=== PATIENT | female | born 1960 | race Two or more races ===

== ENCOUNTER → 2020-03-23 09:41 | Outpatient (BNVA) | payer MEDICARE, OTHER, SELFPAY | PROVIDERS: PCP Physician Assistant; Visit Provider Student in an Organized Health Care Education/Training Program | DX: M17.0 Bilateral primary osteoarthritis of knee (principal); M47.816 Spondylosis without myelopathy or radiculopathy, lumbar region | CPT/HCPCS: 99212 ==

== ENCOUNTER 2020-03-26 07:08 | Outpatient (REF) | payer OTHER, SELFPAY ==
[2020-03-26 08:15] LABS: MANUAL DIFF FLAG NO
[2020-03-26 08:17] LABS: Basophils Percent Auto 0.5 % (0-2); Eosinophils Absolute Auto 0.2 X10*3/uL (0.0-0.4); Eosinophils Percent Auto 2.8 % (0-4); Hematocrit 33.8 % (37-47); Hemoglobin 10.7 g/dl (12.0-16.0); Imm Gran Abs Auto 0.01 X10*3/uL (0.00-0.03); Imm Gran Pct Auto 0.2 % (0.0-0.4); Lymphocytes Absolute Auto 2.5 X10*3/uL (1.2-4.9); Lymphocytes Percent Auto 40.1 % (20-40); Mean Corpuscular HGB Conc 31.7 g/dl (31.0-35.0); Mean Corpuscular Hemoglobin 28.5 pg (27.0-33.0); Mean Corpuscular Volume 89.9 fL (80-98); Mean Platelet Volume 9.6 fL (9.4-12.3); Monocytes Absolute Auto 0.3 X10*3/uL (0.1-1.2); Monocytes Percent Auto 5.4 % (2-11); Neutrophils Absolute Auto 3.2 X10*3/uL (2.0-8.3); Platelet Count 302 X10*3/uL (160-400); Red Blood Count 3.76 X10*6/uL (4.20-5.50); White Blood Count 6.2 X10*3/uL (4.8-10.8)
[2020-03-26 08:45] LABS: Alanine Aminotransferase 20 U/L (0-31); Albumin Level 4.2 g/dL (3.5-5.0); Alkaline Phosphatase 92 U/L (39-117); Anion Gap 13 (12-20); Aspartate Amino Transferase 21 U/L (5-31); Bilirubin Total 0.4 mg/dL (0.0-1.0); Blood Urea Nitrogen 26 mg/dL (9-16); Calcium 9.1 mg/dL (8.4-10.2); Carbon Dioxide 30 mmol/L (22-29); Chloride 102 mmol/L (96-108); Cholesterol 158 mg/dL; Estimated Glomerular Filt Rate 57; Glucose Fasting 108 mg/dL (60-99); HDL Cholesterol 48 mg/dL; LDL Cholesterol Calculated 73 mg/dl; Potassium 3.9 mmol/l (3.3-5.1); Sodium 141 mmol/L (135-145); Total Protein 7.5 g/dL (6.5-8.0); Triglycerides 186 mg/dL
[2020-03-26 09:07] LABS: Thyroid Stimulating Hormone 2.21 uIU/mL (0.32-4.0)
[2020-03-26 09:35] LABS: Creatinine Urine 185.37 mg/dL; Microalbum/Creatinine Ratio Ur 5.3 ug/mg cr
== END 2020-03-26 07:09 | disposition home or self-care (01) ==
LOC: HO.LAB 07:08
PROVIDERS: PCP Physician Assistant; Visit Provider Physician Assistant
DX: I10 Essential (primary) hypertension (principal); E11.9 Type 2 diabetes mellitus without complications; E78.5 Hyperlipidemia, unspecified
CPT/HCPCS: 36415; 80053; 80061; 82043; 84443; 85025

== ENCOUNTER 2020-04-24 07:09 | Outpatient (REF) | payer MEDICARE, OTHER, SELFPAY ==
[2020-04-24 08:15] LABS: Estimated Average Glucose 131 mg/dL; Hemoglobin A1c % 6.2 %
[2020-04-24 08:21] LABS: Creatinine Urine 217.76 mg/dL; Microalbum/Creatinine Ratio Ur 2.7 ug/mg cr
[2020-04-24 08:28] LABS: Alanine Aminotransferase 25 U/L (0-31); Albumin Level 4.4 g/dL (3.5-5.0); Alkaline Phosphatase 76 U/L (39-117); Anion Gap 14 (12-20); Aspartate Amino Transferase 22 U/L (5-31); Bilirubin Total 0.3 mg/dL (0.0-1.0); Blood Urea Nitrogen 15 mg/dL (9-16); Calcium 9.6 mg/dL (8.4-10.2); Carbon Dioxide 31 mmol/L (22-29); Chloride 100 mmol/L (96-108); Cholesterol 154 mg/dL; Estimated Glomerular Filt Rate 53; Glucose Fasting 113 mg/dL (60-99); HDL Cholesterol 54 mg/dL; Iron 74 mcg/dL (30-160); LDL Cholesterol Calculated 72 mg/dl; Percent Iron Saturation 19 % (15-50); Potassium 4.1 mmol/l (3.3-5.1); Sodium 141 mmol/L (135-145); Total Iron Binding Capacity 386 mcg/dL (228-428); Total Protein 7.8 g/dL (6.5-8.0); Triglycerides 142 mg/dL; Unsaturated Iron Binding 312 ug/dL
[2020-04-24 08:48] LABS: TSH reflex Free T4 1.19 mIU/mL (0.32-4.0)
[2020-04-26 07:19] LABS: Folate 19.9 ng/mL (> or = 4.0); Vitamin B12 469 pg/mL (200-900)
== END 2020-04-24 07:10 | disposition home or self-care (01) ==
LOC: HO.LAB 07:09
PROVIDERS: PCP Physician Assistant; Visit Provider Physician Assistant
DX: I10 Essential (primary) hypertension (principal); E78.1 Pure hyperglyceridemia; D50.9 Iron deficiency anemia, unspecified
CPT/HCPCS: 80053; 80061; 82043; 82607; 82746; 83036; 83540; 84443

== ENCOUNTER 2020-04-28 10:57 | Outpatient (REF) | payer MEDICARE, OTHER, SELFPAY ==
--- NOTE | 2020-04-28 11:00 | US_ITS ---
EXAMINATION: US PELVIS LIMITED (BLADDER) CLINICAL INFORMATION: Frequency of micturition. COMPARISON: Renal ultrasound 10/13/2013 and 03/26/2013. CT abdomen and pelvis 02/11/2012. TECHNIQUE: Real-time imaging of the bladder. FINDINGS: BLADDER: Well distended and normal. Bilateral ureteral jets are demonstrated. Prevoid bladder volume is 258 mL. Postvoid bladder volume is 8.7 mL. US/US bladder IMPRESSION: Unremarkable renal ultrasound. Tiny postvoid residual bladder volume. Normal bilateral ureteral jets seen.
== END 2020-04-28 10:58 | disposition home or self-care (01) ==
LOC: HO.US 10:57
PROVIDERS: PCP Physician Assistant; Visit Provider Physician Assistant
DX: R35.0 Frequency of micturition (principal)
CPT/HCPCS: 76857

== ENCOUNTER 2020-06-06 10:11 | Emergency (ER) | payer MEDICARE, OTHER, SELFPAY ==
--- NOTE | ~2020-06-06 | XR_ITS ---
EXAMINATION: XR hip RT w PEL1V CLINICAL INFORMATION: Injury status post fall. COMPARISON: None. TECHNIQUE: An AP view of the pelvis was obtained with AP and frog-leg lateral views of the right hip. FINDINGS: Each femoral head is well contained within its acetabulum. Joint spaces are normal. Mild degenerative changes are seen in each hip. No fracture or other acute abnormality is seen. XR/XR hip RT w PEL1V IMPRESSION: Mild degenerative changes. No fracture or other acute abnormality.
[2020-06-06 10:26] VITALS: BP 127/66; PULSE 85; RESP 16; TEMP 36.1; O2SAT 100; BMI 23.2
--- NOTE | 2020-06-06 10:35 | ED_ITS ---
HPI - Back Pain/Injury General Chief Complaint: Back Pain/Injury Stated Complaint: FALL BACK PAIN Time Seen by Provider: 06/06/20 10:30 Source: patient Mode of arrival: ambulatory Limitations: language barrier History of Present Illness HPI Narrative: 59 y/o female with history fo anxiety, HTN, HLD, anemia, lumbar spondylosis who presents with right sided hip and buttock pain s/p slip and fall on the ice 1 week ago. She did not hit her head, lose consciousness or sustain any other injuries. She has been able to walk well. Pain is worse when she bends down and at night when she is trying to sleep. She denies numbness, weakness, tingling. She denies incontinence. She has been taking Advil and taking hot showers for the pain with mild improvement. MD elicited complaint: back pain, back injury and fall Pertinent past history: prior back pain Onset (ago): day(s) (7) Timing: intermittent Severity: moderate Similar Symptoms Previously: Yes Quality: sharp and aching Location: right lower back Radiation: none Exacerbating factors: movement, coughing/sneezing and lifting Relieving factors: immobilization and medication Context: fall Associated symptoms: denies other symptoms Treatments prior to arrival: heat therapy Work related injury: No Related Data Home Medications Medication Instructions Recorded Confirmed docusate sodium 100 mg capsule 100 mg PO DAILY 03/08/20 04/06/20 fluoxetine 20 mg capsule 20 mg PO DAILY 03/08/20 04/06/20 hydrochlorothiazide 12.5 mg tablet 12.5 mg PO DAILY 03/08/20 04/06/20 olopatadine 0.1 % eye drops 1 drp OPHTHALMIC (EYE) BID 03/08/20 04/06/20 quetiapine 25 mg tablet 25 mg PO BEDTIME 03/08/20 04/06/20 fluticasone propionate 50 0 mcg INTRANASAL BID 04/06/20 04/06/20 mcg/actuation nasal spray,suspension zolpidem 10 mg tablet 10 mg PO BEDTIME PRN 05/11/20 Previous Rx's Medication Instructions Recorded leg brace #1 ea 02/05/20 comp.stocking,knee,long,medium #2 ea 02/16/20 atorvastatin 20 mg tablet 20 mg PO DAILY #30 tab 03/08/20 pioglitazone 15 mg tablet 15 mg PO DAILY #30 tab 03/08/20 diclofenac sodium 3 % topical gel 1 appl TOPICAL BID #100 g 03/23/20 montelukast 10 mg tablet 10 mg PO DAILY #30 tab 03/26/20 tramadol 50 mg tablet 50 mg PO BID #60 tab 03/26/20 omeprazole 20 mg capsule,delayed 20 mg PO DAILY #30 cap 03/27/20 release cholecalciferol (vitamin D3) 25 25 mcg PO DAILY #30 tab 04/14/20 mcg (1,000 unit) tablet diclofenac sodium 1 % topical gel 1 ea TOPICAL ONCE 30 Days #100 g 04/14/20 fluoxetine 40 mg capsule 40 mg PO DAILY 30 Days #30 cap 04/14/20 clonazepam 1 mg tablet 1 mg PO DAILY PRN 30 Days #30 tab 05/12/20 ferrous sulfate 325 mg (65 mg 325 mg PO DAILY 30 Days #30 tab 05/12/20 iron) tablet loratadine 10 mg tablet 10 mg PO DAILY 90 Days #90 tab 05/12/20 zolpidem 5 mg tablet 5 mg PO BEDTIME PRN 30 Days #30 tab 05/12/20 multivitamin 1 tab PO DAILY #90 tab 05/31/20 cyclobenzaprine 5 mg PO TID PRN #10 tab 06/06/20 ibuprofen 600 mg PO Q8H PRN #20 tab 06/06/20 lidocaine [Lidoderm] 1 patch TOPICAL DAILY #15 ea 06/06/20 Allergies Allergy/AdvReac Type Severity Reaction Status Date / Time No Known Allergies Allergy Verified 04/06/20 09:45 [No Known Allergies*] Review of Systems Review of Systems: Constitutional: No Fever, No Chills Gastrointestinal: No Nausea, No Vomiting, No Diarrhea, No abdominal Pain Genitourinary: No Dysuria, No Urinary Frequency, No Hematuria Musculoskeletal: + joint pain, + Myalgias Skin: No Skin Lesions, No rash Neuro: No Weakness, No Numbness, No Dizziness Psych: No Anxiety/Panic, No Depression Heme/Lymph: No Bruising PMFSH Past Medical History Attestation statement: The following information was validated with the patient. Medical History DMII (diabetes mellitus, type 2) Surgical History History of tubal ligation Family History Family History Father No problems noted. Mother No problems noted. Sister Breast cancer Brother Prediabetes Brain cancer Daughter Liver problem Social History Social History Alcohol intake: never Smoking Status: Never smoker Smoked in Last 30 Days: No Use of substances other than those prescribed or required for medical reasons: No Advance Directives: No Advance Directives Information Provided: No Physical Exam Vital Signs: Vital Signs: Last Vital Signs Temp 97.0 F 06/06/20 10:26 Pulse 85 06/06/20 10:26 Resp 16 06/06/20 10:26 BP 127/66 06/06/20 10:26 Pulse Ox 100 06/06/20 10:26 Body Mass Index 23.2 Appearance: Alert. Oriented X3. No acute distress. HEENT: normal inspection CVS: Normal heart rate and rhythm. Pulses normal. Respiratory: No respiratory distress. Skin: Skin warm and dry. Normal skin color. Normal skin turgor. No rashes. Back: right low lumbar soft tissue tenderness, no spinal tenderness. No CVA tenderness Extremities: atraumatic, pelvis is stable. right hip soft tissue tenderness laterally without ecchymosis or deformity Neuro: Oriented X 3. No motor deficit. No sensory deficit. Walks with steady gait, no limp. Able to stand on one leg each independently Course Course Course Narrative: 59 y/o female with right low back/buttock and right hip pain after a fall on ice 2 weeks ago. Doubt acute fracture or bony injury given her examination and normal gait. Will get X-rays for further evaluation and give Toradol, Tylenol and Flexeril now for pain. Will reassess. Reevaluation(s) Reevaluation #1: Pain is improved. XR is negative for acute injury. She is stable for discharge with treatment for contusiuon. MDM - Back Pain/Injury Differential Diagnosis Differential diagnosis: Likely lumbar radiculopathy, sciatica and strain of lumbar region Critical Care Time Critical Care Time Critical Care Time: No Discharge Plan Discharge Clinical Impression: Contusion of hip, right Qualifiers: Encounter type: initial encounter Qualified Code(s): S70.01XA - Contusion of right hip, initial encounter Patient Disposition: Home, Self-Care Instructions: Hip Contusion (ED) Additional Instructions: Your x-ray today did not show any acute injuries. Use ice and/or heat to the area several times per day. Take the prescribed medications as needed for pain. No bending, lifting or twisting. Follow up with your Primary Care Doctor this week. If your pain worsens, if you develop new numbness, tingling, weakness, loss of function or incontinence call 911 or come back to the ER right away for evaluation. Prescriptions: New lidocaine [Lidoderm] 5 % adhesive patch,medicated 1 patch topical DAILY Qty: 15 RF: 0 ibuprofen 600 mg tablet 600 mg PO Q8H PRN (Reason: pain) Qty: 20 RF: 0 cyclobenzaprine 5 mg tablet 5 mg PO TID PRN (Reason: muscle spasm) Qty: 10 RF: 0 No Action (DME) ALETHA Knee Brace Misc See Rx Instructions .ROUTE .MEDSUPPLY Qty: 1 RF: 0 (DME) comp.stocking,knee,long,medium Misc See Rx Instructions .ROUTE .MEDSUPPLY Qty: 2 RF: 0 fluoxetine 20 mg capsule 20 mg PO DAILY RF: 0 olopatadine 0.1 % drops 1 drp ophthalmic (eye) BID RF: 0 quetiapine 25 mg tablet 25 mg PO BEDTIME RF: 0 docusate sodium [Colace] 100 mg capsule 100 mg PO DAILY RF: 0 hydrochlorothiazide 12.5 mg tablet 12.5 mg PO DAILY RF: 0 atorvastatin 20 mg tablet 20 mg PO DAILY Qty: 30 RF: 3 pioglitazone 15 mg tablet 15 mg PO DAILY Qty: 30 RF: 2 montelukast 10 mg tablet 10 mg PO DAILY Qty: 30 RF: 2 tramadol 50 mg tablet 50 mg PO BID Qty: 60 RF: 5 omeprazole 20 mg capsule,delayed release(DR/EC) 20 mg PO DAILY Qty: 30 RF: 3 fluoxetine 40 mg capsule 40 mg PO DAILY 30 Days Qty: 30 RF: 3 cholecalciferol (vitamin D3) [Vitamin D3] 25 mcg (1,000 unit) tablet 25 mcg PO DAILY Qty: 30 RF: 3 diclofenac sodium 1 % gel 1 ea topical ONCE 30 Days Qty: 100 RF: 1 zolpidem 10 mg tablet 10 mg PO BEDTIME PRNRF: 0 clonazepam 1 mg tablet 1 mg PO DAILY PRN (Reason: anxiety) 30 Days Qty: 30 RF: 2 zolpidem [Ambien] 5 mg tablet 5 mg PO BEDTIME PRN (Reason: sleep) 30 Days Qty: 30 RF: 2 ferrous sulfate 325 mg (65 mg iron) tablet 325 mg PO DAILY 30 Days Qty: 30 RF: 3 loratadine [Allergy Relief (loratadine)] 10 mg tablet 10 mg PO DAILY 90 Days Qty: 90 RF: 2 multivitamin [Daily-Dionisio] Tablet 1 tab PO DAILY Qty: 90 RF: 4 fluticasone propionate 50 mcg/actuation spray,suspension 0 mcg intranasal BID RF: 0 diclofenac sodium 3 % gel 1 appl topical BID Qty: 100 RF: 2 Print Language: Upper Sorbian
[2020-06-06] MEDS: Cyclobenzaprine HCl 5 MG TABLET PO (10:37)
[2020-06-06] MEDS: Acetaminophen 325 MG TABLET 975 MG PO (10:37)
[2020-06-06] MEDS: Ketorolac Tromethamine 30 MG/ML VIAL IM (10:40)
--- NOTE | 2020-06-06 10:58 | PC.NURSE ---
will apply salonpas patch after xrays performed
[2020-06-06] MEDS: Lidocaine 4 % Patch ADH..PATCH 1 PATCH TRANSDERMA (11:22)
== END 2020-06-06 12:19 | disposition home or self-care (01) ==
PROVIDERS: Emergency Provider Emergency Medicine Emergency Medical Services; PCP Physician Assistant
DX: S70.01XA Contusion of right hip, initial encounter (principal); M25.551 Pain in right hip; W00.0XXA Fall on same level due to ice and snow, initial encounter; Y93.01 Activity, walking, marching and hiking; Y92.9 Unspecified place or not applicable; Y99.9 Unspecified external cause status; Z79.899 Other long term (current) drug therapy
CPT/HCPCS: 73502; 96372; 99283; 99284; J1885

== ENCOUNTER 2020-07-17 10:21 | Emergency (ER) | payer MEDICARE, OTHER, SELFPAY ==
[2020-07-17 10:25] VITALS: BP 110/65; PULSE 63; RESP 16; TEMP 36.4; O2SAT 98; BMI 23.2
--- NOTE | 2020-07-17 10:36 | PC.NURSE ---
ambulatory with steady gait to [facility], changing in to hospital gown for exam
--- NOTE | 2020-07-17 11:45 | ED_ITS ---
HPI - Extremity Problem General Chief complaint: Extremity Injury, Upper Stated complaint: shoulder pain Time Seen by Provider: 07/17/20 11:07 Source: patient Mode of arrival: ambulatory History of Present Illness HPI Narrative: 60-year-old female with a past medical history of diabetes, tubal ligation, presented to the ED complaining of right shoulder pain x2 weeks. denies known injury/trauma, falls or lifting. Reports pain with ROM. Denies numbness, tingling, weakness, chest pain, shortness of breath Related Data Home Medications Medication Instructions Recorded Confirmed docusate sodium 100 mg capsule 100 mg PO DAILY 03/08/20 04/06/20 fluoxetine 20 mg capsule 20 mg PO DAILY 03/08/20 04/06/20 hydrochlorothiazide 12.5 mg tablet 12.5 mg PO DAILY 03/08/20 04/06/20 olopatadine 0.1 % eye drops 1 drp OPHTHALMIC (EYE) BID 03/08/20 04/06/20 quetiapine 25 mg tablet 25 mg PO BEDTIME 03/08/20 04/06/20 fluticasone propionate 50 0 mcg INTRANASAL BID 04/06/20 04/06/20 mcg/actuation nasal spray,suspension zolpidem 10 mg tablet 10 mg PO BEDTIME PRN 05/11/20 cholecalciferol (vitamin D3) 25 25 mcg PO DAILY 06/23/20 mcg (1,000 unit) tablet Previous Rx's Medication Instructions Recorded leg brace #1 ea 02/05/20 comp.stocking,knee,long,medium #2 ea 02/16/20 atorvastatin 20 mg tablet 20 mg PO DAILY #30 tab 03/08/20 diclofenac sodium 3 % topical gel 1 appl TOPICAL BID #100 g 03/23/20 tramadol 50 mg tablet 50 mg PO BID #60 tab 03/26/20 omeprazole 20 mg capsule,delayed 20 mg PO DAILY #30 cap 03/27/20 release fluoxetine 40 mg capsule 40 mg PO DAILY 30 Days #30 cap 04/14/20 clonazepam 1 mg tablet 1 mg PO DAILY PRN 30 Days #30 tab 05/12/20 ferrous sulfate 325 mg (65 mg 325 mg PO DAILY 30 Days #30 tab 05/12/20 iron) tablet loratadine 10 mg tablet 10 mg PO DAILY 90 Days #90 tab 05/12/20 zolpidem 5 mg tablet 5 mg PO BEDTIME PRN 30 Days #30 tab 05/12/20 multivitamin 1 tab PO DAILY #90 tab 05/31/20 cyclobenzaprine 5 mg PO TID PRN #10 tab 06/06/20 ibuprofen 600 mg PO Q8H PRN #20 tab 06/06/20 lidocaine [Lidoderm] 1 patch TOPICAL DAILY #15 ea 06/06/20 cholecalciferol (vitamin D3) 25 25 mcg PO DAILY #30 tab 06/23/20 mcg (1,000 unit) tablet diclofenac sodium 1 % topical gel 2 g TOPICAL DAILY #100 g 06/23/20 montelukast 10 mg tablet 10 mg PO DAILY #30 tab 06/23/20 pioglitazone 15 mg tablet 15 mg PO DAILY #30 tab 07/05/20 acetaminophen [Tylenol Extra 500 mg PO Q6H PRN #20 tab 07/17/20 Strength] cyclobenzaprine 5 mg PO Q8H PRN 5 Days #14 tab 07/17/20 lidocaine [Lidoderm] 1 patch TOPICAL DAILY PRN #30 ea 07/17/20 MDD remove after 12 hours naproxen 500 mg PO BID PRN 10 Days #20 tab 07/17/20 Allergies Allergy/AdvReac Type Severity Reaction Status Date / Time No Known Allergies Allergy Verified 07/17/20 10:29 [No Known Allergies*] Review of Systems Review of Systems: Constitutional: No Fever, No Chills Cardiovascular: No Chest Pain, No SOB Musculoskeletal: + joint pain, No Myalgias, No Joint Swelling Skin: No Skin Lesions, No rash Neuro: No Weakness, No Numbness, No Paresthesias Yes all other systems are reviewed and are negative PENDING SALE TO [facility] Past Medical History Attestation statement: The following information was validated with the patient. Medical History DMII (diabetes mellitus, type 2) Surgical History History of tubal ligation Family History Family History Father No problems noted. Mother No problems noted. Sister Breast cancer Brother Prediabetes Brain cancer Daughter Liver problem Social History Social History Alcohol intake: never Smoking Status: Never smoker Advance Directives: No Advance Directives Information Provided: No Physical Exam Vital Signs: Vital Signs: Last Vital Signs Temp 97.5 F 07/17/20 10:25 Pulse 63 07/17/20 10:25 Resp 16 07/17/20 10:25 BP 110/65 07/17/20 10:25 Pulse Ox 98 07/17/20 10:25 Body Mass Index 23.2 Const: General: cooperative and healthy appearing Orientation/consciousness: patient oriented x3 Limitations: no limitations HENMT: Head: Yes normal to inspection Ears: hearing grossly normal bilaterally General nose exam: Normal external nose present Face and sinus: Yes normal facial exam Eyes: General: appearance normal, both eyes and all related structures EOM: EOMs intact bilaterally Neck: Neck: Yes normal visual inspection Resp: Effort & Inspection: normal respiratory effort Cardio: Rate: regular rate Peripheral pulses: radial pulses present Skin: Rashes: no rashes Wounds: no wounds Neuro: General: patient oriented x3, gait normal and tone normal Gait exam (Neuro): Normal gait present Extrem: Other: Pain elicited with ROM General: Yes normal to inspection Right upper extremity: shoulder/upper arm Details: tenderness Location: of the A-C joint and abnormal ROM (Decreased abduction secondary to pain); no swelling, no crepitus and no unusual warmth MDM - Extremity (Nontraumatic) MDM Narrative Medical decision making narrative: 60-year-old female with a past medical history of diabetes, tubal ligation, presented to the ED complaining of right shoulder pain x2 weeks. On exam VSS, NAD/well-appearing, physical exam as above. Concern for MSK pain/rotator cuff injury/tendon injury/sprain. Unlikely fracture/dislocation. low concern for ACS Discharge Plan Discharge Clinical Impression: Acute shoulder pain Qualifiers: Laterality: right Qualified Code(s): M25.511 - Pain in right shoulder Patient Disposition: Home, Self-Care Instructions: Arthralgia (ED) Additional Instructions: Your pain is likely musculoskeletal Flexeril is a muscle relaxer, take at night as it makes you drowsy, do not drive, drink alcohol, or operate machinery while taking it Naproxen as an anti-inflammatory / pain medication, take with food Lidoderm patches are numbing patches, apply to painful area In addition take Tylenol at home If symptoms persist or worsen, pain becomes unbearable, you weakness or fever return to the ED Follow-up with orthopedics and her primary care doctor, you may need an MRI Es probable que gray dolor sea musculoesquel?stephen Flexeril es un relajante muscular, t?lucas por la noche ya que le produce somnolencia, no conduzca, no irvin alcohol ni utilice maquinaria mientras lo petros. Naproxeno yadi medicamento antiinflamatorio / analg?sico, eliz con alimentos. Los parches de Lidoderm son parches que adormecen, se aplican al ?stefani dolorida Adem?s, tome Tylenol en casa. Si los s?ntomas persisten o empeoran, el dolor se vuelve insoportable, la debilidad o la fiebre vuelven al servicio de urgencias Seguimiento con ortopedia y gray m?dico de atenci?n primaria, es posible que necesite tenisha resonancia magn?william Prescriptions: New acetaminophen [Tylenol Extra Strength] 500 mg tablet 500 mg PO Q6H PRN (Reason: pain or fever) Qty: 20 RF: 0 lidocaine [Lidoderm] 5 % adhesive patch,medicated 1 patch topical DAILY MDD remove after 12 hours PRN (Reason: pain) Qty: 30 RF: 0 naproxen 500 mg tablet 500 mg PO BID PRN (Reason: pain) 10 Days Qty: 20 RF: 0 cyclobenzaprine 5 mg tablet 5 mg PO Q8H PRN (Reason: pain (scale score 7-10)) 5 Days Qty: 14 RF: 0 No Action (DME) ALETHA Knee Brace Misc See Rx Instructions .ROUTE .MEDSUPPLY Qty: 1 RF: 0 (DME) comp.stocking,knee,long,medium Misc See Rx Instructions .ROUTE .MEDSUPPLY Qty: 2 RF: 0 fluoxetine 20 mg capsule 20 mg PO DAILY RF: 0 olopatadine 0.1 % drops 1 drp ophthalmic (eye) BID RF: 0 quetiapine 25 mg tablet 25 mg PO BEDTIME RF: 0 docusate sodium [Colace] 100 mg capsule 100 mg PO DAILY RF: 0 hydrochlorothiazide 12.5 mg tablet 12.5 mg PO DAILY RF: 0 atorvastatin 20 mg tablet 20 mg PO DAILY Qty: 30 RF: 3 tramadol 50 mg tablet 50 mg PO BID Qty: 60 RF: 5 omeprazole 20 mg capsule,delayed release(DR/EC) 20 mg PO DAILY Qty: 30 RF: 3 fluoxetine 40 mg capsule 40 mg PO DAILY 30 Days Qty: 30 RF: 3 zolpidem 10 mg tablet 10 mg PO BEDTIME PRNRF: 0 clonazepam 1 mg tablet 1 mg PO DAILY PRN (Reason: anxiety) 30 Days Qty: 30 RF: 2 zolpidem [Ambien] 5 mg tablet 5 mg PO BEDTIME PRN (Reason: sleep) 30 Days Qty: 30 RF: 2 ferrous sulfate 325 mg (65 mg iron) tablet 325 mg PO DAILY 30 Days Qty: 30 RF: 3 loratadine [Allergy Relief (loratadine)] 10 mg tablet 10 mg PO DAILY 90 Days Qty: 90 RF: 2 multivitamin [Daily-Dionisio] Tablet 1 tab PO DAILY Qty: 90 RF: 4 montelukast 10 mg tablet 10 mg PO DAILY Qty: 30 RF: 6 diclofenac sodium 1 % gel 2 g topical DAILY Qty: 100 RF: 2 cholecalciferol (vitamin D3) 25 mcg (1,000 unit) tablet 25 mcg PO DAILY RF: 0 cholecalciferol (vitamin D3) [Vitamin D3] 25 mcg (1,000 unit) tablet 25 mcg PO DAILY Qty: 30 RF: 6 pioglitazone 15 mg tablet 15 mg PO DAILY Qty: 30 RF: 4 lidocaine [Lidoderm] 5 % adhesive patch,medicated 1 patch topical DAILY Qty: 15 RF: 0 ibuprofen 600 mg tablet 600 mg PO Q8H PRN (Reason: pain) Qty: 20 RF: 0 cyclobenzaprine 5 mg tablet 5 mg PO TID PRN (Reason: muscle spasm) Qty: 10 RF: 0 fluticasone propionate 50 mcg/actuation spray,suspension 0 mcg intranasal BID RF: 0 diclofenac sodium 3 % gel 1 appl topical BID Qty: 100 RF: 2 Referrals: Tae Cerda MD [Physician] - 1 week (as needed) Interventions: ED Discharge Assessment Last Done: 07/17/20 12:00 Discharge Date/Time: 07/17/20 12:06 Print Language: Cymro
[2020-07-17] MEDS: Ketorolac Tromethamine 15 MG/ML VIAL IM (12:22)
== END 2020-07-17 12:06 | disposition home or self-care (01) ==
PROVIDERS: Emergency Provider Emergency Medicine; PCP Physician Assistant
DX: M25.511 Pain in right shoulder (principal); E11.9 Type 2 diabetes mellitus without complications; Z79.899 Other long term (current) drug therapy
CPT/HCPCS: 96372; 99283; 99284; J1885

== ENCOUNTER → 2020-09-06 08:12 | Outpatient (BNVA) | payer MEDICARE, OTHER, SELFPAY | PROVIDERS: PCP Physician Assistant; Visit Provider Nurse Practitioner Family | DX: M53.3 Sacrococcygeal disorders, not elsewhere classified (principal) | CPT/HCPCS: 99212 ==

== ENCOUNTER 2020-09-17 08:24 | Outpatient (REF) | payer MEDICARE, OTHER, SELFPAY ==
--- NOTE | ~2020-09-17 | MM_ITS ---
EXAMINATION: MM SCREENING DIGITAL BREAST TOMOSYNTHESIS, BILATERAL CLINICAL INFORMATION: Screening. Asymptomatic. The lifetime risk of breast cancer based on the Tyrer-Cuzick Model is 10%. COMPARISON: Mammography: 07/28/2019, 07/20/2018, 06/30/2017, 06/10/2016 TECHNIQUE: Digital breast tomosynthesis is performed in both the craniocaudal and mediolateral oblique views along with computer-aided detection (CAD). Synthesized 2D images are generated from the tomosynthesis. FINDINGS: The breasts are heterogeneously dense, which may obscure small masses (ACR BI-RADS breast composition Category c). There are no significant masses, abnormal calcifications, or other abnormalities. Parenchymal pattern is similar to prior studies. Skin contours. No significant changes from prior studies. MM/MM tomosynthesis screening BI IMPRESSION: No mammographic evidence of malignancy. ASSESSMENT: BI-RADS 1: Negative RECOMMENDATION: Routine annual mammography screening. This patient's information was entered into a reminder system with a target due date for their next mammogram.
== END 2020-09-17 08:25 | disposition home or self-care (01) ==
LOC: HO.MAMMO 08:24
PROVIDERS: PCP Physician Assistant; Visit Provider Physician Assistant
DX: Z12.31 Encounter for screening mammogram for malignant neoplasm of breast (principal)
CPT/HCPCS: 77063; 77067

== ENCOUNTER 2020-10-22 08:46 | Outpatient (REF) | payer MEDICARE, OTHER, SELFPAY ==
--- NOTE | ~2020-10-22 | MR_ITS ---
EXAMINATION: MR LUMBAR SPINE WITHOUT CONTRAST CLINICAL INFORMATION: Spondylosis without myelopathy or radiculopathy. COMPARISON: Lumbar spine radiographs 01/31/2019, MRI lumbar spine 03/09/2011 TECHNIQUE: MRI of the lumbar spine was obtained using routine sequences without contrast. FINDINGS: VERTEBRAL BODIES AND PARASPINAL STRUCTURES: Five lumbar-type vertebral bodies are identified. Vertebral body height, alignment and marrow signal are within normal limits aside from mild endplate discogenic marrow signal changes predominantly related to mild multilevel anterior endplate osteophytosis. Partial visualization is made of a prominent central canal perineural cyst measuring 3.8 cm in craniocaudal dimension and 1.2 cm in transverse dimension, unchanged compared with 03/09/2011. A 7 mm diameter rounded T2 hyperintensity with low T1-weighted signal intensity is present in the anterior interpolar segment of the right kidney and appears to correspond to a similar slightly decreased sized focus on the exam of 03/09/2011 most likely representing a simple cyst requiring no additional imaging followup. CONUS MEDULLARIS AND CAUDA EQUINA: Normal, terminating at the level of L1-L2. SPINAL LEVELS: T12-L1: No central or foraminal stenoses. Normal intervertebral disc. L1-L2: No change compared with 03/09/2011. Minimal posterior broad-based disc bulge. Moderate bilateral ligamentum flavum hypertrophy. No significant central or foraminal stenoses. L2-L3: No central or foraminal stenoses. Mild bilateral facet and ligamentum flavum hypertrophy. L3-L4: Moderate bilateral facet hypertrophy increased in degree compared with 03/09/2011. Marked bilateral ligamentum flavum hypertrophy increased compared with 03/09/2011. Mild central stenosis. A 4 mm diameter synovial cyst is associated with the posterior aspect of the left facet joint and is new compared with 03/09/2011. L4-L5: Moderate central stenosis increased in degree compared with 03/09/2011. Findings arise in the setting of marked bilateral ligamentum flavum hypertrophy and moderate bilateral facet hypertrophy. Bilateral posterior projecting synovial cysts each measuring approximately 6 mm in maximum dimension are noted and are new compared with 03/09/2011. L5-S1: Moderate-marked central stenosis unchanged in degree compared with 03/09/2011. Moderate bilateral facet hypertrophy unchanged compared with 03/09/2011. Central stenosis is present secondary to concentric epidural lipomatosis with near-complete effacement of the adjacent thecal sac CSF space. The intervertebral disc is normal in height and contour. MR/MR lumbar spine wo con IMPRESSION: 1. Moderate multilevel chronic spondylosis of the lumbar spine with interval progression of findings at L3-L4 and L4-L5 compared with 03/09/2011, as detailed above. 2. Advanced facet hypertrophic degenerative changes at L3-L4, L4-L5 and L5-S1. 3. L5-S1 moderate-marked central stenosis secondary to concentric epidural lipomatosis. 4. L4-L5 moderate central stenosis. 5. 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
== END 2020-10-22 08:47 | disposition home or self-care (01) ==
LOC: HO.MRI 08:46
PROVIDERS: PCP Physician Assistant; Visit Provider Physician Assistant
DX: M47.816 Spondylosis without myelopathy or radiculopathy, lumbar region (principal)
CPT/HCPCS: 72148

== ENCOUNTER → 2020-11-09 08:50 | Outpatient (BNVA) | payer OTHER, SELFPAY | PROVIDERS: PCP Physician Assistant; Visit Provider Nurse Practitioner Family ==

== ENCOUNTER 2020-11-24 08:50 | Outpatient (REF) | payer MEDICARE, OTHER, SELFPAY ==
[2020-11-24 10:49] LABS: Hematocrit 35.7 % (37-47); Hemoglobin 11.4 g/dl (12.0-16.0); Mean Corpuscular HGB Conc 31.9 g/dl (31.0-35.0); Mean Corpuscular Hemoglobin 28.4 pg (27.0-33.0); Mean Corpuscular Volume 88.8 fL (80-98); Mean Platelet Volume 9.9 fL (9.4-12.3); Platelet Count 302 X10*3/uL (160-400); Red Blood Count 4.02 X10*6/uL (4.20-5.50); Red Cell Distribution Width 12.8 % (11.0-16.0); White Blood Count 5.4 X10*3/uL (4.8-10.8)
[2020-11-24 11:00] LABS: Alanine Aminotransferase 17 U/L (0-31); Albumin Level 4.1 g/dL (3.5-5.0); Alkaline Phosphatase 81 U/L (39-117); Anion Gap 12 (12-20); Aspartate Amino Transferase 20 U/L (5-31); Bilirubin Total 0.4 mg/dL (0.0-1.0); Blood Urea Nitrogen 20 mg/dL (9-16); Calcium 9.4 mg/dL (8.4-10.2); Carbon Dioxide 30 mmol/L (22-29); Chloride 104 mmol/L (96-108); Cholesterol 160 mg/dL; Estimated Glomerular Filt Rate 49; Glucose Fasting 119 mg/dL (60-99); HDL Cholesterol 46 mg/dL; LDL Cholesterol Calculated 82 mg/dl; Potassium 3.8 mmol/L (3.3-5.1); Sodium 142 mmol/L (135-145); Total Protein 7.4 g/dL (6.5-8.0); Triglycerides 161 mg/dL
[2020-11-24 11:10] LABS: Microalbum/Creatinine Ratio Ur 7.9 ug/mg cr
[2020-11-24 11:23] LABS: TSH reflex Free T4 1.01 uIU/mL (0.32-4.0)
== END 2020-11-24 08:51 | disposition home or self-care (01) ==
LOC: HO.LAB 08:50
PROVIDERS: PCP Physician Assistant; Visit Provider Physician Assistant
DX: I10 Essential (primary) hypertension (principal); E11.9 Type 2 diabetes mellitus without complications
CPT/HCPCS: 36415; 80053; 80061; 82043; 84443; 85027

== ENCOUNTER → 2020-12-07 08:03 | Outpatient (BNVA) | payer MEDICARE, OTHER, SELFPAY | PROVIDERS: PCP Physician Assistant; Visit Provider Nurse Practitioner Family | DX: M53.3 Sacrococcygeal disorders, not elsewhere classified (principal); M48.07 Spinal stenosis, lumbosacral region; M47.816 Spondylosis without myelopathy or radiculopathy, lumbar region | CPT/HCPCS: 99212 ==

== ENCOUNTER → 2021-03-23 08:52 | Outpatient (BNVA) | payer MEDICARE, MEDICAID, SELFPAY | PROVIDERS: PCP Physician Assistant; Visit Provider Nurse Practitioner Family | DX: M47.816 Spondylosis without myelopathy or radiculopathy, lumbar region (principal); M79.18 Myalgia, other site | CPT/HCPCS: 99212 ==

== ENCOUNTER 2021-03-25 08:42 | Outpatient (REF) | payer MEDICARE, MEDICAID, SELFPAY ==
[2021-03-25 10:01] LABS: Hematocrit 36.3 % (37.0-47.0); Hemoglobin 11.6 g/dl (12.0-16.0); Mean Corpuscular Hemoglobin 28.4 pg (27.0-33.0); Mean Platelet Volume 9.5 fL (9.4-12.3); Platelet Count 309 X10*3/uL (160-400); Red Blood Count 4.08 X10*6/uL (4.20-5.50); Red Cell Distribution Width 12.9 % (11.0-16.0); White Blood Count 5.5 X10*3/uL (4.8-10.8)
[2021-03-25 10:12] LABS: Estimated Average Glucose 131 mg/dL; Hemoglobin A1c % 6.2 %
[2021-03-25 10:33] LABS: Alanine Aminotransferase 25 U/L (0-31); Albumin Level 4.4 g/dL (3.5-5.0); Alkaline Phosphatase 84 U/L (39-117); Anion Gap 15 (12-20); Aspartate Amino Transferase 25 U/L (5-31); Blood Urea Nitrogen 17 mg/dL (9-16); Carbon Dioxide 28 mmol/L (22-29); Chloride 103 mmol/L (96-108); Cholesterol 172 mg/dL; Estimated Glomerular Filt Rate 48; Glucose Fasting 117 mg/dL (60-99); HDL Cholesterol 55 mg/dL; LDL Cholesterol Calculated 99 mg/dl; Potassium 3.8 mmol/L (3.3-5.1); Sodium 142 mmol/L (135-145); Total Protein 7.8 g/dL (6.5-8.0); Triglycerides 92 mg/dL
== END 2021-03-25 08:43 | disposition home or self-care (01) ==
LOC: HO.LAB 08:42
PROVIDERS: PCP Physician Assistant; Visit Provider Physician Assistant
DX: E11.9 Type 2 diabetes mellitus without complications (principal); I10 Essential (primary) hypertension
CPT/HCPCS: 36415; 80053; 80061; 83036; 85027

== ENCOUNTER 2021-03-29 10:31 | Emergency (ER) | payer MEDICARE, MEDICAID, SELFPAY ==
--- NOTE | 2021-03-29 | ECG_ITS ---
Test Reason : CP Blood Pressure : / mmHG Vent. Rate : 064 BPM Atrial Rate : 064 BPM P-R Int : 148 ms QRS Dur : 094 ms QT Int : 424 ms P-R-T Axes : 038 -05 033 degrees QTc Int : 437 ms Normal sinus rhythm Incomplete right bundle branch block Borderline ECG When compared to the previous EKG of No significant changes seen Referred By: Generic ED Physician Electronically Signed By:Derik Ramirez
--- NOTE | ~2021-03-29 | XR_ITS ---
EXAMINATION: XR CHEST CLINICAL INFORMATION: Pain COMPARISON: Previous chest x-ray most recent September 2018 TECHNIQUE: Frontal view of the chest was obtained. FINDINGS: The cardiac and mediastinal contours are stable. There may be subsegmental atelectasis of the left lung base. The lungs are otherwise clear. There is no pleural effusion or pneumothorax. There are degenerative changes of the spine. There is curvature of the lumbar spine to the left. XR/XR chest 1V IMPRESSION: Subsegmental atelectasis at the left lung base. No evidence for acute disease in the chest.
[2021-03-29 10:52] VITALS: BP 133/48; PULSE 61; RESP 18; TEMP 36.2; O2SAT 98; BMI 23.6
[2021-03-29 12:35] LABS: MANUAL DIFF FLAG NO
[2021-03-29 12:36] LABS: Basophils Percent Auto 0.5 % (0-2); Eosinophils Absolute Auto 0.1 X10*3/uL (0.0-0.4); Eosinophils Percent Auto 1.7 % (0-4); Hematocrit 36.3 % (37.0-47.0); Hemoglobin 11.8 g/dl (12.0-16.0); Imm Gran Abs Auto 0.01 X10*3/uL (0.00-0.03); Imm Gran Pct Auto 0.2 % (0.0-0.4); Lymphocytes Absolute Auto 2.4 X10*3/uL (1.2-4.9); Lymphocytes Percent Auto 40.3 % (20-40); Mean Corpuscular HGB Conc 32.5 g/dl (31.0-35.0); Mean Corpuscular Hemoglobin 29.1 pg (27.0-33.0); Mean Corpuscular Volume 89.6 fL (80.0-98.0); Monocytes Absolute Auto 0.3 X10*3/uL (0.1-1.2); Monocytes Percent Auto 4.8 % (2-11); Neutrophils Absolute Auto 3.1 x10*3/uL (2.0-8.3); Neutrophils Percent Auto 52.5 % (45-73); Platelet Count 295 X10*3/uL (160-400); Red Blood Count 4.05 X10*6/uL (4.20-5.50); Red Cell Distribution Width 12.9 % (11.0-16.0)
[2021-03-29 12:51] LABS: Anion Gap 12 (12-20); Blood Urea Nitrogen 17 mg/dL (9-16); Carbon Dioxide 29 mmol/L (22-29); Chloride 103 mmol/L (96-108); Creatinine Clr Calc Pharmacy 42.1; Estimated Glomerular Filt Rate 51; Glucose Random 93 mg/dL (60-115); Potassium 3.4 mmol/L (3.3-5.1); Sodium 141 mmol/L (135-145)
[2021-03-29 12:58] LABS: Troponin-I High Sensitivity < 3.5 ng/L (<3.5-17.0)
--- NOTE | 2021-03-29 13:18 | ED_ITS ---
HPI - Chest Pain General Chief Complaint: Chest Pain Stated Complaint: Chest pain/headache Time Seen by Provider: 03/29/21 13:18 Source: patient and translator interpreter Mode of arrival: ambulatory Limitations: no limitations History of Present Illness MD complaint: chest pain Onset (ago): hour(s) (8am today) Timing of current episode: constant Prior episodes: Yes Onset: during rest Pain location: substernal Pain radiation: back Severity: mild Quality: sharp Relieving factors: nothing Exacerbating factors: stress Context: other (hx of anxiety in past tried 0.5mg clonazepam without effect) Associated symptoms: other (anxiety) Treatment prior to arrival: none Related Data Home Medications Medication Instructions Recorded Confirmed quetiapine 25 mg tablet 25 mg PO BEDTIME 03/08/20 03/23/21 aspirin 81 mg tablet,delayed 81 mg PO DAILY 12/07/20 03/23/21 release (Adult Aspirin Regimen) topiramate 25 mg sprinkle capsule 25 mg PO DAILY 12/07/20 03/23/21 Previous Rx's Medication Instructions Recorded leg brace (ALETHA Knee Brace) #1 ea 02/05/20 comp.stocking,knee,long,medium #2 ea 02/16/20 fluoxetine 40 mg capsule 40 mg PO DAILY 30 Days #30 cap 04/14/20 clonazepam 1 mg tablet 1 mg PO DAILY PRN 30 Days #30 tab 05/12/20 loratadine 10 mg tablet (Allergy 10 mg PO DAILY 90 Days #90 tab 05/12/20 Relief (loratadine)) zolpidem 5 mg tablet (Ambien) 5 mg PO BEDTIME PRN 30 Days #30 tab 05/12/20 multivitamin (Daily-Dionisio) 1 tab PO DAILY #90 tab 05/31/20 ibuprofen 600 mg tablet 600 mg PO Q8H PRN #20 tab 06/06/20 acetaminophen 500 mg tablet 500 mg PO Q6H PRN #20 tab 07/17/20 (Tylenol Extra Strength) naproxen 500 mg tablet 500 mg PO BID PRN 10 Days #20 tab 07/17/20 hydrocortisone valerate 0.2 % 1 appl TOPICAL BID 10 Days #45 g 09/06/20 topical cream ketoconazole 2 % shampoo 1 appl TOPICAL 2XW 30 Days #120 ml 10/18/20 atorvastatin 20 mg tablet 20 mg PO DAILY #30 tab 11/27/20 omeprazole 20 mg capsule,delayed 20 mg PO DAILY #30 cap 11/27/20 release cholecalciferol (vitamin D3) 25 25 mcg PO DAILY 90 Days #90 tab 01/24/21 mcg (1,000 unit) tablet sennosides 8.6 mg tablet (senna) 17.2 mg PO BEDTIME 30 Days #60 tab 01/24/21 montelukast 10 mg tablet 10 mg PO DAILY #30 tab 01/30/21 hydrocortisone valerate 0.2 % 1 appl TOPICAL BID PRN 30 Days #60 02/04/21 topical cream g diclofenac sodium 1 % topical gel 2 g TOPICAL DAILY #100 g 02/07/21 fluticasone propionate 50 2 spray INTRANASAL BID #16 g 02/24/21 mcg/actuation nasal spray,suspension hydrochlorothiazide 12.5 mg capsule 12.5 mg PO DAILY 90 Days #90 cap 02/24/21 lidocaine 5 % topical patch 1 patch TOPICAL DAILY #30 ea 03/23/21 docusate sodium 100 mg capsule 100 mg PO BID 15 Days #30 cap 03/28/21 (Dulcolax Stool Softener (docusate)) ferrous sulfate 325 mg (65 mg 325 mg PO DAILY 30 Days #30 tab 03/28/21 iron) tablet Allergies Allergy/AdvReac Type Severity Reaction Status Date / Time No Known Allergies Allergy Verified 03/23/21 09:05 [No Known Allergies*] Review of Systems Review of Systems: Constitutional : No Weight loss, No Fever, No Chills ENT/Mouth : No sore throat, No Rhinorrhea Eyes: No Eye Pain, No Swelling Cardiovascular : pos Chest Pain, no SOB, no Dyspnea on Exertion, No Orthopnea, No Edema, No Palpitations Respiratory : No Cough, No Sputum Gastrointestinal : no Nausea, No Vomiting, No Diarrhea, No abdominal Pain, No Hematochezia, No Melena Genitourinary : No Dysuria, No Urinary Frequency Musculoskeletal : No joint pain, No Myalgias, No Joint Swelling Skin : No Skin Lesions, No rash Neuro : No Weakness, No Numbness, No Dizziness, No Headache Psych : pos Anxiety/Panic, No Depression Heme/Lymph: No Bruising, No Lymphadenopathy Endocrine : No Polyuria, No Polydipsia All other systems reviewed and are negative PMFSH Past Medical History Medical History DMII (diabetes mellitus, type 2) Surgical History History of tubal ligation Family History Family History Father No problems noted. Mother No problems noted. Sister Breast cancer Brother Prediabetes Brain cancer Daughter Liver problem Social History Social History Housing: House Alcohol intake: never Patient Tobacco Use Status: Never used Tobacco Advance Directives: No Advance Directives Information Provided: Yes service: No Current occupational status: retired Physical Exam Vital Signs: Vital Signs: Last Vital Signs Temp 97.7 F 03/29/21 14:19 Pulse 54 03/29/21 14:19 Resp 16 03/29/21 14:19 BP 140/61 H 03/29/21 14:19 Pulse Ox 99 03/29/21 14:19 BMI result Body Mass Index 23.6 Appearance: Alert. Oriented X3. No acute distress. Eyes: Pupils equal, round and reactive to light. ENT: Pharynx normal. Neck: Normal inspection. Neck supple. CVS: Normal heart rate and rhythm. Pulses normal. Respiratory: No respiratory distress. Breath sounds normal. Abdomen: Soft and non-tender. Skin: Skin warm and dry. Normal skin color. Normal skin turgor. Extremities: No lower extremity edema. No calf ttp Neuro: Oriented X 3. No motor deficit. No sensory deficit. Course Course Course Narrative: 4.5 hour trop negative with nonischemic EKG and atypical doubt ACS ddimer negative negative workup stable for DC at this time MDM - Chest Pain MDM Narrative Medical decision making narrative: 60 yo female with DM, HTN, HLD, anxiety here with chest pain since 8am while at rest no associated symptoms it is atypical she reports anxiety her troponin x 4.5 hour pee is negative, ddimer ordered, EKG and CXR, PO clonazepam - suspect anxiety. Lab Data Result diagrams: 03/29/21 12:30 03/29/21 12:30 Labs: Lab Results 03/29/21 03/29/21 03/29/21 Range/Units 12:30 12:30 12:30 WBC 6.0 (4.8-10.8) X10*3/uL RBC 4.05 L (4.20-5.50) X10*6/uL Hgb 11.8 L (12.0-16.0) g/dl Hct 36.3 L (37.0-47.0) % MCV 89.6 (80.0-98.0) fL MCH 29.1 (27.0-33.0) pg MCHC 32.5 (31.0-35.0) g/dl RDW 12.9 (11.0-16.0) % Plt Count 295 (160-400) X10*3/uL MPV 9.0 L (9.4-12.3) fL Immature Gran % (Auto) 0.2 (0.0-0.4) % Neut % (Auto) 52.5 (45-73) % Lymph % (Auto) 40.3 H (20-40) % [place] % (Auto) 4.8 (2-11) % Eos % (Auto) 1.7 (0-4) % Baso % (Auto) 0.5 (0-2) % Lymph # (Auto) 2.4 (1.2-4.9) X10*3/uL [place] # (Auto) 0.3 (0.1-1.2) X10*3/uL Eos # (Auto) 0.1 (0.0-0.4) X10*3/uL Baso # (Auto) 0.0 (0.0-0.2) X10*3/uL Abs Immat Gran (auto) 0.01 (0.00-0.03) X10*3/uL Absolute Neuts (auto) 3.1 (2.0-8.3) x10*3/uL Absolute Nucleated RBC 0.000 (0.0-0.012) X10*3/uL Nucleated RBC % (auto) 0.0 (0.0-0.2) /100WBC D-Dimer High Sensitivty NG/ML Sodium 141 (135-145) mmol/L Potassium 3.4 (3.3-5.1) mmol/L Chloride 103 (96-108) mmol/L Carbon Dioxide 29 (22-29) mmol/L Anion Gap 12 (12-20) BUN 17 H (9-16) mg/dL Creatinine 1.09 (0.5-1.4) mg/dL Estim Creat Clear Calc 42.1 Estimated GFR 51 Random Glucose 93 (60-115) mg/dL Calcium 10.0 (8.4-10.2) mg/dL Troponin I High Sens < 3.5 (<3.5-17.0) ng/L 03/29/21 Range/Units 13:37 WBC (4.8-10.8) X10*3/uL RBC (4.20-5.50) X10*6/uL Hgb (12.0-16.0) g/dl Hct (37.0-47.0) % MCV (80.0-98.0) fL MCH (27.0-33.0) pg MCHC (31.0-35.0) g/dl RDW (11.0-16.0) % Plt Count (160-400) X10*3/uL MPV (9.4-12.3) fL Immature Gran % (Auto) (0.0-0.4) % Neut % (Auto) (45-73) % Lymph % (Auto) (20-40) % [place] % (Auto) (2-11) % Eos % (Auto) (0-4) % Baso % (Auto) (0-2) % Lymph # (Auto) (1.2-4.9) X10*3/uL [place] # (Auto) (0.1-1.2) X10*3/uL Eos # (Auto) (0.0-0.4) X10*3/uL Baso # (Auto) (0.0-0.2) X10*3/uL Abs Immat Gran (auto) (0.00-0.03) X10*3/uL Absolute Neuts (auto) (2.0-8.3) x10*3/uL Absolute Nucleated RBC (0.0-0.012) X10*3/uL Nucleated RBC % (auto) (0.0-0.2) /100WBC D-Dimer High Sensitivty 197 NG/ML Sodium (135-145) mmol/L Potassium (3.3-5.1) mmol/L Chloride (96-108) mmol/L Carbon Dioxide (22-29) mmol/L Anion Gap (12-20) BUN (9-16) mg/dL Creatinine (0.5-1.4) mg/dL Estim Creat Clear Calc Estimated GFR Random Glucose (60-115) mg/dL Calcium (8.4-10.2) mg/dL Troponin I High Sens (<3.5-17.0) ng/L ECG Data ECG #1: Attestation: I personally reviewed and interpreted this ECG as follows: ECG interpretation date: 03/29/21 ECG interpretation time: 13:18 Interpretation: Rate: 64 Rhythm: NSR [place]: left Normal P waves. Normal DENIS. incomplete RBB ST T wave : non-specific, no MABEL qTC: normal prior studies: no acute ischemia The study has been interpreted contemporaneously by me. . Discharge Plan Discharge Clinical Impression: Atypical chest pain Patient Disposition: Home, Self-Care Instructions: Chest Pain (ED) Additional Instructions: return to ED for any worsening symptoms or concerns Prescriptions: No Action (DME) ALETHA Knee Brace Misc See Rx Instructions .ROUTE .MEDSUPPLY Qty: 1 RF: 0 (DME) comp.stocking,knee,long,medium Misc See Rx Instructions .ROUTE .MEDSUPPLY Qty: 2 RF: 0 quetiapine 25 mg tablet 25 mg PO BEDTIME RF: 0 fluoxetine 40 mg capsule 40 mg PO DAILY 30 Days Qty: 30 RF: 3 clonazepam 1 mg tablet 1 mg PO DAILY PRN (Reason: anxiety) 30 Days Qty: 30 RF: 2 zolpidem [Ambien] 5 mg tablet 5 mg PO BEDTIME PRN (Reason: sleep) 30 Days Qty: 30 RF: 2 loratadine [Allergy Relief (loratadine)] 10 mg tablet 10 mg PO DAILY 90 Days Qty: 90 RF: 2 multivitamin [Daily-Dioinsio] Tablet 1 tab PO DAILY Qty: 90 RF: 4 hydrocortisone valerate 0.2 % cream 1 appl topical BID 10 Days Qty: 45 RF: 0 ketoconazole 2 % shampoo 1 appl topical 2XW 30 Days Qty: 120 RF: 0 omeprazole 20 mg capsule,delayed release(DR/EC) 20 mg PO DAILY Qty: 30 RF: 3 atorvastatin 20 mg tablet 20 mg PO DAILY Qty: 30 RF: 3 cholecalciferol (vitamin D3) 25 mcg (1,000 unit) tablet 25 mcg PO DAILY 90 Days Qty: 90 RF: 3 sennosides [senna] 8.6 mg tablet 17.2 mg PO BEDTIME 30 Days Qty: 60 RF: 1 montelukast 10 mg tablet 10 mg PO DAILY Qty: 30 RF: 6 hydrocortisone valerate 0.2 % cream 1 appl topical BID PRN (Reason: skin irritation) 30 Days Qty: 60 RF: 0 diclofenac sodium 1 % gel 2 g topical DAILY Qty: 100 RF: 2 hydrochlorothiazide 12.5 mg capsule 12.5 mg PO DAILY 90 Days Qty: 90 RF: 3 fluticasone propionate 50 mcg/actuation spray,suspension 2 spray intranasal BID Qty: 16 RF: 3 ferrous sulfate 325 mg (65 mg iron) tablet 325 mg PO DAILY 30 Days Qty: 30 RF: 3 docusate sodium [Dulcolax Stool Softener (dss)] 100 mg capsule 100 mg PO BID 15 Days Qty: 30 RF: 3 ibuprofen 600 mg tablet 600 mg PO Q8H PRN (Reason: pain) Qty: 20 RF: 0 acetaminophen [Tylenol Extra Strength] 500 mg tablet 500 mg PO Q6H PRN (Reason: pain or fever) Qty: 20 RF: 0 naproxen 500 mg tablet 500 mg PO BID PRN (Reason: pain) 10 Days Qty: 20 RF: 0 topiramate 25 mg capsule, sprinkle 25 mg PO DAILY RF: 0 aspirin [Adult Aspirin Regimen] 81 mg tablet,delayed release (DR/EC) 81 mg PO DAILY RF: 0 lidocaine 5 % adhesive patch,medicated 1 patch topical DAILY Qty: 30 RF: 0 Referrals: Juan R Ramirez PA-C [Primary Care Provider] - 2 days (if not better) Print Language: Luxem[place]ish
[2021-03-29 13:57] LABS: D Dimer High Sensitivity 197 NG/ML
[2021-03-29 14:19] VITALS: BP 140/61; PULSE 54; RESP 16; TEMP 36.5; O2SAT 99
[2021-03-29] MEDS: clonazePAM 0.5 MG TABLET PO (14:23)
== END 2021-03-29 15:32 | disposition home or self-care (01) ==
PROVIDERS: Emergency Provider Emergency Medicine; PCP Physician Assistant
DX: R07.9 Chest pain, unspecified (principal); R51.9 Headache, unspecified; F41.1 Generalized anxiety disorder; F43.0 Acute stress reaction; Z79.899 Other long term (current) drug therapy; Z20.822 Contact with and (suspected) exposure to COVID-19
CPT/HCPCS: 36415; 71045; 80048; 84484; 85025; 85379; 93005; 99283; 99284

== ENCOUNTER 2021-06-05 07:55 | Emergency (ER) | payer MEDICARE, MEDICAID, SELFPAY ==
--- NOTE | 2021-06-05 | ECG_ITS ---
Test Reason : CHEST PAIN Blood Pressure : / mmHG Vent. Rate : 069 BPM Atrial Rate : 069 BPM P-R Int : 154 ms QRS Dur : 090 ms QT Int : 414 ms P-R-T Axes : 063 002 024 degrees QTc Int : 443 ms Normal sinus rhythm Low voltage QRS Nonspecific T wave abnormality Abnormal ECG When compared with ECG of 29-MAR-2021 10:41, No significant change was found Referred By: Generic ED Physician Electronically Signed By:Derik Ramirez
--- NOTE | ~2021-06-05 | XR_ITS ---
EXAMINATION: XR CHEST CLINICAL INFORMATION: Right chest wall pain COMPARISON: X-ray 03/29/2021 TECHNIQUE: 2 views of the chest were obtained. FINDINGS: The lungs are well-expanded. There is no focal consolidation, edema or effusion. No pneumothorax is seen. The cardiomediastinal silhouette is within normal limits. No acute displaced rib fractures are seen. Mild thoracic spine degeneration.. XR/XR chest 2V IMPRESSION: No acute pulmonary disease.
[2021-06-05 08:16] VITALS: BP 116/58; PULSE 65; RESP 18; O2SAT 98; BMI 23.2
--- NOTE | 2021-06-05 08:52 | ED_ITS ---
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 Patient states that for the last week, she has had generalized body aches. Patient states that nobody in the house is sick or feeling unwell. Patient states that she is vaccinated and boosted against COVID-19 and has had her influenza shot. Patient denies any dizziness, lightheadedness, abdominal pain, nausea, vomiting, fever, chills, blurry vision, double vision, loss of vision, chest pain, difficulty breathing, shortness of breath, back pain, night sweats, pain with urination, increased urinary frequency, increased urinary urgency, blood in her urine or stool, syncope or a near syncopal episode, recent trauma or falls, bowel incontinence, bladder incontinence, bowel retention, bladder retention, or any other complaints at this time. Onset (ago): week(s) (1) Severity: mild Severity scale (1-10): 3 Quality: aching and dull Pain Consistency: constant Relieving factors: none Exacerbating factors: none Associated symptoms: denies other symptoms Related Data Home Medications Medication Instructions Recorded Confirmed quetiapine 25 mg tablet 25 mg PO BEDTIME 03/08/20 04/05/21 aspirin 81 mg tablet,delayed 81 mg PO DAILY 12/07/20 04/05/21 release (Adult Aspirin Regimen) topiramate 25 mg sprinkle capsule 25 mg PO DAILY 12/07/20 04/05/21 Previous Rx's Medication Instructions Recorded leg brace (ALETHA Knee Brace) #1 ea 02/05/20 comp.stocking,knee,long,medium #2 ea 02/16/20 clonazepam 1 mg tablet 1 mg PO DAILY PRN 30 Days #30 tab 05/12/20 zolpidem 5 mg tablet (Ambien) 5 mg PO BEDTIME PRN 30 Days #30 tab 05/12/20 ibuprofen 600 mg tablet 600 mg PO Q8H PRN #20 tab 06/06/20 acetaminophen 500 mg tablet 500 mg PO Q6H PRN #20 tab 07/17/20 (Tylenol Extra Strength) naproxen 500 mg tablet 500 mg PO BID PRN 10 Days #20 tab 07/17/20 ketoconazole 2 % shampoo 1 appl TOPICAL 2XW 30 Days #120 ml 10/18/20 cholecalciferol (vitamin D3) 25 25 mcg PO DAILY 90 Days #90 tab 01/24/21 mcg (1,000 unit) tablet montelukast 10 mg tablet 10 mg PO DAILY #30 tab 01/30/21 hydrocortisone valerate 0.2 % 1 appl TOPICAL BID PRN 30 Days #60 02/04/21 topical cream g diclofenac sodium 1 % topical gel 2 g TOPICAL DAILY #100 g 02/07/21 hydrochlorothiazide 12.5 mg capsule 12.5 mg PO DAILY 90 Days #90 cap 02/24/21 lidocaine 5 % topical patch 1 patch TOPICAL DAILY #30 ea 03/23/21 docusate sodium 100 mg capsule 100 mg PO BID 15 Days #30 cap 03/28/21 (Dulcolax Stool Softener (docusate)) ferrous sulfate 325 mg (65 mg 325 mg PO DAILY 30 Days #30 tab 03/28/21 iron) tablet atorvastatin 20 mg tablet 20 mg PO DAILY #30 tab 03/30/21 omeprazole 20 mg capsule,delayed 20 mg PO DAILY #30 cap 03/30/21 release ozaguelpvg-crnmbhskzzphb-zkvqhmue 1 cap PO Q6H PRN 4 Days #16 cap 04/05/21 50 mg-325 mg-40 mg capsule lactulose 20 gram/30 mL oral 20 g (30 mL) PO BID PRN 15 Days 04/05/21 solution #1200 ml bepotastine besilate 1.5 % eye 1 drp OPHTHALMIC (EYE) BID PRN 30 05/11/21 drops (Bepreve) Days #10 ml fluoxetine 40 mg capsule 40 mg PO DAILY 30 Days #30 cap 05/12/21 hydroxyzine HCl 25 mg tablet 25 mg PO TID 7 Days #21 tab 05/18/21 fluticasone propionate 50 2 spray INTRANASAL BID #16 g 05/30/21 mcg/actuation nasal spray,suspension loratadine 10 mg tablet (Allergy 10 mg PO DAILY 90 Days #90 tab 05/30/21 Relief (loratadine)) multivitamin (Daily-Dionisio) 1 tab PO DAILY #90 tab 05/30/21 hydrocortisone valerate 0.2 % 1 appl TOPICAL BID 10 Days #45 g 06/01/21 topical cream sennosides 8.6 mg tablet (senna) 17.2 mg PO BEDTIME 30 Days #60 tab 06/01/21 Allergies Allergy/AdvReac Type Severity Reaction Status Date / Time No Known Allergies Allergy Verified 04/05/21 08:54 [No Known Allergies*] Review of Systems Constitutional: Constitutional: Reports no additional constitutional complaints, Reports body ache(s), Denies chills, Denies fever(s) and Denies night sweats Eyes: Eyes: Reports no additional eye complaints, Denies blurry vision, Denies change in vision, Denies diplopia, Denies eye discharge, Denies loss of vision and Denies eye pain ENT: Denies dizziness Cardiovascular: Cardiovascular: Reports no additional cardiovascular complaints, Denies chest pain, Denies lightheadedness, Denies Loss of Consciousness and Denies dyspnea Respiratory: Respiratory: Reports no additional respiratory complaints and Denies dyspnea Gastrointestinal: Gastrointestinal: Reports no additional gastrointestinal complaints, Denies abdominal pain, Denies melena, Denies hematochezia, Denies change in bowel habits and Denies change in stool character Genitourinary: Genitourinary: Denies hematuria, Denies urinary frequency, Denies dysuria, Denies urinary incontinence, Denies urinary hesitancy and Denies urinary urgency Musculoskeletal: Musculoskeletal: Reports no additional musculoskeletal complaints, Denies numbness and Denies tingling Neurologic: Denies dizziness, Denies loss of vision, Denies numbness and Denies tingling Psychiatric: Psychiatric: Reports no additional psychiatric complaints Endocrine: Endocrine: Reports no additional endocrine complaints Hematologic/Lymphatic: Hematologic/Lymphatic: Reports no additional hematologic/lymphatic complaints Allergic/Immunologic: Allergic/Immunologic: Reports no additional allergic/immunologic complaints [facility] [place] Past Medical History Attestation statement: The following information was validated with the patient. Source: old records reviewed Medical History DMII (diabetes mellitus, type 2) Surgical History History of tubal ligation Family History Family History Father No problems noted. Mother No problems noted. Sister Breast cancer Brother Prediabetes Daughter Liver problem Social History Social History Housing: House Alcohol intake: never Patient Tobacco Use Status: Never used Tobacco e-Cigarette/Vaping Use: Never Used Use of substances other than those prescribed or required for medical reasons: No Advance Directives: No Advance Directives Information Provided: No service: No Current occupational status: retired Physical Exam ED Vital Signs: Vital Signs - 24 hr 06/05/21 08:16 06/05/21 09:22 06/05/21 11:20 Temperature 98.3 F Pulse Rate 65 62 58 Respiratory Rate 18 18 18 Blood Pressure 116/58 L 113/67 110/61 Pulse Oximetry 98 99 99 BMI result Body Mass Index 23.2 Const General: cooperative, no acute distress, alert and awake Nutritional Appearance: well nourished Orientation/consciousness: patient oriented x3 Limitations: no limitations HENMT Head: Yes normal to inspection and Yes atraumatic Ears: hearing grossly normal bilaterally and external ears normal General nose exam: Normal external nose present, no nasal discharge noted and no epistaxis Face and sinus: Yes normal facial exam, No abrasion and No laceration Mouth: Normal oral and palatal mucosa present, no drooling and no muffled voice Eyes General: appearance normal, both eyes and all related structures Periorbital: periorbital findings normal Eyelids: Yes eyelids normal Conjunctivae: conjunctivae normal Pupils: Equal, round and reactive pupils present EOM: EOMs intact bilaterally Neck Neck: Yes normal visual inspection, Yes full ROM and Yes no lymphadenopathy Chest Chest palpation & inspection: normal inspection of the chest Resp Effort & Inspection: normal respiratory effort and able to speak in complete sentences Auscultation: clear to auscultation bilaterally Cardio Rhythm: regular rhythm Heart sounds: S1 normal heart sound present GI Inspection: Yes normal to inspection Neuro General: patient oriented x3 and moves all extremities Cranial nerves: Yes Equal, round and reactive pupils present Cognition (Neuro): normal cognition Motor exam (neuro): 5/5 motor strength present throughout Sensory Exam: Normal double simultaneous stimulation for sensation Coordination: [id number] test normal Extrem General: Yes normal to inspection, Yes full ROM and Yes capillary refill normal Psych Appearance: grossly normal Mental Status: mental status grossly normal Affect: normal affect Attitude: cooperative Thought process: Normal thought process present Thought content: Normal thought content present Insight: Good insight present (Psych) Medical Decision Making MDM Narrative Medical decision making narrative: Patient is a 60 year old female presenting to the emergency department today with body aches. Patient's physical exam was unremarkable. Patient's chest x-ray showed no acute process. Patient's EKG was unremarkable. Patient's rapid COVID- 19 and influenza tests were both negative. I explained my physical exam findings as well as all test results to the patient. I answered all questions asked by the patient. Patient received IM Toradol which she stated helped her symptoms significantly. I stressed the importance of the patient taking her medication as prescribed. I stressed the importance of the patient following up with her primary care provider. I stressed the importance of the patient returning to the emergency department immediately if her symptoms were to worsen or if she were to develop any dizziness, shortness of breath, difficulty breathing, chest pain, blurry vision, loss of vision, nausea, vomiting, abdominal pain, fever, chills, back pain, or any other complaints. Patient verbalized agreement and understanding with this treatment plan and discharge. Differential Diagnosis Differential Diagnosis: viral illness, COVID-19, influenza Medical Records Medical records reviewed: Yes I reviewed the patient's medical records. Lab Data Lab results reviewed: Yes I reviewed the patient's lab results. Labs: Lab Results 06/05/21 06/05/21 Range/Units 09:37 09:37 COVID-19 (ALEX) Negative (Negative) COVID-19 Clin Com See Note Influenza Type A (BISI) Negative (Negative) Influenza Type B (BISI) Negative (Negative) Influenza A & B Note See Note Imaging Data Chest x-ray: Attestation: I personally reviewed and interpreted this imaging study as follows: Radiologist's impression: EXAMINATION: XR CHEST CLINICAL INFORMATION: Right chest wall pain COMPARISON: X-ray 03/29/2021 TECHNIQUE: 2 views of the chest were obtained. FINDINGS: The lungs are well-expanded. There is no focal consolidation, edema or effusion. No pneumothorax is seen. The cardiomediastinal silhouette is within normal limits. No acute displaced rib fractures are seen. Mild thoracic spine degeneration.. XR/XR chest 2V IMPRESSION: No acute pulmonary disease. Dictated By: Raúl Farfan MD Signed By: Electronically signed by Raúl Farfan MD 06/05/21 ECG Data Attestation: I personally reviewed and interpreted this ECG as follows: Interpretation: Vent. Rate: 069 BPM ? ? Atrial Rate: 069 BPM P-R Int: 154 ms? QRS Dur: 090 ms QT Int: 414 ms ? ? ? P-R-T Axes: 063 002 024 degrees QTc Int: 443 ms ? Normal sinus rhythm Low voltage QRS Nonspecific T wave abnormality Abnormal ECG When compared with ECG of 29-MAR-2021 10:41, No significant change was found ? Electronically Signed By:Derik Ramirez Dictated By: Derik Ramirez MD Signed By: Electronically signed by Derik Ramirez MD 06/05/21 1033 Discharge Plan Discharge Clinical Impression: Viral illness Patient Disposition: Home, Self-Care Instructions: Viral Syndrome (ED) Additional Instructions: Follow up with your primary care provider. Return to the emergency department immediately if your symptoms worsen or if you develop any dizziness, shortness of breath, difficulty breathing, chest pain, blurry vision, loss of vision, nausea, vomiting, abdominal pain, fever, chills, back pain, or any other complaints. Prescriptions: No Action (DME) ALETHA Knee Brace Misc See Rx Instructions .ROUTE .MEDSUPPLY Qty: 1 0RF Rx Instructions: As directed (DME) comp.stocking,knee,long,medium Misc See Rx Instructions .ROUTE .MEDSUPPLY Qty: 2 0RF Rx Instructions: As directed quetiapine 25 mg tablet 25 mg PO BEDTIME 0RF clonazepam 1 mg tablet 1 mg PO DAILY PRN (Reason: anxiety) 30 Days Qty: 30 2RF zolpidem [Ambien] 5 mg tablet 5 mg PO BEDTIME PRN (Reason: sleep) 30 Days Qty: 30 2RF ketoconazole 2 % shampoo 1 appl topical 2XW 30 Days Qty: 120 0RF cholecalciferol (vitamin D3) 25 mcg (1,000 unit) tablet 25 mcg PO DAILY 90 Days Qty: 90 3RF montelukast 10 mg tablet 10 mg PO DAILY Qty: 30 6RF hydrocortisone valerate 0.2 % cream 1 appl topical BID PRN (Reason: skin irritation) 30 Days Qty: 60 0RF diclofenac sodium 1 % gel 2 g topical DAILY Qty: 100 2RF hydrochlorothiazide 12.5 mg capsule 12.5 mg PO DAILY 90 Days Qty: 90 3RF ferrous sulfate 325 mg (65 mg iron) tablet 325 mg PO DAILY 30 Days Qty: 30 3RF docusate sodium [Dulcolax Stool Softener (dss)] 100 mg capsule 100 mg PO BID 15 Days Qty: 30 3RF atorvastatin 20 mg tablet 20 mg PO DAILY Qty: 30 3RF omeprazole 20 mg capsule,delayed release(DR/EC) 20 mg PO DAILY Qty: 30 3RF bepotastine besilate [Bepreve] 1.5 % drops 1 drp ophthalmic (eye) BID PRN (Reason: eye irritation) 30 Days Qty: 10 0RF fluoxetine 40 mg capsule 40 mg PO DAILY 30 Days Qty: 30 3RF hydroxyzine HCl 25 mg tablet 25 mg PO TID 7 Days Qty: 21 0RF Rx Instructions: Advised to hold clonazepam and loratadine. fluticasone propionate 50 mcg/actuation spray,suspension 2 spray intranasal BID Qty: 16 3RF multivitamin [Daily-Dionisio] Tablet 1 tab PO DAILY Qty: 90 4RF loratadine [Allergy Relief (loratadine)] 10 mg tablet 10 mg PO DAILY 90 Days Qty: 90 2RF hydrocortisone valerate 0.2 % cream 1 appl topical BID 10 Days Qty: 45 0RF sennosides [senna] 8.6 mg tablet 17.2 mg PO BEDTIME 30 Days Qty: 60 2RF ibuprofen 600 mg tablet 600 mg PO Q8H PRN (Reason: pain) Qty: 20 0RF acetaminophen [Tylenol Extra Strength] 500 mg tablet 500 mg PO Q6H PRN (Reason: pain or fever) Qty: 20 0RF naproxen 500 mg tablet 500 mg PO BID PRN (Reason: pain) 10 Days Qty: 20 0RF lactulose 20 gram/30 mL solution 20 g PO BID PRN (Reason: laxative effect) 15 Days Qty: 1200 0RF ahvfdnzcdk-mhcdlgsaoeggt-oxfo 50-325-40 mg capsule 1 cap PO Q6H PRN (Reason: pain) 4 Days Qty: 16 0RF topiramate 25 mg capsule, sprinkle 25 mg PO DAILY 0RF aspirin [Adult Aspirin Regimen] 81 mg tablet,delayed release (DR/EC) 81 mg PO DAILY 0RF lidocaine 5 % adhesive patch,medicated 1 patch topical DAILY Qty: 30 0RF Rx Instructions: leave on most painful area for up to 12 hrs Interventions: ED Discharge Assessment Last Done: 06/05/21 11:43 Discharge Date/Time: 06/05/21 11:45 Print Language: Serbian
[2021-06-05 09:22] VITALS: BP 113/67; PULSE 62; RESP 18; O2SAT 99
[2021-06-05] MEDS: Ketorolac Tromethamine 30 MG/ML VIAL IM (09:27)
[2021-06-05 10:05] LABS: COVID-19 Test Negative (Negative); IDNOW Serial# 9DD0AD1C
[2021-06-05 10:14] LABS: Influenza A Negative (Negative); Influenza B2 Negative (Negative)
--- NOTE | 2021-06-05 11:11 | PC.NURSE ---
pt reports feeling a little better the headache and chest pain is currently 6/10
[2021-06-05 11:20] VITALS: BP 110/61; PULSE 58; RESP 18; TEMP 36.8; O2SAT 99
--- NOTE | 2021-06-05 14:05 | ECG_ITS ---
Test Reason : CHEST PAIN Blood Pressure : / mmHG Vent. Rate : 057 BPM Atrial Rate : 057 BPM P-R Int : 154 ms QRS Dur : 090 ms QT Int : 426 ms P-R-T Axes : 042 004 022 degrees QTc Int : 414 ms Sinus bradycardia Low voltage QRS Borderline ECG When compared with ECG of 05-JUN-2021 08:04, No significant change was found Referred By: Micheline Bobo Electronically Signed By:OFELIA VARNER MD
== END 2021-06-05 11:45 | disposition home or self-care (01) ==
PROVIDERS: Physician Assistant Medical; Emergency Provider Emergency Medicine
DX: B34.9 Viral infection, unspecified (principal); R07.89 Other chest pain; R51.9 Headache, unspecified; M79.10 Myalgia, unspecified site; Z20.822 Contact with and (suspected) exposure to COVID-19; Z79.899 Other long term (current) drug therapy
CPT/HCPCS: 71046; 87502; 87635; 93005; 96372; 99284; J1885

== ENCOUNTER 2021-07-30 07:07 | Outpatient (REF) | payer MEDICARE, MEDICAID, SELFPAY ==
[2021-07-30 07:14] LABS: Urine Cytology See Pathology rpt
[2021-07-30 07:50] LABS: Estimated Average Glucose 131 mg/dL; Hemoglobin A1c % 6.2 %
[2021-07-30 07:52] LABS: Alanine Aminotransferase 24 U/L (0-31); Albumin Level 4.3 g/dL (3.5-5.0); Alkaline Phosphatase 91 U/L (39-117); Anion Gap 15 (12-20); Aspartate Amino Transferase 25 U/L (5-31); Bilirubin Total 0.7 mg/dL (0.0-1.0); Blood Urea Nitrogen 16 mg/dL (9-16); Calcium 9.8 mg/dL (8.4-10.2); Carbon Dioxide 29 mmol/L (22-29); Chloride 101 mmol/L (96-108); Cholesterol 191 mg/dL; Estimated Glomerular Filt Rate 53; Glucose Fasting 133 mg/dL (60-99); HDL Cholesterol 52 mg/dL; Iron 73 mcg/dL (30-160); LDL Cholesterol Calculated 115 mg/dl; Percent Iron Saturation 21 % (15-50); Potassium 3.8 mmol/L (3.3-5.1); Sodium 141 mmol/L (135-145); Total Iron Binding Capacity 354 mcg/dL (228-428); Total Protein 7.8 g/dL (6.5-8.0); Triglycerides 121 mg/dL; Unsaturated Iron Binding 281 ug/dL
[2021-07-30 08:14] LABS: TSH reflex Free T4 1.38 uIU/mL (0.32-4.0)
[2021-07-30 08:23] LABS: Appearance Urine CLEAR; Color Urine YELLOW; Glucose Urine UA NEG (NEG); Leukocyte Esterase Urine 1+ (NEG); Nitrite Urine NEG (NEG); Specific Gravity - Urine 1.025 (1.005-1.025); UACC Culture Trigger YES; Urine Blood NEG (NEG); Urine Ketones NEG (NEG); Urine Protein NEG (NEG-TRACE)
[2021-07-30 08:53] LABS: Bacteria Urine TRACE /LPF; RBC Urine 0-2 /HPF (0); Squamous Epithelial Cell Urine 1+ /LPF
[2021-07-30 13:08] LABS: Hematocrit 37.5 % (37.0-47.0); Hemoglobin 12.4 g/dl (12.0-16.0); Mean Corpuscular HGB Conc 33.1 g/dl (31.0-35.0); Mean Corpuscular Hemoglobin 29.2 pg (27.0-33.0); Mean Corpuscular Volume 88.4 fL (80.0-98.0); Mean Platelet Volume 9.9 fL (9.4-12.3); Platelet Count 322 X10*3/uL (160-400); Red Blood Count 4.24 X10*6/uL (4.20-5.50); Red Cell Distribution Width 12.8 % (11.0-16.0); White Blood Count 6.3 X10*3/uL (4.8-10.8)
== END 2021-07-30 07:08 | disposition home or self-care (01) ==
LOC: HO.LAB 07:07
PROVIDERS: PCP Physician Assistant; Visit Provider Physician Assistant
DX: R31.0 Gross hematuria (principal); R30.0 Dysuria; E11.9 Type 2 diabetes mellitus without complications; D50.9 Iron deficiency anemia, unspecified
CPT/HCPCS: 36415; 80053; 80061; 81001; 81003; 83036; 83540; 84443; 85027; 87086; 88112

== ENCOUNTER 2021-08-09 07:24 | Emergency (ER) | payer MEDICARE, MEDICAID, SELFPAY ==
--- NOTE | 2021-08-09 | ECG_ITS ---
Test Reason : CHEST PAIN Blood Pressure : / mmHG Vent. Rate : 062 BPM Atrial Rate : 062 BPM P-R Int : 156 ms QRS Dur : 090 ms QT Int : 420 ms P-R-T Axes : 068 024 024 degrees QTc Int : 426 ms Normal sinus rhythm RSR' or QR pattern in V1 suggests right ventricular conduction delay Nonspecific T wave abnormality Abnormal ECG When compared with ECG of 05-JUN-2021 11:06, Nonspecific T wave abnormality, worse in Anterior leads Referred By: Generic ED Physician Electronically Signed By:OFELIA VARNER MD
--- NOTE | ~2021-08-09 | XR_ITS ---
EXAMINATION: XR CHEST CLINICAL INFORMATION: Cough. COMPARISON: 06/05/2021 chest radiographs. TECHNIQUE: Frontal view of the chest was obtained. FINDINGS: No significant abnormality is noted involving the heart, lungs, mediastinum, bony thorax or soft tissues. XR/XR chest 1V IMPRESSION: No acute cardiopulmonary process.
[2021-08-09 08:27] VITALS: BP 123/67; PULSE 74; RESP 16; TEMP 36.8; O2SAT 100; BMI 23.6
[2021-08-09 09:04] LABS: COVID-19 Test Negative (Negative); IDNOW Serial# 16C4AD1C; Influenza A Negative (Negative); Influenza B2 Negative (Negative)
--- NOTE | 2021-08-09 10:00 | ED.GENADULT ---
HPI - General Adult General Chief complaint: General Medical Stated complaint: sore throat Time Seen by Provider: 08/09/21 08:40 Source: patient Mode of arrival: ambulatory History of Present Illness HPI narrative: 61-year-old female with a past medical history of diabetes presenting to the ED complaining of sore throat, productive cough, headache, and chest wall discomfort when coughing x1 week. Denies fever, ear pain, SOB, abdominal pain, nausea, pedal edema, recent travel, sick contacts Onset (ago): week(s) Related Data Home Medications Medication Instructions Recorded Confirmed quetiapine 25 mg tablet 25 mg PO BEDTIME 03/08/20 08/04/21 aspirin 81 mg tablet,delayed 81 mg PO DAILY 12/07/20 08/04/21 release (Adult Aspirin Regimen) topiramate 25 mg sprinkle capsule 25 mg PO DAILY 12/07/20 08/04/21 Previous Rx's Medication Instructions Recorded leg brace (ALETHA Knee Brace) #1 ea 02/05/20 comp.stocking,knee,long,medium #2 ea 02/16/20 clonazepam 1 mg tablet 1 mg PO DAILY PRN 30 Days #30 tab 05/12/20 ibuprofen 600 mg tablet 600 mg PO Q8H PRN #20 tab 06/06/20 acetaminophen 500 mg tablet 500 mg PO Q6H PRN #20 tab 07/17/20 (Tylenol Extra Strength) naproxen 500 mg tablet 500 mg PO BID PRN 10 Days #20 tab 07/17/20 ketoconazole 2 % shampoo 1 appl TOPICAL 2XW 30 Days #120 ml 10/18/20 cholecalciferol (vitamin D3) 25 25 mcg PO DAILY 90 Days #90 tab 01/24/21 mcg (1,000 unit) tablet hydrocortisone valerate 0.2 % 1 appl TOPICAL BID PRN 30 Days #60 02/04/21 topical cream g diclofenac sodium 1 % topical gel 2 g TOPICAL DAILY #100 g 02/07/21 hydrochlorothiazide 12.5 mg capsule 12.5 mg PO DAILY 90 Days #90 cap 02/24/21 tfwagsslcz-lidgriokqzfnl-clxtwyww 1 cap PO Q6H PRN 4 Days #16 cap 04/05/21 50 mg-325 mg-40 mg capsule lactulose 20 gram/30 mL oral 20 g (30 mL) PO BID PRN 15 Days 04/05/21 solution #1200 ml bepotastine besilate 1.5 % eye 1 drp OPHTHALMIC (EYE) BID PRN 30 05/11/21 drops (Bepreve) Days #10 ml fluoxetine 40 mg capsule 40 mg PO DAILY 30 Days #30 cap 05/12/21 hydroxyzine HCl 25 mg tablet 25 mg PO TID 7 Days #21 tab 05/18/21 loratadine 10 mg tablet (Allergy 10 mg PO DAILY 90 Days #90 tab 05/30/21 Relief (loratadine)) multivitamin (Daily-Dionisio) 1 tab PO DAILY #90 tab 05/30/21 hydrocortisone valerate 0.2 % 1 appl TOPICAL BID 10 Days #45 g 06/15/21 topical cream sennosides 8.6 mg tablet (senna) 17.2 mg PO BEDTIME 30 Days #60 tab 06/27/21 fluticasone propionate 50 2 spray INTRANASAL BID #16 g 07/19/21 mcg/actuation nasal spray,suspension lidocaine 5 % topical patch 1 patch TOPICAL DAILY #30 ea 07/19/21 docusate sodium 100 mg capsule 100 mg PO BID 15 Days #30 cap 07/29/21 (Dulcolax Stool Softener (docusate)) ferrous sulfate 325 mg (65 mg 325 mg PO DAILY 30 Days #30 tab 07/29/21 iron) tablet atorvastatin 20 mg tablet 20 mg PO DAILY #30 tab 07/30/21 omeprazole 20 mg capsule,delayed 20 mg PO DAILY #30 cap 07/30/21 release montelukast 10 mg tablet 10 mg PO DAILY #30 tab 08/04/21 pioglitazone 15 mg tablet (Actos) 15 mg PO DAILY 90 Days #90 tab 08/04/21 zolpidem 5 mg tablet (Ambien) 5 mg PO BEDTIME PRN 30 Days #30 tab 08/04/21 azithromycin 250 mg tablet See Rx Instructions .ROUTE 08/09/21 .COMPLEX #6 tab fluticasone propionate 50 2 spray INTRANASAL DAILY #16 g 08/09/21 mcg/actuation nasal spray,suspension (Flonase Allergy Relief) Allergies Allergy/AdvReac Type Severity Reaction Status Date / Time No Known Allergies Allergy Verified 08/04/21 09:04 [No Known Allergies*] Review of Systems Review of Systems: Constitutional: No Fever, No Chills ENT/Mouth: No Ear Pain, + Nasal Congestion, No Sinus Pain, No Hoarseness, + sore throat, + Rhinorrhea, No Swallowing Difficulty Cardiovascular: + Chest discomfort when coughing, No SOB Respiratory: + Cough, + Sputum, No Wheezing Gastrointestinal: No Nausea, No Vomiting, No Diarrhea, No Constipation, No Abdominal pain Genitourinary: No Dysuria, No Urinary Incontinence, No Urgency, No Flank Pain Musculoskeletal: No joint pain, No Myalgias, No Joint Swelling Skin: No Skin Lesions, No rash Neuro: No Weakness, No Numbness, No Paresthesias Yes all other systems are reviewed and are negative [facility] Past Medical History Attestation statement: The following information was validated with the patient. Medical History DMII (diabetes mellitus, type 2) Surgical History History of tubal ligation Family History Family History Father No problems noted. Mother No problems noted. Sister Breast cancer Brother Prediabetes Daughter Liver problem Social History Social History Housing: House Alcohol intake: never Patient Tobacco Use Status: Never used Tobacco e-Cigarette/Vaping Use: Never Used Advance Directives: No Advance Directives Information Provided: No Patient : No service: No Current occupational status: retired Cognitive needs: No Hearing needs: No Vision needs: No Physical Exam ED Vital Signs: Vital Signs - 24 hr 08/09/21 08:27 Temperature 98.3 F Pulse Rate 74 Respiratory Rate 16 Blood Pressure 123/67 Pulse Oximetry 100 BMI result Body Mass Index 23.6 Const General: cooperative, healthy appearing, no acute distress, alert and awake Orientation/consciousness: patient oriented x3 Limitations: no limitations HENMT Head: Yes normal to inspection and Yes atraumatic Ears: hearing grossly normal bilaterally, TM's normal bilaterally and mastoids normal General nose exam: Normal external nose present Face and sinus: Yes normal facial exam Throat: Yes posterior oropharynx normal, Yes tonsils normal, Yes uvula midline, No abnormal tonsil and No uvular edema Eyes General: appearance normal, both eyes and all related structures EOM: EOMs intact bilaterally Neck Neck: Yes normal visual inspection and Yes no meningeal signs Resp Effort & Inspection: normal respiratory effort and no respiratory distress Auscultation: clear to auscultation bilaterally, no rales, no rhonchi and no wheezes Cardio Rate: regular rate Heart sounds: S1 normal heart sound present and S2 normal heart sound present Skin Rashes: no rashes Wounds: no wounds Neuro General: patient oriented x3, tone normal and no meningeal signs Gait exam (Neuro): Normal gait present Extrem General: Yes normal to inspection, Yes no pedal edema and Yes no calf tenderness Course Course Course Narrative: -999--COVID-19 and influenza negative. 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 On exam vital signs stable, NAD/nontoxic, lungs CTA, no pedal edema. Concern for viral illness vs bronchitis. Rule out pneumonia. Low concern for ACS/PE plan: COVID-19/influenza testing, CXR Medical Records Medical records reviewed: Yes I reviewed the patient's medical records. Lab Data Lab results reviewed: Yes I reviewed the patient's lab results. Labs: Lab Results 08/09/21 08/09/21 Range/Units 08:41 08:41 COVID-19 (ALEX) Negative (Negative) COVID-19 Clin Com See Note Influenza Type A (BISI) Negative (Negative) Influenza Type B (BISI) Negative (Negative) Influenza A & B Note See Note ECG Data Attestation: I personally reviewed and interpreted this ECG as follows: Interpretation: EKG normal sinus rhythm at a rate of 62. Nonspecific T-wave abnormality. QTC 426. No STEMI. Discharge Plan Discharge Clinical Impression: Acute viral syndrome Patient Disposition: Home, Self-Care Instructions: Viral Syndrome (ED) Additional Instructions: You tested negative for the flu and COVID-19. Her chest x-ray is unremarkable. May stay hydrated at home. Rest. Take Tylenol Motrin as needed. Flonase is a nasal decongestant spray. Zithromax and is an antibiotic please take as prescribed Please follow-up with her doctor Darwin negativo para la gripe y COVID-19. Barron radiograf?a de t?rax es normal. Puede mantenerse hidratado en casa. [place]. [place] Tylenol Motrin seg?n sea necesario. Flonase es un spray descongestionante nasal Por favor, marie un seguimiento con barron m?dico. Prescriptions: New fluticasone propionate [Flonase Allergy Relief] 50 mcg/actuation spray,suspension 2 spray intranasal DAILY Qty: 16 0RF Rx Instructions: administer into each nostril azithromycin 250 mg tablet See Rx Instructions .ROUTE .COMPLEX Qty: 6 0RF Rx Instructions: take 500 mg today (day 1), then 250 mg for 4 days (days 2-5) No Action (DME) ALETHA Knee Brace Misc See Rx Instructions .ROUTE .MEDSUPPLY Qty: 1 0RF Rx Instructions: As directed (DME) comp.stocking,knee,long,medium Misc See Rx Instructions .ROUTE .MEDSUPPLY Qty: 2 0RF Rx Instructions: As directed quetiapine 25 mg tablet 25 mg PO BEDTIME 0RF clonazepam 1 mg tablet 1 mg PO DAILY PRN (Reason: anxiety) 30 Days Qty: 30 2RF ketoconazole 2 % shampoo 1 appl topical 2XW 30 Days Qty: 120 0RF cholecalciferol (vitamin D3) 25 mcg (1,000 unit) tablet 25 mcg PO DAILY 90 Days Qty: 90 3RF hydrocortisone valerate 0.2 % cream 1 appl topical BID PRN (Reason: skin irritation) 30 Days Qty: 60 0RF diclofenac sodium 1 % gel 2 g topical DAILY Qty: 100 2RF hydrochlorothiazide 12.5 mg capsule 12.5 mg PO DAILY 90 Days Qty: 90 3RF bepotastine besilate [Bepreve] 1.5 % drops 1 drp ophthalmic (eye) BID PRN (Reason: eye irritation) 30 Days Qty: 10 0RF fluoxetine 40 mg capsule 40 mg PO DAILY 30 Days Qty: 30 3RF hydroxyzine HCl 25 mg tablet 25 mg PO TID 7 Days Qty: 21 0RF Rx Instructions: Advised to hold clonazepam and loratadine. multivitamin [Daily-Dionisio] Tablet 1 tab PO DAILY Qty: 90 4RF loratadine [Allergy Relief (loratadine)] 10 mg tablet 10 mg PO DAILY 90 Days Qty: 90 2RF hydrocortisone valerate 0.2 % cream 1 appl topical BID 10 Days Qty: 45 0RF sennosides [senna] 8.6 mg tablet 17.2 mg PO BEDTIME 30 Days Qty: 60 2RF lidocaine 5 % adhesive patch,medicated 1 patch topical DAILY Qty: 30 6RF Rx Instructions: leave on most painful area for up to 12 hrs fluticasone propionate 50 mcg/actuation spray,suspension 2 spray intranasal BID Qty: 16 3RF docusate sodium [Dulcolax Stool Softener (dss)] 100 mg capsule 100 mg PO BID 15 Days Qty: 30 3RF ferrous sulfate 325 mg (65 mg iron) tablet 325 mg PO DAILY 30 Days Qty: 30 3RF atorvastatin 20 mg tablet 20 mg PO DAILY Qty: 30 3RF omeprazole 20 mg capsule,delayed release(DR/EC) 20 mg PO DAILY Qty: 30 3RF ibuprofen 600 mg tablet 600 mg PO Q8H PRN (Reason: pain) Qty: 20 0RF acetaminophen [Tylenol Extra Strength] 500 mg tablet 500 mg PO Q6H PRN (Reason: pain or fever) Qty: 20 0RF naproxen 500 mg tablet 500 mg PO BID PRN (Reason: pain) 10 Days Qty: 20 0RF lactulose 20 gram/30 mL solution 20 g PO BID PRN (Reason: laxative effect) 15 Days Qty: 1200 0RF vxhafvadsm-ckbooerqpooes-nfes 50-325-40 mg capsule 1 cap PO Q6H PRN (Reason: pain) 4 Days Qty: 16 0RF montelukast 10 mg tablet 10 mg PO DAILY Qty: 30 6RF pioglitazone [Actos] 15 mg tablet 15 mg PO DAILY 90 Days Qty: 90 1RF zolpidem [Ambien] 5 mg tablet 5 mg PO BEDTIME PRN (Reason: sleep) 30 Days Qty: 30 0RF topiramate 25 mg capsule, sprinkle 25 mg PO DAILY 0RF aspirin [Adult Aspirin Regimen] 81 mg tablet,delayed release (DR/EC) 81 mg PO DAILY 0RF Referrals: Juan R Ramirez PA-C [Primary Care Provider] - 3 days Print Language: Rwandan
== END 2021-08-09 10:23 | disposition home or self-care (01) ==
PROVIDERS: Emergency Provider Emergency Medicine; PCP Physician Assistant
DX: B34.9 Viral infection, unspecified (principal); J02.8 Acute pharyngitis due to other specified organisms; R51.9 Headache, unspecified; R05.9 Cough, unspecified; Z20.822 Contact with and (suspected) exposure to COVID-19; Z79.899 Other long term (current) drug therapy
CPT/HCPCS: 71045; 87502; 87635; 93005; 99283; 99284

== ENCOUNTER 2021-08-15 12:13 | Emergency (ER) | payer MEDICARE, MEDICAID, SELFPAY ==
--- NOTE | ~2021-08-15 | XR_ITS ---
EXAMINATION: XR CHEST CLINICAL INFORMATION: Bronchitis with dry cough COMPARISON: 08/09/2021 TECHNIQUE: 2 views of the chest were obtained. FINDINGS: No significant abnormality is noted involving the heart, lungs, mediastinum, bony thorax or soft tissues. XR/XR chest 2V IMPRESSION: Unremarkable examination.
[2021-08-15 12:23] VITALS: BP 122/71; PULSE 77; RESP 18; TEMP 36.5; O2SAT 96; BMI 23.6
--- NOTE | 2021-08-15 13:20 | ED.SOB ---
HPI - SOB/Dyspnea General Chief Complaint: Upper Respiratory Symptoms Stated Complaint: flu like symptoms Time Seen by Provider: 08/15/21 13:16 Source: patient Mode of arrival: ambulatory Limitations: no limitations History of Present Illness HPI Narrative: Patient presents emergency department for evaluation of a worsening productive cough over the the past 2 days and inability to sleep at night. She states that she was seen in the emergency department 1 week ago and was diagnosed with bronchitis. She completed the antibiotics that she was prescribed. However her symptoms continue to be worse over the past 2 days. She denies fevers, chills, headache ear pain, sore throat, neck pain, shortness of breath, difficulty breathing, chest pain, nausea, vomiting, abdominal pain, generalized weakness, pedal edema. Related Data Home Medications Medication Instructions Recorded Confirmed quetiapine 25 mg tablet 25 mg PO BEDTIME 03/08/20 08/04/21 aspirin 81 mg tablet,delayed 81 mg PO DAILY 12/07/20 08/04/21 release (Adult Aspirin Regimen) topiramate 25 mg sprinkle capsule 25 mg PO DAILY 12/07/20 08/04/21 Previous Rx's Medication Instructions Recorded leg brace (ALETHA Knee Brace) #1 ea 02/05/20 comp.stocking,knee,long,medium #2 ea 02/16/20 clonazepam 1 mg tablet 1 mg PO DAILY PRN 30 Days #30 tab 05/12/20 ibuprofen 600 mg tablet 600 mg PO Q8H PRN #20 tab 06/06/20 acetaminophen 500 mg tablet 500 mg PO Q6H PRN #20 tab 07/17/20 (Tylenol Extra Strength) naproxen 500 mg tablet 500 mg PO BID PRN 10 Days #20 tab 07/17/20 ketoconazole 2 % shampoo 1 appl TOPICAL 2XW 30 Days #120 ml 10/18/20 cholecalciferol (vitamin D3) 25 25 mcg PO DAILY 90 Days #90 tab 01/24/21 mcg (1,000 unit) tablet hydrocortisone valerate 0.2 % 1 appl TOPICAL BID PRN 30 Days #60 02/04/21 topical cream g diclofenac sodium 1 % topical gel 2 g TOPICAL DAILY #100 g 02/07/21 hydrochlorothiazide 12.5 mg capsule 12.5 mg PO DAILY 90 Days #90 cap 02/24/21 onojgglbgs-cxlsoabqppgie-eofglehc 1 cap PO Q6H PRN 4 Days #16 cap 04/05/21 50 mg-325 mg-40 mg capsule lactulose 20 gram/30 mL oral 20 g (30 mL) PO BID PRN 15 Days 04/05/21 solution #1200 ml bepotastine besilate 1.5 % eye 1 drp OPHTHALMIC (EYE) BID PRN 30 05/11/21 drops (Bepreve) Days #10 ml fluoxetine 40 mg capsule 40 mg PO DAILY 30 Days #30 cap 05/12/21 hydroxyzine HCl 25 mg tablet 25 mg PO TID 7 Days #21 tab 05/18/21 loratadine 10 mg tablet (Allergy 10 mg PO DAILY 90 Days #90 tab 05/30/21 Relief (loratadine)) multivitamin (Daily-Dionisio) 1 tab PO DAILY #90 tab 05/30/21 hydrocortisone valerate 0.2 % 1 appl TOPICAL BID 10 Days #45 g 06/15/21 topical cream sennosides 8.6 mg tablet (senna) 17.2 mg PO BEDTIME 30 Days #60 tab 06/27/21 fluticasone propionate 50 2 spray INTRANASAL BID #16 g 07/19/21 mcg/actuation nasal spray,suspension lidocaine 5 % topical patch 1 patch TOPICAL DAILY #30 ea 07/19/21 docusate sodium 100 mg capsule 100 mg PO BID 15 Days #30 cap 07/29/21 (Dulcolax Stool Softener (docusate)) ferrous sulfate 325 mg (65 mg 325 mg PO DAILY 30 Days #30 tab 07/29/21 iron) tablet atorvastatin 20 mg tablet 20 mg PO DAILY #30 tab 07/30/21 omeprazole 20 mg capsule,delayed 20 mg PO DAILY #30 cap 07/30/21 release montelukast 10 mg tablet 10 mg PO DAILY #30 tab 08/04/21 pioglitazone 15 mg tablet (Actos) 15 mg PO DAILY 90 Days #90 tab 08/04/21 zolpidem 5 mg tablet (Ambien) 5 mg PO BEDTIME PRN 30 Days #30 tab 08/04/21 azithromycin 250 mg tablet See Rx Instructions .ROUTE 08/09/21 .COMPLEX #6 tab albuterol sulfate 90 mcg/actuation 2 puff INHALATION Q4-6H PRN #6.7 g 08/15/21 aerosol inhaler (Ventolin HFA) fluticasone propionate 50 2 spray INTRANASAL DAILY 30 Days 08/15/21 mcg/actuation nasal #16 g spray,suspension (Flonase Allergy Relief) prednisone 20 mg tablet 40 mg PO DAILY 4 Days #8 tab 08/15/21 Allergies Allergy/AdvReac Type Severity Reaction Status Date / Time No Known Allergies Allergy Verified 08/15/21 12:23 [No Known Allergies*] Review of Systems Review of Systems: Constitutional : No Fever, No Chills ENT/Mouth : No Hoarseness, No sore throat, No Rhinorrhea Eyes: No Redness, No Discharge, No Vision Changes Cardiovascular : No Chest Pain, no SOB, no diarrhea Dyspnea on Exertion, No Edema Respiratory : positive Cough, positive Sputum, no Wheezing, Gastrointestinal : No Nausea, No Vomiting, No Diarrhea, No abdominal Pain Genitourinary : No Dysuria, No Hematuria Musculoskeletal : No joint pain, No Myalgias Skin : No rash Neuro : No Weakness, No Numbness, No Headache Psych : No anxiety, depression Heme/Lymph: No Bruising, No Bleeding Endocrine : No Polyuria, No Polydipsia Yes all other systems are reviewed and are negative [facility] Past Medical History Attestation statement: The following information was validated with the patient. Source: old records reviewed Medical History DMII (diabetes mellitus, type 2) Surgical History History of tubal ligation Family History Family History Father No problems noted. Mother No problems noted. Sister Breast cancer Brother Prediabetes Daughter Liver problem Social History Social History Housing: House Alcohol intake: never Patient Tobacco Use Status: Never used Tobacco e-Cigarette/Vaping Use: Never Used Advance Directives: No Advance Directives Information Provided: No Patient : No service: No Current occupational status: retired Cognitive needs: No Hearing needs: No Vision needs: No Physical Exam Vital Signs: Vital Signs: Last Vital Signs Temp 97.7 F 08/15/21 12:23 Pulse 62 08/15/21 13:49 Resp 18 08/15/21 13:49 BP 122/71 08/15/21 12:23 Pulse Ox 96 08/15/21 12:23 BMI result Body Mass Index 23.6 Vital signs have been reviewed as normal and appeared to be correct. Blood pressure normal.? Heart rate normal.? Respiration rate normal. Temperature normal.? Oxygen saturation normal. Appearance: Alert.?Oriented to person, place and time. No acute distress.?Normal affect. Eyes: Pupils equal, round and reactive to light.? ENT: Pharynx normal.?? Neck: Normal inspection.? Neck supple.?? CVS: Heart sounds normal. Normal heart rate and rhythm.? Pulses normal.?? Respiratory: No respiratory distress.? Lung sounds tight with rhonchi bilaterally diminished at the bases Abdomen: Soft and non-tender. Normoactive bowel sounds. No pulsatile mass.?? Skin: Skin warm and dry.? Normal skin color.? Extremities: No lower extremity edema.? Neuro: Moves all extremities spontaneously. Sensation intact bilaterally. CN II-XII intact. No focal neuro deficits. Ambulates with normal steady gait. Course Course Course Narrative: Patient is a 61-year-old female with a past medical history of hypertension, hyperlipidemia, impaired glucose tolerance, anxiety, chronic allergies, fibromyalgia, lumbar disc disease. She presents to the emergency department for evaluation of worsening cough. She was seen in the emergency department 6 days ago 08/09/2021 and was diagnosed with acute viral syndrome and bronchitis, had COVID-19 testing and influenza testing which were negative, chest x-ray was normal. She was discharged home with Flonase and azithromycin, advised Tylenol and Motrin as needed and to stay hydrated and follow up outpatient with her primary care provider. She appears ill and fatigued, hemodynamically stable without tachycardia tachypnea hypoxemia or fever. Patient received albuterol updraft, oral prednisone, and repeat chest x-ray at this time. At this time low suspicion for ACS/PE. Disposition pending results. Reevaluation(s) Reevaluation #1: COVID-19 and influenza testing are negative. Chest x-ray is unremarkable with no acute findings. Advised on plan of care for discharge home with additional 4 days of prednisone, albuterol inhaler. Discussed with patient all findings, noted she is taking Singulair which she reports is for her allergies. I advised outpatient follow-up with her primary care provider in 1-3 days, outside of viral illness with bronchitis, she may have some degree of reactive airway disease. Discussed reasons return back to the emergency department. All questions were answered patient was discharged in stable condition. MDM - SOB/Dyspnea Medical Records Attestation: I reviewed the patient's medical records. Lab Data Attestation: I reviewed the patient's lab results. Labs: Lab Results 08/15/21 08/15/21 Range/Units 12:59 12:59 COVID-19 (ALEX) Negative (Negative) COVID-19 Clin Com See Note Influenza Type A (BISI) Negative (Negative) Influenza Type B (BISI) Negative (Negative) Influenza A & B Note See Note Imaging Data Chest x-ray: Radiologist's impression: FINDINGS: No significant abnormality is noted involving the heart, lungs, mediastinum, bony thorax or soft tissues. XR/XR chest 2V IMPRESSION: Unremarkable examination. Discharge Plan Discharge Clinical Impression: Bronchitis Patient Disposition: Home, Self-Care Instructions: Acute Bronchitis (ED) Additional Instructions: Given given a new prescription for prednisone, this is a steroid, please take this once a day with food to prevent stomach upset. Given given a new prescription for an albuterol inhaler to use as needed for shortness of breath. Please contact your primary care provider to schedule follow-up visit within 1-3 days. You may return to the emergency department any new or worsening symptoms or concerns. Prescriptions: New prednisone 20 mg tablet 40 mg PO DAILY 4 Days Qty: 8 0RF albuterol sulfate [Ventolin HFA] 90 mcg/actuation HFA aerosol inhaler 2 puff inhalation Q4-6H PRN (Reason: shortness of breath or wheezing) Qty: 6.7 0RF No Action (DME) ALETHA Knee Brace Misc See Rx Instructions .ROUTE .MEDSUPPLY Qty: 1 0RF Rx Instructions: As directed (DME) comp.stocking,knee,long,medium Misc See Rx Instructions .ROUTE .MEDSUPPLY Qty: 2 0RF Rx Instructions: As directed quetiapine 25 mg tablet 25 mg PO BEDTIME 0RF clonazepam 1 mg tablet 1 mg PO DAILY PRN (Reason: anxiety) 30 Days Qty: 30 2RF ketoconazole 2 % shampoo 1 appl topical 2XW 30 Days Qty: 120 0RF cholecalciferol (vitamin D3) 25 mcg (1,000 unit) tablet 25 mcg PO DAILY 90 Days Qty: 90 3RF hydrocortisone valerate 0.2 % cream 1 appl topical BID PRN (Reason: skin irritation) 30 Days Qty: 60 0RF diclofenac sodium 1 % gel 2 g topical DAILY Qty: 100 2RF hydrochlorothiazide 12.5 mg capsule 12.5 mg PO DAILY 90 Days Qty: 90 3RF bepotastine besilate [Bepreve] 1.5 % drops 1 drp ophthalmic (eye) BID PRN (Reason: eye irritation) 30 Days Qty: 10 0RF fluoxetine 40 mg capsule 40 mg PO DAILY 30 Days Qty: 30 3RF hydroxyzine HCl 25 mg tablet 25 mg PO TID 7 Days Qty: 21 0RF Rx Instructions: Advised to hold clonazepam and loratadine. multivitamin [Daily-Dionisio] Tablet 1 tab PO DAILY Qty: 90 4RF loratadine [Allergy Relief (loratadine)] 10 mg tablet 10 mg PO DAILY 90 Days Qty: 90 2RF hydrocortisone valerate 0.2 % cream 1 appl topical BID 10 Days Qty: 45 0RF sennosides [senna] 8.6 mg tablet 17.2 mg PO BEDTIME 30 Days Qty: 60 2RF lidocaine 5 % adhesive patch,medicated 1 patch topical DAILY Qty: 30 6RF Rx Instructions: leave on most painful area for up to 12 hrs fluticasone propionate 50 mcg/actuation spray,suspension 2 spray intranasal BID Qty: 16 3RF docusate sodium [Dulcolax Stool Softener (dss)] 100 mg capsule 100 mg PO BID 15 Days Qty: 30 3RF ferrous sulfate 325 mg (65 mg iron) tablet 325 mg PO DAILY 30 Days Qty: 30 3RF atorvastatin 20 mg tablet 20 mg PO DAILY Qty: 30 3RF omeprazole 20 mg capsule,delayed release(DR/EC) 20 mg PO DAILY Qty: 30 3RF fluticasone propionate [Flonase Allergy Relief] 50 mcg/actuation spray,suspension 2 spray intranasal DAILY 30 Days Qty: 16 2RF Rx Instructions: administer into each nostril ibuprofen 600 mg tablet 600 mg PO Q8H PRN (Reason: pain) Qty: 20 0RF acetaminophen [Tylenol Extra Strength] 500 mg tablet 500 mg PO Q6H PRN (Reason: pain or fever) Qty: 20 0RF naproxen 500 mg tablet 500 mg PO BID PRN (Reason: pain) 10 Days Qty: 20 0RF azithromycin 250 mg tablet See Rx Instructions .ROUTE .COMPLEX Qty: 6 0RF Rx Instructions: take 500 mg today (day 1), then 250 mg for 4 days (days 2-5) lactulose 20 gram/30 mL solution 20 g PO BID PRN (Reason: laxative effect) 15 Days Qty: 1200 0RF rnoeeqcveq-nsxijbegflqdh-edat 50-325-40 mg capsule 1 cap PO Q6H PRN (Reason: pain) 4 Days Qty: 16 0RF montelukast 10 mg tablet 10 mg PO DAILY Qty: 30 6RF pioglitazone [Actos] 15 mg tablet 15 mg PO DAILY 90 Days Qty: 90 1RF zolpidem [Ambien] 5 mg tablet 5 mg PO BEDTIME PRN (Reason: sleep) 30 Days Qty: 30 0RF topiramate 25 mg capsule, sprinkle 25 mg PO DAILY 0RF aspirin [Adult Aspirin Regimen] 81 mg tablet,delayed release (DR/EC) 81 mg PO DAILY 0RF Interventions: ED Discharge Assessment Last Done: 08/15/21 15:49 Discharge Date/Time: 08/15/21 15:50
[2021-08-15 13:38] LABS: COVID-19 Test Negative (Negative); IDNOW Serial# 16C4AD1C; IDNOW Serial# 55D5AD1C; Influenza A Negative (Negative); Influenza B2 Negative (Negative)
--- NOTE | 2021-08-15 13:46 | ECG_ITS ---
Test Reason : DIFFICULTY BREATHING Blood Pressure : / mmHG Vent. Rate : 073 BPM Atrial Rate : 073 BPM P-R Int : 146 ms QRS Dur : 098 ms QT Int : 440 ms P-R-T Axes : 036 -18 004 degrees QTc Int : 484 ms Normal sinus rhythm Incomplete right bundle branch block Nonspecific ST and T wave abnormality Abnormal ECG When compared with ECG of 09-AUG-2021 07:57, QT has lengthened Referred By: Hafsa Burciaga Electronically Signed By:RICHARD ENRIQUEZ
[2021-08-15 13:49] VITALS: PULSE 62; RESP 18; O2SAT 97
[2021-08-15] MEDS: predniSONE 20 MG TABLET 40 MG PO (13:49)
[2021-08-15] MEDS: Albuterol Sulfate (0.083%) 2.5 MG/3 ML VIAL.NEB 5 MG INHALE (13:49)
== END 2021-08-15 15:50 | disposition home or self-care (01) ==
PROVIDERS: Emergency Provider Emergency Medicine; PCP Physician Assistant
DX: R06.02 Shortness of breath (principal); R05.9 Cough, unspecified; Z20.822 Contact with and (suspected) exposure to COVID-19; Z79.899 Other long term (current) drug therapy
CPT/HCPCS: 71046; 87502; 87635; 93005; 94640; 99284

== ENCOUNTER 2021-09-20 08:54 | Outpatient (REF) | payer MEDICARE, MEDICAID, SELFPAY ==
--- NOTE | ~2021-09-20 | MM_ITS ---
EXAMINATION: MM SCREENING DIGITAL BREAST TOMOSYNTHESIS, BILATERAL CLINICAL INFORMATION: Screening. Asymptomatic. The lifetime risk of breast cancer based on the Tyrer-Cuzick Model is 10.2%. COMPARISON: Mammography: September 17, 2020 and studies dating back to April 21, 2014 TECHNIQUE: Digital breast tomosynthesis is performed in both the craniocaudal and mediolateral oblique views along with computer-aided detection (CAD). Synthesized 2D images are generated from the tomosynthesis. FINDINGS: The breasts are extremely dense, which lowers the sensitivity of mammography (ACR BI-RADS breast composition Category d). There are no significant masses, abnormal calcifications, or other abnormalities. Vascular calcifications are present. MM/MM tomosynthesis screening BI IMPRESSION: There are no significant changes from prior study. ASSESSMENT: BI-RADS 1: Negative RECOMMENDATION: Routine annual mammography screening. This patient's information was entered into a reminder system with a target due date for their next mammogram.
== END 2021-09-20 08:55 | disposition home or self-care (01) ==
LOC: HO.MAMMO 08:54
PROVIDERS: PCP Physician Assistant; Visit Provider Physician Assistant
DX: Z12.31 Encounter for screening mammogram for malignant neoplasm of breast (principal)
CPT/HCPCS: 77063; 77067

== ENCOUNTER → 2021-12-14 09:09 | Outpatient (BNVA) | payer MEDICARE, MEDICAID, SELFPAY | PROVIDERS: PCP Physician Assistant; Visit Provider Nurse Practitioner Family | DX: M48.07 Spinal stenosis, lumbosacral region (principal); M47.26 Other spondylosis with radiculopathy, lumbar region; M79.18 Myalgia, other site; Z79.52 Long term (current) use of systemic steroids | CPT/HCPCS: 99212 ==

== ENCOUNTER 2022-01-07 07:23 | Outpatient (REF) | payer MEDICARE, MEDICAID, SELFPAY ==
[2022-01-07 08:36] LABS: Hematocrit 35.8 % (37.0-47.0); Hemoglobin 11.6 g/dl (12.0-16.0); Mean Corpuscular HGB Conc 32.4 g/dl (31.0-35.0); Mean Corpuscular Hemoglobin 28.9 pg (27.0-33.0); Mean Corpuscular Volume 89.1 fL (80.0-98.0); Mean Platelet Volume 9.7 fL (9.4-12.3); Platelet Count 282 X10*3/uL (160-400); Red Blood Count 4.02 X10*6/uL (4.20-5.50); Red Cell Distribution Width 13.1 % (11.0-16.0); White Blood Count 5.9 X10*3/uL (4.8-10.8)
[2022-01-07 08:42] LABS: Alanine Aminotransferase 22 U/L (0-31); Albumin Level 4.3 g/dL (3.5-5.0); Alkaline Phosphatase 88 U/L (39-117); Anion Gap 18 (12-20); Aspartate Amino Transferase 21 U/L (5-31); Bilirubin Total 0.5 mg/dL (0.0-1.0); Blood Urea Nitrogen 21 mg/dL (9-16); Calcium 9.6 mg/dL (8.4-10.2); Carbon Dioxide 27 mmol/L (22-29); Chloride 100 mmol/L (96-108); Cholesterol 185 mg/dL; Estimated Glomerular Filt Rate 51; Glucose Fasting 123 mg/dL (60-99); HDL Cholesterol 48 mg/dL; LDL Cholesterol Calculated 106 mg/dl; Potassium 4.1 mmol/L (3.3-5.1); Sodium 141 mmol/L (135-145); Total Protein 7.8 g/dL (6.5-8.0); Triglycerides 158 mg/dL
[2022-01-07 08:59] LABS: Estimated Average Glucose 134 mg/dL; Hemoglobin A1c % 6.3 %
[2022-01-07 09:02] LABS: TSH reflex Free T4 1.49 uIU/mL (0.32-4.0)
== END 2022-01-07 07:24 | disposition home or self-care (01) ==
LOC: HO.LAB 07:23
PROVIDERS: PCP Physician Assistant; Visit Provider Physician Assistant
DX: I10 Essential (primary) hypertension (principal); E11.9 Type 2 diabetes mellitus without complications
CPT/HCPCS: 36415; 80053; 80061; 83036; 84443; 85027

== ENCOUNTER 2022-02-16 06:19 | Emergency (ER) | payer MEDICARE, MEDICAID, SELFPAY ==
--- NOTE | ~2022-02-16 | XR_ITS ---
EXAMINATION: XR FOOT, RIGHT CLINICAL INFORMATION: Pain COMPARISON: None TECHNIQUE: 3 views of the right foot. This is a stat/emergency exam. FINDINGS: Bones have normal alignment throughout the foot. No fracture, subluxation or focal soft tissue swelling. No erosions or periostitis. On the nonweightbearing lateral view, there is a pes cavus configuration. Small ossification/enthesophyte is noted at the Achilles insertion on the posterior calcaneus. No radiopaque foreign body within the foot. XR/XR foot RT min 3V IMPRESSION: No specific cause of pain is identified. No evidence of stress fracture or acute osseous injury.
[2022-02-16 06:34] VITALS: BP 119/58; PULSE 62; RESP 16; TEMP 36.9; O2SAT 100; BMI 25.2
--- NOTE | 2022-02-16 06:37 | ED_ITS ---
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 States it throbs and feels burning at times. This has never happened before. Blood sugars are well controlled. Takes gabapentin 300mg daily MD Complaint: extremity pain Onset (ago): week(s) (2) Pain Consistency: constant Location: right and lower extremity (foot) Quality: burning, aching and constant Radiation: none Relieving factors: immobilization Exacerbating factors: weight bearing and walking Associated symptoms: denies other symptoms Related Data Home Medications Medication Instructions Recorded Confirmed quetiapine 25 mg tablet 25 mg PO BEDTIME 03/08/20 09/01/21 aspirin 81 mg tablet,delayed 81 mg PO DAILY 12/07/20 09/01/21 release (Adult Aspirin Regimen) topiramate 25 mg sprinkle capsule 25 mg PO DAILY 12/07/20 09/01/21 zolpidem 10 mg tablet 10 mg PO BEDTIME PRN 12/14/21 Previous Rx's Medication Instructions Recorded leg brace (ALETHA Knee Brace) #1 ea 02/05/20 comp.stocking,knee,long,medium #2 ea 02/16/20 clonazepam 1 mg tablet 1 mg PO DAILY PRN anxiety 30 days 05/12/20 #30 tabs ibuprofen 600 mg tablet 600 mg PO Q8H PRN pain #20 tabs 06/06/20 naproxen 500 mg tablet 500 mg PO BID PRN pain 10 days #20 07/17/20 tabs ketoconazole 2 % shampoo 1 appl topical 2XW 30 days #120 mL 10/18/20 hydrocortisone valerate 0.2 % 1 appl topical BID PRN skin 02/04/21 topical cream irritation 30 days #60 grams diclofenac sodium 1 % topical gel 2 g topical DAILY #100 grams 02/07/21 ocyvlxzisa-tmdkfptavpumy-pvcpzjhw 1 cap PO Q6H PRN pain 4 days #16 04/05/21 50 mg-325 mg-40 mg capsule caps lactulose 20 gram/30 mL oral 20 g (30 mL) PO BID PRN laxative 04/05/21 solution effect 15 days #1,200 mL hydroxyzine HCl 25 mg tablet 25 mg PO TID 7 days #21 tabs 05/18/21 multivitamin (Daily-Dionisio tablet) 1 tab PO DAILY #90 tabs 05/30/21 fluticasone propionate 50 2 spray intranasal BID #16 grams 07/19/21 mcg/actuation nasal spray,suspension montelukast 10 mg tablet 10 mg PO DAILY #30 tabs 08/04/21 zolpidem 5 mg tablet (Ambien) 5 mg PO BEDTIME PRN sleep 30 days 08/04/21 #30 tabs azithromycin 250 mg tablet See Rx Instructions PO .COMPLEX #6 08/09/21 tabs acetaminophen 500 mg tablet 500 mg PO Q6H PRN pain or fever 08/18/21 (Tylenol Extra Strength) #20 tabs albuterol sulfate 90 mcg/actuation 2 puff inhalation Q4-6H PRN 08/18/21 aerosol inhaler (Ventolin HFA) shortness of breath or wheezing #6.7 grams docusate sodium 100 mg capsule 100 mg PO BID 15 days #30 caps 08/18/21 (Dulcolax Stool Softener (docusate)) ferrous sulfate 325 mg (65 mg 325 mg PO DAILY 30 days #30 tabs 08/18/21 iron) tablet hydrochlorothiazide 12.5 mg capsule 12.5 mg PO DAILY 90 days #90 caps 08/18/21 hydrocortisone valerate 0.2 % 1 appl topical BID skin irritation 08/18/21 topical cream 10 days #45 grams loratadine 10 mg tablet (Allergy 10 mg PO DAILY 90 days #90 tabs 08/18/21 Relief (loratadine)) sennosides 8.6 mg tablet (senna) 17.2 mg PO BEDTIME 30 days #60 tabs 08/18/21 olopatadine 0.2 % eye drops 1 drp ophthalmic (eye) DAILY 30 09/01/21 days #2.5 mL ibuprofen 600 mg tablet 600 mg PO TID PRN pain 15 days #45 09/26/21 tabs gabapentin 300 mg capsule 300 mg PO DAILY 90 days #90 caps 10/17/21 bepotastine besilate 1.5 % eye 1 drp ophthalmic (eye) BID PRN eye 10/18/21 drops (Bepreve) irritation 30 days #10 mL lidocaine 5 % topical patch 1 patch topical DAILY #30 ea 10/27/21 methyl salicylate 30 %-menthol 10 1 appl topical TID 30 days #85 10/27/21 % topical cream (Icy Hot) grams prednisone 20 mg tablet 40 mg PO DAILY pain 5 days #10 tabs 12/14/21 omeprazole 20 mg capsule,delayed 20 mg PO DAILY #30 caps 01/14/22 release atorvastatin 20 mg tablet 20 mg PO DAILY #30 tabs 01/17/22 cholecalciferol (vitamin D3) 25 25 mcg PO DAILY 90 days #90 tabs 01/17/22 mcg (1,000 unit) tablet fluoxetine 40 mg capsule 40 mg PO DAILY 30 days #30 caps 01/17/22 fluticasone propionate 50 2 spray intranasal DAILY 30 days 01/17/22 mcg/actuation nasal #16 grams spray,suspension (Flonase Allergy Relief) pioglitazone 15 mg tablet (Actos) 15 mg PO DAILY 90 days #90 tabs 01/17/22 diclofenac sodium 1 % topical gel 2 g topical QID #100 grams 02/16/22 (Voltaren Arthritis Pain) gabapentin 300 mg capsule 300 mg PO BEDTIME #30 caps 02/16/22 Allergies Allergy/AdvReac Type Severity Reaction Status Date / Time No Known Allergies Allergy Verified 02/16/22 06:33 [No Known Allergies*] Review of Systems Review of Systems: Constitutional : No Fever, No Chills Eyes: No Eye Pain, No Swelling Cardiovascular : No Chest Pain, No SOB Respiratory : No Cough, No Dyspnea Gastrointestinal : No Nausea, No Vomiting, No Diarrhea, No abdominal Pain Genitourinary : No Dysuria, No Hematuria Musculoskeletal : positive joint pain, No Myalgias, No Joint Swelling Skin : No Skin lacerations, No rash Neuro : No Weakness, No Numbness, PMFSH Past Medical History Attestation statement: The following information was validated with the patient. Medical History Asthma DMII (diabetes mellitus, type 2) Gross hematuria HLD (hyperlipidemia) HTN (hypertension) Lumbar radiculopathy Migraines Myofascial pain Surgical History History of tubal ligation Family History Family History Father No problems noted. Mother No problems noted. Sister Breast cancer Brother Prediabetes Daughter Liver problem Social History Social History Housing: House Alcohol intake: never Patient Tobacco Use Status: Never used Tobacco e-Cigarette/Vaping Use: Never Used Advance Directives: No Advance Directives Information Provided: No service: No Current occupational status: retired Cognitive needs: No Hearing needs: No Vision needs: No Physical Exam Vital Signs: Vital Signs: Last Vital Signs Temp 98.5 F 02/16/22 06:34 Pulse 62 02/16/22 06:34 Resp 16 02/16/22 06:34 BP 119/58 L 02/16/22 06:34 Pulse Ox 100 02/16/22 06:34 O2 Del Method 02/16/22 06:34 BMI result Body Mass Index 25.2 Appearance: Alert. Oriented X3. No acute distress. Eyes: Pupils equal, round and reactive to light. ENT: Pharynx normal. Neck: Normal inspection. Neck supple. CVS: Normal heart rate and rhythm. Pulses normal. Respiratory: No respiratory distress. Breath sounds normal. Abdomen: Soft and nontender. Skin: Skin warm and dry. Normal skin color. Normal skin turgor. Extremities: No lower extremity edema. No calf ttp R foot ttp along pad of the foot but no swelling, discoloration, mass - bounding DP/PT pulses Neuro: Oriented X 3. No motor deficit. No sensory deficit. MDM - Extremity (Nontraumatic) MDM Narrative Medical decision making narrative: 61 yo female hx of HTN, HLD, DM2, anemia, asthma, myofascial pain syndrome here with 2 weeks of R foot pain atraumatic at this time will obtain xray - likely increase her gabapentin. No signs of infection and she is [place] intact. Discharge Plan Discharge Clinical Impression: Foot pain, right Patient Disposition: Home, Self-Care Instructions: Arthralgia (ED) Additional Instructions: return to ED for any worsening symptoms or concerns xray was normal no broken bones start taking gabapentin 300mg twice a day regresar al servicio de urgencias por cualquier empeoramiento de los s?ntomas o inquietudes la radiograf?a era normal sin huesos rotos comience a eliz gabapentina 300 mg dos veces al d?a Prescriptions: New gabapentin 300 mg capsule 300 mg PO BEDTIME Qty: 30 0RF diclofenac sodium [Voltaren Arthritis Pain] 1 % gel 2 g topical QID Qty: 100 0RF Rx Instructions: apply to single elbow, wrist or hand; for hand includes palm/fingers/back of hand No Action (DME) ALETHA Knee Brace Misc See Rx Instructions .ROUTE .MEDSUPPLY Qty: 1 0RF Rx Instructions: As directed (DME) comp.stocking,knee,long,medium Misc See Rx Instructions .ROUTE .MEDSUPPLY Qty: 2 0RF Rx Instructions: As directed quetiapine 25 mg tablet 25 mg PO BEDTIME clonazepam 1 mg tablet 1 mg PO DAILY PRN (Reason: anxiety) 30 Days Qty: 30 2RF ketoconazole 2 % shampoo 1 appl topical 2XW 30 Days Qty: 120 0RF hydrocortisone valerate 0.2 % cream 1 appl topical BID PRN (Reason: skin irritation) 30 Days Qty: 60 0RF diclofenac sodium 1 % gel 2 g topical DAILY Qty: 100 2RF hydroxyzine HCl 25 mg tablet 25 mg PO TID 7 Days Qty: 21 0RF Rx Instructions: Advised to hold clonazepam and loratadine. multivitamin [Daily-Dionisio] Tablet 1 tab PO DAILY Qty: 90 4RF fluticasone propionate 50 mcg/actuation spray,suspension 2 spray intranasal BID Qty: 16 3RF acetaminophen [Tylenol Extra Strength] 500 mg tablet 500 mg PO Q6H PRN (Reason: pain or fever) Qty: 20 0RF albuterol sulfate [Ventolin HFA] 90 mcg/actuation HFA aerosol inhaler 2 puff inhalation Q4-6H PRN (Reason: shortness of breath or wheezing) Qty: 6.7 0RF docusate sodium [Dulcolax Stool Softener (dss)] 100 mg capsule 100 mg PO BID 15 Days Qty: 30 3RF ferrous sulfate 325 mg (65 mg iron) tablet 325 mg PO DAILY 30 Days Qty: 30 3RF hydrochlorothiazide 12.5 mg capsule 12.5 mg PO DAILY 90 Days Qty: 90 3RF hydrocortisone valerate 0.2 % cream 1 appl topical BID 10 Days Qty: 45 0RF loratadine [Allergy Relief (loratadine)] 10 mg tablet 10 mg PO DAILY 90 Days Qty: 90 2RF sennosides [senna] 8.6 mg tablet 17.2 mg PO BEDTIME 30 Days Qty: 60 2RF ibuprofen 600 mg tablet 600 mg PO TID PRN (Reason: pain) 15 Days Qty: 45 0RF gabapentin 300 mg capsule 300 mg PO DAILY 90 Days Qty: 90 1RF bepotastine besilate [Bepreve] 1.5 % drops 1 drp ophthalmic (eye) BID PRN (Reason: eye irritation) 30 Days Qty: 10 2RF Icy Hot 30-10 % cream 1 appl topical TID 30 Days Qty: 85 0RF lidocaine 5 % adhesive patch,medicated 1 patch topical DAILY Qty: 30 6RF Rx Instructions: leave on most painful area for up to 12 hrs omeprazole 20 mg capsule,delayed release(DR/EC) 20 mg PO DAILY Qty: 30 3RF pioglitazone [Actos] 15 mg tablet 15 mg PO DAILY 90 Days Qty: 90 1RF cholecalciferol (vitamin D3) 25 mcg (1,000 unit) tablet 25 mcg PO DAILY 90 Days Qty: 90 3RF fluticasone propionate [Flonase Allergy Relief] 50 mcg/actuation spray,suspension 2 spray intranasal DAILY 30 Days Qty: 16 3RF Rx Instructions: administer into each nostril atorvastatin 20 mg tablet 20 mg PO DAILY Qty: 30 3RF fluoxetine 40 mg capsule 40 mg PO DAILY 30 Days Qty: 30 3RF ibuprofen 600 mg tablet 600 mg PO Q8H PRN (Reason: pain) Qty: 20 0RF naproxen 500 mg tablet 500 mg PO BID PRN (Reason: pain) 10 Days Qty: 20 0RF azithromycin 250 mg tablet See Rx Instructions .ROUTE .COMPLEX Qty: 6 0RF Rx Instructions: take 500 mg today (day 1), then 250 mg for 4 days (days 2-5) lactulose 20 gram/30 mL solution 20 g PO BID PRN (Reason: laxative effect) 15 Days Qty: 1200 0RF ciftfaxjhh-aszoyaqxfmyzb-xvxw 50-325-40 mg capsule 1 cap PO Q6H PRN (Reason: pain) 4 Days Qty: 16 0RF olopatadine 0.2 % drops 1 drp ophthalmic (eye) DAILY 30 Days Qty: 2.5 0RF montelukast 10 mg tablet 10 mg PO DAILY Qty: 30 6RF zolpidem [Ambien] 5 mg tablet 5 mg PO BEDTIME PRN (Reason: sleep) 30 Days Qty: 30 0RF topiramate 25 mg capsule, sprinkle 25 mg PO DAILY aspirin [Adult Aspirin Regimen] 81 mg tablet,delayed release (DR/EC) 81 mg PO DAILY zolpidem 10 mg tablet 10 mg PO BEDTIME PRN prednisone 20 mg tablet 40 mg PO DAILY 5 Days Qty: 10 0RF Referrals: Juan R Ramirez PA-C [Primary Care Provider] - 3 days (no better) Print Language: Lithuanian
== END 2022-02-16 07:34 | disposition home or self-care (01) ==
PROVIDERS: Emergency Provider Emergency Medicine; PCP Physician Assistant
DX: M79.671 Pain in right foot (principal); Z79.899 Other long term (current) drug therapy
CPT/HCPCS: 73630; 99282; 99283

== ENCOUNTER → 2022-02-23 16:14 | Outpatient (BNVA) | payer MEDICARE, MEDICAID, SELFPAY | PROVIDERS: PCP Physician Assistant; Visit Provider Nurse Practitioner Family | DX: M47.816 Spondylosis without myelopathy or radiculopathy, lumbar region (principal); M71.38 Other bursal cyst, other site; M51.36 Other intervertebral disc degeneration, lumbar region; M54.41 Lumbago with sciatica, right side; M54.42 Lumbago with sciatica, left side; G89.29 Other chronic pain | CPT/HCPCS: Q3014 ==

== ENCOUNTER 2022-03-06 10:16 | Outpatient (REF) | payer MEDICARE, MEDICAID, SELFPAY ==
[2022-03-06 11:40] LABS: Appearance Urine Clear; Color Urine Yellow; Glucose Urine UA Negative (Negative); Leukocyte Esterase Urine Trace (Negative); Nitrite Urine Negative (Negative); Specific Gravity - Urine 1.015 (1.005-1.025); UMIC TRIGGER UACC YES; Urine Blood Negative (Negative); Urine Ketones Negative (Negative); Urine Protein Negative (Neg-Trace)
[2022-03-06 12:20] LABS: Hyaline Casts Urine 0-2 /LPF (0-2); Squamous Epithelial Cell Urine 0-2 /HPF (0-2)
[2022-03-06 12:21] LABS: Bacteria Urine None Seen (None Seen); RBC Urine 0-2 /HPF (0-2); WBC Urine 0-5 /HPF (0-5)
== END 2022-03-06 10:17 | disposition home or self-care (01) ==
LOC: HO.LAB 10:16
PROVIDERS: Visit Provider Physician Assistant
DX: R31.0 Gross hematuria (principal)
CPT/HCPCS: 81001

== ENCOUNTER 2022-03-28 06:13 | Outpatient (REF) | payer MEDICARE, MEDICAID, SELFPAY ==
--- NOTE | ~2022-03-28 | FL_ITS ---
EXAMINATION: XR FLUOROSCOPY WITH IMAGES CLINICAL INFORMATION: M47.816 - Spondylosis without myelopathy or radiculopathy, lumbar region COMPARISON: MR lumbar spine 10/22/2020 TECHNIQUE: Fluoroscopy Supervised By: Unremarkable management physician. Fluoroscopy Time: 0.4 minutes. Cumulative Dose: 4.91 mGy. DAP: 1.33 Gycm2. Images: 6. FINDINGS: There are spinal needles overlying the bilateral outer L3, L4, and L5 neural foramen. There is contrast seen in the respective nerve sheaths. Some early transforaminal epidural extension is suggested. No visible vascular communication. FL/FL guidance in treatment room IMPRESSION: Fluoroscopy for pain management procedures.
== END 2022-03-28 06:14 | disposition home or self-care (01) ==
LOC: CF 06:13
PROVIDERS: Visit Provider Anesthesiology
DX: M47.816 Spondylosis without myelopathy or radiculopathy, lumbar region (principal); M71.38 Other bursal cyst, other site; M51.36 Other intervertebral disc degeneration, lumbar region; M54.41 Lumbago with sciatica, right side; M54.42 Lumbago with sciatica, left side; G89.29 Other chronic pain
CPT/HCPCS: 64493; 64494; J2795

== ENCOUNTER → 2022-04-07 15:32 | Outpatient (BNVA) | payer MEDICARE, MEDICAID, SELFPAY | PROVIDERS: PCP Physician Assistant; Visit Provider Nurse Practitioner Family | DX: M47.816 Spondylosis without myelopathy or radiculopathy, lumbar region (principal); M71.38 Other bursal cyst, other site; M51.36 Other intervertebral disc degeneration, lumbar region; M54.41 Lumbago with sciatica, right side; M54.42 Lumbago with sciatica, left side; G89.29 Other chronic pain | CPT/HCPCS: Q3014 ==

== ENCOUNTER 2022-05-08 08:49 | Emergency (ER) | payer MEDICARE, MEDICAID, SELFPAY ==
--- NOTE | ~2022-05-08 | XR_ITS ---
EXAMINATION: XR CHEST CLINICAL INFORMATION: Cough and shortness of breath COMPARISON: 08/15/2021 TECHNIQUE: 2 views of the chest were obtained. FINDINGS: No significant abnormality is noted involving the heart, lungs, mediastinum, bony thorax or soft tissues. XR/XR chest 2V IMPRESSION: Unremarkable examination.
[2022-05-08 09:45] VITALS: PULSE 93; RESP 18; TEMP 36.9; O2SAT 97; BMI 23.4
[2022-05-08 10:36] VITALS: BP 107/56; PULSE 87; TEMP 37.3; O2SAT 98
[2022-05-08 10:42] LABS: Influenza A PCR NEGATIVE (Negative); Influenza B PCR NEGATIVE (Negative); Resp Syncy Virus RNA Qual PCR NEGATIVE (Negative); SARS COV2 PCR INHOUSE POSITIVE (Negative)
--- NOTE | 2022-05-08 10:50 | ED.GENADULT ---
HPI - General Adult General Chief complaint: Upper Respiratory Symptoms Stated complaint: COUGH Time Seen by Provider: 05/08/22 10:28 Source: patient and personal lines advisor Mode of arrival: ambulatory Limitations: language barrier History of Present Illness HPI narrative: Patient is a 61 year old assigned female at with a history of DM presenting to the emergency department today with a cough. Patient states that for the last day she has had a cough. Patient denies any dizziness, lightheadedness, abdominal pain, nausea, vomiting, fever, chills, blurry vision, double vision, loss of vision, chest pain, difficulty breathing, shortness of breath, back pain, night sweats, pain with urination, increased urinary frequency, increased urinary urgency, blood in her urine or stool, syncope or a near syncopal episode, recent trauma or falls, bowel incontinence, bladder incontinence, bowel retention, bladder retention, or any other complaints at this time. Onset (ago): day(s) (1) Severity: mild Severity scale (1-10): 1 Relieving factors: none Exacerbating factors: none Associated symptoms: cough Treatments prior to arrival: none Related Data Home Medications Medication Instructions Recorded Confirmed quetiapine 25 mg tablet 25 mg PO BEDTIME 03/08/20 09/01/21 aspirin 81 mg tablet,delayed 81 mg PO DAILY 12/07/20 09/01/21 release (Adult Aspirin Regimen) topiramate 25 mg sprinkle capsule 25 mg PO DAILY 12/07/20 09/01/21 Previous Rx's Medication Instructions Recorded leg brace (ALETHA Knee Brace) #1 ea 02/05/20 comp.stocking,knee,long,medium #2 ea 02/16/20 clonazepam 1 mg tablet 1 mg PO DAILY PRN anxiety 30 days 05/12/20 #30 tabs ketoconazole 2 % shampoo 1 appl topical 2XW 30 days #120 mL 10/18/20 hydrocortisone valerate 0.2 % 1 appl topical BID PRN skin 02/04/21 topical cream irritation 30 days #60 grams diclofenac sodium 1 % topical gel 2 g topical DAILY #100 grams 02/07/21 gpzvnwmvik-nduanaiaciscw-emhydcmy 1 cap PO Q6H PRN pain 4 days #16 04/05/21 50 mg-325 mg-40 mg capsule caps lactulose 20 gram/30 mL oral 20 g (30 mL) PO BID PRN laxative 04/05/21 solution effect 15 days #1,200 mL hydroxyzine HCl 25 mg tablet 25 mg PO TID 7 days #21 tabs 05/18/21 multivitamin (Daily-Dionisio tablet) 1 tab PO DAILY #90 tabs 05/30/21 fluticasone propionate 50 2 spray intranasal BID #16 grams 07/19/21 mcg/actuation nasal spray,suspension montelukast 10 mg tablet 10 mg PO DAILY #30 tabs 08/04/21 zolpidem 5 mg tablet (Ambien) 5 mg PO BEDTIME PRN sleep 30 days 08/04/21 #30 tabs azithromycin 250 mg tablet See Rx Instructions PO .COMPLEX #6 08/09/21 tabs albuterol sulfate 90 mcg/actuation 2 puff inhalation Q4-6H PRN 08/18/21 aerosol inhaler (Ventolin HFA) shortness of breath or wheezing #6.7 grams docusate sodium 100 mg capsule 100 mg PO BID 15 days #30 caps 08/18/21 (Dulcolax Stool Softener (docusate)) ferrous sulfate 325 mg (65 mg 325 mg PO DAILY 30 days #30 tabs 08/18/21 iron) tablet hydrochlorothiazide 12.5 mg capsule 12.5 mg PO DAILY 90 days #90 caps 08/18/21 hydrocortisone valerate 0.2 % 1 appl topical BID skin irritation 08/18/21 topical cream 10 days #45 grams loratadine 10 mg tablet (Allergy 10 mg PO DAILY 90 days #90 tabs 08/18/21 Relief (loratadine)) sennosides 8.6 mg tablet (senna) 17.2 mg PO BEDTIME 30 days #60 tabs 08/18/21 olopatadine 0.2 % eye drops 1 drp ophthalmic (eye) DAILY 30 09/01/21 days #2.5 mL gabapentin 300 mg capsule 300 mg PO DAILY 90 days #90 caps 10/17/21 bepotastine besilate 1.5 % eye 1 drp ophthalmic (eye) BID PRN eye 10/18/21 drops (Bepreve) irritation 30 days #10 mL methyl salicylate 30 %-menthol 10 1 appl topical TID 30 days #85 10/27/21 % topical cream (Icy Hot) grams prednisone 20 mg tablet 40 mg PO DAILY pain 5 days #10 tabs 12/14/21 atorvastatin 20 mg tablet 20 mg PO DAILY #30 tabs 01/17/22 fluoxetine 40 mg capsule 40 mg PO DAILY 30 days #30 caps 01/17/22 fluticasone propionate 50 2 spray intranasal DAILY 30 days 01/17/22 mcg/actuation nasal #16 grams spray,suspension (Flonase Allergy Relief) pioglitazone 15 mg tablet (Actos) 15 mg PO DAILY 90 days #90 tabs 01/17/22 diclofenac sodium 1 % topical gel 2 g topical QID #100 grams 02/16/22 (Voltaren Arthritis Pain) gabapentin 300 mg capsule 300 mg PO BEDTIME #30 caps 02/16/22 cholecalciferol (vitamin D3) 25 25 mcg PO DAILY 90 days #90 tabs 02/27/22 mcg (1,000 unit) tablet clotrimazole 1 % vaginal cream 1 appful vaginal BEDTIME 7 days 02/27/22 #45 grams leg brace (Knee Support Brace) #1 ea 03/07/22 phenazopyridine 200 mg tablet 200 mg PO TID pain 2 days #6 tabs 03/08/22 (Pyridium) lidocaine 5 % topical patch 1 patch topical DAILY 30 days #30 03/29/22 ea back brace #1 ea 04/03/22 meloxicam 15 mg tablet 15 mg PO DAILY PRN pain 30 days 04/07/22 #30 tabs omeprazole 20 mg capsule,delayed 20 mg PO DAILY #30 caps 04/21/22 release zolpidem 10 mg tablet 10 mg PO BEDTIME #30 tabs 04/21/22 acetaminophen 500 mg tablet 500 mg PO Q6H PRN pain #60 tabs 05/03/22 (Tylenol Extra Strength) naproxen 500 mg tablet 500 mg PO BID PRN pain #30 tabs 05/03/22 Allergies Allergy/AdvReac Type Severity Reaction Status Date / Time No Known Allergies Allergy Verified 04/07/22 15:33 [No Known Allergies*] Review of Systems Constitutional: Constitutional: Reports no additional constitutional complaints, Denies chills, Denies fever(s) and Denies night sweats Eyes: Eyes: Reports no additional eye complaints, Denies blurry vision, Denies change in vision, Denies diplopia, Denies eye discharge, Denies loss of vision and Denies eye pain ENT: Denies dizziness Cardiovascular: Cardiovascular: Reports no additional cardiovascular complaints, Denies chest pain, Denies lightheadedness, Denies Loss of Consciousness and Denies dyspnea Respiratory: Respiratory: Reports no additional respiratory complaints, Reports cough and Denies dyspnea Gastrointestinal: Gastrointestinal: Reports no additional gastrointestinal complaints, Denies abdominal pain, Denies melena, Denies hematochezia, Denies change in bowel habits and Denies change in stool character Genitourinary: Genitourinary: Denies hematuria, Denies urinary frequency, Denies dysuria, Denies urinary incontinence, Denies urinary hesitancy and Denies urinary urgency Musculoskeletal: Musculoskeletal: Reports no additional musculoskeletal complaints, Denies numbness and Denies tingling Neurologic: Denies dizziness, Denies loss of vision, Denies numbness and Denies tingling Psychiatric: Psychiatric: Reports no additional psychiatric complaints Endocrine: Endocrine: Reports no additional endocrine complaints Hematologic/Lymphatic: Hematologic/Lymphatic: Reports no additional hematologic/lymphatic complaints Allergic/Immunologic: Allergic/Immunologic: Reports no additional allergic/immunologic complaints [facility] Past Medical History Attestation statement: The following information was validated with the patient. Source: old records reviewed and nursing notes reviewed Medical History Asthma DMII (diabetes mellitus, type 2) Gross hematuria HLD (hyperlipidemia) HTN (hypertension) Lumbar radiculopathy Migraines Myofascial pain Surgical History History of tubal ligation Family History Family History Father No problems noted. Mother No problems noted. Sister Breast cancer Brother Prediabetes Daughter Liver problem Other Gross hematuria Social History Social History Housing: House Alcohol intake: never Patient Tobacco Use Status: Never used Tobacco Smoked in Last 30 Days: No e-Cigarette/Vaping Use: Never Used Use of substances other than those prescribed or required for medical reasons: No Advance Directives: No Advance Directives Information Provided: Yes service: No Current occupational status: retired Cognitive needs: No Hearing needs: No Vision needs: No Physical Exam ED Vital Signs: Vital Signs - 24 hr 05/08/22 09:45 05/08/22 10:36 Temperature 98.4 F 99.2 F Pulse Rate 93 87 Respiratory Rate 18 Blood Pressure 107/56 L Pulse Oximetry 97 98 Oxygen Delivery Method Room Air Room Air BMI result Body Mass Index 23.4 Const General: cooperative, no acute distress, alert and awake Nutritional Appearance: well nourished Orientation/consciousness: patient oriented x3 Limitations: no limitations HENMT Head: Yes normal to inspection and Yes atraumatic Ears: hearing grossly normal bilaterally and external ears normal General nose exam: Normal external nose present, no nasal discharge noted and no epistaxis Face and sinus: Yes normal facial exam, No abrasion and No laceration Mouth: Normal oral and palatal mucosa present, no drooling and no muffled voice Eyes General: appearance normal, both eyes and all related structures Periorbital: periorbital findings normal Eyelids: Yes eyelids normal Conjunctivae: conjunctivae normal Pupils: Equal, round and reactive pupils present EOM: EOMs intact bilaterally Neck Neck: Yes normal visual inspection, Yes full ROM and Yes no lymphadenopathy Chest Chest palpation & inspection: normal inspection of the chest Resp Effort & Inspection: normal respiratory effort and able to speak in complete sentences Auscultation: clear to auscultation bilaterally Cardio Rate: regular rate Rhythm: regular rhythm GI Inspection: Yes normal to inspection Neuro General: patient oriented x3 and moves all extremities Cranial nerves: Yes Equal, round and reactive pupils present Cognition (Neuro): normal cognition Motor exam (neuro): 5/5 motor strength present throughout Sensory Exam: Normal double simultaneous stimulation for sensation Coordination: lejpiu-mi-jpwg test normal Extrem General: Yes normal to inspection, Yes full ROM and Yes capillary refill normal Psych Appearance: grossly normal Mental Status: mental status grossly normal Affect: normal affect Attitude: cooperative Thought process: Normal thought process present Thought content: Normal thought content present Insight: Good insight present (Psych) Medical Decision Making Medical Decision Making MDM Narrative: Patient is a 61 year old assigned female at with a history of DM presenting to the emergency department today with a cough. Patient's physical exam was unremarkable. Patient's chest x-ray showed no acute process. Patient's COVID-19 swab was positive. I explained my physical exam findings as well as all test results to the patient. I answered all questions asked by the patient. I stressed the importance of the patient taking her medication as prescribed. I stressed the importance of the patient following up with her primary care provider. I stressed the importance of the patient returning to the emergency department immediately if her symptoms were to worsen or if she were to develop any dizziness, shortness of breath, difficulty breathing, chest pain, blurry vision, loss of vision, nausea, vomiting, abdominal pain, fever, chills, back pain, or any other complaints. Patient verbalized agreement and understanding with this treatment plan and discharge. Differential Diagnosis Differential Diagnoses: The differential diagnosis associated with the presentation includes COVID-19 Lab Data MDM Lab Attestation statement: I reviewed the patient's lab results. Labs: Lab Results 05/08/22 Range/Units 09:54 Influenza Type A (PCR) NEGATIVE (Negative) Influenza Type B (PCR) NEGATIVE (Negative) RSV RNA Qual (PCR) NEGATIVE (Negative) SARS-CoV-2 RNA (RT-PCR) POSITIVE A (Negative) Radiology Impression Discussion of test interpretation with radiology: I have reviewed the radiologist's reading. Radiologist Impression: My interpretation is in agreement with the radiologist's impression of this imaging study. EXAMINATION: XR CHEST CLINICAL INFORMATION: Cough and shortness of breath COMPARISON: 08/15/2021 TECHNIQUE: 2 views of the chest were obtained. FINDINGS: No significant abnormality is noted involving the heart, lungs, mediastinum, bony thorax or soft tissues. XR/XR chest 2V IMPRESSION: Unremarkable examination. Dictated By: Brice Salas MD Signed By: Electronically signed by Brice Salas MD 05/08/22 1122 Discharge Plan Discharge Clinical Impression: COVID-19 Patient Disposition: Home, Self-Care Instructions: COVID-19 (Coronavirus Disease 2019) (ED) Additional Instructions: Follow up with your primary care provider. Return to the emergency department immediately if your symptoms worsen or if you develop any dizziness, shortness of breath, difficulty breathing, chest pain, blurry vision, loss of vision, nausea, vomiting, abdominal pain, fever, chills, back pain, or any other complaints. Nanette un seguimiento con gray proveedor de atenci?n primaria. Regrese al departamento de emergencias de inmediato si kee s?ntomas empeoran o si presenta mareos, falta de aire, dificultad para respirar, dolor de pecho, visi?n borrosa, p?rdida de la visi?n, n?useas, v?mitos, dolor abdominal, fiebre, escalofr?os, dolor de espalda o cualquier otras quejas. Prescriptions: No Action (DME) ALETHA Knee Brace Misc See Rx Instructions .ROUTE .MEDSUPPLY Qty: 1 0RF Rx Instructions: As directed (DME) comp.stocking,knee,long,medium Misc See Rx Instructions .ROUTE .MEDSUPPLY Qty: 2 0RF Rx Instructions: As directed quetiapine 25 mg tablet 25 mg PO BEDTIME clonazepam 1 mg tablet 1 mg PO DAILY PRN (Reason: anxiety) 30 Days Qty: 30 2RF ketoconazole 2 % shampoo 1 appl topical 2XW 30 Days Qty: 120 0RF hydrocortisone valerate 0.2 % cream 1 appl topical BID PRN (Reason: skin irritation) 30 Days Qty: 60 0RF diclofenac sodium 1 % gel 2 g topical DAILY Qty: 100 2RF hydroxyzine HCl 25 mg tablet 25 mg PO TID 7 Days Qty: 21 0RF Rx Instructions: Advised to hold clonazepam and loratadine. multivitamin [Daily-Dionisio] Tablet 1 tab PO DAILY Qty: 90 4RF fluticasone propionate 50 mcg/actuation spray,suspension 2 spray intranasal BID Qty: 16 3RF albuterol sulfate [Ventolin HFA] 90 mcg/actuation HFA aerosol inhaler 2 puff inhalation Q4-6H PRN (Reason: shortness of breath or wheezing) Qty: 6.7 0RF docusate sodium [Dulcolax Stool Softener (dss)] 100 mg capsule 100 mg PO BID 15 Days Qty: 30 3RF ferrous sulfate 325 mg (65 mg iron) tablet 325 mg PO DAILY 30 Days Qty: 30 3RF hydrochlorothiazide 12.5 mg capsule 12.5 mg PO DAILY 90 Days Qty: 90 3RF hydrocortisone valerate 0.2 % cream 1 appl topical BID 10 Days Qty: 45 0RF loratadine [Allergy Relief (loratadine)] 10 mg tablet 10 mg PO DAILY 90 Days Qty: 90 2RF sennosides [senna] 8.6 mg tablet 17.2 mg PO BEDTIME 30 Days Qty: 60 2RF gabapentin 300 mg capsule 300 mg PO DAILY 90 Days Qty: 90 1RF bepotastine besilate [Bepreve] 1.5 % drops 1 drp ophthalmic (eye) BID PRN (Reason: eye irritation) 30 Days Qty: 10 2RF Icy Hot 30-10 % cream 1 appl topical TID 30 Days Qty: 85 0RF pioglitazone [Actos] 15 mg tablet 15 mg PO DAILY 90 Days Qty: 90 1RF fluticasone propionate [Flonase Allergy Relief] 50 mcg/actuation spray,suspension 2 spray intranasal DAILY 30 Days Qty: 16 3RF Rx Instructions: administer into each nostril atorvastatin 20 mg tablet 20 mg PO DAILY Qty: 30 3RF fluoxetine 40 mg capsule 40 mg PO DAILY 30 Days Qty: 30 3RF cholecalciferol (vitamin D3) 25 mcg (1,000 unit) tablet 25 mcg PO DAILY 90 Days Qty: 90 3RF clotrimazole 1 % cream 1 appful vaginal BEDTIME 7 Days Qty: 45 0RF (DME) Knee Support Brace Mis See Rx Instructions .Route Qty: 1 0RF Rx Instructions: As directed phenazopyridine [Pyridium] 200 mg tablet 200 mg PO TID 2 Days Qty: 6 0RF lidocaine 5 % adhesive patch,medicated 1 patch topical DAILY 30 Days Qty: 30 6RF Rx Instructions: leave on most painful area for up to 12 hrs (DME) back brace Misc See Rx Instructions .Route Qty: 1 0RF Rx Instructions: As directed zolpidem 10 mg tablet 10 mg PO BEDTIME Qty: 30 0RF omeprazole 20 mg capsule,delayed release(DR/EC) 20 mg PO DAILY Qty: 30 3RF acetaminophen [Tylenol Extra Strength] 500 mg tablet 500 mg PO Q6H PRN (Reason: pain ) Qty: 60 0RF naproxen 500 mg tablet 500 mg PO BID PRN (Reason: pain) Qty: 30 0RF Rx Instructions: Take with food azithromycin 250 mg tablet See Rx Instructions .ROUTE .COMPLEX Qty: 6 0RF Rx Instructions: take 500 mg today (day 1), then 250 mg for 4 days (days 2-5) gabapentin 300 mg capsule 300 mg PO BEDTIME Qty: 30 0RF diclofenac sodium [Voltaren Arthritis Pain] 1 % gel 2 g topical QID Qty: 100 0RF Rx Instructions: apply to single elbow, wrist or hand; for hand includes palm/fingers/back of hand lactulose 20 gram/30 mL solution 20 g PO BID PRN (Reason: laxative effect) 15 Days Qty: 1200 0RF rebqaqinyw-faemhlbyylzcj-emmn 50-325-40 mg capsule 1 cap PO Q6H PRN (Reason: pain) 4 Days Qty: 16 0RF olopatadine 0.2 % drops 1 drp ophthalmic (eye) DAILY 30 Days Qty: 2.5 0RF montelukast 10 mg tablet 10 mg PO DAILY Qty: 30 6RF zolpidem [Ambien] 5 mg tablet 5 mg PO BEDTIME PRN (Reason: sleep) 30 Days Qty: 30 0RF topiramate 25 mg capsule, sprinkle 25 mg PO DAILY aspirin [Adult Aspirin Regimen] 81 mg tablet,delayed release (DR/EC) 81 mg PO DAILY prednisone 20 mg tablet 40 mg PO DAILY 5 Days Qty: 10 0RF meloxicam 15 mg tablet 15 mg PO DAILY PRN (Reason: pain) 30 Days Qty: 30 0RF Rx Instructions: Take it with food and full glass of water. Avoid other NSAIDs. Referrals: Juan R Ramirez PA-C [Primary Care Provider] - Interventions: ED Discharge Assessment Last Done: 05/08/22 10:55 Discharge Date/Time: 05/08/22 10:55 Print Language: Kyrgyz
== END 2022-05-08 10:55 | disposition home or self-care (01) ==
PROVIDERS: Physician Assistant Medical; Emergency Provider Emergency Medicine; PCP Physician Assistant
DX: U07.1 COVID-19 (principal); E11.9 Type 2 diabetes mellitus without complications; I10 Essential (primary) hypertension; E78.5 Hyperlipidemia, unspecified; Z79.899 Other long term (current) drug therapy; Z79.02 Long term (current) use of antithrombotics/antiplatelets; Z79.82 Long term (current) use of aspirin
CPT/HCPCS: 0241U; 71046; 99283; 99284

== ENCOUNTER 2022-05-15 12:13 | Emergency (ER) | payer MEDICARE, MEDICAID, SELFPAY ==
--- NOTE | ~2022-05-15 | XR_ITS ---
EXAMINATION: XR ABDOMEN KUB CLINICAL INDICATION: Constipation COMPARISON: CT abdomen pelvis 02/11/2012. Lumbar spine study 01/31/2019. TECHNIQUE: AP view of the abdomen. FINDINGS: The bowel gas pattern is normal with no evidence of ileus or obstruction. Small to moderate volume of stool in colon with most of the stool in the right colon from cecum through the mid transverse colon. Small volume of stool in the pelvis. No unusual soft tissue calcifications are noted. Multilevel degenerative spondylosis spine of moderate disc height narrowing and vertebral endplate spurs. Mild degenerative joint narrowing of the right and left hip. 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 This is chronic unchanged since lumbar spine study 01/31/2019. XR/XR KUB IMPRESSION: Small to moderate volume of stool in colon. Nonobstructive bowel pattern.
--- NOTE | 2022-05-15 12:26 | ED.ABDPAIN ---
HPI - Abdominal Pain General Chief Complaint: Abdominal Pain Stated Complaint: Abd pain Time Seen by Provider: 05/15/22 15:37 Source: patient, old records reviewed and spanish interpreter Mode of arrival: ambulatory Limitations: no limitations History of Present Illness HPI narrative: 61 yo mosotho speaking female with history of low back pain, constipation, osteoarthritis, anxiety, DM2, anemia, who presents to the ER c/o left sided abdominal cramping pains for the last 7-8 days. She was diagnosed with COVID 1 week ago. She has been run down and feeling not like herself but denies any SOB or chest pain. No fevers. She reports ongoing abdominal pains in the left side since COVID dx. No N/V/D. She states she cannot remember when she last had a BM but it has been several days. MD elicited complaint: abdominal pain Pertinent past history: constipation Onset (ago): week(s) (1) Pain Consistency: intermittent Location: [facility] Severity: moderate Quality: cramping Radiation: none Migration to: no migration Exacerbating factors: nothing Relieving factors: nothing Associated symptoms: chills and constipation Related Data Home Medications Medication Instructions Recorded Confirmed quetiapine 25 mg tablet 25 mg PO BEDTIME 03/08/20 09/01/21 aspirin 81 mg tablet,delayed 81 mg PO DAILY 12/07/20 09/01/21 release (Adult Aspirin Regimen) topiramate 25 mg sprinkle capsule 25 mg PO DAILY 12/07/20 09/01/21 Previous Rx's Medication Instructions Recorded leg brace (ALETHA Knee Brace) #1 ea 02/05/20 comp.stocking,knee,long,medium #2 ea 02/16/20 clonazepam 1 mg tablet 1 mg PO DAILY PRN anxiety 30 days 05/12/20 #30 tabs ketoconazole 2 % shampoo 1 appl topical 2XW 30 days #120 mL 10/18/20 hydrocortisone valerate 0.2 % 1 appl topical BID PRN skin 02/04/21 topical cream irritation 30 days #60 grams diclofenac sodium 1 % topical gel 2 g topical DAILY #100 grams 02/07/21 [id number]-[id number] 1 cap PO Q6H PRN pain 4 days #16 04/05/21 50 mg-325 mg-40 mg capsule caps lactulose 20 gram/30 mL oral 20 g (30 mL) PO BID PRN laxative 04/05/21 solution effect 15 days #1,200 mL hydroxyzine HCl 25 mg tablet 25 mg PO TID 7 days #21 tabs 05/18/21 fluticasone propionate 50 2 spray intranasal BID #16 grams 07/19/21 mcg/actuation nasal spray,suspension montelukast 10 mg tablet 10 mg PO DAILY #30 tabs 08/04/21 zolpidem 5 mg tablet (Ambien) 5 mg PO BEDTIME PRN sleep 30 days 08/04/21 #30 tabs azithromycin 250 mg tablet See Rx Instructions PO .COMPLEX #6 08/09/21 tabs albuterol sulfate 90 mcg/actuation 2 puff inhalation Q4-6H PRN 08/18/21 aerosol inhaler (Ventolin HFA) shortness of breath or wheezing #6.7 grams docusate sodium 100 mg capsule 100 mg PO BID 15 days #30 caps 08/18/21 (Dulcolax Stool Softener (docusate)) ferrous sulfate 325 mg (65 mg 325 mg PO DAILY 30 days #30 tabs 08/18/21 iron) tablet hydrocortisone valerate 0.2 % 1 appl topical BID skin irritation 08/18/21 topical cream 10 days #45 grams loratadine 10 mg tablet (Allergy 10 mg PO DAILY 90 days #90 tabs 08/18/21 Relief (loratadine)) sennosides 8.6 mg tablet (senna) 17.2 mg PO BEDTIME 30 days #60 tabs 08/18/21 olopatadine 0.2 % eye drops 1 drp ophthalmic (eye) DAILY 30 09/01/21 days #2.5 mL gabapentin 300 mg capsule 300 mg PO DAILY 90 days #90 caps 10/17/21 bepotastine besilate 1.5 % eye 1 drp ophthalmic (eye) BID PRN eye 10/18/21 drops (Bepreve) irritation 30 days #10 mL methyl salicylate 30 %-menthol 10 1 appl topical TID 30 days #85 10/27/21 % topical cream (Icy Hot) grams prednisone 20 mg tablet 40 mg PO DAILY pain 5 days #10 tabs 12/14/21 atorvastatin 20 mg tablet 20 mg PO DAILY #30 tabs 01/17/22 fluoxetine 40 mg capsule 40 mg PO DAILY 30 days #30 caps 01/17/22 fluticasone propionate 50 2 spray intranasal DAILY 30 days 01/17/22 mcg/actuation nasal #16 grams spray,suspension (Flonase Allergy Relief) diclofenac sodium 1 % topical gel 2 g topical QID #100 grams 02/16/22 (Voltaren Arthritis Pain) gabapentin 300 mg capsule 300 mg PO BEDTIME #30 caps 02/16/22 cholecalciferol (vitamin D3) 25 25 mcg PO DAILY 90 days #90 tabs 02/27/22 mcg (1,000 unit) tablet clotrimazole 1 % vaginal cream 1 appful vaginal BEDTIME 7 days 02/27/22 #45 grams leg brace (Knee Support Brace) #1 ea 03/07/22 phenazopyridine 200 mg tablet 200 mg PO TID pain 2 days #6 tabs 03/08/22 (Pyridium) lidocaine 5 % topical patch 1 patch topical DAILY 30 days #30 03/29/22 ea back brace #1 ea 04/03/22 meloxicam 15 mg tablet 15 mg PO DAILY PRN pain 30 days 04/07/22 #30 tabs omeprazole 20 mg capsule,delayed 20 mg PO DAILY #30 caps 04/21/22 release zolpidem 10 mg tablet 10 mg PO BEDTIME #30 tabs 04/21/22 acetaminophen 500 mg tablet 500 mg PO Q6H PRN pain #60 tabs 05/03/22 (Tylenol Extra Strength) naproxen 500 mg tablet 500 mg PO BID PRN pain #30 tabs 05/03/22 hydrochlorothiazide 12.5 mg capsule 12.5 mg PO DAILY 90 days #90 caps 05/11/22 multivitamin (Daily-Dionisio tablet) 1 tab PO DAILY #90 tabs 05/11/22 pioglitazone 15 mg tablet (Actos) 15 mg PO DAILY 90 days #90 tabs 05/11/22 Allergies Allergy/AdvReac Type Severity Reaction Status Date / Time No Known Allergies Allergy Verified 05/15/22 12:31 [No Known Allergies*] Review of Systems Review of Systems Yes all other systems are reviewed and are negative PMFSH Past Medical History Medical History Asthma DMII (diabetes mellitus, type 2) Gross hematuria HLD (hyperlipidemia) HTN (hypertension) Lumbar radiculopathy Migraines Myofascial pain Surgical History History of tubal ligation Family History Family History Father No problems noted. Mother No problems noted. Sister Breast cancer Brother Prediabetes Daughter Liver problem Other Gross hematuria Social History Social History Housing: House Alcohol intake: never Patient Tobacco Use Status: Never used Tobacco e-Cigarette/Vaping Use: Never Used Advance Directives: No Advance Directives Information Provided: Yes service: No Current occupational status: retired Cognitive needs: No Hearing needs: No Vision needs: No Physical Exam ED Vital Signs: Vital Signs - 24 hr 05/15/22 12:27 Temperature 98 F Pulse Rate 84 Respiratory Rate 16 Blood Pressure 117/70 Pulse Oximetry 99 Oxygen Delivery Method Room Air BMI result Body Mass Index 23.6 Appearance: Alert. Oriented X3. No acute distress. Eyes: Pupils equal, round and reactive to light. ENT: Pharynx normal. Neck: Normal inspection. Neck supple. CVS: Normal heart rate and rhythm. Pulses normal. Respiratory: No respiratory distress. Breath sounds normal. Abdomen: Soft with mid left abd tenderness without rebound or guarding, normal +BS x4 Skin: Skin warm and dry. Normal skin color. Normal skin turgor. No rashes. Extremities: No lower extremity edema. Neuro: Oriented X 3.Nonfocal, steady gait Course Course Course Narrative: 61 yo female with recently diagnosed COVID-19 on 05/08 who presents to the ER for evaluation of left sided abdominal pain since she was diagnosed with COVID. Pain not going away. No N/V/D. VSS in triage. Does not remember when last BM was. Hx constipation and takes OTC meds but has not taken them recently. Denies passing flatus (not ever, no I don't do that. ). +BS in triage. Doubt obstruction, will get KUB, labs and UA. Plan per main provider. Reevaluation(s) Reevaluation #1: LAbs and KUB unremarkable. Patient would like to go home. She has plenty of laxatives at home and would like to be discharged. She denies needing a prescription for any laxatives. She will take them, increase her hydration and f/u with her PCP. Stable for d/c home. Medical Decision Making Differential Diagnosis Differential Diagnoses: The differential diagnosis associated with the presentation includes constipation, kidney stone, bowel obstruction, pyelonephritis, diverticulitis Lab Data MDM Lab Attestation statement: I reviewed the patient's lab results. stable anemia, normal renal function, no major metabolic derrangement. 05/15/22 12:45 05/15/22 12:45 Labs: Lab Results 05/15/22 05/15/22 05/15/22 Range/Units 12:45 12:45 12:45 WBC 6.4 (4.8-10.8) X10*3/uL RBC 4.14 L (4.20-5.50) X10*6/uL Hgb 11.7 L (12.0-16.0) g/dl Hct 35.9 L (37.0-47.0) % MCV 86.7 (80.0-98.0) fL MCH 28.3 (27.0-33.0) pg MCHC 32.6 (31.0-35.0) g/dl RDW 12.3 (11.0-16.0) % Plt Count 294 (160-400) X10*3/uL MPV 9.0 L (9.4-12.3) fL Immature Gran % (Auto) 0.3 (0.0-0.4) % Neut % (Auto) 64.1 (45-73) % Lymph % (Auto) 29.5 (20-40) % [place] % (Auto) 4.5 (2-11) % Eos % (Auto) 1.3 (0-4) % Baso % (Auto) 0.3 (0-2) % Lymph # (Auto) 1.9 (1.2-4.9) X10*3/uL [place] # (Auto) 0.3 (0.1-1.2) X10*3/uL Eos # (Auto) 0.1 (0.0-0.4) X10*3/uL Baso # (Auto) 0.0 (0.0-0.2) X10*3/uL Abs Immat Gran (auto) 0.02 (0.00-0.03) X10*3/uL Absolute Neuts (auto) 4.1 (2.0-8.3) x10*3/uL Absolute Nucleated RBC 0.000 (0.0-0.012) X10*3/uL Nucleated RBC % (auto) 0.0 (0.0-0.2) /100WBC Sodium 142 (135-145) mmol/L Potassium 3.9 (3.3-5.1) mmol/L Chloride 104 (96-108) mmol/L Carbon Dioxide 27 (22-29) mmol/L Anion Gap 15 (12-20) BUN 25 H (9-16) mg/dL Creatinine 1.08 (0.5-1.4) mg/dL Estim Creat Clear Calc 42.0 Estimated GFR 51 Random Glucose 133 H (60-115) mg/dL Calcium 10.1 (8.4-10.2) mg/dL Magnesium 1.8 (1.6-2.6) mg/dL Total Bilirubin 0.6 (0.0-1.0) mg/dL Direct Bilirubin 0.2 (0.0-0.5) mg/dL AST 27 (5-31) U/L ALT 24 (0-31) U/L Alkaline Phosphatase 72 (39-117) U/L Total Protein 7.7 (6.5-8.0) g/dL Albumin 4.4 (3.5-5.0) g/dL COVID-19 (ALEX) Positive A (Negative) COVID-19 Clin Com See Note Independent Interpretation I performed an independent interpretation of an: Plain X-Ray Interpretation: no bowel obstruction, moderate stool in the colon Radiology Impression Discussion of test interpretation with radiology: I have reviewed the radiologist's reading. Radiologist Impression: KUB IMPRESSION: Small to moderate volume of stool in colon. Nonobstructive bowel pattern. External Record Review External record reviewed: Office record, Outpatient record, Prior outpatient labs and Prior outpatient radiology Tests considered The following testing was considered but not selected: CT scan considered - patient denies current pain and wants to go home with OTC laxatives. return precautions discussed Prescription Management I considered prescription management with: Pain Medication not indicated, will treat with laxatives Critical Care Time Critical Care Time Critical Care Time: No Discharge Plan Discharge Clinical Impression: Constipation Patient Disposition: Home, Self-Care Instructions: Constipation (ED) Additional Instructions: Take all of the laxatives meds at home. If you develop new or worsening symptoms call 911 or come back to the ER for further evaluation. Prescriptions: No Action (DME) ALETHA Knee Brace Misc See Rx Instructions .ROUTE .MEDSUPPLY Qty: 1 0RF Rx Instructions: As directed (DME) comp.stocking,knee,long,medium Misc See Rx Instructions .ROUTE .MEDSUPPLY Qty: 2 0RF Rx Instructions: As directed quetiapine 25 mg tablet 25 mg PO BEDTIME clonazepam 1 mg tablet 1 mg PO DAILY PRN (Reason: anxiety) 30 Days Qty: 30 2RF ketoconazole 2 % shampoo 1 appl topical 2XW 30 Days Qty: 120 0RF hydrocortisone valerate 0.2 % cream 1 appl topical BID PRN (Reason: skin irritation) 30 Days Qty: 60 0RF diclofenac sodium 1 % gel 2 g topical DAILY Qty: 100 2RF hydroxyzine HCl 25 mg tablet 25 mg PO TID 7 Days Qty: 21 0RF Rx Instructions: Advised to hold clonazepam and loratadine. fluticasone propionate 50 mcg/actuation spray,suspension 2 spray intranasal BID Qty: 16 3RF albuterol sulfate [Ventolin HFA] 90 mcg/actuation HFA aerosol inhaler 2 puff inhalation Q4-6H PRN (Reason: shortness of breath or wheezing) Qty: 6.7 0RF docusate sodium [Dulcolax Stool Softener (dss)] 100 mg capsule 100 mg PO BID 15 Days Qty: 30 3RF ferrous sulfate 325 mg (65 mg iron) tablet 325 mg PO DAILY 30 Days Qty: 30 3RF hydrocortisone valerate 0.2 % cream 1 appl topical BID 10 Days Qty: 45 0RF loratadine [Allergy Relief (loratadine)] 10 mg tablet 10 mg PO DAILY 90 Days Qty: 90 2RF sennosides [senna] 8.6 mg tablet 17.2 mg PO BEDTIME 30 Days Qty: 60 2RF gabapentin 300 mg capsule 300 mg PO DAILY 90 Days Qty: 90 1RF bepotastine besilate [Bepreve] 1.5 % drops 1 drp ophthalmic (eye) BID PRN (Reason: eye irritation) 30 Days Qty: 10 2RF Icy Hot 30-10 % cream 1 appl topical TID 30 Days Qty: 85 0RF fluticasone propionate [Flonase Allergy Relief] 50 mcg/actuation spray,suspension 2 spray intranasal DAILY 30 Days Qty: 16 3RF Rx Instructions: administer into each nostril atorvastatin 20 mg tablet 20 mg PO DAILY Qty: 30 3RF fluoxetine 40 mg capsule 40 mg PO DAILY 30 Days Qty: 30 3RF cholecalciferol (vitamin D3) 25 mcg (1,000 unit) tablet 25 mcg PO DAILY 90 Days Qty: 90 3RF clotrimazole 1 % cream 1 appful vaginal BEDTIME 7 Days Qty: 45 0RF (DME) Knee Support Brace Misc See Rx Instructions .Route Qty: 1 0RF Rx Instructions: As directed phenazopyridine [Pyridium] 200 mg tablet 200 mg PO TID 2 Days Qty: 6 0RF lidocaine 5 % adhesive patch,medicated 1 patch topical DAILY 30 Days Qty: 30 6RF Rx Instructions: leave on most painful area for up to 12 hrs (DME) back brace Misc See Rx Instructions .Route Qty: 1 0RF Rx Instructions: As directed zolpidem 10 mg tablet 10 mg PO BEDTIME Qty: 30 0RF omeprazole 20 mg capsule,delayed release(DR/EC) 20 mg PO DAILY Qty: 30 3RF acetaminophen [Tylenol Extra Strength] 500 mg tablet 500 mg PO Q6H PRN (Reason: pain ) Qty: 60 0RF naproxen 500 mg tablet 500 mg PO BID PRN (Reason: pain) Qty: 30 0RF Rx Instructions: Take with food hydrochlorothiazide 12.5 mg capsule 12.5 mg PO DAILY 90 Days Qty: 90 3RF multivitamin [Daily-Dionisio] Tablet 1 tab PO DAILY Qty: 90 4RF pioglitazone [Actos] 15 mg tablet 15 mg PO DAILY 90 Days Qty: 90 1RF azithromycin 250 mg tablet See Rx Instructions .ROUTE .COMPLEX Qty: 6 0RF Rx Instructions: take 500 mg today (day 1), then 250 mg for 4 days (days 2-5) gabapentin 300 mg capsule 300 mg PO BEDTIME Qty: 30 0RF diclofenac sodium [Voltaren Arthritis Pain] 1 % gel 2 g topical QID Qty: 100 0RF Rx Instructions: apply to single elbow, wrist or hand; for hand includes palm/fingers/back of hand lactulose 20 gram/30 mL solution 20 g PO BID PRN (Reason: laxative effect) 15 Days Qty: 1200 0RF bncrxnzoty-kblxejibxejrk-gpuz 50-325-40 mg capsule 1 cap PO Q6H PRN (Reason: pain) 4 Days Qty: 16 0RF olopatadine 0.2 % drops 1 drp ophthalmic (eye) DAILY 30 Days Qty: 2.5 0RF montelukast 10 mg tablet 10 mg PO DAILY Qty: 30 6RF zolpidem [Ambien] 5 mg tablet 5 mg PO BEDTIME PRN (Reason: sleep) 30 Days Qty: 30 0RF topiramate 25 mg capsule, sprinkle 25 mg PO DAILY aspirin [Adult Aspirin Regimen] 81 mg tablet,delayed release (DR/EC) 81 mg PO DAILY prednisone 20 mg tablet 40 mg PO DAILY 5 Days Qty: 10 0RF meloxicam 15 mg tablet 15 mg PO DAILY PRN (Reason: pain) 30 Days Qty: 30 0RF Rx Instructions: Take it with food and full glass of water. Avoid other NSAIDs. Referrals: Juan R Ramirez PA-C [Primary Care Provider] - Discharge Date/Time: 05/15/22 15:39 Print Language: Namibian
[2022-05-15 12:27] VITALS: BP 117/70; PULSE 84; RESP 16; TEMP 36.6; O2SAT 99; BMI 23.6
[2022-05-15 12:50] LABS: MANUAL DIFF FLAG NO
[2022-05-15 12:54] LABS: Basophils Percent Auto 0.3 % (0-2); Eosinophils Absolute Auto 0.1 X10*3/uL (0.0-0.4); Eosinophils Percent Auto 1.3 % (0-4); Hematocrit 35.9 % (37.0-47.0); Hemoglobin 11.7 g/dl (12.0-16.0); Imm Gran Abs Auto 0.02 X10*3/uL (0.00-0.03); Imm Gran Pct Auto 0.3 % (0.0-0.4); Lymphocytes Absolute Auto 1.9 X10*3/uL (1.2-4.9); Lymphocytes Percent Auto 29.5 % (20-40); Mean Corpuscular HGB Conc 32.6 g/dl (31.0-35.0); Mean Corpuscular Hemoglobin 28.3 pg (27.0-33.0); Mean Corpuscular Volume 86.7 fL (80.0-98.0); Monocytes Absolute Auto 0.3 X10*3/uL (0.1-1.2); Monocytes Percent Auto 4.5 % (2-11); Neutrophils Absolute Auto 4.1 x10*3/uL (2.0-8.3); Neutrophils Percent Auto 64.1 % (45-73); Platelet Count 294 X10*3/uL (160-400); Red Blood Count 4.14 X10*6/uL (4.20-5.50); Red Cell Distribution Width 12.3 % (11.0-16.0); White Blood Count 6.4 X10*3/uL (4.8-10.8)
[2022-05-15 12:59] LABS: COVID-19 Test Positive (Negative); IDNOW Serial# 9DB6401D
[2022-05-15 13:32] LABS: Alanine Aminotransferase 24 U/L (0-31); Albumin Level 4.4 g/dL (3.5-5.0); Alkaline Phosphatase 72 U/L (39-117); Anion Gap 15 (12-20); Aspartate Amino Transferase 27 U/L (5-31); Bilirubin Direct 0.2 mg/dL (0.0-0.5); Bilirubin Total 0.6 mg/dL (0.0-1.0); Blood Urea Nitrogen 25 mg/dL (9-16); Calcium 10.1 mg/dL (8.4-10.2); Carbon Dioxide 27 mmol/L (22-29); Chloride 104 mmol/L (96-108); Estimated Glomerular Filt Rate 51; Glucose Random 133 mg/dL (60-115); Magnesium 1.8 mg/dL (1.6-2.6); Potassium 3.9 mmol/L (3.3-5.1); Sodium 142 mmol/L (135-145); Total Protein 7.7 g/dL (6.5-8.0)
== END 2022-05-15 15:39 | disposition home or self-care (01) ==
PROVIDERS: Physician Assistant; Emergency Provider Emergency Medicine; PCP Physician Assistant
DX: U07.1 COVID-19 (principal); K59.00 Constipation, unspecified; R10.12 Left upper quadrant pain; E11.9 Type 2 diabetes mellitus without complications; I10 Essential (primary) hypertension; E78.5 Hyperlipidemia, unspecified; Z79.82 Long term (current) use of aspirin; Z79.899 Other long term (current) drug therapy
CPT/HCPCS: 36415; 74018; 80048; 80076; 83735; 85025; 87635; 99281; 99283

== ENCOUNTER 2022-05-16 09:47 | Emergency (ER) | payer MEDICARE, MEDICAID, SELFPAY ==
--- NOTE | ~2022-05-16 | US_ITS ---
EXAMINATION: US ABDOMEN LIMITED CLINICAL INFORMATION: Right upper quadrant tenderness and nausea. COMPARISON: None. TECHNIQUE: Real-time imaging of the right upper quadrant abdominal viscera. FINDINGS: PANCREAS: Normal. LIVER: The liver is normal in size. The liver contour is normal. Parenchymal echogenicity is mildly increased. No focal hepatic lesion. There is no intrahepatic biliary duct dilatation seen. GALLBLADDER: There is a small nonmobile echogenic polyp measuring 0.2 x 0.2 x 0.2 cm. COMMON BILE DUCT: Normal in caliber measuring 0.5 cm in diameter. RIGHT KIDNEY: No hydronephrosis. There are small echogenic stone lower pole measuring 0.2 x 0.1 x 0.2 cm and an anechoic cyst in mid/lower pole measuring 0.9 x 0.7 x 0.8 cm. A duplicated collecting system is suspected. The kidney measures 10.0 cm in maximum dimension. FREE FLUID: None. US/US abdomen limited IMPRESSION: 1. Small nonmobile echogenic gallbladder polyp. 2. Nonobstructive echogenic stone and anechoic cyst mid/lower pole right kidney. 3. Duplicated collecting system right kidney is suspected.
[2022-05-16 09:51] VITALS: BP 113/63; PULSE 85; RESP 16; TEMP 36.1; O2SAT 100; BMI 17.7
[2022-05-16 10:01] VITALS: BP 125/63; PULSE 72; RESP 15; TEMP 36.4; O2SAT 99
--- NOTE | 2022-05-16 10:17 | ECG_ITS ---
Test Reason : ABD PAIN Blood Pressure : / mmHG Vent. Rate : 080 BPM Atrial Rate : 080 BPM P-R Int : 148 ms QRS Dur : 092 ms QT Int : 402 ms P-R-T Axes : 065 003 049 degrees QTc Int : 463 ms Normal sinus rhythm Incomplete right bundle branch block Nonspecific T wave abnormality Abnormal ECG When compared with ECG of 15-AUG-2021 14:25, No significant changes seen Referred By: Hafsa Burciaga Electronically Signed By:RICHARD ENRIQUEZ
[2022-05-16] MEDS: ondansetron HCL 4 MG/2 ML VIAL IVPUSH (10:32)
[2022-05-16] MEDS: 0.9 % Sodium Chloride 1,000 ML 999 ML IV (10:33)
[2022-05-16 10:34] LABS: MANUAL DIFF FLAG NO
[2022-05-16 10:36] LABS: Basophils Percent Auto 0.3 % (0-2); Eosinophils Absolute Auto 0.1 X10*3/uL (0.0-0.4); Eosinophils Percent Auto 0.9 % (0-4); Hematocrit 35.6 % (37.0-47.0); Hemoglobin 11.7 g/dl (12.0-16.0); Imm Gran Abs Auto 0.03 X10*3/uL (0.00-0.03); Imm Gran Pct Auto 0.4 % (0.0-0.4); Lymphocytes Absolute Auto 1.4 X10*3/uL (1.2-4.9); Lymphocytes Percent Auto 21.1 % (20-40); Mean Corpuscular HGB Conc 32.9 g/dl (31.0-35.0); Mean Corpuscular Hemoglobin 28.3 pg (27.0-33.0); Mean Platelet Volume 9.2 fL (9.4-12.3); Monocytes Absolute Auto 0.3 X10*3/uL (0.1-1.2); Monocytes Percent Auto 3.9 % (2-11); Neutrophils Absolute Auto 4.9 x10*3/uL (2.0-8.3); Neutrophils Percent Auto 73.4 % (45-73); Platelet Count 300 X10*3/uL (160-400); Red Blood Count 4.14 X10*6/uL (4.20-5.50); Red Cell Distribution Width 12.2 % (11.0-16.0); White Blood Count 6.7 X10*3/uL (4.8-10.8)
[2022-05-16 10:54] LABS: Alanine Aminotransferase 25 U/L (0-31); Albumin Level 4.3 g/dL (3.5-5.0); Alkaline Phosphatase 70 U/L (39-117); Anion Gap 15 (12-20); Aspartate Amino Transferase 27 U/L (5-31); Bilirubin Total 0.7 mg/dL (0.0-1.0); Blood Urea Nitrogen 21 mg/dL (9-16); Calcium 9.4 mg/dL (8.4-10.2); Carbon Dioxide 22 mmol/L (22-29); Chloride 105 mmol/L (96-108); Creatinine Clr Calc Pharmacy 34.5; Estimated Glomerular Filt Rate 50; Glucose Random 174 mg/dL (60-115); Lipase 11 U/L (8-78); Potassium 3.8 mmol/L (3.3-5.1); Sodium 138 mmol/L (135-145); Total Protein 7.5 g/dL (6.5-8.0)
--- NOTE | 2022-05-16 11:00 | ED_ITS ---
HPI - Abdominal Pain General Chief Complaint: Abdominal Pain Stated Complaint: Abd pain Time Seen by Provider: 05/16/22 10:15 Source: patient Mode of arrival: ambulatory Limitations: language barrier ([place]i-speaking medical doctor md/medical director utilized) History of Present Illness HPI narrative: Patient is a 61-year-old female presents emergency department for evaluation of abdominal pain. Patient was seen in the emergency department yesterday for similar complaints, however she returns today as she reports the pain to be more severe, radiating across to the epigastric region and right upper quadrant, and persistent nausea since awaking this morning. Denies any vomiting or diarrhea. She states she did not take any laxatives to help with her sensation of constipation, she had a very small formed bowel movement this morning, denies bloody or dark stools, no bright red blood per rectum. Overall, she has been having ongoing left upper abdominal pain/cramping for about 9 days. She states she was diagnosed with COVID 1 week ago 05/08/2022, she still feeling fatigued, but denies fevers, chills, cough, shortness of breath, difficulty breathing, chest pain. Related Data Home Medications Medication Instructions Recorded Confirmed quetiapine 25 mg tablet 25 mg PO BEDTIME 03/08/20 09/01/21 aspirin 81 mg tablet,delayed 81 mg PO DAILY 12/07/20 09/01/21 release (Adult Aspirin Regimen) topiramate 25 mg sprinkle capsule 25 mg PO DAILY 12/07/20 09/01/21 Previous Rx's Medication Instructions Recorded leg brace (ALETHA Knee Brace) #1 ea 02/05/20 comp.stocking,knee,long,medium #2 ea 02/16/20 clonazepam 1 mg tablet 1 mg PO DAILY PRN anxiety 30 days 05/12/20 #30 tabs ketoconazole 2 % shampoo 1 appl topical 2XW 30 days #120 mL 10/18/20 hydrocortisone valerate 0.2 % 1 appl topical BID PRN skin 02/04/21 topical cream irritation 30 days #60 grams diclofenac sodium 1 % topical gel 2 g topical DAILY #100 grams 02/07/21 aaraieomex-ovlzaahsitvzr-dbjiqhay 1 cap PO Q6H PRN pain 4 days #16 04/05/21 50 mg-325 mg-40 mg capsule caps lactulose 20 gram/30 mL oral 20 g (30 mL) PO BID PRN laxative 12/14/21 solution effect 15 days #1,200 mL hydroxyzine HCl 25 mg tablet 25 mg PO TID 7 days #21 tabs 05/18/21 fluticasone propionate 50 2 spray intranasal BID #16 grams 07/19/21 mcg/actuation nasal spray,suspension montelukast 10 mg tablet 10 mg PO DAILY #30 tabs 08/04/21 zolpidem 5 mg tablet (Ambien) 5 mg PO BEDTIME PRN sleep 30 days 08/04/21 #30 tabs azithromycin 250 mg tablet See Rx Instructions PO .COMPLEX #6 08/09/21 tabs albuterol sulfate 90 mcg/actuation 2 puff inhalation Q4-6H PRN 08/18/21 aerosol inhaler (Ventolin HFA) shortness of breath or wheezing #6.7 grams docusate sodium 100 mg capsule 100 mg PO BID 15 days #30 caps 08/18/21 (Dulcolax Stool Softener (docusate)) ferrous sulfate 325 mg (65 mg 325 mg PO DAILY 30 days #30 tabs 08/18/21 iron) tablet hydrocortisone valerate 0.2 % 1 appl topical BID skin irritation 08/18/21 topical cream 10 days #45 grams loratadine 10 mg tablet (Allergy 10 mg PO DAILY 90 days #90 tabs 08/18/21 Relief (loratadine)) sennosides 8.6 mg tablet (senna) 17.2 mg PO BEDTIME 30 days #60 tabs 08/18/21 olopatadine 0.2 % eye drops 1 drp ophthalmic (eye) DAILY 30 09/01/21 days #2.5 mL gabapentin 300 mg capsule 300 mg PO DAILY 90 days #90 caps 10/17/21 bepotastine besilate 1.5 % eye 1 drp ophthalmic (eye) BID PRN eye 10/18/21 drops (Bepreve) irritation 30 days #10 mL methyl salicylate 30 %-menthol 10 1 appl topical TID 30 days #85 10/27/21 % topical cream (Icy Hot) grams prednisone 20 mg tablet 40 mg PO DAILY pain 5 days #10 tabs 12/14/21 atorvastatin 20 mg tablet 20 mg PO DAILY #30 tabs 01/17/22 fluoxetine 40 mg capsule 40 mg PO DAILY 30 days #30 caps 01/17/22 fluticasone propionate 50 2 spray intranasal DAILY 30 days 01/17/22 mcg/actuation nasal #16 grams spray,suspension (Flonase Allergy Relief) diclofenac sodium 1 % topical gel 2 g topical QID #100 grams 02/16/22 (Voltaren Arthritis Pain) gabapentin 300 mg capsule 300 mg PO BEDTIME #30 caps 02/16/22 cholecalciferol (vitamin D3) 25 25 mcg PO DAILY 90 days #90 tabs 02/27/22 mcg (1,000 unit) tablet clotrimazole 1 % vaginal cream 1 appful vaginal BEDTIME 7 days 02/27/22 #45 grams leg brace (Knee Support Brace) #1 ea 03/07/22 phenazopyridine 200 mg tablet 200 mg PO TID pain 2 days #6 tabs 03/08/22 (Pyridium) lidocaine 5 % topical patch 1 patch topical DAILY 30 days #30 03/29/22 ea back brace #1 ea 04/03/22 meloxicam 15 mg tablet 15 mg PO DAILY PRN pain 30 days 04/07/22 #30 tabs omeprazole 20 mg capsule,delayed 20 mg PO DAILY #30 caps 04/21/22 release zolpidem 10 mg tablet 10 mg PO BEDTIME #30 tabs 04/21/22 acetaminophen 500 mg tablet 500 mg PO Q6H PRN pain #60 tabs 05/03/22 (Tylenol Extra Strength) naproxen 500 mg tablet 500 mg PO BID PRN pain #30 tabs 05/03/22 hydrochlorothiazide 12.5 mg capsule 12.5 mg PO DAILY 90 days #90 caps 05/11/22 multivitamin (Daily-Dionisio tablet) 1 tab PO DAILY #90 tabs 05/11/22 pioglitazone 15 mg tablet (Actos) 15 mg PO DAILY 90 days #90 tabs 05/11/22 aluminum-mag hydroxide-simethicone 10 ml PO QID PRN indigestion #355 05/16/22 200 mg-200 mg-20 mg/5 mL oral susp mL (Maalox Advanced) omeprazole 20 mg capsule,delayed 20 mg PO DAILY #30 caps 05/16/22 release Allergies Allergy/AdvReac Type Severity Reaction Status Date / Time No Known Allergies Allergy Verified 05/15/22 12:31 [No Known Allergies*] Review of Systems Review of Systems Constitutional : No Weight loss, No Fever, No Chills ENT/Mouth :? No sore throat, No Rhinorrhea Eyes: No Swelling, No Redness Cardiovascular : No Chest Pain, No SOB, No Edema Respiratory : No Cough, No Sputum, No Wheezing Gastrointestinal : Positive Nausea, no Vomiting, no Diarrhea, positive abdominal pain, No Hematochezia, No Melena Genitourinary : No Dysuria, No Urinary Frequency, No Hematuria, No Urgency? Musculoskeletal : No joint pain, No Myalgias, No Joint Swelling Skin : No Skin Lesions, No rash Neuro : No Weakness, No Numbness, No Dizziness, No Headache Psych : No Anxiety/Panic, No Depression Heme/Lymph: No Bruising, No Lymphadenopathy Endocrine : No Polyuria, No Polydipsia Yes all other systems are reviewed and are negative [facility] Past Medical History Attestation statement: The following information was validated with the patient. Source: old records reviewed Medical History Asthma DMII (diabetes mellitus, type 2) Gross hematuria HLD (hyperlipidemia) HTN (hypertension) Lumbar radiculopathy Migraines Myofascial pain Surgical History History of tubal ligation Family History Family History Father No problems noted. Mother No problems noted. Sister Breast cancer Brother Prediabetes Daughter Liver problem Other Gross hematuria Social History Social History Housing: House Alcohol intake: never Patient Tobacco Use Status: Never used Tobacco Smoked in Last 30 Days: No e-Cigarette/Vaping Use: Never Used Use of substances other than those prescribed or required for medical reasons: No Advance Directives: Yes Advance Directives Information Provided: Yes Advance Directives on File: No service: No Current occupational status: retired Cognitive needs: No Hearing needs: No Vision needs: No Physical Exam ED Vital Signs: Vital Signs - 24 hr 05/16/22 09:51 05/16/22 10:01 05/16/22 12:27 Temperature 96.9 F 97.6 F 98.0 F Pulse Rate 85 72 79 Respiratory Rate 16 15 20 Blood Pressure 113/63 125/63 108/60 Pulse Oximetry 100 99 99 Oxygen Delivery Method Room Air Room Air Room Air BMI result Body Mass Index 17.7 Appearance: Alert.?Oriented to person, place and time. No acute distres s.?Normal affect. Eyes: Pupils equal, round and reactive to light.? ENT: Pharynx normal.?? Neck: Normal inspection.? Neck supple.?? CVS: Heart sounds normal. Normal heart rate and rhythm.? Pulses normal.?? Respiratory: No respiratory distress.? Lung sounds clear to auscultation bilaterally?? Abdomen: Soft with right upper quadrant/ epigastric tenderness upon palpation. Negative May sign. No rebound tenderness at McBurney's point, no lower abdominal tenderness. Normoactive bowel sounds. ? Skin: Skin warm and dry.? Normal skin color.? Extremities: No lower extremity edema.? Neuro: Moves all extremities spontaneously. Sensation intact bilaterally. Ambulates with normal steady gait. Course Reevaluation(s) Reevaluation #1: CBC reveals no leukocytosis, mild normocytic anemia consistent with baseline. CMP is overall unremarkable, random glucose 174, lipase within normal limits. Troponin <3.5, EKG revealing normal sinus rhythm with incomplete right bundle- branch block, no acute ischemic abnormalities Time: 13:22 Reevaluation #2: Ultrasound is overall unremarkable, at this time symptoms not consistent with acute cholecystitis, cholelithiasis, patient for pancreatitis. Symptoms most consistent with gastritis at time, responded to Maalox. Sent prescription for Maalox and refill of omeprazole the patient's pharmacy. Advised outpatient follow-up with the primary care provider within the next 3 days. Reviewed charito mejia signs and symptoms that would warrant re-evaluation in the emergency department she verbalized understanding. Is agreeable plan of care for discharge. Tolerating oral intake. Time: 17:29 Medical Decision Making Medical Decision Making MDM Narrative: Patient is a 61-year-old female with past medical history of asthma, type 2 diabetes, hyperlipidemia, hypertension, migraine who presents emergency department for evaluation of ongoing abdominal pain. She was evaluated yesterday in the emergency department, thought to be related to constipation, patient was agreeable for discharge home with use of laxatives. She did not use any laxatives at home by her report, she had a small bowel movement this morning. However she states that she returned because her pain has become more severe, radiating to the epigastric region/right upper quadrant in persistent nausea all morning without any vomiting. She does have tenderness upon exam, will obtain ultrasound for evaluation of cholelithiasis, cholecystitis, CBD dilation. Will obtain repeat labs today; CBC, CMP, lipase, and urinalysis. At this time low suspicion for appendicitis, diverticulitis, bowel obstruction, acute pancreatitis. Patient received 1 L normal saline IVF, ondansetron IV, Pepcid IV and Maalox with lidocaine viscous orally Differential Diagnosis Differential Diagnoses: The differential diagnosis associated with the presentation includes (As noted above) Lab Data MDM Lab Attestation statement: I reviewed the patient's lab results. 05/16/22 10:28 05/16/22 10:28 Labs: Lab Results 05/16/22 05/16/22 05/16/22 Range/Units 10:28 10:28 10:28 WBC 6.7 (4.8-10.8) X10*3/uL RBC 4.14 L (4.20-5.50) X10*6/uL Hgb 11.7 L (12.0-16.0) g/dl Hct 35.6 L (37.0-47.0) % MCV 86.0 (80.0-98.0) fL MCH 28.3 (27.0-33.0) pg MCHC 32.9 (31.0-35.0) g/dl RDW 12.2 (11.0-16.0) % Plt Count 300 (160-400) X10*3/uL MPV 9.2 L (9.4-12.3) fL Immature Gran % (Auto) 0.4 (0.0-0.4) % Neut % (Auto) 73.4 H (45-73) % Lymph % (Auto) 21.1 (20-40) % [place] % (Auto) 3.9 (2-11) % Eos % (Auto) 0.9 (0-4) % Baso % (Auto) 0.3 (0-2) % Lymph # (Auto) 1.4 (1.2-4.9) X10*3/uL [place] # (Auto) 0.3 (0.1-1.2) X10*3/uL Eos # (Auto) 0.1 (0.0-0.4) X10*3/uL Baso # (Auto) 0.0 (0.0-0.2) X10*3/uL Abs Immat Gran (auto) 0.03 (0.00-0.03) X10*3/uL Absolute Neuts (auto) 4.9 (2.0-8.3) x10*3/uL Absolute Nucleated RBC 0.000 (0.0-0.012) X10*3/uL Nucleated RBC % (auto) 0.0 (0.0-0.2) /100WBC Sodium 138 (135-145) mmol/L Potassium 3.8 (3.3-5.1) mmol/L Chloride 105 (96-108) mmol/L Carbon Dioxide 22 (22-29) mmol/L Anion Gap 15 (12-20) BUN 21 H (9-16) mg/dL Creatinine 1.10 (0.5-1.4) mg/dL Estim Creat Clear Calc 34.5 Estimated GFR 50 Random Glucose 174 H (60-115) mg/dL Calcium 9.4 D (8.4-10.2) mg/dL Total Bilirubin 0.7 (0.0-1.0) mg/dL AST 27 (5-31) U/L ALT 25 (0-31) U/L Alkaline Phosphatase 70 (39-117) U/L Troponin I High Sens < 3.5 (<3.5-17.0) ng/L Total Protein 7.5 (6.5-8.0) g/dL Albumin 4.3 (3.5-5.0) g/dL Lipase 11 (8-78) U/L Urine Color Urine Appearance Urine pH (5.0-9.0) Ur Specific [place] (1.005-1.025) Urine Protein (Neg-Trace) mg/dL Urine Glucose (UA) (Negative) mg/dL Urine Ketones (Negative) mg/dL Urine Blood (Negative) Urine Nitrite (Negative) Ur Leukocyte Esterase (Negative) COVID-19 (ALEX) (Negative) COVID-19 Clin Com Influenza Type A (BISI) (Negative) Influenza Type B (BISI) (Negative) Influenza A & B Note 05/16/22 05/16/22 05/16/22 Range/Units 10:55 10:55 16:06 WBC (4.8-10.8) X10*3/uL RBC (4.20-5.50) X10*6/uL Hgb (12.0-16.0) g/dl Hct (37.0-47.0) % MCV (80.0-98.0) fL MCH (27.0-33.0) pg MCHC (31.0-35.0) g/dl RDW (11.0-16.0) % Plt Count (160-400) X10*3/uL MPV (9.4-12.3) fL Immature Gran % (Auto) (0.0-0.4) % Neut % (Auto) (45-73) % Lymph % (Auto) (20-40) % [place] % (Auto) (2-11) % Eos % (Auto) (0-4) % Baso % (Auto) (0-2) % Lymph # (Auto) (1.2-4.9) X10*3/uL [place] # (Auto) (0.1-1.2) X10*3/uL Eos # (Auto) (0.0-0.4) X10*3/uL Baso # (Auto) (0.0-0.2) X10*3/uL Abs Immat Gran (auto) (0.00-0.03) X10*3/uL Absolute Neuts (auto) (2.0-8.3) x10*3/uL Absolute Nucleated RBC (0.0-0.012) X10*3/uL Nucleated RBC % (auto) (0.0-0.2) /100WBC Sodium (135-145) mmol/L Potassium (3.3-5.1) mmol/L Chloride (96-108) mmol/L Carbon Dioxide (22-29) mmol/L Anion Gap (12-20) BUN (9-16) mg/dL Creatinine (0.5-1.4) mg/dL Estim Creat Clear Calc Estimated GFR Random Glucose (60-115) mg/dL Calcium (8.4-10.2) mg/dL Total Bilirubin (0.0-1.0) mg/dL AST (5-31) U/L ALT (0-31) U/L Alkaline Phosphatase (39-117) U/L Troponin I High Sens (<3.5-17.0) ng/L Total Protein (6.5-8.0) g/dL Albumin (3.5-5.0) g/dL Lipase (8-78) U/L Urine Color Dark Yellow Urine Appearance Clear Urine pH 5.5 (5.0-9.0) Ur Specific [place] 1.025 (1.005-1.025) Urine Protein Negative (Neg-Trace) mg/dL Urine Glucose (UA) Negative (Negative) mg/dL Urine Ketones Trace (Negative) mg/dL Urine Blood Negative (Negative) Urine Nitrite Negative (Negative) Ur Leukocyte Esterase Negative (Negative) COVID-19 (ALEX) Positive A (Negative) COVID-19 Clin Com See Note Influenza Type A (BISI) Negative (Negative) Influenza Type B (BISI) Negative (Negative) Influenza A & B Note See Note Independent Interpretation I performed an independent interpretation of an: EKG and Ultrasound Interpretation: EKG: Rate: 80 Rhythm:? Normal sinus rhythm with incomplete right bundle-branch block Normal P waves.? Normal DENIS.?? Normal QRS complex.?? ST T wave :??No ST elevation no ST depression, T-wave inversion in V1-V2 which appears consistent with prior EKG qTC: 463 prior studies:? July 2021 The study has been interpreted contemporaneously by me. Radiology Impression Discussion of test interpretation with radiology: I have reviewed the radiologist's reading. Radiologist Impression: US/US abdomen limited IMPRESSION: 1.? Small nonmobile echogenic gallbladder polyp. 2.? Nonobstructive echogenic stone and anechoic cyst mid/lower pole right kidney. 3.? Duplicated collecting system right kidney is suspected. Prescription Management I considered prescription management with: Other (Omeprazole, Maalox) Medications Administered Discontinued Medications Generic Name Dose Route Start Last Admin Trade Name Freq PRN Reason Stop Dose Admin Acetaminophen 650 mg 05/16/22 12:23 05/16/22 12:27 Acetaminophen 325 Mg Tablet PO 05/16/22 12:24 650 mg ONCE ONE Administration Al Hydroxide/Mg Hydroxide 30 ml 05/16/22 10:54 05/16/22 11:11 Magnesium Hydrox/Alum Hydrox 30 Ml Oral.Susp PO 05/16/22 10:55 30 ml ONCE ONE Administration Famotidine 20 mg 05/16/22 10:55 05/16/22 11:11 Famotidine/Pf 20 Mg/2 Ml Vial IVPUSH 05/16/22 10:56 20 mg ONCE ONE Administration Sodium Chloride 1,000 mls @ 999 mls/hr 05/16/22 10:30 05/16/22 11:27 Ns IV 05/16/22 11:30 Infused .Q1H1M GAVINO Infusion Ketorolac Tromethamine 15 mg 05/16/22 14:00 05/16/22 14:02 Ketorolac Tromethamine 15 Mg/Ml Vial IVPUSH 05/16/22 14:01 15 mg ONCE ONE Administration Lidocaine HCl 15 ml 05/16/22 10:54 05/16/22 11:11 Lidocaine Hcl Viscous 2 % 15 Ml Solution MUCOUS MEM 05/16/22 10:55 15 ml ONCE ONE Administration Ondansetron HCl 4 mg 05/16/22 10:17 05/16/22 10:32 Ondansetron Hcl 4 Mg/2 Ml Vial IVPUSH 05/16/22 10:18 4 mg ONCE ONE Administration Discharge Plan Discharge Clinical Impression: Gastritis Patient Disposition: Home, Self-Care Instructions: Gastritis (ED), Diet for Stomach Ulcers and Gastritis (ED) Additional Instructions: Take omeprazole, and Maalox 4 times daily after meal and before bedtime Introduce a bland diet including crackers, bananas, rice, soup, toast, and boiled vegetables. This may progress to plain baked or boiled chicken or turkey. Avoid dairy products or foods high in fat or grease. Contact your primary care provider to arrange for a follow-up visit within 3 days Return back to emergency department any new or worsening symptoms or concerns. Prescriptions: New omeprazole 20 mg capsule,delayed release(DR/EC) 20 mg PO DAILY Qty: 30 0RF alum-mag hydroxide-simeth [Maalox Advanced] 200-200-20 mg/5 mL suspension 10 ml PO QID PRN (Reason: indigestion) Qty: 355 0RF Rx Instructions: administer between meals and at bedtime No Action (DME) ALETHA Knee Brace Misc See Rx Instructions .ROUTE .MEDSUPPLY Qty: 1 0RF Rx Instructions: As directed (DME) comp.stocking,knee,long,medium Misc See Rx Instructions .ROUTE .MEDSUPPLY Qty: 2 0RF Rx Instructions: As directed quetiapine 25 mg tablet 25 mg PO BEDTIME clonazepam 1 mg tablet 1 mg PO DAILY PRN (Reason: anxiety) 30 Days Qty: 30 2RF ketoconazole 2 % shampoo 1 appl topical 2XW 30 Days Qty: 120 0RF hydrocortisone valerate 0.2 % cream 1 appl topical BID PRN (Reason: skin irritation) 30 Days Qty: 60 0RF diclofenac sodium 1 % gel 2 g topical DAILY Qty: 100 2RF hydroxyzine HCl 25 mg tablet 25 mg PO TID 7 Days Qty: 21 0RF Rx Instructions: Advised to hold clonazepam and loratadine. fluticasone propionate 50 mcg/actuation spray,suspension 2 spray intranasal BID Qty: 16 3RF albuterol sulfate [Ventolin HFA] 90 mcg/actuation HFA aerosol inhaler 2 puff inhalation Q4-6H PRN (Reason: shortness of breath or wheezing) Qty: 6.7 0RF docusate sodium [Dulcolax Stool Softener (dss)] 100 mg capsule 100 mg PO BID 15 Days Qty: 30 3RF ferrous sulfate 325 mg (65 mg iron) tablet 325 mg PO DAILY 30 Days Qty: 30 3RF hydrocortisone valerate 0.2 % cream 1 appl topical BID 10 Days Qty: 45 0RF loratadine [Allergy Relief (loratadine)] 10 mg tablet 10 mg PO DAILY 90 Days Qty: 90 2RF sennosides [senna] 8.6 mg tablet 17.2 mg PO BEDTIME 30 Days Qty: 60 2RF gabapentin 300 mg capsule 300 mg PO DAILY 90 Days Qty: 90 1RF bepotastine besilate [Bepreve] 1.5 % drops 1 drp ophthalmic (eye) BID PRN (Reason: eye irritation) 30 Days Qty: 10 2RF Icy Hot 30-10 % cream 1 appl topical TID 30 Days Qty: 85 0RF fluticasone propionate [Flonase Allergy Relief] 50 mcg/actuation spray,suspension 2 spray intranasal DAILY 30 Days Qty: 16 3RF Rx Instructions: administer into each nostril atorvastatin 20 mg tablet 20 mg PO DAILY Qty: 30 3RF fluoxetine 40 mg capsule 40 mg PO DAILY 30 Days Qty: 30 3RF cholecalciferol (vitamin D3) 25 mcg (1,000 unit) tablet 25 mcg PO DAILY 90 Days Qty: 90 3RF clotrimazole 1 % cream 1 appful vaginal BEDTIME 7 Days Qty: 45 0RF (DME) Knee Support Brace Misc See Rx Instructions .Route Qty: 1 0RF Rx Instructions: As directed phenazopyridine [Pyridium] 200 mg tablet 200 mg PO TID 2 Days Qty: 6 0RF lidocaine 5 % adhesive patch,medicated 1 patch topical DAILY 30 Days Qty: 30 6RF Rx Instructions: leave on most painful area for up to 12 hrs (DME) back brace Misc See Rx Instructions .Route Qty: 1 0RF Rx Instructions: As directed zolpidem 10 mg tablet 10 mg PO BEDTIME Qty: 30 0RF omeprazole 20 mg capsule,delayed release(DR/EC) 20 mg PO DAILY Qty: 30 3RF acetaminophen [Tylenol Extra Strength] 500 mg tablet 500 mg PO Q6H PRN (Reason: pain ) Qty: 60 0RF naproxen 500 mg tablet 500 mg PO BID PRN (Reason: pain) Qty: 30 0RF Rx Instructions: Take with food hydrochlorothiazide 12.5 mg capsule 12.5 mg PO DAILY 90 Days Qty: 90 3RF multivitamin [Daily-Dionisio] Tablet 1 tab PO DAILY Qty: 90 4RF pioglitazone [Actos] 15 mg tablet 15 mg PO DAILY 90 Days Qty: 90 1RF azithromycin 250 mg tablet See Rx Instructions .ROUTE .COMPLEX Qty: 6 0RF Rx Instructions: take 500 mg today (day 1), then 250 mg for 4 days (days 2-5) gabapentin 300 mg capsule 300 mg PO BEDTIME Qty: 30 0RF diclofenac sodium [Voltaren Arthritis Pain] 1 % gel 2 g topical QID Qty: 100 0RF Rx Instructions: apply to single elbow, wrist or hand; for hand includes palm/fingers/back of hand lactulose 20 gram/30 mL solution 20 g PO BID PRN (Reason: laxative effect) 15 Days Qty: 1200 0RF [id number]-[id number] 50-325-40 mg capsule 1 cap PO Q6H PRN (Reason: pain) 4 Days Qty: 16 0RF olopatadine 0.2 % drops 1 drp ophthalmic (eye) DAILY 30 Days Qty: 2.5 0RF montelukast 10 mg tablet 10 mg PO DAILY Qty: 30 6RF zolpidem [Ambien] 5 mg tablet 5 mg PO BEDTIME PRN (Reason: sleep) 30 Days Qty: 30 0RF topiramate 25 mg capsule, sprinkle 25 mg PO DAILY aspirin [Adult Aspirin Regimen] 81 mg tablet,delayed release (DR/EC) 81 mg PO DAILY prednisone 20 mg tablet 40 mg PO DAILY 5 Days Qty: 10 0RF meloxicam 15 mg tablet 15 mg PO DAILY PRN (Reason: pain) 30 Days Qty: 30 0RF Rx Instructions: Take it with food and full glass of water. Avoid other NSAIDs. Referrals: Juan R Ramirez PA-C [Primary Care Provider] - Interventions: ED Discharge Assessment Last Done: 05/16/22 17:45 Discharge Date/Time: 05/16/22 17:46
[2022-05-16 11:09] LABS: Troponin-I High Sensitivity < 3.5 ng/L (<3.5-17.0)
[2022-05-16] MEDS: Magnesium Hydrox/Alum Hydrox 30 ML ORAL.SUSP PO (11:11)
[2022-05-16] MEDS: Famotidine/PF 20 MG/2 ML VIAL IVPUSH (11:11)
[2022-05-16] MEDS: Lidocaine HCl Viscous 2 % 15 ML SOLUTION MUCOUS MEM (11:11)
[2022-05-16 11:20] LABS: COVID-19 Test Positive (Negative); IDNOW Serial# 16C4AD1C; IDNOW Serial# BCCEAD1C; Influenza A Negative (Negative); Influenza B2 Negative (Negative)
[2022-05-16 12:27] VITALS: BP 108/60; PULSE 79; RESP 20; TEMP 36.7; O2SAT 99
[2022-05-16] MEDS: Acetaminophen 325 MG TABLET 650 MG PO (12:27)
[2022-05-16] MEDS: Ketorolac Tromethamine 15 MG/ML VIAL IVPUSH (14:02)
[2022-05-16 16:18] LABS: Appearance Urine Clear; Color Urine Dark Yellow; Glucose Urine UA Negative (Negative); Leukocyte Esterase Urine Negative (Negative); Nitrite Urine Negative (Negative); PH 5.5 (5.0-9.0); Specific Gravity - Urine 1.025 (1.005-1.025); Urine Blood Negative (Negative); Urine Ketones Trace mg/dL (Negative); Urine Protein Negative (Neg-Trace)
== END 2022-05-16 17:46 | disposition home or self-care (01) ==
PROVIDERS: Nurse Practitioner Family; Emergency Provider Emergency Medicine; PCP Physician Assistant
DX: K29.70 Gastritis, unspecified, without bleeding (principal); Z20.822 Contact with and (suspected) exposure to COVID-19; Z20.828 Contact with and (suspected) exposure to other viral communicable diseases; Z79.899 Other long term (current) drug therapy
CPT/HCPCS: 76705; 80053; 81003; 83690; 84484; 85025; 87502; 87635; 93005; 96361; 96374; 96375; 99284; 99285; J1885; J2405

== ENCOUNTER 2022-06-09 08:01 | Emergency (ER) | payer MEDICARE, MEDICAID, SELFPAY ==
--- NOTE | ~2022-06-09 | CT_ITS ---
EXAMINATION: CT ABDOMEN AND PELVIS WITH CONTRAST CLINICAL INFORMATION: Left lower abdominal pain COMPARISON: None TECHNIQUE: Multidetector volumetric images were obtained from the superior aspect of the liver through the pubic symphysis following administration 85 mL of Omnipaque 350 intravenous contrast. Sagittal and coronal reformatted images were obtained on the technologist's workstation. Oral contrast: Yes This CT examination was performed using dose optimization techniques as appropriate, variously including the following: *Automated exposure control *Adjustment of mA and/or kV according to patient size (this includes techniques or standardized protocols for targeted exams where dose is matched to indication/reason for exam; i.e. extremities or head) *Use of iterative reconstruction technique DLP: 328 mGy-cm FINDINGS: Exam is limited due to motion artifact. LUNG BASES: The visualized lung bases are unremarkable. LIVER, GALLBLADDER, AND BILIARY TREE: The liver is normal in size, shape, and attenuation. No focal hepatic lesion or biliary ductal dilatation is present. The gallbladder is unremarkable with no evidence of radiopaque gallstones, gallbladder wall thickening, or obvious pericholecystic inflammatory changes. PANCREAS: Unremarkable. SPLEEN: Unremarkable. ADRENAL GLANDS: Unremarkable. KIDNEYS AND URETERS: Small 2 mm nonobstructing stone in the upper pole of the left kidney. BLADDER: Unremarkable. GASTROINTESTINAL TRACT: Diverticulosis. No evidence of diverticulitis. The small and large bowel are otherwise unremarkable. The appendix is unremarkable. ABDOMINAL WALL: No significant hernia is appreciated. LYMPH NODES: Normal. VASCULAR: Unremarkable. PELVIC VISCERA: Unremarkable. OSSEOUS STRUCTURES: Degenerative changes of the spine. CT/CT abdomen pelvis w IV con IMPRESSION: Limited exam due to marked artifact. Diverticulosis. No evidence of diverticulitis. Small nonobstructing left upper pole renal stone. Fleischner guidelines were followed.
[2022-06-09 08:18] VITALS: BP 109/68; PULSE 101; RESP 18; TEMP 36.3; O2SAT 99; BMI 23.2
--- NOTE | 2022-06-09 09:59 | ED_ITS ---
HPI - Abdominal Pain General Chief Complaint: Abdominal Pain Stated Complaint: Abd pain Time Seen by Provider: 06/09/22 09:20 Source: patient Mode of arrival: ambulatory Limitations: no limitations History of Present Illness HPI narrative: This is a 62 years old female presented to the ED with chief complaint of ab dominal pain localizing the left and right lower quadrant she has nausea but no vomiting no diarrhea pain is been ongoing for about 2 weeks also history of gastritis, she reports MD elicited complaint: abdominal pain Pertinent past history: gastritis Onset (ago): week(s) (2) Pain Consistency: constant Location: RLQ and LLQ Severity: mild Quality: cramping Radiation: none Migration to: no migration Relieving factors: nothing Related Data Home Medications Medication Instructions Recorded Confirmed quetiapine 25 mg tablet 25 mg PO BEDTIME 03/08/20 09/01/21 aspirin 81 mg tablet,delayed 81 mg PO DAILY 12/07/20 09/01/21 release (Adult Aspirin Regimen) topiramate 25 mg sprinkle capsule 25 mg PO DAILY 12/07/20 09/01/21 Previous Rx's Medication Instructions Recorded leg brace (ALETHA Knee Brace) #1 ea 02/05/20 comp.stocking,knee,long,medium #2 ea 02/16/20 clonazepam 1 mg tablet 1 mg PO DAILY PRN anxiety 30 days 05/12/20 #30 tabs ketoconazole 2 % shampoo 1 appl topical 2XW 30 days #120 mL 10/18/20 hydrocortisone valerate 0.2 % 1 appl topical BID PRN skin 02/04/21 topical cream irritation 30 days #60 grams diclofenac sodium 1 % topical gel 2 g topical DAILY #100 grams 02/07/21 edewljcxzh-dpugxrzlbaoux-hexddfjf 1 cap PO Q6H PRN pain 4 days #16 04/05/21 50 mg-325 mg-40 mg capsule caps lactulose 20 gram/30 mL oral 20 g (30 mL) PO BID PRN laxative 04/05/21 solution effect 15 days #1,200 mL hydroxyzine HCl 25 mg tablet 25 mg PO TID 7 days #21 tabs 05/18/21 fluticasone propionate 50 2 spray intranasal BID #16 grams 07/19/21 mcg/actuation nasal spray,suspension montelukast 10 mg tablet 10 mg PO DAILY #30 tabs 04/14/22 zolpidem 5 mg tablet (Ambien) 5 mg PO BEDTIME PRN sleep 30 days 08/04/21 #30 tabs azithromycin 250 mg tablet See Rx Instructions PO .COMPLEX #6 08/09/21 tabs albuterol sulfate 90 mcg/actuation 2 puff inhalation Q4-6H PRN 08/18/21 aerosol inhaler (Ventolin HFA) shortness of breath or wheezing #6.7 grams docusate sodium 100 mg capsule 100 mg PO BID 15 days #30 caps 08/18/21 (Dulcolax Stool Softener (docusate)) ferrous sulfate 325 mg (65 mg 325 mg PO DAILY 30 days #30 tabs 08/18/21 iron) tablet hydrocortisone valerate 0.2 % 1 appl topical BID skin irritation 08/18/21 topical cream 10 days #45 grams loratadine 10 mg tablet (Allergy 10 mg PO DAILY 90 days #90 tabs 08/18/21 Relief (loratadine)) sennosides 8.6 mg tablet (senna) 17.2 mg PO BEDTIME 30 days #60 tabs 08/18/21 olopatadine 0.2 % eye drops 1 drp ophthalmic (eye) DAILY 30 09/01/21 days #2.5 mL gabapentin 300 mg capsule 300 mg PO DAILY 90 days #90 caps 10/17/21 bepotastine besilate 1.5 % eye 1 drp ophthalmic (eye) BID PRN eye 10/18/21 drops (Bepreve) irritation 30 days #10 mL methyl salicylate 30 %-menthol 10 1 appl topical TID 30 days #85 10/27/21 % topical cream (Icy Hot) grams prednisone 20 mg tablet 40 mg PO DAILY pain 5 days #10 tabs 12/14/21 atorvastatin 20 mg tablet 20 mg PO DAILY #30 tabs 01/17/22 fluoxetine 40 mg capsule 40 mg PO DAILY 30 days #30 caps 01/17/22 fluticasone propionate 50 2 spray intranasal DAILY 30 days 01/17/22 mcg/actuation nasal #16 grams spray,suspension (Flonase Allergy Relief) diclofenac sodium 1 % topical gel 2 g topical QID #100 grams 02/16/22 (Voltaren Arthritis Pain) gabapentin 300 mg capsule 300 mg PO BEDTIME #30 caps 02/16/22 cholecalciferol (vitamin D3) 25 25 mcg PO DAILY 90 days #90 tabs 02/27/22 mcg (1,000 unit) tablet clotrimazole 1 % vaginal cream 1 appful vaginal BEDTIME 7 days 02/27/22 #45 grams leg brace (Knee Support Brace) #1 ea 03/07/22 phenazopyridine 200 mg tablet 200 mg PO TID pain 2 days #6 tabs 03/08/22 (Pyridium) lidocaine 5 % topical patch 1 patch topical DAILY 30 days #30 03/29/22 ea back brace #1 ea 04/03/22 meloxicam 15 mg tablet 15 mg PO DAILY PRN pain 30 days 04/07/22 #30 tabs omeprazole 20 mg capsule,delayed 20 mg PO DAILY #30 caps 04/21/22 release zolpidem 10 mg tablet 10 mg PO BEDTIME #30 tabs 04/21/22 acetaminophen 500 mg tablet 500 mg PO Q6H PRN pain #60 tabs 05/03/22 (Tylenol Extra Strength) naproxen 500 mg tablet 500 mg PO BID PRN pain #30 tabs 05/03/22 hydrochlorothiazide 12.5 mg capsule 12.5 mg PO DAILY 90 days #90 caps 05/11/22 multivitamin (Daily-Dionisio tablet) 1 tab PO DAILY #90 tabs 05/11/22 pioglitazone 15 mg tablet (Actos) 15 mg PO DAILY 90 days #90 tabs 05/11/22 aluminum-mag hydroxide-simethicone 10 ml PO QID PRN indigestion #355 05/16/22 200 mg-200 mg-20 mg/5 mL oral susp mL (Maalox Advanced) omeprazole 20 mg capsule,delayed 20 mg PO DAILY #30 caps 05/16/22 release oxycodone 5 mg capsule 5 mg PO Q8H PRN pain #12 caps 06/09/22 Allergies Allergy/AdvReac Type Severity Reaction Status Date / Time No Known Allergies Allergy Verified 05/15/22 12:31 [No Known Allergies*] Review of Systems Review of Systems Yes all other systems are reviewed and are negative Constitutional: Reports as per HPI Cardiovascular: Reports no additional cardiovascular complaints Respiratory: Reports no additional respiratory complaints Gastrointestinal: Reports abdominal pain PMFSH Past Medical History Medical History Asthma DMII (diabetes mellitus, type 2) Gross hematuria HLD (hyperlipidemia) HTN (hypertension) Lumbar radiculopathy Migraines Myofascial pain Surgical History History of tubal ligation Family History Family History Father No problems noted. Mother No problems noted. Sister Breast cancer Brother Prediabetes Daughter Liver problem Other Gross hematuria Social History Social History Housing: House Alcohol intake: never Patient Tobacco Use Status: Never used Tobacco e-Cigarette/Vaping Use: Never Used service: No Current occupational status: retired Cognitive needs: No Hearing needs: No Vision needs: No Physical Exam ED Vital Signs: Vital Signs - 24 hr 06/09/22 08:18 06/09/22 12:00 Temperature 97.3 F 98.4 F Pulse Rate 101 H 73 Respiratory Rate 18 16 Blood Pressure 109/68 133/62 Pulse Oximetry 99 100 Oxygen Delivery Method Room Air Room Air BMI result Body Mass Index 23.2 Const General: cooperative Nutritional Appearance: average body habitus and well nourished Orientation/consciousness: patient oriented x3 HENMT Head: Yes normal to inspection General nose exam: Normal external nose present Face and sinus: Yes normal facial exam Mouth: Normal oral and palatal mucosa present Throat: Yes posterior oropharynx normal Neck Neck: Yes normal visual inspection Chest Chest palpation & inspection: normal inspection of the chest Resp Effort & Inspection: normal respiratory effort Auscultation: clear to auscultation bilaterally Cardio Jugular venous distension: no JVD Rate: regular rate Rhythm: regular rhythm GI Inspection: Yes normal to inspection Palpation (GI): Soft to palpation Percussion: Yes normal to percussion Auscultation: normal bowel sounds Skin General skin exam: no rashes or lesions noted and elasticity normal Lesions: no lesions Rashes: no rashes Neuro General: patient oriented x3 Extrem General: Yes normal to inspection and Yes full ROM Course Reevaluation(s) Reevaluation #1: I re-examined the patient 14:25 she is feeling better workup negative she will be discharged home Time: 14:28 Medical Decision Making Medical Decision Making MDM Narrative: Patient presented with abdominal pain will get the labs CT and reassess Differential Diagnosis Differential Diagnoses: The differential diagnosis associated with the presentation includes Colitis/diverticulitis/ Admission/Observation Consideration of admission/observation: Escalation of care including admission/observation considered Lab Data 06/09/22 10:20 06/09/22 10:20 Labs: Lab Results 06/09/22 06/09/22 06/09/22 Range/Units 10:20 10:20 12:49 WBC 8.7 (4.8-10.8) X10*3/uL RBC 4.32 (4.20-5.50) X10*6/uL Hgb 12.2 (12.0-16.0) g/dl Hct 37.5 (37.0-47.0) % MCV 86.8 (80.0-98.0) fL MCH 28.2 (27.0-33.0) pg MCHC 32.5 (31.0-35.0) g/dl RDW 13.0 (11.0-16.0) % Plt Count 277 (160-400) X10*3/uL MPV 9.2 L (9.4-12.3) fL Immature Gran % (Auto) 0.2 (0.0-0.4) % Neut % (Auto) 77.1 H (45-73) % Lymph % (Auto) 16.7 L (20-40) % [place] % (Auto) 4.0 (2-11) % Eos % (Auto) 1.5 (0-4) % Baso % (Auto) 0.5 (0-2) % Lymph # (Auto) 1.5 (1.2-4.9) X10*3/uL [place] # (Auto) 0.4 (0.1-1.2) X10*3/uL Eos # (Auto) 0.1 (0.0-0.4) X10*3/uL Baso # (Auto) 0.0 (0.0-0.2) X10*3/uL Abs Immat Gran (auto) 0.02 (0.00-0.03) X10*3/uL Absolute Neuts (auto) 6.7 (2.0-8.3) x10*3/uL Absolute Nucleated RBC 0.000 (0.0-0.012) X10*3/uL Nucleated RBC % (auto) 0.0 (0.0-0.2) /100WBC Sodium 142 (135-145) mmol/L Potassium 3.8 (3.3-5.1) mmol/L Chloride 106 (96-108) mmol/L Carbon Dioxide 25 (22-29) mmol/L Anion Gap 15 (12-20) BUN 15 (9-16) mg/dL Creatinine 0.99 (0.5-1.4) mg/dL Estim Creat Clear Calc 42.2 Estimated GFR 57 Random Glucose 121 H (60-115) mg/dL Calcium 10.0 D (8.4-10.2) mg/dL Total Bilirubin 0.9 (0.0-1.0) mg/dL AST 27 (5-31) U/L ALT 26 (0-31) U/L Alkaline Phosphatase 80 (39-117) U/L Total Protein 7.5 (6.5-8.0) g/dL Albumin 4.3 (3.5-5.0) g/dL Lipase 9 (8-78) U/L Urine Color Yellow Urine Appearance Clear Urine pH 8.0 (5.0-9.0) Ur Specific [place] >= 1.030 H (1.005-1.025) Urine Protein Trace (Neg-Trace) mg/dL Urine Glucose (UA) Negative (Negative) mg/dL Urine Ketones Negative (Negative) mg/dL Urine Blood Negative (Negative) Urine Nitrite Negative (Negative) Ur Leukocyte Esterase Negative (Negative) Radiology Impression Discussion of test interpretation with radiology: I have reviewed the radiologist's reading. Radiologist Impression: GASTROINTESTINAL TRACT: Diverticulosis. No evidence of diverticulitis. The small and large bowel are otherwise unremarkable. The appendix is unremarkable.? ABDOMINAL WALL: No significant hernia is appreciated.? LYMPH NODES: Normal. VASCULAR: Unremarkable. PELVIC VISCERA: Unremarkable.? OSSEOUS STRUCTURES: Degenerative changes of the spine. CT/CT abdomen pelvis w IV con IMPRESSION: Limited exam due to marked artifact. Diverticulosis. No evidence of diverticulitis. Small nonobstructing left upper pole renal stone.? ? Fleischner guidelines were followed. Dictated By: Katlyn Abdi MD Signed By: <Electronically signed by Katlyn Abdi MD in [place]> 06/09/22 1249 Medications Administered Discontinued Medications Generic Name Dose Route Start Last Admin Trade Name Freq PRN Reason Stop Dose Admin Sodium Chloride 1,000 mls @ 999 mls/hr 06/09/22 10:15 06/09/22 11:45 Ns IVCONT 06/09/22 11:15 Infused .Q1H1M GAVINO Infusion Iohexol 85 ml 06/09/22 11:39 06/09/22 11:41 Iohexol 350 Mg/Ml 100 Ml Infus..Btl IV 06/09/22 11:40 85 ml ONCE ONE Administration Ondansetron HCl 4 mg 06/09/22 10:06 06/09/22 10:50 Ondansetron Hcl 4 Mg/2 Ml Vial IVPUSH 06/09/22 10:07 4 mg ONCE ONE Administration Discharge Plan Discharge Clinical Impression: Abdominal pain in female patient Patient Disposition: Home, Self-Care Instructions: Abdominal Pain (ED) Additional Instructions: Follow-up with your primary care physician return if you worse any concern Prescriptions: New oxycodone 5 mg capsule 5 mg PO Q8H PRN (Reason: pain) Qty: 12 0RF Rx Instructions: Partial Fill upon patient request. No Action (DME) ALETHA Knee Brace Misc See Rx Instructions .ROUTE .MEDSUPPLY Qty: 1 0RF Rx Instructions: As directed (DME) comp.stocking,knee,long,medium Misc See Rx Instructions .ROUTE .MEDSUPPLY Qty: 2 0RF Rx Instructions: As directed quetiapine 25 mg tablet 25 mg PO BEDTIME clonazepam 1 mg tablet 1 mg PO DAILY PRN (Reason: anxiety) 30 Days Qty: 30 2RF ketoconazole 2 % shampoo 1 appl topical 2XW 30 Days Qty: 120 0RF hydrocortisone valerate 0.2 % cream 1 appl topical BID PRN (Reason: skin irritation) 30 Days Qty: 60 0RF diclofenac sodium 1 % gel 2 g topical DAILY Qty: 100 2RF hydroxyzine HCl 25 mg tablet 25 mg PO TID 7 Days Qty: 21 0RF Rx Instructions: Advised to hold clonazepam and loratadine. fluticasone propionate 50 mcg/actuation spray,suspension 2 spray intranasal BID Qty: 16 3RF albuterol sulfate [Ventolin HFA] 90 mcg/actuation HFA aerosol inhaler 2 puff inhalation Q4-6H PRN (Reason: shortness of breath or wheezing) Qty: 6.7 0RF docusate sodium [Dulcolax Stool Softener (dss)] 100 mg capsule 100 mg PO BID 15 Days Qty: 30 3RF ferrous sulfate 325 mg (65 mg iron) tablet 325 mg PO DAILY 30 Days Qty: 30 3RF hydrocortisone valerate 0.2 % cream 1 appl topical BID 10 Days Qty: 45 0RF loratadine [Allergy Relief (loratadine)] 10 mg tablet 10 mg PO DAILY 90 Days Qty: 90 2RF sennosides [senna] 8.6 mg tablet 17.2 mg PO BEDTIME 30 Days Qty: 60 2RF gabapentin 300 mg capsule 300 mg PO DAILY 90 Days Qty: 90 1RF bepotastine besilate [Bepreve] 1.5 % drops 1 drp ophthalmic (eye) BID PRN (Reason: eye irritation) 30 Days Qty: 10 2RF Icy Hot 30-10 % cream 1 appl topical TID 30 Days Qty: 85 0RF fluticasone propionate [Flonase Allergy Relief] 50 mcg/actuation spray,suspension 2 spray intranasal DAILY 30 Days Qty: 16 3RF Rx Instructions: administer into each nostril atorvastatin 20 mg tablet 20 mg PO DAILY Qty: 30 3RF fluoxetine 40 mg capsule 40 mg PO DAILY 30 Days Qty: 30 3RF cholecalciferol (vitamin D3) 25 mcg (1,000 unit) tablet 25 mcg PO DAILY 90 Days Qty: 90 3RF clotrimazole 1 % cream 1 appful vaginal BEDTIME 7 Days Qty: 45 0RF (DME) [place] [facility] [place] .[place] Qty: 1 0RF Rx Instructions: As directed phenazopyridine [Pyridium] 200 mg tablet 200 mg PO TID 2 Days Qty: 6 0RF lidocaine 5 % adhesive patch,medicated 1 patch topical DAILY 30 Days Qty: 30 6RF Rx Instructions: leave on most painful area for up to 12 hrs (DME) [place] [facility] [place] .Route Qty: 1 0RF Rx Instructions: As directed zolpidem 10 mg tablet 10 mg PO BEDTIME Qty: 30 0RF omeprazole 20 mg capsule,delayed release(DR/EC) 20 mg PO DAILY Qty: 30 3RF acetaminophen [Tylenol Extra Strength] 500 mg tablet 500 mg PO Q6H PRN (Reason: pain ) Qty: 60 0RF naproxen 500 mg tablet 500 mg PO BID PRN (Reason: pain) Qty: 30 0RF Rx Instructions: Take with food hydrochlorothiazide 12.5 mg capsule 12.5 mg PO DAILY 90 Days Qty: 90 3RF multivitamin [Daily-Dionisio] Tablet 1 tab PO DAILY Qty: 90 4RF pioglitazone [Actos] 15 mg tablet 15 mg PO DAILY 90 Days Qty: 90 1RF azithromycin 250 mg tablet See Rx Instructions .ROUTE .COMPLEX Qty: 6 0RF Rx Instructions: take 500 mg today (day 1), then 250 mg for 4 days (days 2-5) omeprazole 20 mg capsule,delayed release(DR/EC) 20 mg PO DAILY Qty: 30 0RF alum-mag hydroxide-simeth [Maalox Advanced] 200-200-20 mg/5 mL suspension 10 ml PO QID PRN (Reason: indigestion) Qty: 355 0RF Rx Instructions: administer between meals and at bedtime gabapentin 300 mg capsule 300 mg PO BEDTIME Qty: 30 0RF diclofenac sodium [Voltaren Arthritis Pain] 1 % gel 2 g topical QID Qty: 100 0RF Rx Instructions: apply to single elbow, wrist or hand; for hand includes palm/fingers/back of hand lactulose 20 gram/30 mL solution 20 g PO BID PRN (Reason: laxative effect) 15 Days Qty: 1200 0RF rcdmboohto-duwiipaavvjhq-yhtl 50-325-40 mg capsule 1 cap PO Q6H PRN (Reason: pain) 4 Days Qty: 16 0RF olopatadine 0.2 % drops 1 drp ophthalmic (eye) DAILY 30 Days Qty: 2.5 0RF montelukast 10 mg tablet 10 mg PO DAILY Qty: 30 6RF zolpidem [Ambien] 5 mg tablet 5 mg PO BEDTIME PRN (Reason: sleep) 30 Days Qty: 30 0RF topiramate 25 mg capsule, sprinkle 25 mg PO DAILY aspirin [Adult Aspirin Regimen] 81 mg tablet,delayed release (DR/EC) 81 mg PO DAILY prednisone 20 mg tablet 40 mg PO DAILY 5 Days Qty: 10 0RF meloxicam 15 mg tablet 15 mg PO DAILY PRN (Reason: pain) 30 Days Qty: 30 0RF Rx Instructions: Take it with food and full glass of water. Avoid other NSAIDs. Referrals: Juan R Ramirez PA-C [Primary Care Provider] - 06/12/22 Interventions: ED Discharge Assessment Last Done: 06/09/22 15:25 Discharge Date/Time: 06/09/22 15:26
[2022-06-09 10:23] LABS: MANUAL DIFF FLAG NO
[2022-06-09 10:27] LABS: Basophils Percent Auto 0.5 % (0-2); Eosinophils Absolute Auto 0.1 X10*3/uL (0.0-0.4); Eosinophils Percent Auto 1.5 % (0-4); Hematocrit 37.5 % (37.0-47.0); Hemoglobin 12.2 g/dl (12.0-16.0); Imm Gran Abs Auto 0.02 X10*3/uL (0.00-0.03); Imm Gran Pct Auto 0.2 % (0.0-0.4); Lymphocytes Absolute Auto 1.5 X10*3/uL (1.2-4.9); Lymphocytes Percent Auto 16.7 % (20-40); Mean Corpuscular HGB Conc 32.5 g/dl (31.0-35.0); Mean Corpuscular Hemoglobin 28.2 pg (27.0-33.0); Mean Corpuscular Volume 86.8 fL (80.0-98.0); Mean Platelet Volume 9.2 fL (9.4-12.3); Monocytes Absolute Auto 0.4 X10*3/uL (0.1-1.2); Neutrophils Absolute Auto 6.7 x10*3/uL (2.0-8.3); Neutrophils Percent Auto 77.1 % (45-73); Platelet Count 277 X10*3/uL (160-400); Red Blood Count 4.32 X10*6/uL (4.20-5.50); White Blood Count 8.7 X10*3/uL (4.8-10.8)
[2022-06-09 10:42] LABS: Alanine Aminotransferase 26 U/L (0-31); Albumin Level 4.3 g/dL (3.5-5.0); Alkaline Phosphatase 80 U/L (39-117); Anion Gap 15 (12-20); Aspartate Amino Transferase 27 U/L (5-31); Bilirubin Total 0.9 mg/dL (0.0-1.0); Blood Urea Nitrogen 15 mg/dL (9-16); Carbon Dioxide 25 mmol/L (22-29); Chloride 106 mmol/L (96-108); Creatinine Clr Calc Pharmacy 42.2; Estimated Glomerular Filt Rate 57; Glucose Random 121 mg/dL (60-115); Lipase 9 U/L (8-78); Potassium 3.8 mmol/L (3.3-5.1); Sodium 142 mmol/L (135-145); Total Protein 7.5 g/dL (6.5-8.0)
[2022-06-09] MEDS: 0.9 % Sodium Chloride 1,000 ML 999 ML IVCONT (10:50)
[2022-06-09] MEDS: ondansetron HCL 4 MG/2 ML VIAL IVPUSH (10:50)
[2022-06-09] MEDS: iohexoL 350 MG/ML 100 ML INFUS..BTL 85 ML IV (11:41)
[2022-06-09 12:00] VITALS: BP 133/62; PULSE 73; RESP 16; TEMP 36.9; O2SAT 100
[2022-06-09 13:04] LABS: Appearance Urine Clear; Color Urine Yellow; Glucose Urine UA Negative (Negative); Leukocyte Esterase Urine Negative (Negative); Nitrite Urine Negative (Negative); Specific Gravity - Urine >= 1.030 (1.005-1.025); Urine Blood Negative (Negative); Urine Ketones Negative (Negative); Urine Protein Trace mg/dL (Neg-Trace)
== END 2022-06-09 15:26 | disposition home or self-care (01) ==
PROVIDERS: Emergency Provider Emergency Medicine; PCP Physician Assistant
DX: R10.30 Lower abdominal pain, unspecified (principal); E11.9 Type 2 diabetes mellitus without complications; I10 Essential (primary) hypertension; E78.5 Hyperlipidemia, unspecified; Z79.82 Long term (current) use of aspirin; Z79.899 Other long term (current) drug therapy; Z79.02 Long term (current) use of antithrombotics/antiplatelets
CPT/HCPCS: 36415; 74177; 80053; 81003; 83690; 85025; 96361; 96374; 99284; J2405; Q9967

== ENCOUNTER 2022-06-26 07:19 | Emergency (ER) | payer MEDICARE, MEDICAID, SELFPAY ==
--- NOTE | ~2022-06-26 | XR_ITS ---
EXAMINATION: XR ABDOMEN KUB CLINICAL INDICATION: Constipation evaluation COMPARISON: CT abdomen and pelvis 06/09/2022, KUB 05/15/2022. TECHNIQUE: AP view of the abdomen. FINDINGS: The bowel gas pattern is nonobstructive without any evidence for free air. Moderate rectal fecal material observed. There is otherwise mild rectal fecal material in the left and right colons. Pelvic phleboliths observed. Calcification previously seen near the posterior lip of the left acetabulum not appreciably changed. XR/XR KUB IMPRESSION: Nonobstructive bowel gas pattern. Moderate rectal fecal material but mild fecal material elsewhere.
--- NOTE | ~2022-06-26 | CT_ITS ---
EXAMINATION: CT ABDOMEN AND PELVIS WITHOUT CONTRAST CLINICAL INFORMATION: Lower abdominal pain, black stool COMPARISON: 06/09/2022. TECHNIQUE: Multidetector volumetric imaging was performed from the superior aspect of the liver through the pubic symphysis. Sagittal and coronal reformatted images were obtained on the technologist's workstation. This CT examination was performed using dose optimization techniques as appropriate, variously including the following: *Automated exposure control *Adjustment of mA and/or kV according to patient size (this includes techniques or standardized protocols for targeted exams where dose is matched to indication/reason for exam; i.e. extremities or head) *Use of iterative reconstruction technique DLP: 341 mGy-cm FINDINGS: LUNG BASES: Minimal dependent increased density in the posterior lower lobes. Small atelectatic changes in the lingula. LIVER, GALLBLADDER, AND BILIARY TREE: The liver is normal in size, shape, and attenuation. No focal hepatic lesion or biliary ductal dilatation is present. The gallbladder is unremarkable with no evidence of radiopaque gallstones, gallbladder wall thickening, or obvious pericholecystic inflammatory changes. PANCREAS: Unremarkable. SPLEEN: Unremarkable. ADRENAL GLANDS: Unremarkable. KIDNEYS AND URETERS: Bilateral small nephroliths, not appearing obstructive. Small left periureteral phlebolith not significantly changed. BLADDER: Unremarkable, not distended. GASTROINTESTINAL TRACT: No CT evidence for diverticulitis. Colonic diverticula without any acute inflammatory changes. Air-fluid levels in right, transverse, and proximal descending colons likely related to a diarrheal illness. No appreciable small bowel obstructive process or abnormal omental thickening. Appendix measures 5.5 to 6 mm without any periappendiceal infiltrative changes. ABDOMINAL WALL: No significant hernia is appreciated. LYMPH NODES: No suspiciously enlarged retroperitoneal or pelvic adenopathy. VASCULAR: Unremarkable. PELVIC VISCERA: No appreciable suspicious pelvic masses. OSSEOUS STRUCTURES: Small spondylitic changes. No acute compression fractures. CT/CT abdomen pelvis wo IV con IMPRESSION: Colonic air-fluid levels likely related to a diarrheal illness. No evidence for diverticulitis. Small nonobstructing renal stones. Other incidental findings as noted above. Fleischner guidelines were followed.
[2022-06-26 07:22] VITALS: BP 132/49; PULSE 69; RESP 16; TEMP 36.2; O2SAT 100; BMI 22.8
[2022-06-26 08:08] VITALS: BP 120/89; PULSE 76; RESP 16; O2SAT 100
--- NOTE | 2022-06-26 08:09 | ED_ITS ---
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 Patient been having lower abdominal pain for the past week, last bowel movement was about 6 days ago, pain has been constant about 5/10 associated with nausea but no vomiting. Patient has been passing gas but no bowel movement for 6 days, lost 15 lb in 3 weeks with no intention. Otherwise no fever or chills. Related Data Home Medications Medication Instructions Recorded Confirmed quetiapine 25 mg tablet 25 mg PO BEDTIME 03/08/20 09/01/21 aspirin 81 mg tablet,delayed 81 mg PO DAILY 12/07/20 09/01/21 release (Adult Aspirin Regimen) topiramate 25 mg sprinkle capsule 25 mg PO DAILY 12/07/20 09/01/21 Previous Rx's Medication Instructions Recorded leg brace (ALETHA Knee Brace) #1 ea 02/05/20 comp.stocking,knee,long,medium #2 ea 02/16/20 clonazepam 1 mg tablet 1 mg PO DAILY PRN anxiety 30 days 05/12/20 #30 tabs ketoconazole 2 % shampoo 1 appl topical 2XW 30 days #120 mL 10/18/20 hydrocortisone valerate 0.2 % 1 appl topical BID PRN skin 02/04/21 topical cream irritation 30 days #60 grams diclofenac sodium 1 % topical gel 2 g topical DAILY #100 grams 02/07/21 pjxuwktlik-glhtrocpygtoe-yqpcjyqm 1 cap PO Q6H PRN pain 4 days #16 04/05/21 50 mg-325 mg-40 mg capsule caps lactulose 20 gram/30 mL oral 20 g (30 mL) PO BID PRN laxative 04/05/21 solution effect 15 days #1,200 mL hydroxyzine HCl 25 mg tablet 25 mg PO TID 7 days #21 tabs 05/18/21 fluticasone propionate 50 2 spray intranasal BID #16 grams 07/19/21 mcg/actuation nasal spray,suspension montelukast 10 mg tablet 10 mg PO DAILY #30 tabs 08/04/21 zolpidem 5 mg tablet (Ambien) 5 mg PO BEDTIME PRN sleep 30 days 08/04/21 #30 tabs azithromycin 250 mg tablet See Rx Instructions PO .COMPLEX #6 08/09/21 tabs albuterol sulfate 90 mcg/actuation 2 puff inhalation Q4-6H PRN 08/18/21 aerosol inhaler (Ventolin HFA) shortness of breath or wheezing #6.7 grams docusate sodium 100 mg capsule 100 mg PO BID 15 days #30 caps 08/18/21 (Dulcolax Stool Softener (docusate)) ferrous sulfate 325 mg (65 mg 325 mg PO DAILY 30 days #30 tabs 08/18/21 iron) tablet hydrocortisone valerate 0.2 % 1 appl topical BID skin irritation 08/18/21 topical cream 10 days #45 grams loratadine 10 mg tablet (Allergy 10 mg PO DAILY 90 days #90 tabs 08/18/21 Relief (loratadine)) sennosides 8.6 mg tablet (senna) 17.2 mg PO BEDTIME 30 days #60 tabs 08/18/21 olopatadine 0.2 % eye drops 1 drp ophthalmic (eye) DAILY 30 09/01/21 days #2.5 mL gabapentin 300 mg capsule 300 mg PO DAILY 90 days #90 caps 10/17/21 bepotastine besilate 1.5 % eye 1 drp ophthalmic (eye) BID PRN eye 10/18/21 drops (Bepreve) irritation 30 days #10 mL methyl salicylate 30 %-menthol 10 1 appl topical TID 30 days #85 10/27/21 % topical cream (Icy Hot) grams prednisone 20 mg tablet 40 mg PO DAILY pain 5 days #10 tabs 12/14/21 atorvastatin 20 mg tablet 20 mg PO DAILY #30 tabs 01/17/22 fluoxetine 40 mg capsule 40 mg PO DAILY 30 days #30 caps 01/17/22 fluticasone propionate 50 2 spray intranasal DAILY 30 days 01/17/22 mcg/actuation nasal #16 grams spray,suspension (Flonase Allergy Relief) diclofenac sodium 1 % topical gel 2 g topical QID #100 grams 02/16/22 (Voltaren Arthritis Pain) gabapentin 300 mg capsule 300 mg PO BEDTIME #30 caps 02/16/22 cholecalciferol (vitamin D3) 25 25 mcg PO DAILY 90 days #90 tabs 02/27/22 mcg (1,000 unit) tablet clotrimazole 1 % vaginal cream 1 appful vaginal BEDTIME 7 days 02/27/22 #45 grams leg brace (Knee Support Brace) #1 ea 03/07/22 phenazopyridine 200 mg tablet 200 mg PO TID pain 2 days #6 tabs 03/08/22 (Pyridium) lidocaine 5 % topical patch 1 patch topical DAILY 30 days #30 03/29/22 ea back brace #1 ea 04/03/22 meloxicam 15 mg tablet 15 mg PO DAILY PRN pain 30 days 04/07/22 #30 tabs omeprazole 20 mg capsule,delayed 20 mg PO DAILY #30 caps 04/21/22 release zolpidem 10 mg tablet 10 mg PO BEDTIME #30 tabs 04/21/22 acetaminophen 500 mg tablet 500 mg PO Q6H PRN pain #60 tabs 05/03/22 (Tylenol Extra Strength) naproxen 500 mg tablet 500 mg PO BID PRN pain #30 tabs 05/03/22 hydrochlorothiazide 12.5 mg capsule 12.5 mg PO DAILY 90 days #90 caps 05/11/22 multivitamin (Daily-Dionisio tablet) 1 tab PO DAILY #90 tabs 05/11/22 pioglitazone 15 mg tablet (Actos) 15 mg PO DAILY 90 days #90 tabs 05/11/22 aluminum-mag hydroxide-simethicone 10 ml PO QID PRN indigestion #355 05/16/22 200 mg-200 mg-20 mg/5 mL oral susp mL (Maalox Advanced) omeprazole 20 mg capsule,delayed 20 mg PO DAILY #30 caps 05/16/22 release oxycodone 5 mg capsule 5 mg PO Q8H PRN pain #12 caps 06/09/22 polyethylene glycol 3350 17 17 g PO DAILY #119 grams 06/23/22 gram/dose oral powder (Miralax) Allergies Allergy/AdvReac Type Severity Reaction Status Date / Time No Known Allergies Allergy Verified 05/15/22 12:31 [No Known Allergies*] Review of Systems Review of Systems All other systems are reviewed and are negative Constitutional: Reports as per HPI and Reports no additional constitutional complaints Eyes: Reports as per HPI and Reports no additional eye complaints Reports system reviewed and no additional complaints, except as documented Cardiovascular: Reports as per HPI and Reports no additional cardiovascular complaints Respiratory: Reports as per HPI and Reports no additional respiratory complaints Gastrointestinal: Reports as per HPI and Reports no additional gastrointestinal complaints Genitourinary: Reports no additional female genitourinary complaints Musculoskeletal: Reports no additional musculoskeletal complaints Skin/Breast: Reports system reviewed and no additional complaints, except as docu Psychiatric: Reports no additional psychiatric complaints Endocrine: Reports no additional endocrine complaints Hematologic/Lymphatic: Reports no additional hematologic/lymphatic complaints Allergic/Immunologic: Reports no additional allergic/immunologic complaints Reports system reviewed and no additional complaints, except as documented and Reports Abnormal speech present FORMERLY [facility], [facility] Past Medical History Medical History Asthma DMII (diabetes mellitus, type 2) Gross hematuria HLD (hyperlipidemia) HTN (hypertension) Lumbar radiculopathy Migraines Myofascial pain Surgical History History of tubal ligation Family History Family History Father No problems noted. Mother No problems noted. Sister Breast cancer Brother Prediabetes Daughter Liver problem Other Gross hematuria Social History Social History Housing: House Alcohol intake: never Patient Tobacco Use Status: Never used Tobacco Smoked in Last 30 Days: No e-Cigarette/Vaping Use: Never Used Use of substances other than those prescribed or required for medical reasons: No Advance Directives: No Advance Directives Information Provided: No Patient : No service: No Current occupational status: retired Cognitive needs: No Hearing needs: No Vision needs: No Physical Exam ED Vital Signs: Vital Signs - 24 hr 06/26/22 07:22 06/26/22 08:08 Temperature 97.2 F Pulse Rate 69 76 Respiratory Rate 16 16 Blood Pressure 132/49 L 120/89 Pulse Oximetry 100 100 Oxygen Delivery Method Room Air Room Air BMI result Body Mass Index 22.8 Vital signs have been reviewed as appeared to be correct. Blood pressure normal. Heart rate normal. Respiration rate normal. Temperature normal. Oxygen saturation normal. Appearance: Alert. Oriented X3. No acute distress. Head: Normal external exam. Normocephalic. Atraumatic. No Williamson signs noted. No raccoon eyes noted Eyes: PERRLA. EOMI. Conjunctiva and sclera normal. Eyelids normal. ENT: TM's Normal. Pharynx normal. Uvula midline. Moist mucous membranes. No trismus noted. No drooling noted. No muffled voice noted. Neck: Normal inspection. Neck supple. FROM. No adenopathy. Thyroid Normal. No meningeal signs. No neck mass noted. CVS: Normal heart rate and rhythm. Heart sound normal. No murmurs noted. Pulses normal throughout. Respiratory: No respiratory distress. Painless inspiration. Breath sounds normal. No wheezes/rales/rhonchi noted. Chest nontender. No accessory muscle usage noted or decreased air movement noted. Abdomen: Soft and nontender. Bowel sounds normal in all 4 quadrants. No distention noted. No organomegaly noted. No visible injury noted. Rectal exam: No hard stool in the vault, dark colored stool. Guaiac negative for blood. Back: No CVA tenderness. Full range of motion noted. Skin: Skin warm and dry. Normal skin color. Normal skin turgor. No rashes/lesions/lacerations noted. Extremities: No lower extremity edema. Extremities exhibit normal range of motion. Extremities nontender. Neuro: Oriented X 3. Cranial nerve exam: II-XII are grossly intact No motor deficit. No sensory deficit. Reflexes normal. Course Course Course Narrative: 62-year-old female came in for constipation, patient is receiving iron for anemia which is making stool looked black and causing disturbance of patient's bowel movements, CT of the abdomen and pelvis is showing no acute pathology, patient also has unremarkable labs today. Will reassure and discharge to follow-up with PCP. Medical Decision Making Differential Diagnosis Differential Diagnoses: The differential diagnosis associated with the presentation includes (Melena, GI bleed, colitis, constipation, severe anemia, electrolyte disturbance.) Lab Data MDM Lab Attestation statement: I reviewed the patient's lab results. 06/26/22 08:43 06/26/22 08:37 Labs: Lab Results 06/26/22 06/26/22 06/26/22 Range/Units 08:19 08:19 08:37 WBC (4.8-10.8) X10*3/uL RBC (4.20-5.50) X10*6/uL Hgb (12.0-16.0) g/dl Hct (37.0-47.0) % MCV (80.0-98.0) fL MCH (27.0-33.0) pg MCHC (31.0-35.0) g/dl RDW (11.0-16.0) % Plt Count (160-400) X10*3/uL MPV (9.4-12.3) fL Immature Gran % (Auto) (0.0-0.4) % Neut % (Auto) (45-73) % Lymph % (Auto) (20-40) % Snyder % (Auto) (2-11) % Eos % (Auto) (0-4) % Baso % (Auto) (0-2) % Lymph # (Auto) (1.2-4.9) X10*3/uL Snyder # (Auto) (0.1-1.2) X10*3/uL Eos # (Auto) (0.0-0.4) X10*3/uL Baso # (Auto) (0.0-0.2) X10*3/uL Abs Immat Gran (auto) (0.00-0.03) X10*3/uL Absolute Neuts (auto) (2.0-8.3) x10*3/uL Absolute Nucleated RBC (0.0-0.012) X10*3/uL Nucleated RBC % (auto) (0.0-0.2) /100WBC Sodium 142 (135-145) mmol/L Potassium 3.9 (3.3-5.1) mmol/L Chloride 103 (96-108) mmol/L Carbon Dioxide 27 (22-29) mmol/L Anion Gap 16 (12-20) BUN 13 (9-16) mg/dL Creatinine 1.05 (0.5-1.4) mg/dL Estim Creat Clear Calc 39.4 Estimated GFR 53 Random Glucose 126 H (60-115) mg/dL Calcium 9.8 (8.4-10.2) mg/dL Total Bilirubin 1.2 H (0.0-1.0) mg/dL Direct Bilirubin 0.3 (0.0-0.5) mg/dL AST 35 H (5-31) U/L ALT 28 (0-31) U/L Alkaline Phosphatase 66 (39-117) U/L Troponin I High Sens (<3.5-17.0) ng/L B-Natriuretic Peptide (<100) pg/mL Total Protein 7.3 (6.5-8.0) g/dL Albumin 4.2 (3.5-5.0) g/dL Lipase 12 (8-78) U/L Urine Color Yellow Urine Appearance Clear Urine pH 6.0 (5.0-9.0) Ur Specific Pep <= 1.005 (1.005-1.025) Urine Protein Negative (Neg-Trace) mg/dL Urine Glucose (UA) Negative (Negative) mg/dL Urine Ketones Negative (Negative) mg/dL Urine Blood Negative (Negative) Urine Nitrite Negative (Negative) Ur Leukocyte Esterase Trace H (Negative) Urine RBC 0-2 (0-2) /HPF Urine WBC 0-5 (0-5) /HPF Ur Squamous Epith Cells 0-2 (0-2) /HPF Urine Bacteria None Seen (None Seen) Hyaline Casts 0-2 (0-2) /LPF Stool Occult Blood NEGATIVE (NEGATIVE) 06/26/22 06/26/22 06/26/22 Range/Units 08:37 08:43 08:43 WBC 5.8 (4.8-10.8) X10*3/uL RBC 4.07 L (4.20-5.50) X10*6/uL Hgb 11.7 L (12.0-16.0) g/dl Hct 35.5 L (37.0-47.0) % MCV 87.2 (80.0-98.0) fL MCH 28.7 (27.0-33.0) pg MCHC 33.0 (31.0-35.0) g/dl RDW 13.0 (11.0-16.0) % Plt Count 273 (160-400) X10*3/uL MPV 10.4 (9.4-12.3) fL Immature Gran % (Auto) 0.3 (0.0-0.4) % Neut % (Auto) 56.6 (45-73) % Lymph % (Auto) 35.1 (20-40) % Snyder % (Auto) 5.7 (2-11) % Eos % (Auto) 1.6 (0-4) % Baso % (Auto) 0.7 (0-2) % Lymph # (Auto) 2.0 (1.2-4.9) X10*3/uL Snyder # (Auto) 0.3 (0.1-1.2) X10*3/uL Eos # (Auto) 0.1 (0.0-0.4) X10*3/uL Baso # (Auto) 0.0 (0.0-0.2) X10*3/uL Abs Immat Gran (auto) 0.02 (0.00-0.03) X10*3/uL Absolute Neuts (auto) 3.3 (2.0-8.3) x10*3/uL Absolute Nucleated RBC 0.000 (0.0-0.012) X10*3/uL Nucleated RBC % (auto) 0.0 (0.0-0.2) /100WBC Sodium (135-145) mmol/L Potassium (3.3-5.1) mmol/L Chloride (96-108) mmol/L Carbon Dioxide (22-29) mmol/L Anion Gap (12-20) BUN (9-16) mg/dL Creatinine (0.5-1.4) mg/dL Estim Creat Clear Calc Estimated GFR Random Glucose (60-115) mg/dL Calcium (8.4-10.2) mg/dL Total Bilirubin (0.0-1.0) mg/dL Direct Bilirubin (0.0-0.5) mg/dL AST (5-31) U/L ALT (0-31) U/L Alkaline Phosphatase (39-117) U/L Troponin I High Sens 3.6 (<3.5-17.0) ng/L B-Natriuretic Peptide 13 (<100) pg/mL Total Protein (6.5-8.0) g/dL Albumin (3.5-5.0) g/dL Lipase (8-78) U/L Urine Color Urine Appearance Urine pH (5.0-9.0) Ur Specific Pep (1.005-1.025) Urine Protein (Neg-Trace) mg/dL Urine Glucose (UA) (Negative) mg/dL Urine Ketones (Negative) mg/dL Urine Blood (Negative) Urine Nitrite (Negative) Ur Leukocyte Esterase (Negative) Urine RBC (0-2) /HPF Urine WBC (0-5) /HPF Ur Squamous Epith Cells (0-2) /HPF Urine Bacteria (None Seen) Hyaline Casts (0-2) /LPF Stool Occult Blood (NEGATIVE) Independent Interpretation I performed an independent interpretation of an: CT Scan (Abdomen and pelvis CT: No acute pathology.) Radiology Impression Discussion of test interpretation with radiology: I have reviewed the radiologist's reading. Discharge Plan Discharge Clinical Impression: Constipation, Abdominal pain Patient Disposition: Home, Self-Care Instructions: Abdominal Pain (ED) Prescriptions: No Action (DME) ALETHA Knee Brace Misc See Rx Instructions .ROUTE .MEDSUPPLY Qty: 1 0RF Rx Instructions: As directed (DME) comp.stocking,knee,long,medium Misc See Rx Instructions .ROUTE .MEDSUPPLY Qty: 2 0RF Rx Instructions: As directed quetiapine 25 mg tablet 25 mg PO BEDTIME clonazepam 1 mg tablet 1 mg PO DAILY PRN (Reason: anxiety) 30 Days Qty: 30 2RF ketoconazole 2 % shampoo 1 appl topical 2XW 30 Days Qty: 120 0RF hydrocortisone valerate 0.2 % cream 1 appl topical BID PRN (Reason: skin irritation) 30 Days Qty: 60 0RF diclofenac sodium 1 % gel 2 g topical DAILY Qty: 100 2RF hydroxyzine HCl 25 mg tablet 25 mg PO TID 7 Days Qty: 21 0RF Rx Instructions: Advised to hold clonazepam and loratadine. fluticasone propionate 50 mcg/actuation spray,suspension 2 spray intranasal BID Qty: 16 3RF albuterol sulfate [Ventolin HFA] 90 mcg/actuation HFA aerosol inhaler 2 puff inhalation Q4-6H PRN (Reason: shortness of breath or wheezing) Qty: 6.7 0RF docusate sodium [Dulcolax Stool Softener (dss)] 100 mg capsule 100 mg PO BID 15 Days Qty: 30 3RF ferrous sulfate 325 mg (65 mg iron) tablet 325 mg PO DAILY 30 Days Qty: 30 3RF hydrocortisone valerate 0.2 % cream 1 appl topical BID 10 Days Qty: 45 0RF loratadine [Allergy Relief (loratadine)] 10 mg tablet 10 mg PO DAILY 90 Days Qty: 90 2RF sennosides [senna] 8.6 mg tablet 17.2 mg PO BEDTIME 30 Days Qty: 60 2RF gabapentin 300 mg capsule 300 mg PO DAILY 90 Days Qty: 90 1RF bepotastine besilate [Bepreve] 1.5 % drops 1 drp ophthalmic (eye) BID PRN (Reason: eye irritation) 30 Days Qty: 10 2RF Icy Hot 30-10 % cream 1 appl topical TID 30 Days Qty: 85 0RF fluticasone propionate [Flonase Allergy Relief] 50 mcg/actuation spray,suspension 2 spray intranasal DAILY 30 Days Qty: 16 3RF Rx Instructions: administer into each nostril atorvastatin 20 mg tablet 20 mg PO DAILY Qty: 30 3RF fluoxetine 40 mg capsule 40 mg PO DAILY 30 Days Qty: 30 3RF cholecalciferol (vitamin D3) 25 mcg (1,000 unit) tablet 25 mcg PO DAILY 90 Days Qty: 90 3RF clotrimazole 1 % cream 1 appful vaginal BEDTIME 7 Days Qty: 45 0RF (DME) Knee Support Brace [facility] See Rx Instructions .Route Qty: 1 0RF Rx Instructions: As directed phenazopyridine [Pyridium] 200 mg tablet 200 mg PO TID 2 Days Qty: 6 0RF lidocaine 5 % adhesive patch,medicated 1 patch topical DAILY 30 Days Qty: 30 6RF Rx Instructions: leave on most painful area for up to 12 hrs (DME) back brace [facility] See Rx Instructions .Route Qty: 1 0RF Rx Instructions: As directed zolpidem 10 mg tablet 10 mg PO BEDTIME Qty: 30 0RF omeprazole 20 mg capsule,delayed release(DR/EC) 20 mg PO DAILY Qty: 30 3RF acetaminophen [Tylenol Extra Strength] 500 mg tablet 500 mg PO Q6H PRN (Reason: pain ) Qty: 60 0RF naproxen 500 mg tablet 500 mg PO BID PRN (Reason: pain) Qty: 30 0RF Rx Instructions: Take with food hydrochlorothiazide 12.5 mg capsule 12.5 mg PO DAILY 90 Days Qty: 90 3RF multivitamin [Daily-Dionisio] Tablet 1 tab PO DAILY Qty: 90 4RF pioglitazone [Actos] 15 mg tablet 15 mg PO DAILY 90 Days Qty: 90 1RF polyethylene glycol 3350 [Miralax] 17 gram/dose powder 17 g PO DAILY Qty: 119 0RF azithromycin 250 mg tablet See Rx Instructions .ROUTE .COMPLEX Qty: 6 0RF Rx Instructions: take 500 mg today (day 1), then 250 mg for 4 days (days 2-5) omeprazole 20 mg capsule,delayed release(DR/EC) 20 mg PO DAILY Qty: 30 0RF alum-mag hydroxide-simeth [Maalox Advanced] 200-200-20 mg/5 mL suspension 10 ml PO QID PRN (Reason: indigestion) Qty: 355 0RF Rx Instructions: administer between meals and at bedtime gabapentin 300 mg capsule 300 mg PO BEDTIME Qty: 30 0RF diclofenac sodium [Voltaren Arthritis Pain] 1 % gel 2 g topical QID Qty: 100 0RF Rx Instructions: apply to single elbow, wrist or hand; for hand includes palm/fingers/back of hand oxycodone 5 mg capsule 5 mg PO Q8H PRN (Reason: pain) Qty: 12 0RF Rx Instructions: Partial Fill upon patient request. lactulose 20 gram/30 mL solution 20 g PO BID PRN (Reason: laxative effect) 15 Days Qty: 1200 0RF tyqeweocfg-cvxwpuxladqxe-limh 50-325-40 mg capsule 1 cap PO Q6H PRN (Reason: pain) 4 Days Qty: 16 0RF olopatadine 0.2 % drops 1 drp ophthalmic (eye) DAILY 30 Days Qty: 2.5 0RF montelukast 10 mg tablet 10 mg PO DAILY Qty: 30 6RF zolpidem [Ambien] 5 mg tablet 5 mg PO BEDTIME PRN (Reason: sleep) 30 Days Qty: 30 0RF topiramate 25 mg capsule, sprinkle 25 mg PO DAILY aspirin [Adult Aspirin Regimen] 81 mg tablet,delayed release (DR/EC) 81 mg PO DAILY prednisone 20 mg tablet 40 mg PO DAILY 5 Days Qty: 10 0RF meloxicam 15 mg tablet 15 mg PO DAILY PRN (Reason: pain) 30 Days Qty: 30 0RF Rx Instructions: Take it with food and full glass of water. Avoid other NSAIDs. Referrals: Juan R Ramirez PA-C [Primary Care Provider] -
[2022-06-26 08:30] LABS: Appearance Urine Clear; Color Urine Yellow; Glucose Urine UA Negative (Negative); Leukocyte Esterase Urine Trace (Negative); Nitrite Urine Negative (Negative); OBS Int Ctl Valid YES; OBS1 NEGATIVE (NEGATIVE); Specific Gravity - Urine <= 1.005 (1.005-1.025); UMIC TRIGGER UACC YES; Urine Blood Negative (Negative); Urine Ketones Negative (Negative); Urine Protein Negative (Neg-Trace)
[2022-06-26 08:35] LABS: Bacteria Urine None Seen (None Seen); Hyaline Casts Urine 0-2 /LPF (0-2); RBC Urine 0-2 /HPF (0-2); Squamous Epithelial Cell Urine 0-2 /HPF (0-2); WBC Urine 0-5 /HPF (0-5)
[2022-06-26 08:56] LABS: Alanine Aminotransferase 28 U/L (0-31); Albumin Level 4.2 g/dL (3.5-5.0); Alkaline Phosphatase 66 U/L (39-117); Anion Gap 16 (12-20); Aspartate Amino Transferase 35 U/L (5-31); Bilirubin Direct 0.3 mg/dL (0.0-0.5); Bilirubin Total 1.2 mg/dL (0.0-1.0); Blood Urea Nitrogen 13 mg/dL (9-16); Calcium 9.8 mg/dL (8.4-10.2); Carbon Dioxide 27 mmol/L (22-29); Chloride 103 mmol/L (96-108); Creatinine Clr Calc Pharmacy 39.4; Estimated Glomerular Filt Rate 53; Glucose Random 126 mg/dL (60-115); Lipase 12 U/L (8-78); Potassium 3.9 mmol/L (3.3-5.1); Sodium 142 mmol/L (135-145); Total Protein 7.3 g/dL (6.5-8.0)
[2022-06-26 09:03] LABS: Troponin-I High Sensitivity 3.6 ng/L (<3.5-17.0)
[2022-06-26 09:15] LABS: B Type Natriuretic Peptide 13 pg/mL (<100)
[2022-06-26 09:57] LABS: Basophils Percent Auto 0.7 % (0-2); Eosinophils Absolute Auto 0.1 X10*3/uL (0.0-0.4); Eosinophils Percent Auto 1.6 % (0-4); Hematocrit 35.5 % (37.0-47.0); Hemoglobin 11.7 g/dl (12.0-16.0); Imm Gran Abs Auto 0.02 X10*3/uL (0.00-0.03); Imm Gran Pct Auto 0.3 % (0.0-0.4); Lymphocytes Percent Auto 35.1 % (20-40); Mean Corpuscular Hemoglobin 28.7 pg (27.0-33.0); Mean Corpuscular Volume 87.2 fL (80.0-98.0); Mean Platelet Volume 10.4 fL (9.4-12.3); Monocytes Absolute Auto 0.3 X10*3/uL (0.1-1.2); Monocytes Percent Auto 5.7 % (2-11); Neutrophils Absolute Auto 3.3 x10*3/uL (2.0-8.3); Neutrophils Percent Auto 56.6 % (45-73); Platelet Count 273 X10*3/uL (160-400); Red Blood Count 4.07 X10*6/uL (4.20-5.50); White Blood Count 5.8 X10*3/uL (4.8-10.8)
== END 2022-06-26 10:50 | disposition home or self-care (01) ==
PROVIDERS: Emergency Provider Emergency Medicine; PCP Physician Assistant
DX: K59.00 Constipation, unspecified (principal); R10.9 Unspecified abdominal pain; E11.9 Type 2 diabetes mellitus without complications; I10 Essential (primary) hypertension; E78.5 Hyperlipidemia, unspecified; J45.909 Unspecified asthma, uncomplicated; Z79.899 Other long term (current) drug therapy
CPT/HCPCS: 36415; 74018; 74176; 80048; 80076; 81001; 82272; 83690; 83880; 84484; 85025; 99284

== ENCOUNTER 2022-07-08 07:37 | Outpatient (REF) | payer MEDICARE, MEDICAID, SELFPAY ==
[2022-07-08 09:12] LABS: Estimated Average Glucose 126 mg/dL
[2022-07-08 09:45] LABS: Alanine Aminotransferase 27 U/L (0-31); Albumin Level 4.6 g/dL (3.5-5.0); Alkaline Phosphatase 69 U/L (39-117); Anion Gap 18 (12-20); Aspartate Amino Transferase 28 U/L (5-31); Bilirubin Total 1.3 mg/dL (0.0-1.0); Blood Urea Nitrogen 21 mg/dL (9-16); Carbon Dioxide 27 mmol/L (22-29); Chloride 102 mmol/L (96-108); Cholesterol 216 mg/dL; Estimated Glomerular Filt Rate 46; Glucose Fasting 137 mg/dL (60-99); HDL Cholesterol 56 mg/dL; LDL Cholesterol Calculated 136 mg/dl; Potassium 3.9 mmol/L (3.3-5.1); Sodium 143 mmol/L (135-145); Triglycerides 122 mg/dL
== END 2022-07-08 07:38 | disposition home or self-care (01) ==
LOC: HO.LAB 07:37
PROVIDERS: PCP Physician Assistant; Visit Provider Physician Assistant
DX: E11.9 Type 2 diabetes mellitus without complications (principal)
CPT/HCPCS: 36415; 80053; 80061; 83036

== ENCOUNTER 2022-07-18 08:05 | Emergency (ER) | payer MEDICARE, MEDICAID, SELFPAY ==
[2022-07-18 08:21] VITALS: BP 120/50; PULSE 74; RESP 18; TEMP 36.6; O2SAT 99; BMI 21.4
--- NOTE | 2022-07-18 09:13 | ED_ITS ---
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 No vomiting, urinary symptoms, fevers, chills. No history of abdominal surgeries. No recent travel. No sick contact. No recent antibiotic use. Related Data Home Medications Medication Instructions Recorded Confirmed quetiapine 25 mg tablet 25 mg PO BEDTIME 03/08/20 07/05/22 aspirin 81 mg tablet,delayed 81 mg PO DAILY 12/07/20 07/05/22 release (Adult Aspirin Regimen) topiramate 25 mg sprinkle capsule 25 mg PO DAILY 12/07/20 07/05/22 Previous Rx's Medication Instructions Recorded comp.stocking,knee,long,medium #2 ea 02/16/20 clonazepam 1 mg tablet 1 mg PO DAILY PRN anxiety 30 days 05/12/20 #30 tabs ketoconazole 2 % shampoo 1 appl topical 2XW 30 days #120 mL 10/18/20 diclofenac sodium 1 % topical gel 2 g topical DAILY #100 grams 02/07/21 shoxrdepgf-sjavhvveyehhh-eqaiuday 1 cap PO Q6H PRN pain 4 days #16 04/05/21 50 mg-325 mg-40 mg capsule caps lactulose 20 gram/30 mL oral 20 g (30 mL) PO BID PRN laxative 04/05/21 solution effect 15 days #1,200 mL hydroxyzine HCl 25 mg tablet 25 mg PO TID 7 days #21 tabs 05/18/21 fluticasone propionate 50 2 spray intranasal BID #16 grams 07/19/21 mcg/actuation nasal spray,suspension montelukast 10 mg tablet 10 mg PO DAILY #30 tabs 08/04/21 zolpidem 5 mg tablet (Ambien) 5 mg PO BEDTIME PRN sleep 30 days 08/04/21 #30 tabs albuterol sulfate 90 mcg/actuation 2 puff inhalation Q4-6H PRN 08/18/21 aerosol inhaler (Ventolin HFA) shortness of breath or wheezing #6.7 grams docusate sodium 100 mg capsule 100 mg PO BID 15 days #30 caps 08/18/21 (Dulcolax Stool Softener (docusate)) hydrocortisone valerate 0.2 % 1 appl topical BID skin irritation 08/18/21 topical cream 10 days #45 grams loratadine 10 mg tablet (Allergy 10 mg PO DAILY 90 days #90 tabs 08/18/21 Relief (loratadine)) olopatadine 0.2 % eye drops 1 drp ophthalmic (eye) DAILY 30 09/01/21 days #2.5 mL bepotastine besilate 1.5 % eye 1 drp ophthalmic (eye) BID PRN eye 10/18/21 drops (Bepreve) irritation 30 days #10 mL methyl salicylate 30 %-menthol 10 1 appl topical TID 30 days #85 10/27/21 % topical cream (Icy Hot) grams atorvastatin 20 mg tablet 20 mg PO DAILY #30 tabs 01/17/22 fluoxetine 40 mg capsule 40 mg PO DAILY 30 days #30 caps 01/17/22 fluticasone propionate 50 2 spray intranasal DAILY 30 days 01/17/22 mcg/actuation nasal #16 grams spray,suspension (Flonase Allergy Relief) diclofenac sodium 1 % topical gel 2 g topical QID #100 grams 02/16/22 (Voltaren Arthritis Pain) gabapentin 300 mg capsule 300 mg PO BEDTIME #30 caps 02/16/22 cholecalciferol (vitamin D3) 25 25 mcg PO DAILY 90 days #90 tabs 02/27/22 mcg (1,000 unit) tablet clotrimazole 1 % vaginal cream 1 appful vaginal BEDTIME 7 days 02/27/22 #45 grams lidocaine 5 % topical patch 1 patch topical DAILY 30 days #30 03/29/22 ea back brace #1 ea 04/03/22 meloxicam 15 mg tablet 15 mg PO DAILY PRN pain 30 days 04/07/22 #30 tabs zolpidem 10 mg tablet 10 mg PO BEDTIME #30 tabs 04/21/22 acetaminophen 500 mg tablet 500 mg PO Q6H PRN pain #60 tabs 05/03/22 (Tylenol Extra Strength) naproxen 500 mg tablet 500 mg PO BID PRN pain #30 tabs 05/03/22 hydrochlorothiazide 12.5 mg capsule 12.5 mg PO DAILY 90 days #90 caps 05/11/22 multivitamin (Daily-Dionisio tablet) 1 tab PO DAILY #90 tabs 05/11/22 pioglitazone 15 mg tablet (Actos) 15 mg PO DAILY 90 days #90 tabs 05/11/22 aluminum-mag hydroxide-simethicone 10 ml PO QID PRN indigestion #355 05/16/22 200 mg-200 mg-20 mg/5 mL oral susp mL (Maalox Advanced) alcohol swabs (Alcohol Prep Pads) 1 pad topical DAILY 90 days #100 ea 07/03/22 linaclotide 72 mcg capsule 72 mcg PO DAILY 30 days #30 caps 07/05/22 (Linzess) sumatriptan succinate 25 mg tablet See Rx Instructions PO .COMPLEX 30 07/05/22 days #9 tabs sennosides 8.6 mg tablet (senna) 17.2 mg PO BEDTIME 10 days #20 tabs 07/14/22 omeprazole 20 mg capsule,delayed 20 mg PO DAILY #30 caps 07/17/22 release dicyclomine 10 mg capsule 10 mg PO TID PRN abdominal pain 07/18/22 #14 caps ondansetron 4 mg disintegrating 4 mg PO Q6H PRN nausea and 07/18/22 tablet vomiting #15 tabs Allergies Allergy/AdvReac Type Severity Reaction Status Date / Time No Known Allergies Allergy Verified 07/18/22 08:24 [No Known Allergies*] Review of Systems Review of Systems Yes all other systems are reviewed and are negative Constitutional: Reports no additional constitutional complaints, Denies body ache(s), Denies chills, Denies fever(s), Denies headache(s) and Denies weakness Eyes: Reports no additional eye complaints and Denies change in vision Reports system reviewed and no additional complaints, except as documented, Denies dizziness, Denies headache(s), Denies nasal congestion, Denies nasal discharge and Denies neck pain Cardiovascular: Reports no additional cardiovascular complaints, Denies chest pain, Denies leg edema and Denies dyspnea Respiratory: Reports no additional respiratory complaints, Denies cough and Denies dyspnea Gastrointestinal: Reports no additional gastrointestinal complaints, Reports abdominal pain, Reports diarrhea, Reports nausea and Denies vomiting Genitourinary: Reports no additional female genitourinary complaints and Denies urinary incontinence Musculoskeletal: Reports no additional musculoskeletal complaints, Denies back pain, Denies arthralgias, Denies joint swelling, Denies neck pain, Denies numbness and Denies tingling Skin/Breast: Reports system reviewed and no additional complaints, except as docu and Denies rash Reports system reviewed and no additional complaints, except as documented, Denies dizziness, Denies headache(s), Denies numbness, Denies tingling and Denies weakness PMFSH Past Medical History Attestation statement: The following information was validated with the patient. Source: old records reviewed and nursing notes reviewed Medical History Asthma DMII (diabetes mellitus, type 2) Gross hematuria HLD (hyperlipidemia) HTN (hypertension) Lumbar radiculopathy Migraines Myofascial pain Surgical History History of tubal ligation Family History Family History Father No problems noted. Mother No problems noted. Sister Breast cancer Brother Prediabetes Daughter Liver problem Other Gross hematuria Social History Social History Housing: House Alcohol intake: never Patient Tobacco Use Status: Never used Tobacco e-Cigarette/Vaping Use: Never Used Advance Directives: No Advance Directives Information Provided: Yes service: No Current occupational status: retired Cognitive needs: No Hearing needs: No Vision needs: No Physical Exam ED Vital Signs: Vital Signs - 24 hr 07/18/22 08:21 Temperature 97.9 F Pulse Rate 74 Respiratory Rate 18 Blood Pressure 120/50 L Pulse Oximetry 99 Oxygen Delivery Method Room Air BMI result Body Mass Index 21.4 Const General: cooperative, healthy appearing, comfortable and no acute distress Orientation/consciousness: patient oriented x3 Limitations: no limitations HENMT Head: Yes normal to inspection Ears: hearing grossly normal bilaterally Eyes General: appearance normal, both eyes and all related structures Pupils: Equal, round and reactive pupils present Neck Neck: Yes normal visual inspection and Yes full ROM Chest Chest palpation & inspection: normal inspection of the chest Resp Effort & Inspection: normal respiratory effort Auscultation: clear to auscultation bilaterally Cardio Rate: regular rate Rhythm: regular rhythm Peripheral pulses: Peripheral pulses 2+ throughout GI Inspection: Yes normal to inspection Palpation (GI): Soft to palpation and Tenderness to palpation present (GI) (mild diffuse TTP-no rebound or guarding ) Auscultation: normal bowel sounds General: Yes no CVA tenderness Back/Spine/Pelvis Back: no CVA tenderness Thoracic/Lumbar Spine: thoracic and lumbar spine normal to inspection Skin General skin exam: no rashes or lesions noted Neuro General: patient oriented x3 and moves all extremities Cranial nerves: Yes Equal, round and reactive pupils present, Yes Normal facial strength present and Yes Midline tongue present Cognition (Neuro): normal cognition Gait exam (Neuro): Normal gait present Motor exam (neuro): 5/5 motor strength present throughout Sensory Exam: Normal double simultaneous stimulation for sensation Extrem General: Yes normal to inspection, Yes no pedal edema and Yes no calf tenderness Course Course Course Narrative: Labs, UA, viral testing all unremarkable. Patient feels improved receiving Zofran sublingual, bentyl dose. Likely viral gastroenteritis. Abdomen is benign. Low concern for intra-abdominal pathology. Recommend patient go home with supportive measures. Reviewed worrisome signs and symptoms of when to return to the emergency room. Comfortable plan for discharge home. Medical Decision Making Medical Decision Making [facility] Narrative: 62 yo female here with complaints of abdominal cramping/diarrhea/nausea since last evening with no other associated symptoms. Abdomen with mild diffuse TTP with no rebound or guarding. VSS. Will obtain labs, UA, viral testing Will give SL zofran, prn bentyl Differential Diagnosis Differential Diagnoses: The differential diagnosis associated with the presentation includes gastroenteritis, low concern for acute appendicitis/diverticulitis/GIB Lab Data [facility] Lab Attestation statement: I reviewed the patient's lab results. 07/18/22 09:17 07/18/22 09:17 Labs: Lab Results 07/18/22 07/18/22 07/18/22 Range/Units 09:17 09:17 09:35 WBC 7.2 (4.8-10.8) X10*3/uL RBC 4.22 (4.20-5.50) X10*6/uL Hgb 12.1 (12.0-16.0) g/dl Hct 36.5 L (37.0-47.0) % MCV 86.5 (80.0-98.0) fL MCH 28.7 (27.0-33.0) pg MCHC 33.2 (31.0-35.0) g/dl RDW 13.2 (11.0-16.0) % Plt Count 319 (160-400) X10*3/uL MPV 9.1 L (9.4-12.3) fL Immature Gran % (Auto) 0.4 (0.0-0.4) % Neut % (Auto) 69.6 (45-73) % Lymph % (Auto) 25.3 (20-40) % [place] % (Auto) 3.3 (2-11) % Eos % (Auto) 1.0 (0-4) % Baso % (Auto) 0.4 (0-2) % Lymph # (Auto) 1.8 (1.2-4.9) X10*3/uL [place] # (Auto) 0.2 (0.1-1.2) X10*3/uL Eos # (Auto) 0.1 (0.0-0.4) X10*3/uL Baso # (Auto) 0.0 (0.0-0.2) X10*3/uL Abs Immat Gran (auto) 0.03 (0.00-0.03) X10*3/uL Absolute Neuts (auto) 5.0 (2.0-8.3) x10*3/uL Absolute Nucleated RBC 0.000 (0.0-0.012) X10*3/uL Nucleated RBC % (auto) 0.0 (0.0-0.2) /100WBC Sodium 144 (135-145) mmol/L Potassium 3.4 (3.3-5.1) mmol/L Chloride 106 (96-108) mmol/L Carbon Dioxide 29 (22-29) mmol/L Anion Gap 12 (12-20) BUN 16 (9-16) mg/dL Creatinine 1.02 (0.5-1.4) mg/dL Estim Creat Clear Calc 40.5 Estimated GFR 55 Random Glucose 133 H (60-115) mg/dL Calcium 9.7 (8.4-10.2) mg/dL Total Bilirubin 1.1 H (0.0-1.0) mg/dL Direct Bilirubin 0.3 (0.0-0.5) mg/dL AST 25 (5-31) U/L ALT 21 (0-31) U/L Alkaline Phosphatase 71 (39-117) U/L Total Protein 7.4 (6.5-8.0) g/dL Albumin 4.3 (3.5-5.0) g/dL Lipase 11 (8-78) U/L Urine Color Urine Appearance Urine pH (5.0-9.0) Ur Specific [place] (1.005-1.025) Urine Protein (Neg-Trace) mg/dL Urine Glucose (UA) (Negative) mg/dL Urine Ketones (Negative) mg/dL Urine Blood (Negative) Urine Nitrite (Negative) Ur Leukocyte Esterase (Negative) Urine RBC (0-2) /HPF Urine WBC (0-5) /HPF Ur Squamous Epith Cells (0-2) /HPF Urine Bacteria (None Seen) Hyaline Casts (0-2) /LPF Influenza Type A (PCR) NEGATIVE (Negative) Influenza Type B (PCR) NEGATIVE (Negative) RSV RNA Qual (PCR) NEGATIVE (Negative) SARS-CoV-2 RNA (RT-PCR) NEGATIVE (Negative) 07/18/22 Range/Units 11:30 WBC (4.8-10.8) X10*3/uL RBC (4.20-5.50) X10*6/uL Hgb (12.0-16.0) g/dl Hct (37.0-47.0) % MCV (80.0-98.0) fL MCH (27.0-33.0) pg MCHC (31.0-35.0) g/dl RDW (11.0-16.0) % Plt Count (160-400) X10*3/uL MPV (9.4-12.3) fL Immature Gran % (Auto) (0.0-0.4) % Neut % (Auto) (45-73) % Lymph % (Auto) (20-40) % Haskell % (Auto) (2-11) % Eos % (Auto) (0-4) % Baso % (Auto) (0-2) % Lymph # (Auto) (1.2-4.9) X10*3/uL [place] # (Auto) (0.1-1.2) X10*3/uL Eos # (Auto) (0.0-0.4) X10*3/uL Baso # (Auto) (0.0-0.2) X10*3/uL Abs Immat Gran (auto) (0.00-0.03) X10*3/uL Absolute Neuts (auto) (2.0-8.3) x10*3/uL Absolute Nucleated RBC (0.0-0.012) X10*3/uL Nucleated RBC % (auto) (0.0-0.2) /100WBC Sodium (135-145) mmol/L Potassium (3.3-5.1) mmol/L Chloride (96-108) mmol/L Carbon Dioxide (22-29) mmol/L Anion Gap (12-20) BUN (9-16) mg/dL Creatinine (0.5-1.4) mg/dL Estim Creat Clear Calc Estimated GFR Random Glucose (60-115) mg/dL Calcium (8.4-10.2) mg/dL Total Bilirubin (0.0-1.0) mg/dL Direct Bilirubin (0.0-0.5) mg/dL AST (5-31) U/L ALT (0-31) U/L Alkaline Phosphatase (39-117) U/L Total Protein (6.5-8.0) g/dL Albumin (3.5-5.0) g/dL Lipase (8-78) U/L Urine Color Dark Yellow Urine Appearance Clear Urine pH 6.0 (5.0-9.0) Ur Specific [place] 1.025 (1.005-1.025) Urine Protein Trace (Neg-Trace) mg/dL Urine Glucose (UA) Negative (Negative) mg/dL Urine Ketones Trace (Negative) mg/dL Urine Blood Negative (Negative) Urine Nitrite Negative (Negative) Ur Leukocyte Esterase Small (1+) H (Negative) Urine RBC 0-2 (0-2) /HPF Urine WBC 0-5 (0-5) /HPF Ur Squamous Epith Cells 0-2 (0-2) /HPF Urine Bacteria None Seen (None Seen) Hyaline Casts 0-2 (0-2) /LPF Influenza Type A (PCR) (Negative) Influenza Type B (PCR) (Negative) RSV RNA Qual (PCR) (Negative) SARS-CoV-2 RNA (RT-PCR) (Negative) Medications Administered Discontinued Medications Generic Name Dose Route Start Last Admin Trade Name Freq PRN Reason Stop Dose Admin Dicyclomine HCl 10 mg 07/18/22 09:27 07/18/22 10:07 Dicyclomine Hcl 10 Mg Capsule PO 07/18/22 09:28 10 mg ONCE ONE Administration Ondansetron HCl 4 mg 07/18/22 09:27 07/18/22 10:07 Ondansetron Odt 4 Mg Tab.Rapdis TRANSLINGU 07/18/22 09:28 4 mg ONCE ONE Administration Discharge Plan Discharge Clinical Impression: Gastroenteritis Patient Disposition: Home, Self-Care Instructions: Gastroenteritis (DC) Additional Instructions: Barron trabajo de laboratorio y tomograf?a computarizada son normales. Prescriptions: New ondansetron 4 mg tablet,disintegrating 4 mg PO Q6H PRN (Reason: nausea and vomiting) Qty: 15 0RF dicyclomine 10 mg capsule 10 mg PO TID PRN (Reason: abdominal pain) Qty: 14 0RF No Action (DME) comp.stocking,knee,long,medium Misc See Rx Instructions .ROUTE .MEDSUPPLY Qty: 2 0RF Rx Instructions: As directed quetiapine 25 mg tablet 25 mg PO BEDTIME clonazepam 1 mg tablet 1 mg PO DAILY PRN (Reason: anxiety) 30 Days Qty: 30 2RF ketoconazole 2 % shampoo 1 appl topical 2XW 30 Days Qty: 120 0RF diclofenac sodium 1 % gel 2 g topical DAILY Qty: 100 2RF hydroxyzine HCl 25 mg tablet 25 mg PO TID 7 Days Qty: 21 0RF Rx Instructions: Advised to hold clonazepam and loratadine. fluticasone propionate 50 mcg/actuation spray,suspension 2 spray intranasal BID Qty: 16 3RF albuterol sulfate [Ventolin HFA] 90 mcg/actuation HFA aerosol inhaler 2 puff inhalation Q4-6H PRN (Reason: shortness of breath or wheezing) Qty: 6.7 0RF docusate sodium [Dulcolax Stool Softener (dss)] 100 mg capsule 100 mg PO BID 15 Days Qty: 30 3RF hydrocortisone valerate 0.2 % cream 1 appl topical BID 10 Days Qty: 45 0RF loratadine [Allergy Relief (loratadine)] 10 mg tablet 10 mg PO DAILY 90 Days Qty: 90 2RF bepotastine besilate [Bepreve] 1.5 % drops 1 drp ophthalmic (eye) BID PRN (Reason: eye irritation) 30 Days Qty: 10 2RF Icy Hot 30-10 % cream 1 appl topical TID 30 Days Qty: 85 0RF fluticasone propionate [Flonase Allergy Relief] 50 mcg/actuation spray,suspension 2 spray intranasal DAILY 30 Days Qty: 16 3RF Rx Instructions: administer into each nostril atorvastatin 20 mg tablet 20 mg PO DAILY Qty: 30 3RF fluoxetine 40 mg capsule 40 mg PO DAILY 30 Days Qty: 30 3RF cholecalciferol (vitamin D3) 25 mcg (1,000 unit) tablet 25 mcg PO DAILY 90 Days Qty: 90 3RF clotrimazole 1 % cream 1 appful vaginal BEDTIME 7 Days Qty: 45 0RF lidocaine 5 % adhesive patch,medicated 1 patch topical DAILY 30 Days Qty: 30 6RF Rx Instructions: leave on most painful area for up to 12 hrs (DME) back brace Misc See Rx Instructions .Route Qty: 1 0RF Rx Instructions: As directed zolpidem 10 mg tablet 10 mg PO BEDTIME Qty: 30 0RF acetaminophen [Tylenol Extra Strength] 500 mg tablet 500 mg PO Q6H PRN (Reason: pain ) Qty: 60 0RF naproxen 500 mg tablet 500 mg PO BID PRN (Reason: pain) Qty: 30 0RF Rx Instructions: Take with food hydrochlorothiazide 12.5 mg capsule 12.5 mg PO DAILY 90 Days Qty: 90 3RF multivitamin [Daily-Dionisio] Tablet 1 tab PO DAILY Qty: 90 4RF pioglitazone [Actos] 15 mg tablet 15 mg PO DAILY 90 Days Qty: 90 1RF alcohol swabs [Alcohol Prep Pads] Pads, Medicated 1 pad topical DAILY 90 Days Qty: 100 2RF sennosides [senna] 8.6 mg tablet 17.2 mg PO BEDTIME 10 Days Qty: 20 3RF omeprazole 20 mg capsule,delayed release(DR/EC) 20 mg PO DAILY Qty: 30 3RF alum-mag hydroxide-simeth [Maalox Advanced] 200-200-20 mg/5 mL suspension 10 ml PO QID PRN (Reason: indigestion) Qty: 355 0RF Rx Instructions: administer between meals and at bedtime gabapentin 300 mg capsule 300 mg PO BEDTIME Qty: 30 0RF diclofenac sodium [Voltaren Arthritis Pain] 1 % gel 2 g topical QID Qty: 100 0RF Rx Instructions: apply to single elbow, wrist or hand; for hand includes palm/fingers/back of hand lactulose 20 gram/30 mL solution 20 g PO BID PRN (Reason: laxative effect) 15 Days Qty: 1200 0RF awkdpoftxb-lricdeppebtqx-csvd 50-325-40 mg capsule 1 cap PO Q6H PRN (Reason: pain) 4 Days Qty: 16 0RF olopatadine 0.2 % drops 1 drp ophthalmic (eye) DAILY 30 Days Qty: 2.5 0RF montelukast 10 mg tablet 10 mg PO DAILY Qty: 30 6RF zolpidem [Ambien] 5 mg tablet 5 mg PO BEDTIME PRN (Reason: sleep) 30 Days Qty: 30 0RF Linzess 72 mcg capsule 72 mcg PO DAILY 30 Days Qty: 30 1RF sumatriptan succinate 25 mg tablet See Rx Instructions PO .COMPLEX 30 Days Qty: 9 2RF Rx Instructions: take 1 tab at onset of headache; if no relief may repeat 1 tab after at least 2 hrs; max = 4 tabs/24 hr PO topiramate 25 mg capsule, sprinkle 25 mg PO DAILY aspirin [Adult Aspirin Regimen] 81 mg tablet,delayed release (DR/EC) 81 mg PO DAILY meloxicam 15 mg tablet 15 mg PO DAILY PRN (Reason: pain) 30 Days Qty: 30 0RF Rx Instructions: Take it with food and full glass of water. Avoid other NSAIDs. Referrals: Juan R Ramirez PA-C [Primary Care Provider] - 1 week Interventions: ED Discharge Assessment Last Done: 07/18/22 11:59 Discharge Date/Time: 07/18/22 12:00 Print Language: Salvadorean
[2022-07-18 09:22] LABS: Basophils Percent Auto 0.4 % (0-2); Eosinophils Absolute Auto 0.1 X10*3/uL (0.0-0.4); Hematocrit 36.5 % (37.0-47.0); Hemoglobin 12.1 g/dl (12.0-16.0); Imm Gran Abs Auto 0.03 X10*3/uL (0.00-0.03); Imm Gran Pct Auto 0.4 % (0.0-0.4); Lymphocytes Absolute Auto 1.8 X10*3/uL (1.2-4.9); Lymphocytes Percent Auto 25.3 % (20-40); MANUAL DIFF FLAG NO; Mean Corpuscular HGB Conc 33.2 g/dl (31.0-35.0); Mean Corpuscular Hemoglobin 28.7 pg (27.0-33.0); Mean Corpuscular Volume 86.5 fL (80.0-98.0); Mean Platelet Volume 9.1 fL (9.4-12.3); Monocytes Absolute Auto 0.2 X10*3/uL (0.1-1.2); Monocytes Percent Auto 3.3 % (2-11); Neutrophils Percent Auto 69.6 % (45-73); Platelet Count 319 X10*3/uL (160-400); Red Blood Count 4.22 X10*6/uL (4.20-5.50); Red Cell Distribution Width 13.2 % (11.0-16.0); White Blood Count 7.2 X10*3/uL (4.8-10.8)
[2022-07-18 09:48] LABS: Alanine Aminotransferase 21 U/L (0-31); Albumin Level 4.3 g/dL (3.5-5.0); Alkaline Phosphatase 71 U/L (39-117); Anion Gap 12 (12-20); Aspartate Amino Transferase 25 U/L (5-31); Bilirubin Direct 0.3 mg/dL (0.0-0.5); Bilirubin Total 1.1 mg/dL (0.0-1.0); Blood Urea Nitrogen 16 mg/dL (9-16); Calcium 9.7 mg/dL (8.4-10.2); Carbon Dioxide 29 mmol/L (22-29); Chloride 106 mmol/L (96-108); Creatinine Clr Calc Pharmacy 40.5; Estimated Glomerular Filt Rate 55; Glucose Random 133 mg/dL (60-115); Lipase 11 U/L (8-78); Potassium 3.4 mmol/L (3.3-5.1); Sodium 144 mmol/L (135-145); Total Protein 7.4 g/dL (6.5-8.0)
[2022-07-18] MEDS: Dicyclomine HCl 10 MG CAPSULE PO (10:07)
[2022-07-18] MEDS: Ondansetron ODT 4 MG TAB.RAPDIS TRANSLINGU (10:07)
[2022-07-18 10:22] LABS: Influenza A PCR NEGATIVE (Negative); Influenza B PCR NEGATIVE (Negative); Resp Syncy Virus RNA Qual PCR NEGATIVE (Negative); SARS COV2 PCR INHOUSE NEGATIVE (Negative)
[2022-07-18 11:39] LABS: Appearance Urine Clear; Color Urine Dark Yellow; Glucose Urine UA Negative (Negative); Leukocyte Esterase Urine Small (1+) (Negative); Nitrite Urine Negative (Negative); Specific Gravity - Urine 1.025 (1.005-1.025); UMIC TRIGGER UACC YES; Urine Blood Negative (Negative); Urine Ketones Trace mg/dL (Negative); Urine Protein Trace mg/dL (Neg-Trace)
[2022-07-18 11:46] LABS: Bacteria Urine None Seen (None Seen); Hyaline Casts Urine 0-2 /LPF (0-2); RBC Urine 0-2 /HPF (0-2); Squamous Epithelial Cell Urine 0-2 /HPF (0-2); UACC Culture Trigger YES; WBC Urine 0-5 /HPF (0-5)
== END 2022-07-18 12:00 | disposition home or self-care (01) ==
PROVIDERS: Nurse Practitioner Family; Emergency Provider Emergency Medicine; PCP Physician Assistant
DX: K52.9 Noninfective gastroenteritis and colitis, unspecified (principal); R10.9 Unspecified abdominal pain; Z20.822 Contact with and (suspected) exposure to COVID-19; Z20.828 Contact with and (suspected) exposure to other viral communicable diseases; E11.9 Type 2 diabetes mellitus without complications; I10 Essential (primary) hypertension; E78.5 Hyperlipidemia, unspecified; Z79.82 Long term (current) use of aspirin; Z79.899 Other long term (current) drug therapy
CPT/HCPCS: 0241U; 36415; 80048; 80076; 81001; 83690; 85025; 87086; 99283; 99284

== ENCOUNTER → 2022-07-19 11:19 | Outpatient (BNVA) | payer MEDICARE, MEDICAID, SELFPAY | PROVIDERS: PCP Physician Assistant; Referring Provider Physician Assistant; Visit Provider Internal Medicine | DX: K59.04 Chronic idiopathic constipation (principal) | CPT/HCPCS: 99202 ==

== ENCOUNTER 2022-07-25 07:19 | Emergency (ER) | payer MEDICARE, MEDICAID, SELFPAY ==
--- NOTE | ~2022-07-25 | CT_ITS ---
EXAMINATION: CT ABDOMEN AND PELVIS WITHOUT CONTRAST CLINICAL INFORMATION: Diffuse abdominal pain. COMPARISON: 06/26/2022 TECHNIQUE: Multidetector volumetric imaging was performed from the superior aspect of the liver through the pubic symphysis. Sagittal and coronal reformatted images were obtained on the technologist's workstation. This CT examination was performed using dose optimization techniques as appropriate, variously including the following: *Automated exposure control *Adjustment of mA and/or kV according to patient size (this includes techniques or standardized protocols for targeted exams where dose is matched to indication/reason for exam; i.e. extremities or head) *Use of iterative reconstruction technique DLP: 353 mGy-cm FINDINGS: LUNG BASES: Unremarkable. LIVER: The liver has normal size, shape, and attenuation. No evidence of liver mass. GALLBLADDER AND BILIARY TREE: Gallbladder is without radiopaque stones, wall thickening or pericholecystic fluid. No dilated bile ducts. PANCREAS: Normal. No edema, pancreatic ductal dilatation or mass. SPLEEN: Normal. ADRENAL GLANDS: Normal. KIDNEYS AND URETERS: Kidneys are normal in size. No hydronephrosis or perinephric edema. A small calyceal stone of the anterior lower pole the right kidney is not well seen because of mild patient motion. A small calyceal stone in the medial left upper pole measures up to 0.4 cm maximum dimension. The ureters are unremarkable. BLADDER: Underdistended, suboptimally evaluated. No bladder stones. Multiple phleboliths are seen within the lower pelvis. BOWEL AND PERITONEUM: Stomach is unremarkable. No dilated loops of bowel. The appendix is normal. No overt bowel wall thickening or mesenteric fat stranding. No free fluid or pneumoperitoneum. ABDOMINAL WALL: Unremarkable. VASCULATURE: Unremarkable. LYMPH NODES: No pathologic sized lymph nodes in the abdomen or pelvis. No inguinal lymphadenopathy. PELVIC VISCERA: No evidence of uterine or adnexal mass. No pelvic free fluid. MUSCULOSKELETAL: Tarlov cysts of the sacrum. 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 There is mild spinal canal stenosis at L3-L4 and there appears to be at least moderate canal stenosis at L4-5. CT/CT abdomen pelvis wo IV con IMPRESSION: * No acute imaging abnormalities in the abdomen or pelvis compared to 06/26/2022. No specific source of diffuse abdominal pain is identified. * Small bilateral renal stones without hydronephrosis.
[2022-07-25 07:37] VITALS: BP 119/60; PULSE 69; RESP 16; TEMP 36.6; O2SAT 98; BMI 21.5
--- NOTE | 2022-07-25 08:13 | ECG_ITS ---
Test Reason : abd pain Blood Pressure : / mmHG Vent. Rate : 062 BPM Atrial Rate : 062 BPM P-R Int : 140 ms QRS Dur : 094 ms QT Int : 414 ms P-R-T Axes : 035 -01 016 degrees QTc Int : 420 ms Normal sinus rhythm Incomplete right bundle branch block Borderline ECG When compared with ECG of 16-MAY-2022 11:04, Nonspecific T wave abnormality, improved in Anterior leads Referred By: Ayesha Abreu Electronically Signed By:Derik Ramirez
--- NOTE | 2022-07-25 08:13 | ED_ITS ---
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 Patient states that she has diffuse abdominal pain and a dull headache. Patient denies any dizziness, lightheadedness, nausea, vomiting, fever, chills, blurry vision, double vision, loss of vision, chest pain, difficulty breathing, shortness of breath, back pain, night sweats, pain with urination, increased urinary frequency, increased urinary urgency, blood in her stool, syncope or a near syncopal episode, recent trauma or falls, bowel incontinence, bladder incontinence, bowel retention, bladder retention, or any other complaints at this time. Onset (ago): week(s) (2) Location: abdomen Severity: mild Severity scale (1-10): 3 Relieving factors: none Exacerbating factors: none Associated symptoms: headaches Treatments prior to arrival: none Related Data Home Medications Medication Instructions Recorded Confirmed quetiapine 25 mg tablet 25 mg PO BEDTIME 03/08/20 07/05/22 aspirin 81 mg tablet,delayed 81 mg PO DAILY 12/07/20 07/05/22 release (Adult Aspirin Regimen) topiramate 25 mg sprinkle capsule 25 mg PO DAILY 12/07/20 07/05/22 Previous Rx's Medication Instructions Recorded comp.stocking,knee,long,medium #2 ea 02/16/20 clonazepam 1 mg tablet 1 mg PO DAILY PRN anxiety 30 days 05/12/20 #30 tabs ketoconazole 2 % shampoo 1 appl topical 2XW 30 days #120 mL 10/18/20 diclofenac sodium 1 % topical gel 2 g topical DAILY #100 grams 02/07/21 iesrxoivra-ftfjwkgjgljxn-nxeehern 1 cap PO Q6H PRN pain 4 days #16 04/05/21 50 mg-325 mg-40 mg capsule caps lactulose 20 gram/30 mL oral 20 g (30 mL) PO BID PRN laxative 04/05/21 solution effect 15 days #1,200 mL hydroxyzine HCl 25 mg tablet 25 mg PO TID 7 days #21 tabs 05/18/21 fluticasone propionate 50 2 spray intranasal BID #16 grams 07/19/21 mcg/actuation nasal spray,suspension montelukast 10 mg tablet 10 mg PO DAILY #30 tabs 08/04/21 zolpidem 5 mg tablet (Ambien) 5 mg PO BEDTIME PRN sleep 30 days 08/04/21 #30 tabs albuterol sulfate 90 mcg/actuation 2 puff inhalation Q4-6H PRN 08/18/21 aerosol inhaler (Ventolin HFA) shortness of breath or wheezing #6.7 grams docusate sodium 100 mg capsule 100 mg PO BID 15 days #30 caps 08/18/21 (Dulcolax Stool Softener (docusate)) hydrocortisone valerate 0.2 % 1 appl topical BID skin irritation 08/18/21 topical cream 10 days #45 grams loratadine 10 mg tablet (Allergy 10 mg PO DAILY 90 days #90 tabs 08/18/21 Relief (loratadine)) olopatadine 0.2 % eye drops 1 drp ophthalmic (eye) DAILY 30 09/01/21 days #2.5 mL bepotastine besilate 1.5 % eye 1 drp ophthalmic (eye) BID PRN eye 10/18/21 drops (Bepreve) irritation 30 days #10 mL methyl salicylate 30 %-menthol 10 1 appl topical TID 30 days #85 10/27/21 % topical cream (Icy Hot) grams atorvastatin 20 mg tablet 20 mg PO DAILY #30 tabs 01/17/22 fluoxetine 40 mg capsule 40 mg PO DAILY 30 days #30 caps 01/17/22 fluticasone propionate 50 2 spray intranasal DAILY 30 days 01/17/22 mcg/actuation nasal #16 grams spray,suspension (Flonase Allergy Relief) diclofenac sodium 1 % topical gel 2 g topical QID #100 grams 02/16/22 (Voltaren Arthritis Pain) gabapentin 300 mg capsule 300 mg PO BEDTIME #30 caps 02/16/22 cholecalciferol (vitamin D3) 25 25 mcg PO DAILY 90 days #90 tabs 02/27/22 mcg (1,000 unit) tablet clotrimazole 1 % vaginal cream 1 appful vaginal BEDTIME 7 days 02/27/22 #45 grams lidocaine 5 % topical patch 1 patch topical DAILY 30 days #30 03/29/22 ea back brace #1 ea 04/03/22 meloxicam 15 mg tablet 15 mg PO DAILY PRN pain 30 days 04/07/22 #30 tabs zolpidem 10 mg tablet 10 mg PO BEDTIME #30 tabs 04/21/22 acetaminophen 500 mg tablet 500 mg PO Q6H PRN pain #60 tabs 05/03/22 (Tylenol Extra Strength) naproxen 500 mg tablet 500 mg PO BID PRN pain #30 tabs 05/03/22 hydrochlorothiazide 12.5 mg capsule 12.5 mg PO DAILY 90 days #90 caps 05/11/22 multivitamin (Daily-Dionisio tablet) 1 tab PO DAILY #90 tabs 05/11/22 pioglitazone 15 mg tablet (Actos) 15 mg PO DAILY 90 days #90 tabs 05/11/22 aluminum-mag hydroxide-simethicone 10 ml PO QID PRN indigestion #355 05/16/22 200 mg-200 mg-20 mg/5 mL oral susp mL (Maalox Advanced) alcohol swabs (Alcohol Prep Pads) 1 pad topical DAILY 90 days #100 ea 07/03/22 linaclotide 72 mcg capsule 72 mcg PO DAILY 30 days #30 caps 07/05/22 (Linzess) sumatriptan succinate 25 mg tablet See Rx Instructions PO .COMPLEX 30 07/05/22 days #9 tabs omeprazole 20 mg capsule,delayed 20 mg PO DAILY #30 caps 07/17/22 release dicyclomine 10 mg capsule 10 mg PO TID PRN abdominal pain 07/18/22 #14 caps ondansetron 4 mg disintegrating 4 mg PO Q6H PRN nausea and 07/18/22 tablet vomiting #15 tabs sennosides 8.6 mg tablet (senna) 17.2 mg PO BEDTIME 10 days #20 tabs 07/20/22 acetaminophen 500 mg tablet 500 mg PO Q4-6H PRN pain #30 tabs 07/25/22 (Tylenol Extra Strength) Allergies Allergy/AdvReac Type Severity Reaction Status Date / Time No Known Allergies Allergy Verified 07/19/22 11:32 [No Known Allergies*] Review of Systems Constitutional: Constitutional: Reports no additional constitutional complaints, Denies chills, Denies fever(s), Reports headache(s) and Denies night sweats Eyes: Eyes: Reports no additional eye complaints, Denies blurry vision, Denies change in vision, Denies diplopia, Denies eye discharge, Denies loss of vision and Denies eye pain ENT: Denies dizziness and Reports headache(s) Cardiovascular: Cardiovascular: Reports no additional cardiovascular complaints, Denies chest pain, Denies lightheadedness, Denies Loss of Con sciousness and Denies dyspnea Respiratory: Respiratory: Reports no additional respiratory complaints and Denies dyspnea Gastrointestinal: Gastrointestinal: Reports no additional gastrointestinal complaints, Reports abdominal pain, Denies melena, Denies hematochezia, Denies change in bowel habits and Denies change in stool character Genitourinary: Genitourinary: Denies hematuria, Denies urinary frequency, Denies dysuria, Denies urinary incontinence, Denies urinary hesitancy and Denies urinary urgency Musculoskeletal: Musculoskeletal: Reports no additional musculoskeletal complaints, Denies numbness and Denies tingling Neurologic: Denies dizziness, Reports headache(s), Denies loss of vision, Denies numbness and Denies tingling Psychiatric: Psychiatric: Reports no additional psychiatric complaints Endocrine: Endocrine: Reports no additional endocrine complaints Hematologic/Lymphatic: Hematologic/Lymphatic: Reports no additional hematologic/lymphatic complaints Allergic/Immunologic: Allergic/Immunologic: Reports no additional allergic/immunologic complaints [facility] Past Medical History Attestation statement: The following information was validated with the patient. Source: old records reviewed and nursing notes reviewed Medical History Asthma DMII (diabetes mellitus, type 2) Gross hematuria HLD (hyperlipidemia) HTN (hypertension) Lumbar radiculopathy Migraines Myofascial pain Surgical History History of esophagogastroduodenoscopy (EGD) History of tubal ligation Hx of colonoscopy Family History Family History Father No problems noted. Mother No problems noted. Sister Breast cancer Brother Prediabetes Daughter Liver problem Other Gross hematuria Social History Social History Housing: House Alcohol intake: never Patient Tobacco Use Status: Never used Tobacco e-Cigarette/Vaping Use: Never Used service: No Current occupational status: retired Cognitive needs: No Hearing needs: No Vision needs: No Physical Exam ED Vital Signs: Vital Signs - 24 hr 07/25/22 07:37 07/25/22 10:09 Temperature 98 F 98.0 F Pulse Rate 69 69 Respiratory Rate 16 18 Blood Pressure 119/60 107/62 Pulse Oximetry 98 99 Oxygen Delivery Method Room Air Room Air BMI result Body Mass Index 21.5 Const General: cooperative, no acute distress, alert and awake Nutritional Appearance: well nourished Orientation/consciousness: patient oriented x3 Limitations: no limitations HENMT Head: Yes normal to inspection and Yes atraumatic Ears: hearing grossly normal bilaterally and external ears normal General nose exam: Normal external nose present, no nasal discharge noted and no epistaxis Face and sinus: Yes normal facial exam, No abrasion and No laceration Mouth: Normal oral and palatal mucosa present, no drooling and no muffled voice Eyes General: appearance normal, both eyes and all related structures Periorbital: periorbital findings normal Eyelids: Yes eyelids normal Conjunctivae: conjunctivae normal Pupils: Equal, round and reactive pupils present EOM: EOMs intact bilaterally Neck Neck: Yes normal visual inspection, Yes full ROM and Yes no lymphadenopathy Chest Chest palpation & inspection: normal inspection of the chest Resp Effort & Inspection: normal respiratory effort and able to speak in complete sentences Auscultation: clear to auscultation bilaterally Cardio Rate: regular rate Rhythm: regular rhythm GI Inspection: Yes normal to inspection Palpation (GI): Soft to palpation, not firm, Tenderness to palpation present (GI) (diffuse), no guarding and not rigid Neuro General: patient oriented x3 and moves all extremities Cranial nerves: Yes Equal, round and reactive pupils present Cognition (Neuro): normal cognition Motor exam (neuro): 5/5 motor strength present throughout Sensory Exam: Normal double simultaneous stimulation for sensation Coordination: [id number] test normal Extrem General: Yes normal to inspection, Yes full ROM and Yes capillary refill normal Psych Appearance: grossly normal Mental Status: mental status grossly normal Affect: normal affect Attitude: cooperative Thought process: Normal thought process present Thought content: Normal thought content present Insight: Good insight present (Psych) Medications Administered Discontinued Medications Generic Name Dose Route Start Last Admin Trade Name Freq PRN Reason Stop Dose Admin Ketorolac Tromethamine 15 mg 07/25/22 09:21 07/25/22 10:02 Ketorolac Tromethamine 15 Mg/Ml Vial IM 07/25/22 09:22 15 mg ONCE ONE Administration Medical Decision Making Medical Decision Making [facility] Narrative: Patient is a 62 year old assigned female at with a history of GERD and DM presenting to the emergency department today with abdominal pain. Patient's physical exam showed abdominal tenderness but was otherwise unremarkable. Patient's blood work was unremarkable. Patient's urine showed no acute process. Patient's EKG was unremarkable. Patient's abdominal/pelvis CT showed no acute process. I explained my physical exam findings as well as all test results to the patient. I answered all questions asked by the patient. I stressed the importance of the patient taking her medication as prescribed. I stressed the importance of the patient following up with her primary care provider and a GI specialist. I stressed the importance of the patient returning to the emergency department immediately if her symptoms were to worsen or if she were to develop any dizziness, shortness of breath, difficulty breathing, chest pain, blurry vision, loss of vision, nausea, vomiting, abdominal pain, fever, chills, back pain, or any other complaints. Patient verbalized agreement and understanding with this treatment plan and discharge]. Differential Diagnosis Differential Diagnoses: The differential diagnosis associated with the presentation includes abdominal pain Lab Data MDM Lab Attestation statement: I reviewed the patient's lab results. 07/25/22 08:30 07/25/22 08:30 Labs: Lab Results 07/25/22 07/25/22 07/25/22 Range/Units 08:30 08:30 08:35 WBC 6.1 (4.8-10.8) X10*3/uL RBC 4.09 L (4.20-5.50) X10*6/uL Hgb 11.7 L (12.0-16.0) g/dl Hct 35.3 L (37.0-47.0) % MCV 86.3 (80.0-98.0) fL MCH 28.6 (27.0-33.0) pg MCHC 33.1 (31.0-35.0) g/dl RDW 13.2 (11.0-16.0) % Plt Count 325 (160-400) X10*3/uL MPV 9.3 L (9.4-12.3) fL Immature Gran % (Auto) 0.2 (0.0-0.4) % Neut % (Auto) 59.3 (45-73) % Lymph % (Auto) 34.0 (20-40) % [place] % (Auto) 4.5 (2-11) % Eos % (Auto) 1.3 (0-4) % Baso % (Auto) 0.7 (0-2) % Lymph # (Auto) 2.1 (1.2-4.9) X10*3/uL [place] # (Auto) 0.3 (0.1-1.2) X10*3/uL Eos # (Auto) 0.1 (0.0-0.4) X10*3/uL Baso # (Auto) 0.0 (0.0-0.2) X10*3/uL Abs Immat Gran (auto) 0.01 (0.00-0.03) X10*3/uL Absolute Neuts (auto) 3.6 (2.0-8.3) x10*3/uL Absolute Nucleated RBC 0.000 (0.0-0.012) X10*3/uL Nucleated RBC % (auto) 0.0 (0.0-0.2) /100WBC Sodium 142 (135-145) mmol/L Potassium 3.4 (3.3-5.1) mmol/L Chloride 103 (96-108) mmol/L Carbon Dioxide 26 (22-29) mmol/L Anion Gap 16 (12-20) BUN 12 (9-16) mg/dL Creatinine 1.12 (0.5-1.4) mg/dL Estim Creat Clear Calc 36.9 Estimated GFR 49 Random Glucose 116 H (60-115) mg/dL Calcium 9.6 (8.4-10.2) mg/dL Magnesium 1.8 (1.6-2.6) mg/dL Total Bilirubin 0.8 (0.0-1.0) mg/dL AST 24 (5-31) U/L ALT 19 (0-31) U/L Alkaline Phosphatase 72 (39-117) U/L Total Protein 7.5 (6.5-8.0) g/dL Albumin 4.3 (3.5-5.0) g/dL Urine Color Yellow Urine Appearance Cloudy Urine pH 7.0 (5.0-9.0) Ur Specific [place] 1.020 (1.005-1.025) Urine Protein Negative (Neg-Trace) mg/dL Urine Glucose (UA) Negative (Negative) mg/dL Urine Ketones Negative (Negative) mg/dL Urine Blood Negative (Negative) Urine Nitrite Negative (Negative) Ur Leukocyte Esterase Moderate (2+) H (Negative) Urine RBC 0-2 (0-2) /HPF Urine WBC 0-5 (0-5) /HPF Ur Squamous Epith Cells 0-2 (0-2) /HPF Urine Bacteria None Seen (None Seen) Hyaline Casts 0-2 (0-2) /LPF Independent Interpretation I performed an independent interpretation of an: EKG Interpretation: Vent. Rate: 062 BPM ? ? Atrial Rate: 062 BPM P-R Int: 140 ms? QRS Dur: 094 ms QT Int: 414 ms ? ? ? P-R-T Axes: 035 -01 016 degrees QTc Int: 420 ms ? Normal sinus rhythm Incomplete right bundle branch block Borderline ECG When compared with ECG of 16-MAY-2022 11:04, Nonspecific T wave abnormality, improved in Anterior leads DD/ 0820 Radiology Impression Radiologist Impression: My interpretation is in agreement with the radiologist's impression of this imaging study. -------- EXAMINATION: CT ABDOMEN AND PELVIS WITHOUT CONTRAST? CLINICAL INFORMATION: Diffuse abdominal pain.? COMPARISON: 06/26/2022? TECHNIQUE: Multidetector volumetric imaging was performed from the superior aspect of the liver through the pubic symphysis. Sagittal and coronal reformatted images were obtained on the technologist's workstation.? This CT examination was performed using dose optimization techniques as appropriate, variously including the following: *Automated exposure control *Adjustment of mA and/or kV according to patient size (this includes techniques or standardized protocols for targeted exams where dose is matched to indication/reason for exam; i.e. extremities or head) *Use of iterative reconstruction technique DLP: 353 mGy-cm FINDINGS: LUNG BASES: Unremarkable. LIVER: The liver has normal size, shape, and attenuation.? No evidence of liver mass. GALLBLADDER AND BILIARY TREE: Gallbladder is without radiopaque stones, wall thickening or pericholecystic fluid.? No dilated bile ducts. PANCREAS: Normal. No edema, pancreatic ductal dilatation or mass.? SPLEEN: Normal.? ADRENAL GLANDS: Normal.? KIDNEYS AND URETERS: Kidneys are normal in size. No hydronephrosis or perinephric edema. A small calyceal stone of the anterior lower pole the right kidney is not well seen because of mild patient motion. A small calyceal stone in the medial left upper pole measures up to 0.4 cm maximum dimension. The ureters are unremarkable. BLADDER:? Underdistended, suboptimally evaluated. No bladder stones. Multiple phleboliths are seen within the lower pelvis. BOWEL AND PERITONEUM: Stomach is unremarkable. No dilated loops of bowel. The appendix is normal. No overt bowel wall thickening or mesenteric fat stranding. No free fluid or pneumoperitoneum. ABDOMINAL WALL: Unremarkable.? VASCULATURE: Unremarkable. LYMPH NODES: No pathologic sized lymph nodes in the abdomen or pelvis. No inguinal lymphadenopathy. PELVIC VISCERA: No evidence of uterine or adnexal mass. No pelvic free fluid. MUSCULOSKELETAL: Tarlov cysts of the sacrum. 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 There is mild spinal canal stenosis at L3-L4 and there appears to be at least moderate canal stenosis at L4-5.? CT/CT abdomen pelvis wo IV con IMPRESSION: *? No acute imaging abnormalities in the abdomen or pelvis compared to 06/26/2022. No specific source of diffuse abdominal pain is identified. *? Small bilateral renal stones without hydronephrosis. Dictated By: Gadiel Ware MD Signed By: Electronically signed by Gadiel Ware MD 07/25/22 0929 Discharge Plan Discharge Clinical Impression: Abdominal pain Patient Disposition: Home, Self-Care Instructions: Abdominal Pain (ED) Additional Instructions: Follow up with your primary care provider and a GI specialist. Return to the emergency department immediately if your symptoms worsen or if you develop any dizziness, shortness of breath, difficulty breathing, chest pain, blurry vision, loss of vision, nausea, vomiting, abdominal pain, fever, chills, back pain, or any other complaints. Nanette un seguimiento con gray proveedor de atenci?n primaria y un especialista en gastroenterolog?a. Regrese al departamento de emergencias de inmediato si kee s?ntomas empeoran o si presenta mareos, falta de aire, dificultad para respirar, dolor de pecho, visi?n borrosa, p?rdida de la visi?n, n?useas, v?mitos, dolor abdominal, fiebre, escalofr?os, dolor de espalda o cualquier otras quejas. Prescriptions: New acetaminophen [Tylenol Extra Strength] 500 mg tablet 500 mg PO Q4-6H PRN (Reason: pain) Qty: 30 0RF No Action (DME) comp.stocking,knee,long,medium Misc See Rx Instructions .ROUTE .MEDSUPPLY Qty: 2 0RF Rx Instructions: As directed quetiapine 25 mg tablet 25 mg PO BEDTIME clonazepam 1 mg tablet 1 mg PO DAILY PRN (Reason: anxiety) 30 Days Qty: 30 2RF ketoconazole 2 % shampoo 1 appl topical 2XW 30 Days Qty: 120 0RF diclofenac sodium 1 % gel 2 g topical DAILY Qty: 100 2RF hydroxyzine HCl 25 mg tablet 25 mg PO TID 7 Days Qty: 21 0RF Rx Instructions: Advised to hold clonazepam and loratadine. fluticasone propionate 50 mcg/actuation spray,suspension 2 spray intranasal BID Qty: 16 3RF albuterol sulfate [Ventolin HFA] 90 mcg/actuation HFA aerosol inhaler 2 puff inhalation Q4-6H PRN (Reason: shortness of breath or wheezing) Qty: 6.7 0RF docusate sodium [Dulcolax Stool Softener (dss)] 100 mg capsule 100 mg PO BID 15 Days Qty: 30 3RF hydrocortisone valerate 0.2 % cream 1 appl topical BID 10 Days Qty: 45 0RF loratadine [Allergy Relief (loratadine)] 10 mg tablet 10 mg PO DAILY 90 Days Qty: 90 2RF bepotastine besilate [Bepreve] 1.5 % drops 1 drp ophthalmic (eye) BID PRN (Reason: eye irritation) 30 Days Qty: 10 2RF Icy Hot 30-10 % cream 1 appl topical TID 30 Days Qty: 85 0RF fluticasone propionate [Flonase Allergy Relief] 50 mcg/actuation spray,suspension 2 spray intranasal DAILY 30 Days Qty: 16 3RF Rx Instructions: administer into each nostril atorvastatin 20 mg tablet 20 mg PO DAILY Qty: 30 3RF fluoxetine 40 mg capsule 40 mg PO DAILY 30 Days Qty: 30 3RF cholecalciferol (vitamin D3) 25 mcg (1,000 unit) tablet 25 mcg PO DAILY 90 Days Qty: 90 3RF clotrimazole 1 % cream 1 appful vaginal BEDTIME 7 Days Qty: 45 0RF lidocaine 5 % adhesive patch,medicated 1 patch topical DAILY 30 Days Qty: 30 6RF Rx Instructions: leave on most painful area for up to 12 hrs (DME) back brace [facility] See Rx Instructions .Route Qty: 1 0RF Rx Instructions: As directed zolpidem 10 mg tablet 10 mg PO BEDTIME Qty: 30 0RF acetaminophen [Tylenol Extra Strength] 500 mg tablet 500 mg PO Q6H PRN (Reason: pain ) Qty: 60 0RF naproxen 500 mg tablet 500 mg PO BID PRN (Reason: pain) Qty: 30 0RF Rx Instructions: Take with food hydrochlorothiazide 12.5 mg capsule 12.5 mg PO DAILY 90 Days Qty: 90 3RF multivitamin [Daily-Dionisio] Tablet 1 tab PO DAILY Qty: 90 4RF pioglitazone [Actos] 15 mg tablet 15 mg PO DAILY 90 Days Qty: 90 1RF alcohol swabs [Alcohol Prep Pads] Pads, Medicated 1 pad topical DAILY 90 Days Qty: 100 2RF omeprazole 20 mg capsule,delayed release(DR/EC) 20 mg PO DAILY Qty: 30 3RF sennosides [senna] 8.6 mg tablet 17.2 mg PO BEDTIME 10 Days Qty: 20 3RF alum-mag hydroxide-simeth [Maalox Advanced] 200-200-20 mg/5 mL suspension 10 ml PO QID PRN (Reason: indigestion) Qty: 355 0RF Rx Instructions: administer between meals and at bedtime gabapentin 300 mg capsule 300 mg PO BEDTIME Qty: 30 0RF diclofenac sodium [Voltaren Arthritis Pain] 1 % gel 2 g topical QID Qty: 100 0RF Rx Instructions: apply to single elbow, wrist or hand; for hand includes palm/fingers/back of hand ondansetron 4 mg tablet,disintegrating 4 mg PO Q6H PRN (Reason: nausea and vomiting) Qty: 15 0RF dicyclomine 10 mg capsule 10 mg PO TID PRN (Reason: abdominal pain) Qty: 14 0RF lactulose 20 gram/30 mL solution 20 g PO BID PRN (Reason: laxative effect) 15 Days Qty: 1200 0RF urqzdgkwnv-ynebzivvqsyjw-wepi 50-325-40 mg capsule 1 cap PO Q6H PRN (Reason: pain) 4 Days Qty: 16 0RF olopatadine 0.2 % drops 1 drp ophthalmic (eye) DAILY 30 Days Qty: 2.5 0RF montelukast 10 mg tablet 10 mg PO DAILY Qty: 30 6RF zolpidem [Ambien] 5 mg tablet 5 mg PO BEDTIME PRN (Reason: sleep) 30 Days Qty: 30 0RF Linzess 72 mcg capsule 72 mcg PO DAILY 30 Days Qty: 30 1RF sumatriptan succinate 25 mg tablet See Rx Instructions PO .COMPLEX 30 Days Qty: 9 2RF Rx Instructions: take 1 tab at onset of headache; if no relief may repeat 1 tab after at least 2 hrs; max = 4 tabs/24 hr PO topiramate 25 mg capsule, sprinkle 25 mg PO DAILY aspirin [Adult Aspirin Regimen] 81 mg tablet,delayed release (DR/EC) 81 mg PO DAILY meloxicam 15 mg tablet 15 mg PO DAILY PRN (Reason: pain) 30 Days Qty: 30 0RF Rx Instructions: Take it with food and full glass of water. Avoid other NSAIDs. Referrals: [facility] [Provider Group] Juan R Ramirez PA-C [Primary Care Provider] - Interventions: ED Discharge Assessment Last Done: 07/25/22 10:14 Discharge Date/Time: 07/25/22 10:14 Print Language: Nigerien
[2022-07-25 08:35] LABS: MANUAL DIFF FLAG NO
[2022-07-25 08:37] LABS: Basophils Percent Auto 0.7 % (0-2); Eosinophils Absolute Auto 0.1 X10*3/uL (0.0-0.4); Eosinophils Percent Auto 1.3 % (0-4); Hematocrit 35.3 % (37.0-47.0); Hemoglobin 11.7 g/dl (12.0-16.0); Imm Gran Abs Auto 0.01 X10*3/uL (0.00-0.03); Imm Gran Pct Auto 0.2 % (0.0-0.4); Lymphocytes Absolute Auto 2.1 X10*3/uL (1.2-4.9); Mean Corpuscular HGB Conc 33.1 g/dl (31.0-35.0); Mean Corpuscular Hemoglobin 28.6 pg (27.0-33.0); Mean Corpuscular Volume 86.3 fL (80.0-98.0); Mean Platelet Volume 9.3 fL (9.4-12.3); Monocytes Absolute Auto 0.3 X10*3/uL (0.1-1.2); Monocytes Percent Auto 4.5 % (2-11); Neutrophils Absolute Auto 3.6 x10*3/uL (2.0-8.3); Neutrophils Percent Auto 59.3 % (45-73); Platelet Count 325 X10*3/uL (160-400); Red Blood Count 4.09 X10*6/uL (4.20-5.50); Red Cell Distribution Width 13.2 % (11.0-16.0); White Blood Count 6.1 X10*3/uL (4.8-10.8)
[2022-07-25 08:50] LABS: Appearance Urine Cloudy; Color Urine Yellow; Glucose Urine UA Negative (Negative); Leukocyte Esterase Urine Moderate (2+) (Negative); Nitrite Urine Negative (Negative); UMIC TRIGGER UACC YES; Urine Blood Negative (Negative); Urine Ketones Negative (Negative); Urine Protein Negative (Neg-Trace)
[2022-07-25 08:57] LABS: Alanine Aminotransferase 19 U/L (0-31); Albumin Level 4.3 g/dL (3.5-5.0); Alkaline Phosphatase 72 U/L (39-117); Anion Gap 16 (12-20); Aspartate Amino Transferase 24 U/L (5-31); Bilirubin Total 0.8 mg/dL (0.0-1.0); Blood Urea Nitrogen 12 mg/dL (9-16); Calcium 9.6 mg/dL (8.4-10.2); Carbon Dioxide 26 mmol/L (22-29); Chloride 103 mmol/L (96-108); Creatinine Clr Calc Pharmacy 36.9; Estimated Glomerular Filt Rate 49; Glucose Random 116 mg/dL (60-115); Magnesium 1.8 mg/dL (1.6-2.6); Potassium 3.4 mmol/L (3.3-5.1); Sodium 142 mmol/L (135-145); Total Protein 7.5 g/dL (6.5-8.0)
[2022-07-25 09:00] LABS: Bacteria Urine None Seen (None Seen); Hyaline Casts Urine 0-2 /LPF (0-2); RBC Urine 0-2 /HPF (0-2); Squamous Epithelial Cell Urine 0-2 /HPF (0-2); WBC Urine 0-5 /HPF (0-5)
[2022-07-25] MEDS: Ketorolac Tromethamine 15 MG/ML VIAL IM (10:02)
[2022-07-25 10:09] VITALS: BP 107/62; PULSE 69; RESP 18; TEMP 36.7; O2SAT 99
--- NOTE | 2022-07-25 10:11 | PC.NURSE ---
this nurse took over for patient at 915, patient a&ox3, aerial photograph interpreter used, pt c/o mid abd pain 01/30, pt denies n/v, pt medicated for pain per order, pt labs previously drawn in triage- wnl, provider to discharge patient with referrals to gastro for further testing. pt is agreeable with this.
== END 2022-07-25 10:14 | disposition home or self-care (01) ==
PROVIDERS: Physician Assistant Medical; Emergency Provider Emergency Medicine Emergency Medical Services; PCP Physician Assistant
DX: R10.9 Unspecified abdominal pain (principal); R51.9 Headache, unspecified; E11.9 Type 2 diabetes mellitus without complications; I10 Essential (primary) hypertension; E78.5 Hyperlipidemia, unspecified; Z79.02 Long term (current) use of antithrombotics/antiplatelets; Z79.899 Other long term (current) drug therapy
CPT/HCPCS: 36415; 74176; 80053; 81001; 83735; 85025; 93005; 96372; 99284; 99285; J1885

== ENCOUNTER 2022-09-25 10:02 | Emergency (ER) | payer MEDICARE, MEDICAID, SELFPAY ==
--- NOTE | ~2022-09-25 | XR_ITS ---
EXAMINATION: XR CHEST CLINICAL INFORMATION: Chest pain and right arm pain COMPARISON: Previous chest x-ray April 2022 TECHNIQUE: Frontal view of the chest was obtained. FINDINGS: No significant abnormality is noted involving the heart, lungs, mediastinum, bony thorax or soft tissues. XR/XR chest 1V IMPRESSION: Unremarkable examination.
--- NOTE | 2022-09-25 10:07 | ECG_ITS ---
Test Reason : cp Blood Pressure : / mmHG Vent. Rate : 059 BPM Atrial Rate : 059 BPM P-R Int : 144 ms QRS Dur : 086 ms QT Int : 426 ms P-R-T Axes : 041 004 021 degrees QTc Int : 421 ms Sinus bradycardia with sinus arrhythmia Otherwise normal ECG When compared with ECG of 25-JUL-2022 08:20, No significant change was found Referred By: Generic ED Physician Electronically Signed By:Derik Ramirez
[2022-09-25 10:58] VITALS: BP 126/53; PULSE 55; RESP 17; TEMP 36.1; O2SAT 99; BMI 22.8
[2022-09-25 13:11] LABS: MANUAL DIFF FLAG NO
[2022-09-25 13:17] LABS: Basophils Percent Auto 0.4 % (0-2); Eosinophils Absolute Auto 0.1 X10*3/uL (0.0-0.4); Eosinophils Percent Auto 0.9 % (0-4); Hematocrit 36.8 % (37.0-47.0); Hemoglobin 11.7 g/dl (12.0-16.0); Imm Gran Abs Auto 0.02 X10*3/uL (0.00-0.03); Imm Gran Pct Auto 0.2 % (0.0-0.4); Lymphocytes Absolute Auto 2.3 X10*3/uL (1.2-4.9); Lymphocytes Percent Auto 25.1 % (20-40); Mean Corpuscular HGB Conc 31.8 g/dl (31.0-35.0); Mean Corpuscular Hemoglobin 28.4 pg (27.0-33.0); Mean Corpuscular Volume 89.3 fL (80.0-98.0); Mean Platelet Volume 9.2 fL (9.4-12.3); Monocytes Absolute Auto 0.4 X10*3/uL (0.1-1.2); Monocytes Percent Auto 3.9 % (2-11); Neutrophils Absolute Auto 6.3 x10*3/uL (2.0-8.3); Neutrophils Percent Auto 69.5 % (45-73); Platelet Count 311 X10*3/uL (160-400); Red Blood Count 4.12 X10*6/uL (4.20-5.50); Red Cell Distribution Width 12.7 % (11.0-16.0); White Blood Count 9.1 X10*3/uL (4.8-10.8)
[2022-09-25 13:40] LABS: Anion Gap 13 (12-20); Blood Urea Nitrogen 16 mg/dL (9-16); Calcium 9.7 mg/dL (8.4-10.2); Carbon Dioxide 28 mmol/L (22-29); Chloride 107 mmol/L (96-108); Creatinine Clr Calc Pharmacy 40.5; Estimated Glomerular Filt Rate 55; Glucose Random 97 mg/dL (60-115); Sodium 144 mmol/L (135-145)
[2022-09-25 14:16] LABS: Troponin-I High Sensitivity < 2.7 ng/L (<3.5-17.0)
== END 2022-09-25 20:20 | disposition left against medical advice (07) ==
PROVIDERS: Emergency Provider Emergency Medicine; PCP Physician Assistant
DX: R07.9 Chest pain, unspecified (principal); E11.9 Type 2 diabetes mellitus without complications; I10 Essential (primary) hypertension; E78.5 Hyperlipidemia, unspecified
CPT/HCPCS: 36415; 71045; 80048; 84484; 85025; 93005; 99283

== ENCOUNTER 2022-12-29 07:56 | Outpatient (REF) | payer MEDICARE, MEDICAID, SELFPAY ==
[2022-12-29 08:32] LABS: Hematocrit 33.8 % (37.0-47.0); Hemoglobin 11.3 g/dl (12.0-16.0); Mean Corpuscular HGB Conc 33.4 g/dl (31.0-35.0); Mean Corpuscular Hemoglobin 29.6 pg (27.0-33.0); Mean Corpuscular Volume 88.5 fL (80.0-98.0); Mean Platelet Volume 9.2 fL (9.4-12.3); Platelet Count 299 X10*3/uL (160-400); Red Blood Count 3.82 X10*6/uL (4.20-5.50); White Blood Count 4.8 X10*3/uL (4.8-10.8)
[2022-12-29 08:41] LABS: Estimated Average Glucose 108 mg/dL; Hemoglobin A1c % 5.4 % (<6.0)
[2022-12-29 09:12] LABS: Alanine Aminotransferase 23 U/L (0-31); Albumin Level 4.3 g/dL (3.5-5.0); Alkaline Phosphatase 83 U/L (39-117); Anion Gap 12 (12-20); Aspartate Amino Transferase 26 U/L (5-31); Bilirubin Total 0.6 mg/dL (0.0-1.0); Blood Urea Nitrogen 26 mg/dL (9-16); Calcium 10.1 mg/dL (8.4-10.2); Carbon Dioxide 27 mmol/L (22-29); Chloride 105 mmol/L (96-108); Cholesterol 186 mg/dL (<200); Estimated Glomerular Filt Rate 52; Glucose Fasting 107 mg/dL (60-99); HDL Cholesterol 49 mg/dL (>40); Iron 89 mcg/dL (30-160); LDL Cholesterol Calculated 104 mg/dL (<100); Percent Iron Saturation 30 % (15-50); Potassium 3.4 mmol/L (3.3-5.1); Sodium 141 mmol/L (135-145); Total Iron Binding Capacity 293 mcg/dL (228-428); Triglycerides 166 mg/dL (<150); Unsaturated Iron Binding 204 ug/dL
[2022-12-29 09:26] LABS: Ferritin 151 ng/mL (10-250)
== END 2022-12-29 07:57 | disposition home or self-care (01) ==
LOC: HO.LAB 07:56
PROVIDERS: PCP Physician Assistant; Visit Provider Physician Assistant
DX: D50.9 Iron deficiency anemia, unspecified (principal); E11.9 Type 2 diabetes mellitus without complications; E78.1 Pure hyperglyceridemia; I10 Essential (primary) hypertension
CPT/HCPCS: 36415; 80053; 80061; 82043; 82570; 82728; 83036; 83540; 85027

== ENCOUNTER 2022-12-30 09:44 | Outpatient (REF) | payer MEDICARE, MEDICAID, SELFPAY | END 2022-12-30 09:45 | disposition home or self-care (01) | LOC: HO.MAMMO 09:44 | PROVIDERS: PCP Physician Assistant; Visit Provider Physician Assistant | DX: Z12.31 Encounter for screening mammogram for malignant neoplasm of breast (principal) | CPT/HCPCS: 77063; 77067 ==

== ENCOUNTER → 2022-12-30 10:00 | Outpatient (BNV) | payer MEDICARE, MEDICAID, SELFPAY | PROVIDERS: PCP Physician Assistant; Visit Provider Radiology Diagnostic Radiology | DX: Z12.31 Encounter for screening mammogram for malignant neoplasm of breast (principal) | CPT/HCPCS: 77063; 77067 ==

== ENCOUNTER 2023-01-09 08:36 | Outpatient (AMB) | payer MEDICARE, MEDICAID, SELFPAY ==
--- NOTE | 2023-01-09 08:42 | A.OFFPC_ITS ---
Vital Signs 01/09/23 08:44 Height 5 ft Weight 119 lb BMI 23.2 BP 110/62 Blood Pressure Location Lt brachial Position Sitting Pulse 73 Pulse Source Pulse Oximeter Pulse Oximetry (%) 99 Oxygen Delivery Method Room Air Intake Visit Reasons: 3mth f/u Intake Note: Patient is here to follow up on DM, HTN, HLD. Women'S Studies Lecturer Required: Yes Women'S Studies Lecturer Language: Khmer Information Interpreted: non-clinical & clinical Tissue Technologist: Not Required per policy Accompanied by: Self / Same As Patient Allergies No Known Allergies [No Known Allergies*] Allergy (Verified 01/09/23 08:51) Medication List - Last Reconciled 01/09/23 by Juan R Ramirez PA-C acetic acid 2% 3 drps otic (ear) left TID 30 days albuterol sulfate 90 mcg/actuation (Ventolin HFA) 2 puffs inhalation Q4-6H PRN alcohol swabs (Alcohol Prep Pads) 1 pad topical DAILY 90 days alum-mag hydroxide-simeth 200-200-20 mg/5 mL (Maalox Advanced) 10 mL PO QID PRN atorvastatin 20 mg PO DAILY back brace As directed bepotastine besilate 1.5% (Bepreve) 1 drp ophthalmic (eye) BID PRN 30 days slctlstkkw-ogesivrkhghum-visl 50-325-40 mg 1 cap PO Q6H PRN 4 days cholecalciferol (vitamin D3) 25 mcg PO DAILY 90 days clotrimazole 1% 1 appful vaginal BEDTIME 7 days comp.stocking,knee,long,medium As directed diclofenac sodium 1% (Voltaren Arthritis Pain) 2 grams topical QID fluoxetine 40 mg PO DAILY 90 days fluticasone propionate 50 mcg/actuation 2 sprays intranasal BID gabapentin 300 mg PO BEDTIME hydrochlorothiazide 12.5 mg PO DAILY 90 days hydrocortisone valerate 0.2% 1 appl topical BID 10 days hydroxyzine HCl 25 mg PO TID 7 days ketoconazole 2% 1 appl topical 2XW 30 days Lactobacillus rhamnosus GG (Culturelle) 1 cap PO DAILY 30 days lancets (FreeStyle Lancets) As directed lidocaine 5% 1 patch topical DAILY 30 days loratadine (Allergy Relief (loratadine)) 10 mg PO DAILY 90 days meloxicam 15 mg PO DAILY PRN 30 days methyl salicylate-menthol 30-10 % (Icy Hot) 1 appl topical TID 30 days miconazole nitrate 2% 1 appful vaginal BEDTIME 7 days montelukast 10 mg PO DAILY multivitamin (Daily-Dionisio tablet) 1 tab PO DAILY naproxen 500 mg PO BID PRN olopatadine 0.2% 1 drp ophthalmic (eye) DAILY 30 days omeprazole 20 mg PO DAILY pen needle, diabetic once per day polyethylene glycol 3350 (Miralax) 17 grams PO DAILY PRN 30 days quetiapine 25 mg PO BEDTIME sennosides (senna) 17.2 mg (2 x 8.6 mg) PO BEDTIME 10 days sumatriptan succinate take 1 tab at onset of headache; if no relief may repeat 1 tab after at least 2 hrs; max = 4 tabs/24 hr PO 30 days topiramate 25 mg PO DAILY Tobacco use date assessed: 01/09/23 Dental Screening Dental Screen Date: 01/09/23 Did you have a dental visit in the last 12 months?: Yes Did you have a dental problem in the last 6 months where you did not have access to dental care?: No Was dental information given to patient?: Patient has dentist HPI 3mth f/u HPI Details Patient is a 62-year-old female here today for follow-up visit patient has a past medical history significant for hypertension, hyperlipidemia, impaired glucose metabolism anxiety, chronic allergies, fibromyalgia, lumbar disc disease. .. CHRONIC MEDICAL CONDITIONS--> chronic constipation: patient recently seen at the [facility] twice for lower abdominal pain and diarrhea, x-ray KUB and CT of abdomen pelvis without any acute findings. Continues to have mixed constipation or diarrhea.? C has been using senna, lactulose, fiber supplementation all without much relief of her diarrhea.? She denies any dark tarry stools though does at times have bright red blood per in her stool intermittently. Has tried Linzess though reports that is not effective. Has already had colonoscopy which was normal PLAN: Continue MiraLax ? .. ?Impaired glucose metabolism : Most recent? a1c? 5.4 ..? Continues on low- dose Actos ? She reports she has been more physically active and has been better with her low-sodium low carbohydrate diet. PLAN: Discontinue Actos .\ ? .. ? Anxiety: . Patient is followed by a psych provider and is taking clonazepam, fluoxetine and zolpidem 5 mg on a p.r.n. basis. .. GERD: She uses omeprazole on a p.r.n. basis for her GERD symptoms which helps tremendously reducing her heartburn. ? .. ? Hypertension: Patient's blood pressure acceptable today here in office, patient denies any chest pain, shortness of breath, dizziness. ? .. ? Hyperlipidemia: Lipid panel are stable at this time.?.? She continues on statin therapy Laboratory Tests 07/08/22 09/25/22 12/29/22 08:08 13:06 08:19 RBC 3.82 L Hgb 11.7 L 11.3 L Creatinine Fasting Glucose Hemoglobin A1c % Cholesterol LDL Cholesterol, C alc 136 12/29/22 08:19 RBC Hgb Creatinine 1.06 Fasting Glucose 107 H Hemoglobin A1c % 5.4 Cholesterol 186 LDL Cholesterol, C alc 104 H [facility] Medical History (Updated 01/09/23 @ 09:11 by Juan R Ramirez PA-C) COVID-19 Lumbar radiculopathy Asthma Gross hematuria Migraines Myofascial pain HLD (hyperlipidemia) HTN (hypertension) DMII (diabetes mellitus, type 2) Surgical History History of esophagogastroduodenoscopy (EGD) Hx of colonoscopy History of tubal ligation Family History Father No problems noted. Mother No problems noted. Sister Breast cancer Brother Prediabetes Daughter Liver problem Other Gross hematuria Social History Housing: House Alcohol intake: never Patient Tobacco Use Status: Never used Tobacco e-Cigarette/Vaping Use: Never Used Second Hand Smoke Exposure: No service: No Current occupational status: retired Cognitive needs: No Hearing needs: No Vision needs: Yes Questionnaire Thrive Questionnaire Date Thrive assessed: 07/05/22 JOSE-7 AMB Questionnaire JOSE-7 Date JOSE - 7 assessed: 07/05/22 Source: Developed by Drs. Samm LTiffanie Jiang, Vivek Harper and colleagues, with an educational fariba from [employer]. Review of Systems Const Denies headache(s) Eyes Denies loss of vision ENT Denies vertigo, Denies dizziness, Denies headache(s) and Denies sore throat Card Denies chest pain, Denies leg edema and Denies lightheadedness Resp Denies cough, Denies hemoptysis and Denies wheezing GI Denies abdominal pain, Denies melena, Denies constipation, Denies diarrhea and Denies vomiting Denies urinary frequency, Denies dysuria and Denies urinary urgency Musc Denies arthralgias, Denies joint swelling, Denies numbness and Denies tingling Neuro Denies Abnormal speech present, Denies behavioral changes, Denies vertigo, Denies dizziness, Denies headache(s), Denies loss of vision, Denies memory loss, Denies numbness and Denies tingling Psych Denies anxiety, Denies behavioral changes, Denies depression, Denies memory loss and Denies panic attacks Herman/Lymph Denies easy bleeding and Denies easy bruising Aller/Immun Denies wheezing Physical exam (Primary Care) Vital Signs: Last Vital Signs Pulse 73 01/09/23 08:44 BP 110/62 01/09/23 08:44 Pulse Ox 99 01/09/23 08:44 Oxygen Delivery Method Room Air 01/09/23 08:44 BMI result Body Mass Index 23.2 Tobacco/Smoking Status: Tobacco use Status Tobacco use date assessed 01/09/23 01/09/23 08:44 Patient Tobacco Use Status Never used Tobacco 01/09/23 08:44 e-Cigarette/Vaping Use Never Used 01/09/23 08:44 Thrive Assessment: Date of Thrive Assessment Date Thrive assessed 07/05/22 01/09/23 08:44 Const General: healthy appearing, no acute distress, alert and awake Nutritional Appearance: well nourished Orientation/consciousness: oriented to person, oriented to place and oriented to time HENMT Ears: TM's normal bilaterally General nose exam: Normal nasal mucous membranes and turbinates present Eyes Conjunctivae: conjunctivae normal Sclerae: sclerae normal Pupils: Equal, round and reactive pupils present Neck Neck: Yes no lymphadenopathy and Yes no JVD Thyroid: Thyroid normal Carotids: no bruits Resp Effort & Inspection: normal respiratory effort and not tachypneic Auscultation: no crackles, no rales, no rhonchi and no wheezes Cardio Rate: regular rate Rhythm: regular rhythm Heart sounds: no murmurs and normal S1 and S2 GI Palpation (GI): Soft to palpation, nontender, no hepatomegaly and no splenomegaly Auscultation: normal bowel sounds Skin General skin exam: no rashes or lesions noted and dry skin Neuro General: oriented to person, oriented to place and oriented to time Cranial nerves: Yes Equal, round and reactive pupils present Speech: No Abnormal speech present Gait exam (Neuro): Normal gait present Motor exam (neuro): no tremor noted Extrem Right upper extremity: full ROM Left upper extremity: full ROM Right lower extremity: full ROM; no edema Left lower extremity: full ROM; no edema Psych Mental Status: mental status grossly normal Speech and movement: Normal speech and movement present Affect: normal affect Attitude: cooperative Thought process: Normal thought process present Assessment and Plan Assessment & Plan (1) Impaired glucose metabolism: Code(s): R73.09 - Other abnormal glucose Plan: Patient's impaired glucose metabolism well controlled with current anti- hyperglycemic medication. Most recent A1c of 5.4. Patient not in pre diabetic range anymore. Will discontinue use of Actos. Goal A1c to be below 7.0 (2) HLD (hyperlipidemia): Code(s): E78.5 - Hyperlipidemia, unspecified Qualifiers: Hyperlipidemia type: pure hypertriglyceridemia Qualified Code(s): E78.1 - Pure hyperglyceridemia Plan: Patient continues on statin therapy without any side effect. Goal LDL to be below 130 (3) HTN (hypertension): Code(s): I10 - Essential (primary) hypertension Qualifiers: Hypertension type: essential hypertension Qualified Code(s): I10 - Essential (primary) hypertension Plan: Patient's blood pressure acceptable today in office. Does not monitor blood pressure at home. Asymptomatic without dizziness, syncopal episodes or fatigue. Will continue hydrochlorothiazide as is (4) Normocytic anemia: Code(s): D64.9 - Anemia, unspecified Plan: Patient has chronic anemia likely secondary to her chronic diseases. Will continue to follow. (5) GERD (gastroesophageal reflux disease): Code(s): K21.9 - Gastro-esophageal reflux disease without esophagitis Qualifiers: Esophagitis presence: without esophagitis Qualified Code(s): K21.9 - Gastro-esophageal reflux disease without esophagitis Plan: Continues on PPI therapy with good effect. Orders: Orders Microalbumin, Random (w Creat) 6 Months I10 - Essential (primary) hypertension IRON PROFILE 6 Months D50.9 - Iron deficiency anemia, unspecified Lipid Panel 6 Months E78.1 - Pure hyperglyceridemia Hemoglobin A1c 6 Months E11.9 - Type 2 diabetes mellitus without complications Comprehensive [place]. Panel Fast 6 Months E11.9 - Type 2 diabetes mellitus without complications Complete Blood Count no Diff 6 Months D50.9 - Iron deficiency anemia, unspecified Vitamin B12 and Folate 6 Months D50.9 - Iron deficiency anemia, unspecified, E53.8 - Deficiency of other specified B group vitamins Medications: Refilled omeprazole 20 mg PO DAILY 30 caps 3RF K21.9 - Gastro-esophageal reflux disease without esophagitis clotrimazole 1% 1 appful vaginal BEDTIME 7 days 45 grams 0RF N76.0 - Acute vaginitis Coding Level of Care Code Est Pt Level 4 (02493) Diagnoses Impaired glucose metabolism R73.09 Pure hypertriglyceridemia E78.1 Hyperlipidemia type: pure hypertriglyceridemia Essential hypertension I10 Hypertension type: essential hypertension Normocytic anemia D64.9 Gastroesophageal reflux disease without esophagitis K21.9 Esophagitis presence: without esophagitis
[2023-01-09 08:44] VITALS: BP 110/62; PULSE 73; O2SAT 99; BMI 23.2
== END 2023-01-09 09:06 | disposition home or self-care (01) ==
PROVIDERS: PCP Physician Assistant; Visit Provider Physician Assistant
DX: R73.09 Other abnormal glucose (principal); E78.1 Pure hyperglyceridemia; I10 Essential (primary) hypertension; K21.9 Gastro-esophageal reflux disease without esophagitis; D64.9 Anemia, unspecified
CPT/HCPCS: 99214

== ENCOUNTER 2023-07-07 06:59 | Outpatient (REF) | payer MEDICARE, SELFPAY ==
[2023-07-07 07:26] LABS: Hematocrit 36.8 % (37.0-47.0); Hemoglobin 12.2 g/dl (12.0-16.0); Mean Corpuscular HGB Conc 33.2 g/dl (31.0-35.0); Mean Corpuscular Hemoglobin 28.6 pg (27.0-33.0); Mean Corpuscular Volume 86.2 fL (80.0-98.0); Mean Platelet Volume 9.2 fL (9.4-12.3); Platelet Count 308 X10*3/uL (160-400); Red Blood Count 4.27 X10*6/uL (4.20-5.50); Red Cell Distribution Width 12.9 % (11.0-16.0); White Blood Count 6.2 X10*3/uL (4.8-10.8)
[2023-07-07 07:37] LABS: Estimated Average Glucose 128 mg/dL; Hemoglobin A1c % 6.1 % (<6.0)
[2023-07-07 07:42] LABS: Alanine Aminotransferase 28 U/L (0-31); Albumin Level 4.4 g/dL (3.5-5.0); Alkaline Phosphatase 95 U/L (39-117); Anion Gap 17 (12-20); Aspartate Amino Transferase 24 U/L (5-31); Bilirubin Total 0.8 mg/dL (0.0-1.0); Blood Urea Nitrogen 20 mg/dL (9-16); Calcium 9.9 mg/dL (8.4-10.2); Carbon Dioxide 26 mmol/L (22-29); Chloride 102 mmol/L (96-108); Cholesterol 302 mg/dL (<200); Estimated Glomerular Filt Rate 52; Glucose Fasting 114 mg/dL (60-99); HDL Cholesterol 48 mg/dL (>40); Iron 126 mcg/dL (30-160); LDL Cholesterol Calculated 206 mg/dL (<100); Percent Iron Saturation 40 % (15-50); Potassium 3.7 mmol/L (3.3-5.1); Sodium 141 mmol/L (135-145); Total Iron Binding Capacity 316 mcg/dL (228-428); Total Protein 8.4 g/dL (6.5-8.0); Triglycerides 244 mg/dL (<150); Unsaturated Iron Binding 190 ug/dL
[2023-07-07 08:17] LABS: Folate 10.1 ng/mL (> or = 4.0); Vitamin B12 432 pg/mL (200-900)
[2023-07-07 08:20] LABS: Creatinine Urine 340.68 mg/dL; Microalbum/Creatinine Ratio Ur 6.7 ug/mg cr (<30)
== END 2023-07-07 07:00 | disposition home or self-care (01) ==
LOC: HO.LAB 06:59
PROVIDERS: PCP Physician Assistant; Visit Provider Physician Assistant
DX: D50.9 Iron deficiency anemia, unspecified (principal); E78.1 Pure hyperglyceridemia; E11.9 Type 2 diabetes mellitus without complications; I10 Essential (primary) hypertension; E53.8 Deficiency of other specified B group vitamins
CPT/HCPCS: 36415; 80053; 80061; 82043; 82570; 82607; 82746; 83036; 83540; 85027

== ENCOUNTER 2023-07-11 09:24 | Outpatient (AMB) | payer MEDICARE, MEDICAID, SELFPAY ==
[2023-07-11 09:32] VITALS: BP 112/60; PULSE 67; RESP 16; O2SAT 98; BMI 23.4
--- NOTE | 2023-07-11 09:32 | MHC.PC.OV ---
Vital Signs 07/11/23 09:32 Height 5 ft Weight 120 lb BMI 23.4 BP 112/60 Blood Pressure Location Lt brachial Position Sitting Respiration 16 Pulse 67 Pulse Source Pulse Oximeter Pulse Oximetry (%) 98 Oxygen Delivery Method Room Air Intake Visit Reasons: Annual Exam Intake Note: Patient is here today for a physical. Director Food Safety Required: Yes Director Food Safety Language: Frisian Accompanied by: Self / Same As Patient Allergies No Known Allergies [No Known Allergies*] Allergy (Verified 07/11/23 09:45) Medication List - Last Reconciled 07/11/23 by Juan R Ramirez PA-C acetic acid 2% 3 drps otic (ear) left TID 30 days albuterol sulfate 90 mcg/actuation (Ventolin HFA) 2 puffs inhalation Q4-6H PRN alcohol swabs (Alcohol Prep Pads) 1 pad topical DAILY 90 days alum-mag hydroxide-simeth 200-200-20 mg/5 mL (Maalox Advanced) 10 mL PO QID PRN atorvastatin 20 mg PO DAILY back brace As directed bepotastine besilate 1.5% (Bepreve) 1 drp ophthalmic (eye) BID PRN 30 days pdauakkjvo-ghkodqvgcgezc-sqpi 50-325-40 mg 1 cap PO Q6H PRN 4 days cholecalciferol (vitamin D3) 25 mcg PO DAILY 90 days clonazepam 1 mg PO BEDTIME PRN clotrimazole 1% 1 appful vaginal BEDTIME 7 days comp.stocking,knee,long,medium As directed diclofenac sodium 1% (Voltaren Arthritis Pain) 2 grams topical QID fluoxetine 40 mg PO DAILY 90 days fluticasone propionate 50 mcg/actuation 2 sprays intranasal BID gabapentin 300 mg PO BEDTIME hydrochlorothiazide 12.5 mg PO DAILY 90 days hydrocortisone valerate 0.2% 1 appl topical BID 10 days hydroxyzine HCl 25 mg PO TID 7 days ketoconazole 2% 1 appl topical 2XW 30 days Lactobacillus rhamnosus GG (Culturelle) 1 cap PO DAILY 30 days lancets (FreeStyle Lancets) As directed lidocaine 5% 1 patch topical DAILY 30 days loratadine (Allergy Relief (loratadine)) 10 mg PO DAILY 90 days [mederma As directed] meloxicam 15 mg PO DAILY PRN 30 days methyl salicylate-menthol 30-10 % (Icy Hot) 1 appl topical TID 30 days miconazole nitrate 2% 1 appful vaginal BEDTIME 7 days montelukast 10 mg PO DAILY multivitamin (Daily-Dionisio tablet) 1 tab PO DAILY naproxen 500 mg PO BID PRN olopatadine 0.2% 1 drp ophthalmic (eye) DAILY 30 days omeprazole 40 mg PO DAILY 90 days pen needle, diabetic once per day polyethylene glycol 3350 (Miralax) 17 grams PO DAILY PRN 30 days quetiapine 25 mg PO BEDTIME sennosides (senna) 17.2 mg (2 x 8.6 mg) PO BEDTIME sumatriptan succinate take 1 tab at onset of headache; if no relief may repeat 1 tab after at least 2 hrs; max = 4 tabs/24 hr PO 30 days topiramate 25 mg PO DAILY Tobacco use date assessed: 07/11/23 Fall risk assessment: No Falls in past year Last assessed Fall Risk: 07/11/23 Dental Screening Dental Screen Date: 07/11/23 Did you have a dental visit in the last 12 months?: Yes Did you have a dental problem in the last 6 months where you did not have access to dental care?: No Was dental information given to patient?: Patient has dentist HPI Annual Exam HPI Details Patient is a 63-year-old female here today for routine annual physical. patient has a past medical history significant for hypertension, hyperlipidemia, impaired glucose metabolism anxiety, chronic allergies, fibromyalgia, lumbar disc disease. .. CHRONIC MEDICAL CONDITIONS--> ? .. ?Impaired glucose metabolism : Most recent? a1c? 6.1 from 5.4 ..? Has been off metformin and Actos. ? She reports she has been more physically active and has been better with her low-sodium low carbohydrate diet. .\ ? .. ? Anxiety: . Patient is followed by a psych provider and is taking clonazepam, fluoxetine and zolpidem 5 mg on a p.r.n. basis. .. GERD: She uses omeprazole on a p.r.n. basis for her GERD symptoms which helps tremendously reducing her heartburn. ? .. ? Hypertension: Patient's blood pressure acceptable today here in office, patient denies any chest pain, shortness of breath, dizziness. ? .. ? Hyperlipidemia: Lipid panel showing very elevated Cholesrterol and LDL.? She has not been taking atorvastatin. Will restart taking atorvastatin 20 mg recheck her lipid panel in 4 months Colonoscopy : 2019 Dr Cheek normal- repeat 10 years . Mammo: Mammogram done in December 2022, BI-RADS 1 .. Vaccine: UTD with tdap, PCV, UTD with COVID, UTD flu vac, considering shingles vaccine Laboratory Tests 12/29/22 12/29/22 12/29/22 08:19 08:19 08:19 RBC Hgb Creatinine Fasting Glucose 107 H Hemoglobin A1c % 5.4 Triglycerides Cholesterol 186 LDL Cholesterol, C alc Urine Microalbumin 12/29/22 07/07/23 07/07/23 08:19 07:14 07:14 RBC 4.27 Hgb Creatinine Fasting Glucose 114 H Hemoglobin A1c % 6.1 H Triglycerides Cholesterol LDL Cholesterol, C alc 104 H Urine Microalbumin 07/07/23 07/07/23 07/07/23 07:14 07:14 07:14 RBC Hgb 12.2 Creatinine 1.06 Fasting Glucose Hemoglobin A1c % Triglycerides 244 H Cholesterol 302 H LDL Cholesterol, C alc 206 H Urine Microalbumin 23.0 PFSH Medical History COVID-19 Lumbar radiculopathy Asthma Gross hematuria Migraines Myofascial pain HLD (hyperlipidemia) HTN (hypertension) DMII (diabetes mellitus, type 2) Surgical History History of esophagogastroduodenoscopy (EGD) Hx of colonoscopy History of tubal ligation Family History Father No problems noted. Mother No problems noted. Sister Breast cancer Brother Prediabetes Daughter Liver problem Other Gross hematuria Social History Housing: House Alcohol intake: never Patient Tobacco Use Status: Never used Tobacco e-Cigarette/Vaping Use: Never Used Second Hand Smoke Exposure: No service: No Current occupational status: retired Cognitive needs: No Hearing needs: No Vision needs: Yes Questionnaire PHQ-9 Over the last 2 weeks, how often have you been bothered by any of the following problems? 1. Little interest or pleasure in doing things: not at all 2. Feeling down, depressed, or hopeless: not at all 3. Trouble falling or staying asleep, or sleeping too much: not at all 4. Feeling tired or having little energy: not at all 5. Poor appetite or overeating: not at all 6. Feeling bad about yourself - or that you are a failure or have let yourself or your family down: not at all 7. Trouble concentrating on things, such as reading the newspaper or watching television: not at all 8. Moving or speaking so slowly that other people could have noticed. Or the opposite - being so fidgety or restless that you have been moving around a lot more than usual: not at all 9. Thoughts that you would be better off or of hurting yourself in some way: not at all Total score: 0 Depression Screening Interpretation: Negative Depression Screening Done: Yes 66861 - PHQ-9 Billing: Yes Source: Developed by Drs. Samm Carr, Tiffanie Carr, Vivek Harper and colleagues, with an educational fariba from [employer]. Thrive Questionnaire Date Thrive assessed: 07/11/23 I am a: Patient What is your living situation today?: I have a steady place to live Within the past 12 months, did the food you bought not last and you didn't have the money to get more?: Never true Within the past 12 months, did you worry whether your food would run out before you got money to buy more?: Never true Do you have trouble paying for medicines?: No Do you have trouble getting transportation to medical appointments?: No Do you have trouble paying your heating and electricity bill?: No Do you have trouble taking care of your child, family member or friend?: No Do you have trouble with day-to-day activities such as bathing, preparing meals, shopping, managing finances, etc.?: No Are you currently unemployed and looking for a job?: No Are you interested in more education?: No Please select the resources that you would like help with: None Currently or been in a relationship where the following occur: no concerns reported THRIVE Score: 0 AUDIT C Alcohol Use Questionnaire (AUDIT-C) 1. How often do you have a drink containing alcohol?: Never 3. How often do you have six or more drinks on one occasion?: Never Total Score: 0 Score Reviewed/Action Taken: No JOSE-7 AMB Questionnaire JOSE-7 Date JOSE - 7 assessed: 07/11/23 Feeling nervous, anxious, or on edge: 0 = Not at all Not being able to stop or control worryin = Not at all Worrying too much about different things: 0 = Not at all Trouble relaxin = Not at all Being so restless that it is hard to sit still: 0 = Not at all Becoming easily annoyed or irritable: 0 = Not at all Feeling afraid as if something awful might happen: 0 = Not at all Total JOSE-7 score (0-4 normal; 5-9 mild; 10-14 moderate; 15-21 severe): 0 Source: Developed by Drs. Samm Carr, Tiffanie Carr, Vivek Harper and colleagues, with an educational fariba from [employer]. JOSE-7 Assessment Billing JOSE-7 Assessment Tool: JOSE-7 Assessment 87453 Review of Systems Const Denies body aches, Denies chills, Denies excessive sweating, Denies fatigue, Denies fever(s) and Denies headache(s) Eyes Denies blurry vision ENT Denies dysphagia, Denies vertigo, Denies dizziness, Denies headache(s), Denies hearing loss and Denies tinnitus Card Denies chest pain, Denies chest pain with activity, Denies syncope, Denies irregular heart rhythm and Denies dyspnea Resp Denies chest congestion, Denies cough, Denies hemoptysis, Denies dyspnea and Denies wheezing GI Denies abdominal pain, Denies melena, Denies hematochezia, Denies coffee ground emesis, Denies dysphagia, Denies diarrhea, Denies nausea and Denies vomiting Denies urinary frequency, Denies dysuria, Denies urinary hesitancy and Denies urinary urgency Musc Denies arthralgias, Denies limited range of motion, Denies muscle cramps and Denies muscle weakness Skin/Breast Denies rash and Denies skin ulcer Neuro Denies Abnormal speech present, Denies confusion, Denies vertigo, Denies dizziness, Denies syncope, Denies headache(s), Denies memory loss and Denies seizure-like activity Psych Denies anxiety, Denies confusion, Denies depression, Denies memory loss, Denies panic attacks and Denies paranoia Endo Denies excessive sweating, Denies fatigue, Denies flushing, Denies polydipsia and Denies polyuria Aller/Immun Denies wheezing Physical exam (Primary Care) Vital Signs: Last Vital Signs Pulse 67 07/11/23 09:32 Resp 16 07/11/23 09:32 BP 112/60 07/11/23 09:32 Pulse Ox 98 07/11/23 09:32 Oxygen Delivery Method Room Air 07/11/23 09:32 BMI result Body Mass Index 23.4 Tobacco/Smoking Status: Tobacco use Status Tobacco use date assessed 07/11/23 07/11/23 09:34 Patient Tobacco Use Status Never used Tobacco 07/11/23 09:34 e-Cigarette/Vaping Use Never Used 07/11/23 09:34 PHQ-9: PHQ-9 Score PHQ-9: Total score 0 07/11/23 09:34 Depression Screening Interpretation: Negative Thrive Assessment: Date of Thrive Assessment Date Thrive assessed 07/11/23 07/11/23 09:34 Currently or been in a relationship where the following occur: no concerns reported Const General: cooperative, comfortable, no acute distress, alert and awake; No confusion Orientation/consciousness: oriented to person, oriented to place, patient oriented x3 and No confusion HENMT Head: Yes normocephalic Ears: external ears normal and TM's normal bilaterally Face and sinus: No sinus tenderness Mouth: Normal oral and palatal mucosa present and tongue normal Teeth and gingiva: dentition normal and gingiva normal Throat: Yes posterior oropharynx normal, Yes tonsils normal and Yes uvula midline Eyes Conjunctivae: conjunctivae normal Sclerae: sclerae normal Pupils: Equal, round and reactive pupils present EOM: EOMs intact bilaterally Direct Ophthalmoscopy: No no photophobia Neck Neck: Yes no lymphadenopathy, No tender and Yes no JVD Thyroid: Thyroid normal Carotids: no bruits Chest Chest palpation & inspection: no tenderness Resp Effort & Inspection: normal respiratory effort, no audible wheezes, not labored and no stridor Auscultation: no crackles, no rales, no rhonchi and no wheezes Cardio Jugular venous distension: no JVD Rate: regular rate, not bradycardic and not tachycardic Rhythm: regular rhythm Bruits: no carotid bruits Peripheral pulses: Peripheral pulses 2+ throughout GI Inspection: Yes normal to inspection, No abdominal wall ecchymosis and No visible herniation Palpation (GI): Soft to palpation, nontender, no guarding, not rigid and No hepatosplenomegaly present Auscultation: normoactive bowel sounds General: Yes no CVA tenderness Back/Spine/Pelvis Back: no CVA tenderness and No back tenderness Cervical Spine: cervical ROM normal Thoracic/Lumbar Spine: thoracic and lumbar spine normal to inspection, straight leg raise negative bilaterally, No thoraco-lumbar ROM limited and No lumbar spinal tenderness Skin Lesions: no lesions Rashes: no rashes Wounds: no wounds Neuro General: oriented to person, oriented to place, patient oriented x3, CN's II-XI intact bilaterally and No confusion Cranial nerves: Yes Equal, round and reactive pupils present and Yes Normal accommodation reflex present Cognition (Neuro): normal cognition Speech: No Abnormal speech present Gait exam (Neuro): Normal gait present Motor exam (neuro): 5/5 motor strength present throughout Extrem Right upper extremity: full ROM; no cyanosis Left upper extremity: full ROM; no cyanosis Right lower extremity: no edema Left lower extremity: no edema Psych Appearance: grossly normal Mental Status: mental status grossly normal Affect: normal affect Attitude: cooperative Thought process: Normal thought process present Assessment and Plan Assessment & Plan (1) Annual physical exam: Code(s): Z00.00 - Encounter for general adult medical examination without abnormal findings (2) Impaired glucose metabolism: Code(s): R73.09 - Other abnormal glucose Plan: Patient's impaired glucose metabolism which has been controlled lately with dietary modifications. Most recent A1c of 6.1. Goal A1c to be below 7.0 (3) HLD (hyperlipidemia): Code(s): E78.5 - Hyperlipidemia, unspecified Qualifiers: Hyperlipidemia type: pure hypertriglyceridemia Qualified Code(s): E78.1 - Pure hyperglyceridemia Plan: Patient's most recent lipid panel showing very elevated cholesterol and LDL. She has not been on atorvastatin . Will restart atorvastatin 20 mg recheck lipid panel in 4 months. Goal LDL is to be below 130 (4) HTN (hypertension): Code(s): I10 - Essential (primary) hypertension Qualifiers: Hypertension type: essential hypertension Qualified Code(s): I10 - Essential (primary) hypertension Plan: Patient's blood pressure acceptable today in office. Does not monitor blood pressure at home. Asymptomatic without dizziness, syncopal episodes or fatigue. Will continue hydrochlorothiazide as is (5) GERD (gastroesophageal reflux disease): Code(s): K21.9 - Gastro-esophageal reflux disease without esophagitis Qualifiers: Esophagitis presence: without esophagitis Qualified Code(s): K21.9 - Gastro-esophageal reflux disease without esophagitis Plan: Continues on PPI therapy with good effect. (6) Sinusitis: Code(s): J32.9 - Chronic sinusitis, unspecified Qualifiers: Sinusitis location: frontal Chronicity: subacute Qualified Code(s): J01.10 - Acute frontal sinusitis, unspecified Plan: Reports over last several weeks having rhinorrhea and sinus pain. Will supply her with the montelukast. She does use nasal spray as well. (7) Chest pain: Code(s): R07.9 - Chest pain, unspecified Qualifiers: Chest pain type: intercostal pain Qualified Code(s): R07.82 - Intercostal pain Plan: Patient reports having intermittent chest pain that only is evident for few minutes. She has gotten recent EKGs without evidence of ischemia . Orders: Orders Comprehensive [place]. Panel Fast Today R73.09 - Other abnormal glucose Complete Blood Count no Diff Today D64.9 - Anemia, unspecified MM screening mammo BI Today Z12.31 - Encounter for screening mammogram for malignant neoplasm of breast Hemoglobin A1c Today R73.09 - Other abnormal glucose Lipid Panel Today E78.1 - Pure hyperglyceridemia XR chest 2V Today R07.82 - Intercostal pain Medications: Changed From atorvastatin 20 mg PO DAILY 30 tabs 3RF E78.1 - Pure hyperglyceridemia To atorvastatin 20 mg PO DAILY 90 days 90 tabs 3RF E78.1 - Pure hyperglyceridemia From montelukast 10 mg PO DAILY 30 tabs 6RF J30.1 - Allergic rhinitis due to pollen To montelukast 10 mg PO DAILY 90 days 90 tabs 1RF J30.1 - Allergic rhinitis due to pollen Refilled cholecalciferol (vitamin D3) 25 mcg PO DAILY 90 days 90 tabs 3RF E11.9 - Type 2 diabetes mellitus without complications multivitamin (Daily-Dionisio tablet) 1 tab PO DAILY 90 tabs 4RF E11.9 - Type 2 diabetes mellitus without complications Coding Level of Care Code Est Pt Prev Care 40-64y(50875) Diagnoses Annual physical exam Z00.00 Impaired glucose metabolism R73.09 Pure hypertriglyceridemia E78.1 Hyperlipidemia type: pure hypertriglyceridemia Essential hypertension I10 Hypertension type: essential hypertension Gastroesophageal reflux disease without esophagitis K21.9 Esophagitis presence: without esophagitis Subacute frontal sinusitis J01.10 Sinusitis location: frontal Chronicity: subacute Intercostal pain R07.82 Chest pain type: intercostal pain Additional Codes JOSE-7 Assessment Billing - JOSE-7 Assessment Tool: JOSE-7 Assessment [id number] ([id number])
== END 2023-07-11 10:12 | disposition home or self-care (01) ==
PROVIDERS: PCP Physician Assistant; Visit Provider Physician Assistant
DX: Z00.00 Encounter for general adult medical examination without abnormal findings (principal); R73.09 Other abnormal glucose; E78.1 Pure hyperglyceridemia; I10 Essential (primary) hypertension; K21.9 Gastro-esophageal reflux disease without esophagitis; J01.10 Acute frontal sinusitis, unspecified; R07.82 Intercostal pain
CPT/HCPCS: 99396

== ENCOUNTER 2023-10-10 06:05 | Outpatient (REF) | payer MEDICARE, SELFPAY ==
[2023-10-10 07:39] LABS: Estimated Average Glucose 143 mg/dL; Hemoglobin A1c % 6.6 % (<6.0)
[2023-10-10 07:55] LABS: Hematocrit 33.6 % (37.0-47.0); Hemoglobin 11.4 g/dl (12.0-16.0); Mean Corpuscular HGB Conc 33.9 g/dl (31.0-35.0); Mean Corpuscular Hemoglobin 29.5 pg (27.0-33.0); Mean Platelet Volume 9.7 fL (9.4-12.3); Platelet Count 304 X10*3/uL (160-400); Red Blood Count 3.86 X10*6/uL (4.20-5.50); Red Cell Distribution Width 12.9 % (11.0-16.0); White Blood Count 5.6 X10*3/uL (4.8-10.8)
[2023-10-10 08:20] LABS: Alanine Aminotransferase 25 U/L (0-31); Albumin Level 4.3 g/dL (3.5-5.0); Alkaline Phosphatase 95 U/L (39-117); Anion Gap 13 (12-20); Aspartate Amino Transferase 24 U/L (5-31); Bilirubin Total 0.4 mg/dL (0.0-1.0); Blood Urea Nitrogen 21 mg/dL (9-16); Calcium 10.1 mg/dL (8.4-10.2); Carbon Dioxide 30 mmol/L (22-29); Chloride 102 mmol/L (96-108); Cholesterol 159 mg/dL (<200); Estimated Glomerular Filt Rate 50; Glucose Fasting 136 mg/dL (60-99); HDL Cholesterol 46 mg/dL (>40); LDL Cholesterol Calculated 89 mg/dL (<100); Potassium 3.3 mmol/L (3.3-5.1); Sodium 142 mmol/L (135-145); Total Protein 7.9 g/dL (6.5-8.0); Triglycerides 120 mg/dL (<150)
== END 2023-10-10 06:06 | disposition home or self-care (01) ==
LOC: HO.LAB 06:05
PROVIDERS: PCP Physician Assistant; Visit Provider Physician Assistant
DX: R73.09 Other abnormal glucose (principal); E78.1 Pure hyperglyceridemia; D64.9 Anemia, unspecified
CPT/HCPCS: 36415; 80053; 80061; 83036; 85027

== ENCOUNTER 2023-11-12 08:06 | Outpatient (AMB) | payer MEDICARE, SELFPAY ==
[2023-11-12 08:20] VITALS: BP 98/60; PULSE 71; O2SAT 98; BMI 22.7
--- NOTE | 2023-11-12 08:20 | A.OFFPC_ITS ---
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: No Allergies No Known Allergies [No Known Allergies*] Allergy (Verified 11/12/23 08:39) Medication List - Last Reconciled 11/12/23 by Juan R Ramirez PA-C acetaminophen 500 mg PO Q6H PRN 30 days acetic acid 2% 3 drps otic (ear) left TID 30 days albuterol sulfate 90 mcg/actuation (Ventolin HFA) 2 puffs inhalation Q4-6H PRN alcohol swabs (Alcohol Prep Pads) 1 pad topical DAILY 90 days alum-mag hydroxide-simeth 200-200-20 mg/5 mL (Maalox Advanced) 10 mL PO QID PRN atorvastatin 20 mg PO DAILY 90 days back brace As directed bepotastine besilate 1.5% (Bepreve) 1 drp ophthalmic (eye) BID PRN 30 days blood sugar diagnostic (FreeStyle Test strips) Testing once a day as needed blood sugar diagnostic (OneTouch Verio test strips) Tests once a day as needed blood-glucose meter (OneTouch Verio Flex Meter) As directed blood-glucose meter (FreeStyle Lite Meter kit) Testing once a day as needed yijnsfkhdb-dptwqulwfdklw-nrdu 50-325-40 mg 1 cap PO Q6H PRN 4 days cholecalciferol (vitamin D3) 25 mcg PO DAILY 90 days clonazepam 1 mg PO BEDTIME PRN clotrimazole 1% 1 appful vaginal BEDTIME 7 days comp.stocking,knee,long,medium As directed diclofenac sodium 1% (Voltaren Arthritis Pain) 2 grams topical QID fluoxetine 40 mg PO DAILY 90 days fluticasone propionate 50 mcg/actuation 2 sprays intranasal BID gabapentin 300 mg PO BEDTIME hydrochlorothiazide 12.5 mg PO DAILY 90 days hydrocortisone valerate 0.2% 1 appl topical BID 10 days hydroxyzine HCl 25 mg PO TID 7 days ketoconazole 2% 1 appl topical 2XW 30 days Lactobacillus rhamnosus GG (Culturelle) 1 cap PO DAILY 30 days lancets (FreeStyle Lancets) As directed lidocaine 5% 1 patch topical DAILY 30 days loratadine (Allergy Relief (loratadine)) 10 mg PO DAILY 90 days [mederma As directed] meloxicam 15 mg PO DAILY PRN 30 days metformin 500 mg PO DAILY 90 days methyl salicylate-menthol 30-10 % (Icy Hot) 1 appl topical TID 30 days miconazole nitrate 2% 1 appful vaginal BEDTIME 7 days montelukast 10 mg PO DAILY 90 days multivitamin (Daily-Dionisio tablet) 1 tab PO DAILY naproxen 500 mg PO BID PRN olopatadine 0.2% 1 drp ophthalmic (eye) DAILY 30 days omeprazole 40 mg PO DAILY 90 days pen needle, diabetic once per day polyethylene glycol 3350 (Miralax) 17 grams PO DAILY PRN 30 days quetiapine 25 mg PO BEDTIME sennosides (senna) 17.2 mg (2 x 8.6 mg) PO BEDTIME sumatriptan succinate take 1 tab at onset of headache; if no relief may repeat 1 tab after at least 2 hrs; max = 4 tabs/24 hr PO 30 days topiramate 25 mg PO DAILY Tobacco use date assessed: 07/11/23 Fall risk assessment: No Falls in past year Last assessed Fall Risk: 11/12/23 Dental Screening Dental Screen Date: 07/11/23 HPI f/u HLD HPI Details Patient is a 63-year-old female here today for a follow-up visit patient has a past medical history significant for hypertension, hyperlipidemia, impaired glucose metabolism anxiety, chronic allergies, fibromyalgia, lumbar disc disease. .. CHRONIC MEDICAL CONDITIONS--> ? .. ?Impaired glucose metabolism : Most recent A1c 6.6 from 6.1. ..?Continues on metformin. ? She reports she has been more physically active and has been better with her low-sodium low carbohydrate diet. .\ ? .. ? Anxiety: . Patient is followed by a psych provider and is taking clonazepam, fluoxetine and zolpidem 5 mg on a p.r.n. basis. .. GERD: She uses omeprazole on a p.r.n. basis for her GERD symptoms which helps tremendously reducing her heartburn. ? .. ? Hypertension: Patient's blood pressure acceptable today here in office, patient denies any chest pain, shortness of breath, dizziness. ? .. ? Hyperlipidemia: Has restarted taking her statin therapy thus lipid panel drastically improved. Laboratory Tests 07/07/23 10/10/23 07:14 06:30 RBC 3.86 L Hgb 11.4 L Fasting Glucose 136 H Hemoglobin A1c % 6.1 H 6.6 H Triglycerides 244 H 120 Cholesterol 302 H 159 LDL Cholesterol, C alc 206 H 89 PFSH Medical History DMII (diabetes mellitus, type 2) COVID-19 Lumbar radiculopathy Asthma Gross hematuria Migraines Myofascial pain HLD (hyperlipidemia) HTN (hypertension) Surgical History History of esophagogastroduodenoscopy (EGD) Hx of colonoscopy History of tubal ligation Family History Father No problems noted. Mother No problems noted. Sister Breast cancer Brother Prediabetes Daughter Liver problem Other Gross hematuria Social History Housing: House Alcohol intake: never Patient Tobacco Use Status: Never used Tobacco e-Cigarette/Vaping Use: Never Used Second Hand Smoke Exposure: No service: No Current occupational status: retired Cognitive needs: No Hearing needs: No Vision needs: Yes Questionnaire Thrive Questionnaire Date Thrive assessed: 07/11/23 AUDIT C Alcohol Use Questionnaire (AUDIT-C) 1. How often do you have a drink containing alcohol?: Never 3. How often do you have six or more drinks on one occasion?: Never Total Score: 0 Score Reviewed/Action Taken: No JOSE-7 AMB Questionnaire JOSE-7 Date JOSE - 7 assessed: 07/11/23 Source: Developed by Drs. Samm Carr, Tiffanie Carr, Vivek Harper and colleagues, with an educational fariba from [employer]. Review of Systems Const Denies headache(s) Eyes Denies loss of vision ENT Denies vertigo, Denies dizziness, Denies headache(s) and Denies sore throat Card Denies chest pain, Denies leg edema and Denies lightheadedness Resp Denies cough, Denies hemoptysis and Denies wheezing GI Denies abdominal pain, Denies melena, Denies constipation, Denies diarrhea and Denies vomiting Denies urinary frequency, Denies dysuria and Denies urinary urgency Musc Denies arthralgias, Denies joint swelling, Denies numbness and Denies tingling Neuro Denies Abnormal speech present, Denies behavioral changes, Denies vertigo, Denies dizziness, Denies headache(s), Denies loss of vision, Denies memory loss, Denies numbness and Denies tingling Psych Denies anxiety, Denies behavioral changes, Denies depression, Denies memory loss and Denies panic attacks Herman/Lymph Denies easy bleeding and Denies easy bruising Aller/Immun Denies wheezing Physical exam (Primary Care) Vital Signs: Last Vital Signs Pulse 71 11/12/23 08:20 BP 98/60 11/12/23 08:20 Pulse Ox 98 11/12/23 08:20 Oxygen Delivery Method Room Air 11/12/23 08:20 BMI result Body Mass Index 22.7 Tobacco/Smoking Status: Tobacco use Status Tobacco use date assessed 07/11/23 11/12/23 08:21 Patient Tobacco Use Status Never used Tobacco 11/12/23 08:21 e-Cigarette/Vaping Use Never Used 11/12/23 08:21 Thrive Assessment: Date of Thrive Assessment Date Thrive assessed 07/11/23 11/12/23 08:21 Const General: healthy appearing, no acute distress, alert and awake Nutritional Appearance: well nourished Orientation/consciousness: oriented to person, oriented to place and oriented to time [facility] Ears: TM's normal bilaterally General nose exam: Normal nasal mucous membranes and turbinates present Eyes Conjunctivae: conjunctivae normal Sclerae: sclerae normal Pupils: Equal, round and reactive pupils present Neck Neck: Yes no lymphadenopathy and Yes no JVD Thyroid: Thyroid normal Carotids: no bruits Resp Effort & Inspection: normal respiratory effort and not tachypneic Auscultation: no crackles, no rales, no rhonchi and no wheezes Cardio Rate: regular rate Rhythm: regular rhythm Heart sounds: no murmurs and normal S1 and S2 GI Palpation (GI): Soft to palpation, nontender, no hepatomegaly and no splenomegaly Auscultation: normal bowel sounds Skin General skin exam: no rashes or lesions noted and dry skin Neuro General: oriented to person, oriented to place and oriented to time Cranial nerves: Yes Equal, round and reactive pupils present Speech: No Abnormal speech present Gait exam (Neuro): Normal gait present Motor exam (neuro): no tremor noted Extrem Right upper extremity: full ROM Left upper extremity: full ROM Right lower extremity: full ROM; no edema Left lower extremity: full ROM; no edema Psych Mental Status: mental status grossly normal Speech and movement: Normal speech and movement present Affect: normal affect Attitude: cooperative Thought process: Normal thought process present Assessment and Plan Assessment & Plan (1) HLD (hyperlipidemia): Code(s): E78.5 - Hyperlipidemia, unspecified Qualifiers: Hyperlipidemia type: pure hypertriglyceridemia Qualified Code(s): E78.1 - Pure hyperglyceridemia Plan: Patient's most recent lipid panel showing much improved total cholesterol and LDL. She continues on atorvastatin 20 mg. Goal LDL to remain below 100. (2) HTN (hypertension): Code(s): I10 - Essential (primary) hypertension Qualifiers: Hypertension type: essential hypertension Qualified Code(s): I10 - Essential (primary) hypertension Plan: Patient's blood pressure acceptable today in office. Does not monitor blood pressure at home. Asymptomatic without dizziness, syncopal episodes or fatigue. Will continue hydrochlorothiazide as is Goal blood pressures to remain below 140/90 (3) GERD (gastroesophageal reflux disease): Code(s): K21.9 - Gastro-esophageal reflux disease without esophagitis Qualifiers: Esophagitis presence: without esophagitis Qualified Code(s): K21.9 - Gastro-esophageal reflux disease without esophagitis Plan: Continues on PPI therapy with good effect. (4) DMII (diabetes mellitus, type 2): Code(s): E11.9 - Type 2 diabetes mellitus without complications Qualifiers: Diabetes mellitus senior care insulin use: without watermelon harvesting supervisor use Diabetes mellitus complication status: without complication Qualified Code(s): E11.9 - Type 2 diabetes mellitus without complications Plan: Most recent A1c is 6.6. She will continue current dose of metformin. She will continue lifestyle and dietary modifications. Goal A1c is to remain below 7.0. Orders: Orders Comprehensive [place]. Panel Fast Today E11.9 - Type 2 diabetes mellitus without complications Vitamin B12 and Folate Today D64.9 - Anemia, unspecified, E53.8 - Deficiency of other specified B group vitamins IRON PROFILE Today D50.9 - Iron deficiency anemia, unspecified, D64.9 - Anemia, unspecified Complete Blood Count no Diff Today E11.9 - Type 2 diabetes mellitus without complications Lipid Panel Today E78.1 - Pure hyperglyceridemia Complete Blood Count Auto Diff Today D64.9 - Anemia, unspecified Patient Instructions: Goal: A1c to remain below 7.0, LDL to remain below 100 Barriers: Adherence to physical activity and healthy eating habits Coding Level of Care Code Est Pt Level 4 (71804) Diagnoses Pure hypertriglyceridemia E78.1 Hyperlipidemia type: pure hypertriglyceridemia Essential hypertension I10 Hypertension type: essential hypertension Gastroesophageal reflux disease without esophagitis K21.9 Esophagitis presence: without esophagitis Type 2 diabetes mellitus without complication, without long-term current use of insulin E11.9 Diabetes mellitus senior care insulin use: without watermelon harvesting supervisor use Diabetes mellitus complication status: without complication
== END 2023-11-12 08:57 | disposition home or self-care (01) ==
PROVIDERS: PCP Physician Assistant; Visit Provider Physician Assistant
DX: E78.1 Pure hyperglyceridemia (principal); I10 Essential (primary) hypertension; K21.9 Gastro-esophageal reflux disease without esophagitis; E11.9 Type 2 diabetes mellitus without complications
CPT/HCPCS: 99214

== ENCOUNTER 2024-01-05 09:36 | Outpatient (REF) | payer MEDICARE, SELFPAY ==
--- NOTE | ~2024-01-05 | MM_ITS ---
EXAMINATION: MM SCREENING DIGITAL BREAST TOMOSYNTHESIS, BILATERAL CLINICAL INFORMATION: Screening. Asymptomatic. COMPARISON: Mammography: Comparison is made with available priors TECHNIQUE: Digital breast mammography with tomosynthesis is performed in both the craniocaudal and mediolateral oblique views along with computer-aided detection (CAD). FINDINGS: The breasts are heterogeneously dense, which may obscure small masses (ACR BI-RADS breast composition Category c). There are no significant masses, abnormal calcifications, or other abnormalities. MM/MM tomosynthesis screening BI IMPRESSION: No mammographic evidence of malignancy. ASSESSMENT: BI-RADS BI-RADS 1 - Negative RECOMMENDATION: Routine annual mammography screening. 1 year F/U This examination should not preclude the clinical evaluation of a suspicious palpable abnormality. This patient's information was entered into a reminder system with a target due date for their next mammogram. Electronically signed by: Sita Sierra DO 01/18/2024 08:55 AM EDT
== END 2024-01-05 09:37 | disposition home or self-care (01) ==
LOC: HO.MAMMO 09:36
PROVIDERS: PCP Physician Assistant; Visit Provider Physician Assistant
DX: Z12.31 Encounter for screening mammogram for malignant neoplasm of breast (principal)
CPT/HCPCS: 77063; 77067

== ENCOUNTER → 2024-01-05 10:00 | Outpatient (BNV) | payer MEDICARE, SELFPAY | PROVIDERS: PCP Physician Assistant; Visit Provider Internal Medicine | DX: Z12.31 Encounter for screening mammogram for malignant neoplasm of breast (principal) | CPT/HCPCS: 77063; 77067 ==

== ENCOUNTER 2024-03-08 07:28 | Outpatient (REF) | payer MEDICARE, SELFPAY ==
[2024-03-08 07:50] LABS: MANUAL DIFF FLAG NO
[2024-03-08 08:59] LABS: Basophils Absolute Auto 0.1 X10*3/uL (0.0-0.2); Eosinophils Absolute Auto 0.2 X10*3/uL (0.0-0.4); Hematocrit 35.5 % (37.0-47.0); Hemoglobin 11.6 g/dl (12.0-16.0); Imm Gran Abs Auto 0.02 X10*3/uL (0.00-0.03); Imm Gran Pct Auto 0.3 % (0.0-0.4); Lymphocytes Percent Auto 35.7 % (20-40); Mean Corpuscular HGB Conc 32.7 g/dl (31.0-35.0); Mean Corpuscular Hemoglobin 28.6 pg (27.0-33.0); Mean Corpuscular Volume 87.4 fL (80.0-98.0); Mean Platelet Volume 9.2 fL (9.4-12.3); Monocytes Absolute Auto 0.3 X10*3/uL (0.1-1.2); Monocytes Percent Auto 4.5 % (2-11); Neutrophils Absolute Auto 3.1 x10*3/uL (2.0-8.3); Neutrophils Percent Auto 54.5 % (45-73); Platelet Count 322 X10*3/uL (160-400); Red Blood Count 4.06 X10*6/uL (4.20-5.50); Red Cell Distribution Width 12.7 % (11.0-16.0); White Blood Count 5.7 X10*3/uL (4.8-10.8)
[2024-03-08 09:42] LABS: Alanine Aminotransferase 31 U/L (0-31); Albumin Level 4.4 g/dL (3.5-5.0); Alkaline Phosphatase 87 U/L (39-117); Anion Gap 14 (12-20); Aspartate Amino Transferase 29 U/L (5-31); Bilirubin Total 0.6 mg/dL (0.0-1.0); Blood Urea Nitrogen 23 mg/dL (9-16); Calcium 9.9 mg/dL (8.4-10.2); Carbon Dioxide 29 mmol/L (22-29); Chloride 102 mmol/L (96-108); Cholesterol 229 mg/dL (<200); Estimated Glomerular Filt Rate 58; Glucose Fasting 118 mg/dL (60-99); HDL Cholesterol 52 mg/dL (>40); Iron 85 mcg/dL (30-160); LDL Cholesterol Calculated 142 mg/dL (<100); Percent Iron Saturation 26 % (15-50); Potassium 3.8 mmol/L (3.3-5.1); Sodium 141 mmol/L (135-145); Total Iron Binding Capacity 331 mcg/dL (228-428); Total Protein 8.2 g/dL (6.5-8.0); Triglycerides 179 mg/dL (<150); Unsaturated Iron Binding 246 ug/dL
[2024-03-08 10:07] LABS: Folate 12.5 ng/mL (> or = 4.0); Vitamin B12 478 pg/mL (200-900)
== END 2024-03-08 07:29 | disposition home or self-care (01) ==
LOC: HO.LAB 07:28
PROVIDERS: PCP Physician Assistant; Visit Provider Physician Assistant
DX: D50.9 Iron deficiency anemia, unspecified (principal); D64.9 Anemia, unspecified; E11.9 Type 2 diabetes mellitus without complications; E78.1 Pure hyperglyceridemia; E53.8 Deficiency of other specified B group vitamins
CPT/HCPCS: 36415; 80053; 80061; 82607; 82746; 83540; 85025; 85027

== ENCOUNTER 2024-03-21 07:23 | Emergency (ER) | payer MEDICARE, MEDICAID, SELFPAY ==
--- NOTE | ~2024-03-21 | XR_ITS ---
EXAMINATION: XR CHEST CLINICAL INFORMATION: cough, fever COMPARISON: Chest radiograph from 09/25/2022 TECHNIQUE: 2 views of the chest were obtained. FINDINGS: No focal consolidation. No pneumothorax. Trachea is midline. Cardiac mediastinal silhouette is not enlarged. No large pleural effusion. Dextrocurvature of the thoracolumbar spine. Soft tissues are unremarkable. XR/XR chest 2V IMPRESSION: 1. No acute cardiopulmonary process. 2. Dextrocurvature of the thoracolumbar spine. Electronically signed by: Anurag Caraballo MD 03/21/2024 09:34 AM [facility]
[2024-03-21 07:41] VITALS: BP 126/53; PULSE 63; RESP 16; TEMP 36.4; O2SAT 97; BMI 22.4
--- NOTE | 2024-03-21 08:11 | ED_ITS ---
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 She is able to eat and drink. No fevers, she notes no sick contacts or travel. MD elicited complaint: cough and rhinorrhea Pertinent past history: sinusitis Onset (ago): day(s) (4) Consistency: constant Severity: moderate Description of mucous: clear Able to tolerate fluids by mouth: Yes Exacerbating factors: swallowing Relieving factors: nothing Associated symptoms: sore throat, cough and ear pain Treatments prior to arrival: none Related Data Home Medications ?Medication ?Instructions ?Recorded ?Confirmed quetiapine 25 mg tablet 25 mg PO BEDTIME 03/08/20 11/12/23 topiramate 25 mg sprinkle capsule 25 mg PO DAILY 12/07/20 11/12/23 clonazepam 1 mg tablet 1 mg PO BEDTIME PRN 07/11/23 11/12/23 Previous Rx's ?Medication ?Instructions ?Recorded comp.stocking,knee,long,medium #2 ea 02/16/20 qerzscorog-eoxqkefhjhxcp-ezjdylba 1 cap PO Q6H PRN pain 4 days #16 04/05/21 50 mg-325 mg-40 mg capsule caps hydroxyzine HCl 25 mg tablet 25 mg PO TID 7 days #21 tabs 05/18/21 loratadine 10 mg tablet (Allergy 10 mg PO DAILY 90 days #90 tabs 08/18/21 Relief (loratadine)) methyl salicylate 30 %-menthol 10 1 appl topical TID 30 days #85 10/27/21 % topical cream (Icy Hot) grams gabapentin 300 mg capsule 300 mg PO BEDTIME #30 caps 02/16/22 back brace #1 ea 04/03/22 meloxicam 15 mg tablet 15 mg PO DAILY PRN pain 30 days 04/07/22 #30 tabs naproxen 500 mg tablet 500 mg PO BID PRN pain #30 tabs 05/03/22 alcohol swabs (Alcohol Prep Pads) 1 pad topical DAILY 90 days #100 ea 03/13/23 albuterol sulfate 90 mcg/actuation 2 puff inhalation Q4-6H PRN 07/25/22 aerosol inhaler (Ventolin HFA) shortness of breath or wheezing #6.7 grams pen needle, diabetic 33 gauge x #100 ea 08/09/2204/26 Lactobacillus rhamnosus GG 15 1 cap PO DAILY 30 days #30 caps 08/14/22 billion cell sprinkle capsule (Culturelle) clotrimazole 1 % vaginal cream 1 appful vaginal BEDTIME 7 days 01/09/23 #45 grams sennosides 8.6 mg tablet (senna) 17.2 mg (2 x 8.6 mg) PO BEDTIME 04/30/23 #180 tabs acetic acid 2 % ear solution 3 drp otic (ear) left TID 30 days 05/15/23 #15 mL bepotastine besilate 1.5 % eye 1 drp ophthalmic (eye) BID PRN eye 05/15/23 drops (Bepreve) irritation 30 days #10 mL hydrocortisone valerate 0.2 % 1 appl topical BID skin irritation 05/15/23 topical cream 10 days #45 grams ketoconazole 2 % shampoo 1 appl topical 2XW 30 days #120 mL 05/15/23 olopatadine 0.2 % eye drops 1 drp ophthalmic (eye) DAILY 30 05/15/23 days #2.5 mL multivitamin (Daily-Dionisio tablet) 1 tab PO DAILY #90 tabs 07/11/23 lancets 28 gauge (FreeStyle #100 ea 09/24/23 Lancets) mederma #1 ea 10/15/23 diclofenac sodium 1 % topical gel 2 g topical QID #100 grams 10/18/23 (Voltaren Arthritis Pain) lidocaine 5 % topical patch 1 patch topical DAILY 30 days #30 11/07/23 ea polyethylene glycol 3350 17 gram 17 g PO DAILY PRN Constipation 30 11/07/23 oral powder packet (Miralax) days #30 ea sumatriptan succinate 25 mg tablet See Rx Instructions PO .COMPLEX 30 11/07/23 days #9 tabs acetaminophen 500 mg tablet 500 mg PO Q6H PRN fever 30 days 11/28/23 #120 tabs montelukast 10 mg tablet 10 mg PO DAILY 90 days #90 tabs 12/30/23 cholecalciferol (vitamin D3) 25 25 mcg PO DAILY 90 days #90 tabs 01/14/24 mcg (1,000 unit) tablet hydrochlorothiazide 12.5 mg capsule 12.5 mg PO DAILY 90 days #90 caps 01/14/24 metformin 500 mg tablet 500 mg PO DAILY 90 days #90 tabs 01/14/24 blood sugar diagnostic (OneTouch #100 ea 01/18/24 Verio test strips) blood-glucose meter (OneTouch #1 ea 01/18/24 Verio Flex Meter) aluminum-mag hydroxide-simethicone 10 ml PO QID PRN indigestion #355 01/21/24 200 mg-200 mg-20 mg/5 mL oral susp mL (Maalox Advanced) blood sugar diagnostic (FreeStyle #100 ea 01/21/24 Test strips) blood-glucose meter (FreeStyle #1 ea 01/21/24 Lite Meter kit) miconazole nitrate 2 % vaginal 1 appful vaginal BEDTIME 7 days 02/05/24 cream #45 grams omeprazole 40 mg capsule,delayed 40 mg PO DAILY 90 days #90 caps 03/03/24 release fluoxetine 40 mg capsule 40 mg PO DAILY 90 days #90 caps 03/05/24 fluticasone propionate 50 2 spray intranasal BID #16 grams 03/10/24 mcg/actuation nasal spray,suspension atorvastatin 40 mg tablet 40 mg PO DAILY 90 days #90 tabs 03/11/24 Allergies Allergy/AdvReac Type Severity Reaction Status Date / Time No Known Allergies Allergy Verified 03/21/24 07:42 [No Known Allergies*] Review of Systems Review of Systems: Constitutional : No Fever, No Chills ENT/Mouth : No Hoarseness, pos sore throat, No Rhinorrhea, pos ear pain Eyes: No Redness, No Discharge, No Vision Changes Cardiovascular : No Chest Pain, no SOB Respiratory : positive Cough, No Sputum, no Wheezing, Gastrointestinal : No Nausea, No Vomiting, No Diarrhea, No abdominal Pain Genitourinary : No Dysuria, No Hematuria Musculoskeletal : No joint pain, No Myalgias Skin : No rash Neuro : No Weakness, No Numbness, No Headache All other systems reviewed and are negative PMFSH Past Medical History Attestation statement: The following information was validated with the patient. Source: old records reviewed Medical History DMII (diabetes mellitus, type 2) COVID-19 Lumbar radiculopathy Asthma Gross hematuria Migraines Myofascial pain HLD (hyperlipidemia) HTN (hypertension) Surgical History History of esophagogastroduodenoscopy (EGD) Hx of colonoscopy History of tubal ligation Family History Family History Father No problems noted. Mother No problems noted. Sister Breast cancer Brother Prediabetes Daughter Liver problem Other Gross hematuria Social History Social History Housing: House Alcohol intake: never Patient Tobacco Use Status: Never used Tobacco e-Cigarette/Vaping Use: Never Used Second Hand Smoke Exposure: No Advance Directives: No Advance Directives Information Provided: No Do you have a plan to hurt others: No Plan service: No Current occupational status: retired Cognitive needs: No Hearing needs: No Vision needs: Yes Physical Exam Vital Signs: Vital Signs: Last Vital Signs Temp 97.5 F 03/21/24 07:41 Pulse 63 03/21/24 07:41 Resp 16 03/21/24 07:41 BP 126/53 L 03/21/24 07:41 Pulse Ox 97 03/21/24 07:41 O2 Del Method Room Air 03/21/24 07:41 BMI result Body Mass Index 22.4 Appearance: Alert. Oriented X3. No acute distress. Eyes: Pupils equal, round and reactive to light. ENT: Pharynx mod erythma mild tonsil swelling no exudates TMs normal bilaterally Neck: Normal inspection. Neck supple. CVS: Normal heart rate and rhythm. Pulses normal. Respiratory: No respiratory distress. Breath sounds normal. Abdomen: Soft and nontender. Skin: Skin warm and dry. Normal skin color. Normal skin turgor. Extremities: No lower extremity edema. Neuro: Oriented X 3. No motor deficit. No sensory deficit. Medical Decision Making Medical Decision Making MDM Narrative: 63 yo female with PMH of DM, HTN, GERD, sinusitis, migraines here with c/o ear pain, sore throat, cough at this time will obtain viral panel, CXR, strep swab - she is not toxic and not hypoxic. Differential Diagnosis Differential Diagnoses: The differential diagnosis associated with the presentation includes pneumonia, bronchitis, viral syndrome, strep throat Admission/Observation Consideration of admission/observation: Escalation of care including admission/observation considered not toxic, not hypoxic stable for DC Lab Data MDM Lab Attestation statement: I reviewed the patient's lab results. Labs: Lab Results 03/21/24 Range/Units 07:46 Influenza Type A (PCR) NEGATIVE (Negative) Influenza Type B (PCR) NEGATIVE (Negative) RSV RNA Qual (PCR) NEGATIVE (Negative) SARS-CoV-2 RNA (RT-PCR) POSITIVE A (Negative) Independent Interpretation I performed an independent interpretation of an: Plain X-Ray (normal ) Radiology Impression Discussion of test interpretation with radiology: I have reviewed the radiologist's reading. External Record Review External record reviewed: Outpatient record Prescription Management I considered prescription management with: Antibiotic and Other Discharge Plan Discharge Clinical Impression: COVID-19 Patient Disposition: Home, Self-Care Instructions: COVID-19 (Coronavirus Disease 2019) (ED) Additional Instructions: chest xray is normal you have covid - please wear a mask and isolate for the next 3 days return for worsening symptoms, unable to walk to your own bathroom you are so short of breath, chest pain or any other concerns. TECHNIQUE: 2 views of the chest were obtained. FINDINGS: No focal consolidation. No pneumothorax. Trachea is midline. Cardiac mediastinal silhouette is not enlarged. No large pleural effusion. Dextrocurvature of the thoracolumbar spine. Soft tissues are unremarkable. XR/XR chest 2V IMPRESSION: 1. No acute cardiopulmonary process. 2. Dextrocurvature of the thoracolumbar spine. Prescriptions: No Action (DME) comp.stocking,knee,long,medium Misc See Rx Instructions .ROUTE .MEDSUPPLY Qty: 2 0RF Rx Instructions: As directed quetiapine 25 mg tablet 25 mg PO BEDTIME hydroxyzine HCl 25 mg tablet 25 mg PO TID 7 Days Qty: 21 0RF Rx Instructions: Advised to hold clonazepam and loratadine. loratadine [Allergy Relief (loratadine)] 10 mg tablet 10 mg PO DAILY 90 Days Qty: 90 2RF Icy Hot 30-10 % cream 1 appl topical TID 30 Days Qty: 85 0RF (DME) back brace Misc See Rx Instructions .Route Qty: 1 0RF Rx Instructions: As directed naproxen 500 mg tablet 500 mg PO BID PRN (Reason: pain) Qty: 30 0RF Rx Instructions: Take with food alcohol swabs [Alcohol Prep Pads] Pads, Medicated 1 pad topical DAILY 90 Days Qty: 100 2RF albuterol sulfate [Ventolin HFA] 90 mcg/actuation HFA aerosol inhaler 2 puff inhalation Q4-6H PRN (Reason: shortness of breath or wheezing) Qty: 6.7 3RF (DME) pen needle, diabetic 33 gauge x 1/4 needle See Rx Instructions .Route Qty: 100 0RF Rx Instructions: once per day sennosides [senna] 8.6 mg tablet 17.2 mg PO BEDTIME Qty: 180 0RF olopatadine 0.2 % drops 1 drp ophthalmic (eye) DAILY 30 Days Qty: 2.5 0RF acetic acid 2 % solution 3 drp otic (ear) left TID 30 Days Qty: 15 0RF Rx Instructions: apply to (cotton) wick; replace wick every 24 hours bepotastine besilate [Bepreve] 1.5 % drops 1 drp ophthalmic (eye) BID PRN (Reason: eye irritation) 30 Days Qty: 10 2RF hydrocortisone valerate 0.2 % cream 1 appl topical BID 10 Days Qty: 45 0RF ketoconazole 2 % shampoo 1 appl topical 2XW 30 Days Qty: 120 0RF (DME) lancets [FreeStyle Lancets] 28 gauge misc See Rx Instructions .ROUTE .MEDSUPPLY Qty: 100 3RF Rx Instructions: As directed (DME) mederma See Rx Instructions .Route .MEDSUPPLY Qty: 1 3RF Rx Instructions: As directed diclofenac sodium [Voltaren Arthritis Pain] 1 % gel 2 g topical QID Qty: 100 0RF Rx Instructions: apply to single elbow, wrist or hand; for hand includes palm/fingers/back of hand sumatriptan succinate 25 mg tablet See Rx Instructions PO .COMPLEX 30 Days Qty: 9 6RF Rx Instructions: take 1 tab at onset of headache; if no relief may repeat 1 tab after at least 2 hrs; max = 4 tabs/24 hr PO polyethylene glycol 3350 [Miralax] 17 gram powder in packet 17 g PO DAILY PRN (Reason: Constipation) 30 Days Qty: 30 2RF Rx Instructions: Makes 17 g packet in to 8 oz of water and drink daily lidocaine 5 % adhesive patch,medicated 1 patch topical DAILY 30 Days Qty: 30 6RF Rx Instructions: leave on most painful area for up to 12 hrs acetaminophen 500 mg tablet 500 mg PO Q6H PRN (Reason: fever) 30 Days Qty: 120 0RF montelukast 10 mg tablet 10 mg PO DAILY 90 Days Qty: 90 1RF cholecalciferol (vitamin D3) 25 mcg (1,000 unit) tablet 25 mcg PO DAILY 90 Days Qty: 90 3RF hydrochlorothiazide 12.5 mg capsule 12.5 mg PO DAILY 90 Days Qty: 90 3RF metformin 500 mg tablet 500 mg PO DAILY 90 Days Qty: 90 3RF (DME) OneTouch Verio test strips Strip See Rx Instructions .Route Qty: 100 0RF Rx Instructions: Tests once a day as needed (DME) blood-glucose meter [OneTouch Verio Flex meter] [facility] [place] See Rx Instructions .Route Qty: 1 0RF Rx Instructions: As directed alum-mag hydroxide-simeth [Maalox Advanced] 200-200-20 mg/5 mL suspension 10 ml PO QID PRN (Reason: indigestion) Qty: 355 0RF Rx Instructions: administer between meals and at bedtime (DME) FreeStyle Test Strip See Rx Instructions .Route Qty: 100 1RF Rx Instructions: Testing once a day as needed (DME) blood-glucose meter [FreeStyle Lite Meter] Kit See Rx Instructions .Route Qty: 1 0RF Rx Instructions: Testing once a day as needed miconazole nitrate 2 % cream 1 appful vaginal BEDTIME 7 Days Qty: 45 2RF omeprazole 40 mg capsule,delayed release(DR/EC) 40 mg PO DAILY 90 Days Qty: 90 1RF fluoxetine 40 mg capsule 40 mg PO DAILY 90 Days Qty: 90 3RF fluticasone propionate 50 mcg/actuation spray,suspension 2 spray intranasal BID Qty: 16 1RF atorvastatin 40 mg tablet 40 mg PO DAILY 90 Days Qty: 90 1RF gabapentin 300 mg capsule 300 mg PO BEDTIME Qty: 30 0RF fhtunigovu-uztntcfbjjfgr-rybx 50-325-40 mg capsule 1 cap PO Q6H PRN (Reason: pain) 4 Days Qty: 16 0RF Culturelle 15 billion cell capsule, sprinkle 1 cap PO DAILY 30 Days Qty: 30 3RF clotrimazole 1 % cream 1 appful vaginal BEDTIME 7 Days Qty: 45 0RF clonazepam 1 mg tablet 1 mg PO BEDTIME PRN multivitamin [Daily-Dionisio] Tablet 1 tab PO DAILY Qty: 90 4RF topiramate 25 mg capsule, sprinkle 25 mg PO DAILY meloxicam 15 mg tablet 15 mg PO DAILY PRN (Reason: pain) 30 Days Qty: 30 0RF Rx Instructions: Take it with food and full glass of water. Avoid other NSAIDs. Stand Alone Forms: Work/School Release Print Language: Swiss
[2024-03-21 08:35] LABS: Influenza A PCR NEGATIVE (Negative); Influenza B PCR NEGATIVE (Negative); Resp Syncy Virus RNA Qual PCR NEGATIVE (Negative); SARS COV2 PCR INHOUSE POSITIVE (Negative)
[2024-03-21 09:52] LABS: IDNOW Serial# 08D9AD1C; Strep A Nucleic Acid Negative (Negative)
[2024-03-21 10:01] VITALS: BP 109/60; PULSE 58; RESP 18; TEMP 36.6
== END 2024-03-21 10:02 | disposition home or self-care (01) ==
PROVIDERS: Emergency Provider Emergency Medicine; PCP Physician Assistant
DX: U07.1 COVID-19 (principal); J02.9 Acute pharyngitis, unspecified; R05.9 Cough, unspecified; R50.9 Fever, unspecified; H92.03 Otalgia, bilateral
CPT/HCPCS: 0241U; 71046; 87651; 99282; 99283

== ENCOUNTER 2024-05-01 08:20 | Outpatient (AMB) | payer MEDICARE, SELFPAY ==
[2024-05-01 08:40] VITALS: BP 120/62; PULSE 78; O2SAT 98; BMI 22.7
--- NOTE | 2024-05-01 08:40 | A.OFFPC_ITS ---
Vital Signs 05/01/24 08:40 Height 5 ft Weight 116 lb BMI 22.7 BP 120/62 Blood Pressure Location Lt brachial Position Sitting Pulse 78 Pulse Source Pulse Oximeter Pulse Oximetry (%) 98 Oxygen Delivery Method Room Air Intake Visit Reasons: follow up Allergies No Known Allergies [No Known Allergies*] Allergy (Verified 05/01/24 08:51) Medication List - Last Reconciled 05/01/24 by Juan R Ramirez PA-C acetaminophen 500 mg PO Q6H PRN 30 days acetic acid 2% 3 drps otic (ear) left TID 30 days albuterol sulfate 90 mcg/actuation (Ventolin HFA) 2 puffs inhalation Q4-6H PRN alcohol swabs (Alcohol Prep Pads) 1 pad topical DAILY 90 days alum-mag hydroxide-simeth 200-200-20 mg/5 mL (Maalox Advanced) 10 mL PO QID PRN atorvastatin 40 mg PO DAILY 90 days back brace As directed bepotastine besilate 1.5% (Bepreve) 1 drp ophthalmic (eye) BID PRN 30 days blood sugar diagnostic (FreeStyle Test strips) Testing once a day as needed blood sugar diagnostic (OneTouch Verio test strips) Tests once a day as needed blood-glucose meter (OneTouch Verio Flex Meter) As directed blood-glucose meter (FreeStyle Lite Meter kit) Testing once a day as needed buylfalbkc-plzlvfwhrmetz-brpn 50-325-40 mg 1 cap PO Q6H PRN 4 days cholecalciferol (vitamin D3) 25 mcg PO DAILY 90 days clonazepam 1 mg PO BEDTIME PRN clotrimazole 1% 1 appful vaginal BEDTIME 7 days comp.stocking,knee,long,medium As directed diclofenac sodium 1% (Voltaren Arthritis Pain) 2 grams topical QID fluoxetine 40 mg PO DAILY 90 days fluticasone propionate 50 mcg/actuation 2 sprays intranasal BID gabapentin 300 mg PO BEDTIME hydrochlorothiazide 12.5 mg PO DAILY 90 days hydrocortisone valerate 0.2% 1 appl topical BID 10 days hydroxyzine HCl 25 mg PO TID 7 days ketoconazole 2% 1 appl topical 2XW 30 days Lactobacillus rhamnosus GG (Culturelle) 1 cap PO DAILY 30 days lancets (FreeStyle Lancets) As directed lidocaine 5% 1 patch topical DAILY 30 days loratadine (Allergy Relief (loratadine)) 10 mg PO DAILY 90 days [mederma As directed] meloxicam 15 mg PO DAILY PRN 30 days metformin 500 mg PO DAILY 90 days methyl salicylate-menthol 30-10 % (Icy Hot) 1 appl topical TID 30 days miconazole nitrate 2% 1 appful vaginal BEDTIME 7 days montelukast 10 mg PO DAILY 90 days multivitamin (Daily-Dionisio tablet) 1 tab PO DAILY naproxen 500 mg PO BID PRN olopatadine 0.2% 1 drp ophthalmic (eye) DAILY 30 days omega 5-izg-kes-fish oil 60-90-500 mg (Fish Oil) 1 cap PO BID 90 days omeprazole 40 mg PO DAILY 90 days pen needle, diabetic once per day polyethylene glycol 3350 (Miralax) 17 grams PO DAILY PRN 30 days quetiapine 25 mg PO BEDTIME sennosides (senna) 17.2 mg (2 x 8.6 mg) PO BEDTIME sumatriptan succinate take 1 tab at onset of headache; if no relief may repeat 1 tab after at least 2 hrs; max = 4 tabs/24 hr PO 30 days topiramate 25 mg PO DAILY Tobacco use date assessed: 05/01/24 Fall risk assessment: No Falls in past year Last assessed Fall Risk: 05/01/24 Dental Screening Dental Screen Date: 05/01/24 Did you have a dental visit in the last 12 months?: Yes Did you have a dental problem in the last 6 months where you did not have access to dental care?: No Was dental information given to patient?: Patient has dentist HPI follow up HPI Details Patient is a 63-year-old female here today for a follow-up visit patient has a past medical history significant for hypertension, hyperlipidemia, impaired glucose metabolism anxiety, chronic allergies, fibromyalgia, lumbar disc disease. .. CHRONIC MEDICAL CONDITIONS--> ? .. ?Type 2 diabetes: Todays A1c- 6.7 from 6.6. She reports she has been trying to follow a diabetic diet and she is very physically active. ?Continues on metformin. CHRONIC MEDICAL CONDITIONS--> ? Anxiety: . Patient is followed by a psych provider and is taking clonazepam, fluoxetine and zolpidem 5 mg on a p.r.n. basis. .. GERD: She uses omeprazole on a p.r.n. basis for her GERD symptoms which helps tremendously reducing her heartburn. ? .. ? Hypertension: Patient's blood pressure acceptable today here in office, patient denies any chest pain, shortness of breath, dizziness. ? .. ? Hyperlipidemia: Most recent lipid panel showing elevated total cholesterol and LDL. Her atorvastatin was increased to 40 mg. Recheck lipid panel to ensure normal LDL. Goal LDL to be below 100 . Laboratory Tests 07/07/23 10/10/23 03/08/24 07:14 06:30 07:47 RBC 4.06 L Hgb 11.6 L Fasting Glucose 136 H 118 H Hemoglobin A1c % 6.6 H Cholesterol 229 H LDL Cholesterol, C alc 89 142 H Urine Microalbumin 23.0 PFSH Medical History DMII (diabetes mellitus, type 2) COVID-19 Lumbar radiculopathy Asthma Gross hematuria Migraines Myofascial pain HLD (hyperlipidemia) HTN (hypertension) Surgical History History of esophagogastroduodenoscopy (EGD) Hx of colonoscopy History of tubal ligation Family History Father No problems noted. Mother No problems noted. Sister Breast cancer Brother Prediabetes Daughter Liver problem Other Gross hematuria Social History Housing: House Alcohol intake: never Patient Tobacco Use Status: Never used Tobacco Tobacco use type: Cigarette e-Cigarette/Vaping Use: Never Used Second Hand Smoke Exposure: No service: No Current occupational status: retired Cognitive needs: No Hearing needs: No Vision needs: Yes Questionnaire PHQ-9 Over the last 2 weeks, how often have you been bothered by any of the following problems? 1. Little interest or pleasure in doing things: not at all 2. Feeling down, depressed, or hopeless: not at all 3. Trouble falling or staying asleep, or sleeping too much: not at all 4. Feeling tired or having little energy: not at all 5. Poor appetite or overeating: not at all 6. Feeling bad about yourself - or that you are a failure or have let yourself or your family down: not at all 7. Trouble concentrating on things, such as reading the newspaper or watching television: not at all 8. Moving or speaking so slowly that other people could have noticed. Or the opposite - being so fidgety or restless that you have been moving around a lot more than usual: not at all 9. Thoughts that you would be better off or of hurting yourself in some way: not at all Total score: 0 Depression Screening Interpretation: Negative Depression Screening Done: Yes 15834 - PHQ-9 Billing: Yes Source: Developed by Drs. Samm Carr, Tiffanie Carr, Vivek Harper and colleagues, with an educational fariba from [employer]. Thrive Questionnaire Date Thrive assessed: 05/01/24 I am a: Patient What is your living situation today?: I have a steady place to live Within the past 12 months, did the food you bought not last and you didn't have the money to get more?: Never true Within the past 12 months, did you worry whether your food would run out before you got money to buy more?: Never true Do you have trouble paying for medicines?: No Do you have trouble getting transportation to medical appointments?: No Do you have trouble paying your heating and electricity bill?: No Do you have trouble taking care of your child, family member or friend?: No Do you have trouble with day-to-day activities such as bathing, preparing meals, shopping, managing finances, etc.?: No Are you currently unemployed and looking for a job?: No Are you interested in more education?: No Currently or been in a relationship where the following occur: No concerns reported THRIVE Score: 0 AUDIT C Alcohol Use Questionnaire (AUDIT-C) 1. How often do you have a drink containing alcohol?: Never 3. How often do you have six or more drinks on one occasion?: Never Total Score: 0 Score Reviewed/Action Taken: No JOSE-7 AMB Questionnaire JOSE-7 Date JOSE - 7 assessed: 05/01/24 Feeling nervous, anxious, or on edge: 0 = Not at all Not being able to stop or control worryin = Not at all Worrying too much about different things: 0 = Not at all Trouble relaxin = Not at all Being so restless that it is hard to sit still: 0 = Not at all Becoming easily annoyed or irritable: 0 = Not at all Feeling afraid as if something awful might happen: 0 = Not at all Total JOSE-7 score (0-4 normal; 5-9 mild; 10-14 moderate; 15-21 severe): 0 Source: Developed by Drs. Samm Carr, Tiffanie Carr, Vivek Harper and colleagues, with an educational fariba from [employer]. Review of Systems Const Denies headache(s) Eyes Denies loss of vision ENT Denies vertigo, Denies dizziness, Denies headache(s) and Denies sore throat Card Denies chest pain, Denies leg edema and Denies lightheadedness Resp Denies cough, Denies hemoptysis and Denies wheezing GI Denies abdominal pain, Denies melena, Denies constipation, Denies diarrhea and Denies vomiting Denies urinary frequency, Denies dysuria and Denies urinary urgency Musc Denies arthralgias, Denies joint swelling, Denies numbness and Denies tingling Neuro Denies Abnormal speech present, Denies behavioral changes, Denies vertigo, Denies dizziness, Denies headache(s), Denies loss of vision, Denies memory loss, Denies numbness and Denies tingling Psych Denies anxiety, Denies behavioral changes, Denies depression, Denies memory loss and Denies panic attacks Herman/Lymph Denies easy bleeding and Denies easy bruising Aller/Immun Denies wheezing Physical exam (Primary Care) Vital Signs: Last Vital Signs Pulse 78 05/01/24 08:40 BP 120/62 05/01/24 08:40 Pulse Ox 98 05/01/24 08:40 Oxygen Delivery Method Room Air 05/01/24 08:40 BMI result Body Mass Index 22.7 Tobacco/Smoking Status: Tobacco use Status Tobacco use date assessed 05/01/24 05/01/24 08:42 Patient Tobacco Use Status Never used Tobacco 05/01/24 08:42 Tobacco use type Cigarette 05/01/24 08:42 e-Cigarette/Vaping Use Never Used 05/01/24 08:42 PHQ-9: PHQ-9 Score PHQ-9: Total score 0 05/01/24 08:53 Depression Screening Interpretation: Negative Thrive Assessment: Date of Thrive Assessment Date Thrive assessed 05/01/24 05/01/24 08:42 Currently or been in a relationship where the following occur: No concerns reported Const General: healthy appearing, no acute distress, alert and awake Nutritional Appearance: well nourished Orientation/consciousness: oriented to person, oriented to place and oriented to time HENMT Ears: TM's normal bilaterally General nose exam: Normal nasal mucous membranes and turbinates present Eyes Conjunctivae: conjunctivae normal Sclerae: sclerae normal Pupils: Equal, round and reactive pupils present Neck Neck: Yes no lymphadenopathy and Yes no JVD Thyroid: Thyroid normal Carotids: no bruits Resp Effort & Inspection: normal respiratory effort and not tachypneic Auscultation: no crackles, no rales, no rhonchi and no wheezes Cardio Rate: regular rate Rhythm: regular rhythm Heart sounds: no murmurs and normal S1 and S2 GI Palpation (GI): Soft to palpation, nontender, no hepatomegaly and no splenomegaly Auscultation: normal bowel sounds Skin General skin exam: no rashes or lesions noted and dry skin Neuro General: oriented to person, oriented to place and oriented to time Cranial nerves: Yes Equal, round and reactive pupils present Speech: No Abnormal speech present Gait exam (Neuro): Normal gait present Motor exam (neuro): no tremor noted Extrem Right upper extremity: full ROM Left upper extremity: full ROM Right lower extremity: full ROM; no edema Left lower extremity: full ROM; no edema Psych Mental Status: mental status grossly normal Speech and movement: Normal speech and movement present Affect: normal affect Attitude: cooperative Thought process: Normal thought process present Results AMB Hemoglobin A1c AMB Hemoglobin A1c 6.7 % Last Edit by Marilyn Daniel CMA on 05/01/24 08 :54 Results Reviewed Results Reviewed: Laboratory Last Values Hgb A1c (Clinic) 6.7 % (4.0-6.0) H 05/01/24 08:42 Coding Level of Care Code Est Pt Level 4 (34223) Diagnoses Type 2 diabetes mellitus without complication, without long-term current use of insulin E11.9 Diabetes mellitus complication status: without complication Diabetes mellitus detention insulin use: without detention use Pure hypertriglyceridemia E78.1 Hyperlipidemia type: pure hypertriglyceridemia Essential hypertension I10 Hypertension type: essential hypertension Additional Codes PHQ-9 - 59886 - PHQ-9 Billing: Yes ([id number]) Assessment & Plan Assessment & Plan (1) DMII (diabetes mellitus, type 2): Code(s): E11.9 - Type 2 diabetes mellitus without complications Category: Medical Qualifiers: Diabetes mellitus complication status: without complication Diabetes mellitus tappet adjuster insulin use: without tappet adjuster use Qualified Code(s): E11.9 - Type 2 diabetes mellitus without complications Plan: Patient's type 2 diabetes well controlled with current metformin. She will continue working on dietary modifications. Goal A1c is to be below 6.5 (2) HLD (hyperlipidemia): Code(s): E78.5 - Hyperlipidemia, unspecified Category: Medical Qualifiers: Hyperlipidemia type: pure hypertriglyceridemia Qualified Code(s): E78.1 - Pure hyperglyceridemia Plan: Most recent fasting lipid panel showing borderline high cholesterol and elevated LDL. Her atorvastatin was increased to 40 mg. Will recheck fasting lipid panel to ensure normal LDL (3) HTN (hypertension): Code(s): I10 - Essential (primary) hypertension Category: Medical Qualifiers: Hypertension type: essential hypertension Qualified Code(s): I10 - Essential (primary) hypertension Plan: Patient's blood pressure acceptable today in office. Will continue her current antihypertensive medication with goal blood pressure to remain below 140/90 Orders: Orders AMB Hemoglobin A1c Today Z13.9 - Encounter for screening, unspecified Comprehensive [employer] Panel Fast Today E11.9 - Type 2 diabetes mellitus without complications Microalbumin, Random (w Creat) Today E11.9 - Type 2 diabetes mellitus without complications Complete Blood Count no Diff Today E11.9 - Type 2 diabetes mellitus without complications Lipid Panel Today E78.1 - Pure hyperglyceridemia Medications: Changed From metformin 500 mg PO DAILY 90 days 90 tabs 3RF E11.9 - Type 2 diabetes mellitus without complications To metformin 500 mg PO BID 90 days 180 tabs 3RF E11.9 - Type 2 diabetes mellitus without complications Patient Instructions: Goal: Blood pressure to remain below 140/90, A1c to be below 6.5 LDL to be below 100 Barriers: Adherence to physical activity and healthy eating habits
== END 2024-05-01 09:21 | disposition home or self-care (01) ==
PROVIDERS: PCP Physician Assistant; Visit Provider Physician Assistant
DX: E11.9 Type 2 diabetes mellitus without complications (principal); E78.1 Pure hyperglyceridemia; I10 Essential (primary) hypertension; Z13.9 Encounter for screening, unspecified

== ENCOUNTER → 2024-05-01 08:20 | Outpatient (BNVA) | payer MEDICARE, SELFPAY | PROVIDERS: PCP Physician Assistant; Visit Provider Physician Assistant | DX: E11.9 Type 2 diabetes mellitus without complications (principal); E78.1 Pure hyperglyceridemia; I10 Essential (primary) hypertension | CPT/HCPCS: 83036; 96127; 99212 ==

== ENCOUNTER 2024-07-05 07:39 | Outpatient (REF) | payer MEDICARE, SELFPAY ==
[2024-07-05 08:30] LABS: Hematocrit 33.8 % (37.0-47.0); Mean Corpuscular HGB Conc 32.5 g/dl (31.0-35.0); Mean Corpuscular Hemoglobin 28.4 pg (27.0-33.0); Mean Corpuscular Volume 87.3 fL (80.0-98.0); Mean Platelet Volume 9.6 fL (9.4-12.3); Platelet Count 268 X10*3/uL (160-400); Red Blood Count 3.87 X10*6/uL (4.20-5.50); Red Cell Distribution Width 12.9 % (11.0-16.0); White Blood Count 5.1 X10*3/uL (4.8-10.8)
[2024-07-05 09:08] LABS: Creatinine Urine 169.58 mg/dL; Microalbum/Creatinine Ratio Ur 4.1 ug/mg cr (<30)
[2024-07-05 09:12] LABS: Alanine Aminotransferase 34 U/L (0-31); Albumin Level 4.1 g/dL (3.5-5.0); Alkaline Phosphatase 87 U/L (39-117); Anion Gap 13 (12-20); Aspartate Amino Transferase 32 U/L (5-31); Bilirubin Total 0.5 mg/dL (0.0-1.0); Blood Urea Nitrogen 25 mg/dL (9-16); Calcium 9.2 mg/dL (8.4-10.2); Carbon Dioxide 28 mmol/L (22-29); Chloride 104 mmol/L (96-108); Cholesterol 159 mg/dL (<200); Estimated Glomerular Filt Rate 53; Glucose Fasting 114 mg/dL (60-99); HDL Cholesterol 47 mg/dL (>40); LDL Cholesterol Calculated 90 mg/dL (<100); Potassium 3.9 mmol/L (3.3-5.1); Sodium 141 mmol/L (135-145); Total Protein 7.9 g/dL (6.5-8.0); Triglycerides 110 mg/dL (<150)
== END 2024-07-05 07:40 | disposition home or self-care (01) ==
LOC: HO.LAB 07:39
PROVIDERS: PCP Physician Assistant; Visit Provider Physician Assistant
DX: E11.9 Type 2 diabetes mellitus without complications (principal); E78.1 Pure hyperglyceridemia
CPT/HCPCS: 36415; 80053; 80061; 82043; 82570; 85027

== ENCOUNTER 2024-07-15 08:58 | Outpatient (AMB) | payer MEDICARE, SELFPAY ==
[2024-07-15 09:08] VITALS: BP 104/70; PULSE 66; TEMP 36.3; O2SAT 99; BMI 22.2
--- NOTE | 2024-07-15 09:08 | A.OFFPC_ITS ---
Vital Signs 07/15/24 09:08 Height 5 ft Weight 113 lb 8 oz BMI 22.2 BP 104/70 Blood Pressure Location Lt brachial Position Sitting Pulse 66 Pulse Source Pulse Oximeter Temp 97.3 F Temp Source Temporal Artery Scan Pulse Oximetry (%) 99 Oxygen Delivery Method Room Air Intake Visit Reasons: Annual Exam Intake Note: Patient is here today for a physical. 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 Name: used tablet-ID # [id number] Accompanied by: Self / Same As Patient Allergies No Known Allergies [No Known Allergies*] Allergy (Verified 05/01/24 08:51) Medication List - Last Reconciled 07/15/24 by Juan R Ramirez PA-C acetaminophen 500 mg PO Q6H PRN 30 days acetic acid 2% 3 drps otic (ear) left TID 30 days albuterol sulfate 90 mcg/actuation (Ventolin HFA) 2 puffs inhalation Q4-6H PRN alcohol swabs (Alcohol Prep Pads) 1 pad topical DAILY 90 days alum-mag hydroxide-simeth 200-200-20 mg/5 mL (Maalox Advanced) 10 mL PO QID PRN ascorbate calcium (vitamin C) 500 mg PO DAILY 90 days atorvastatin 40 mg PO DAILY 90 days back brace As directed bepotastine besilate 1.5% (Bepreve) 1 drp ophthalmic (eye) BID PRN 30 days blood sugar diagnostic (FreeStyle Test strips) Testing once a day as needed blood sugar diagnostic (OneTouch Verio test strips) Tests once a day as needed blood-glucose meter (OneTouch Verio Flex Meter) As directed blood-glucose meter (FreeStyle Lite Meter kit) Testing once a day as needed dhmpuinbbx-uqifwdsmvvdic-rhbe 50-325-40 mg 1 cap PO Q6H PRN 4 days cholecalciferol (vitamin D3) 25 mcg PO DAILY 90 days clonazepam 1 mg PO BEDTIME PRN clotrimazole 1% 1 appful vaginal BEDTIME 7 days comp.stocking,knee,long,medium As directed diclofenac sodium 1% (Voltaren Arthritis Pain) 2 grams topical QID fluoxetine 40 mg PO DAILY 90 days fluticasone propionate 50 mcg/actuation 2 sprays intranasal BID gabapentin 300 mg PO BEDTIME hydrochlorothiazide 12.5 mg PO DAILY 90 days hydroxyzine HCl 25 mg PO TID 7 days ketoconazole 2% 1 appl topical 2XW 30 days Lactobacillus rhamnosus GG (Culturelle) 1 cap PO DAILY 30 days lancets (FreeStyle Lancets) As directed lidocaine 5% 1 patch topical DAILY 30 days loratadine (Allergy Relief (loratadine)) 10 mg PO DAILY 90 days [mederma As directed] meloxicam 15 mg PO DAILY PRN 30 days metformin 500 mg PO BID 90 days methyl salicylate-menthol 30-10 % (Icy Hot) 1 appl topical TID 30 days miconazole nitrate 2% 1 appful vaginal BEDTIME 7 days montelukast 10 mg PO DAILY 90 days multivitamin (Daily-Dionisio tablet) 1 tab PO DAILY naproxen 500 mg PO BID PRN olopatadine 0.2% 1 drp ophthalmic (eye) DAILY 30 days omega 5-lvx-kep-fish oil 60-90-500 mg (Fish Oil) 1 cap PO BID 90 days omeprazole 40 mg PO DAILY 90 days pen needle, diabetic once per day polyethylene glycol 3350 (Miralax) 17 grams PO DAILY PRN 30 days quetiapine 25 mg PO BEDTIME sennosides (senna) 17.2 mg (2 x 8.6 mg) PO BEDTIME sumatriptan succinate take 1 tab at onset of headache; if no relief may repeat 1 tab after at least 2 hrs; max = 4 tabs/24 hr PO 30 days topiramate 25 mg PO DAILY triamcinolone acetonide 0.1% 1 appl topical DAILY PRN 30 days vitamin E (dl, acetate) 180 mg PO DAILY 90 days zolpidem 10 mg PO BEDTIME PRN Tobacco use date assessed: 05/01/24 Fall risk assessment: No Falls in past year Last assessed Fall Risk: 07/15/24 Dental Screening Dental Screen Date: 05/01/24 HPI Annual Exam HPI Details Patient is a 64-year-old female here today for routine annual physical patient has a past medical history significant for hypertension, hyperlipidemia, Type 2 DM, anxiety, chronic allergies, fibromyalgia, lumbar disc disease. .. CHRONIC MEDICAL CONDITIONS--> ? .. ?Type 2 diabetes: Most recent A1c- 6.8 , she continues on metformin 500 b.i.d.. She reports she has been trying to follow a diabetic diet and she is very physically active. ?She continues to work on being more physically active and adapting to diabetic diet ? Anxiety: . Patient is followed by a psych provider and is taking clonazepam, fluoxetine and zolpidem 5 mg on a p.r.n. basis. .. GERD: She uses omeprazole on a p.r.n. basis for her GERD symptoms which helps tremendously reducing her heartburn. ? .. ? Hypertension: Patient's blood pressure acceptable today here in office, patient denies any chest pain, shortness of breath, dizziness. ? .. ? Hyperlipidemia: Most recent lipid panel showing much improved total cholesterol and LDL. Her atorvastatin was previously increased to 40 mg though unfortunately noted slightly elevations in her liver enzymes. Will return back to 20 mg atorvastatin she will continue dietary modifications. Recheck lipid panel to ensure normal LDL. Goal LDL to be below 100 . Colonoscopy : done in 2018 Dr Cheek normal- repeat 10 years . Mammo: Mammogram done in December 2023, BI-RADS 1 .. Vaccine: UTD with tdap, UTD with COVID, UTD flu vac, considering shingles vaccine , needs New PCV-20 PFSH Medical History DMII (diabetes mellitus, type 2) COVID-19 Lumbar radiculopathy Asthma Gross hematuria Migraines Myofascial pain HLD (hyperlipidemia) HTN (hypertension) Surgical History History of esophagogastroduodenoscopy (EGD) Hx of colonoscopy History of tubal ligation Family History Father No problems noted. Mother No problems noted. Sister Breast cancer Brother Prediabetes Daughter Liver problem Other Gross hematuria Social History Housing: House Alcohol intake: never Patient Tobacco Use Status: Never used Tobacco Tobacco use type: Cigarette e-Cigarette/Vaping Use: Never Used Second Hand Smoke Exposure: No service: No Current occupational status: retired Cognitive needs: No Hearing needs: No Vision needs: Yes Questionnaire PHQ-9 Over the last 2 weeks, how often have you been bothered by any of the following problems? 1. Little interest or pleasure in doing things: not at all 2. Feeling down, depressed, or hopeless: not at all 3. Trouble falling or staying asleep, or sleeping too much: not at all 4. Feeling tired or having little energy: not at all 5. Poor appetite or overeating: not at all 6. Feeling bad about yourself - or that you are a failure or have let yourself or your family down: not at all 7. Trouble concentrating on things, such as reading the newspaper or watching television: not at all 8. Moving or speaking so slowly that other people could have noticed. Or the opposite - being so fidgety or restless that you have been moving around a lot more than usual: not at all 9. Thoughts that you would be better off or of hurting yourself in some way: not at all Total score: 0 Depression Screening Interpretation: Negative Depression Screening Done: Yes 04905 - PHQ-9 Billing: Yes Source: Developed by Drs. Samm Carr, Tiffanie Carr, Vivek Harper and colleagues, with an educational fariba from [employer]. Thrive Questionnaire Date Thrive assessed: 07/15/24 I am a: Patient What is your living situation today?: I have a steady place to live Within the past 12 months, did the food you bought not last and you didn't have the money to get more?: Never true Within the past 12 months, did you worry whether your food would run out before you got money to buy more?: Often true Do you have trouble paying for medicines?: No Do you have trouble getting transportation to medical appointments?: No Do you have trouble paying your heating and electricity bill?: No Do you have trouble taking care of your child, family member or friend?: No Do you have trouble with day-to-day activities such as bathing, preparing meals, shopping, managing finances, etc.?: No Are you currently unemployed and looking for a job?: Yes Are you interested in more education?: No Please select the resources that you would like help with: None Currently or been in a relationship where the following occur: No concerns reported THRIVE Score: 1 AUDIT C Alcohol Use Questionnaire (AUDIT-C) 1. How often do you have a drink containing alcohol?: Never 3. How often do you have six or more drinks on one occasion?: Never Total Score: 0 JOSE-7 AMB Questionnaire JOSE-7 Date JOSE - 7 assessed: 07/15/24 Feeling nervous, anxious, or on edge: 1 = Several days Not being able to stop or control worryin = Several days Worrying too much about different things: 1 = Several days Trouble relaxin = Not at all Being so restless that it is hard to sit still: 1 = Several days Becoming easily annoyed or irritable: 0 = Not at all Feeling afraid as if something awful might happen: 0 = Not at all Total JOSE-7 score (0-4 normal; 5-9 mild; 10-14 moderate; 15-21 severe): 4 Source: Developed by Drs. Samm Carr, Tiffanie Carr, Vivek Harper and colleagues, with an educational fariba from [employer]. JOSE-7 Assessment Billing JOSE-7 Assessment Tool: JOSE-7 Assessment 08295 Review of Systems Const Denies body aches, Denies chills, Denies excessive sweating, Denies fatigue, Denies fever(s) and Denies headache(s) Eyes Denies blurry vision ENT Denies dysphagia, Denies vertigo, Denies dizziness, Denies headache(s), Denies hearing loss and Denies tinnitus Card Denies chest pain, Denies chest pain with activity, Denies syncope, Denies irregular heart rhythm and Denies dyspnea Resp Denies chest congestion, Denies cough, Denies hemoptysis, Denies dyspnea and Denies wheezing GI Denies abdominal pain, Denies melena, Denies hematochezia, Denies coffee ground emesis, Denies dysphagia, Denies diarrhea, Denies nausea and Denies vomiting Denies urinary frequency, Denies dysuria, Denies urinary hesitancy and Denies urinary urgency Musc Denies arthralgias, Denies limited range of motion, Denies muscle cramps and Denies muscle weakness Skin/Breast Denies rash and Denies skin ulcer Neuro Denies Abnormal speech present, Denies confusion, Denies vertigo, Denies dizziness, Denies syncope, Denies headache(s), Denies memory loss and Denies seizure-like activity Psych Denies anxiety, Denies confusion, Denies depression, Denies memory loss, Denies panic attacks and Denies paranoia Endo Denies excessive sweating, Denies fatigue, Denies flushing, Denies polydipsia and Denies polyuria Aller/Immun Denies wheezing Physical exam (Primary Care) Vital Signs: Last Vital Signs Temp 97.3 F 07/15/24 09:08 Pulse 66 07/15/24 09:08 BP 104/70 07/15/24 09:08 Pulse Ox 99 07/15/24 09:08 Oxygen Delivery Method Room Air 07/15/24 09:08 BMI result Body Mass Index 22.2 Tobacco/Smoking Status: Tobacco use Status Tobacco use date assessed 05/01/24 07/15/24 09:08 Patient Tobacco Use Status Never used Tobacco 07/15/24 09:08 Tobacco use type Cigarette 07/15/24 09:08 e-Cigarette/Vaping Use Never Used 07/15/24 09:08 PHQ-9: PHQ-9 Score PHQ-9: Total score 0 07/15/24 09:22 Depression Screening Interpretation: Negative Thrive Assessment: Date of Thrive Assessment Date Thrive assessed 07/15/24 07/15/24 09:22 Currently or been in a relationship where the following occur: No concerns reported Const General: cooperative, comfortable, no acute distress, alert and awake; No confusion Orientation/consciousness: oriented to person, oriented to place, patient oriented x3 and No confusion HENMT Head: Yes normocephalic Ears: external ears normal and TM's normal bilaterally Face and sinus: No sinus tenderness Mouth: Normal oral and palatal mucosa present and tongue normal Teeth and gingiva: dentition normal and gingiva normal Throat: Yes posterior oropharynx normal, Yes tonsils normal and Yes uvula midline Eyes Conjunctivae: conjunctivae normal Sclerae: sclerae normal Pupils: Equal, round and reactive pupils present EOM: EOMs intact bilaterally Direct Ophthalmoscopy: No no photophobia Neck Neck: Yes no lymphadenopathy, No tender and Yes no JVD Thyroid: Thyroid normal Carotids: no bruits Chest Chest palpation & inspection: no tenderness Resp Effort & Inspection: normal respiratory effort, no audible wheezes, not labored and no stridor Auscultation: no crackles, no rales, no rhonchi and no wheezes Cardio Jugular venous distension: no JVD Rate: regular rate, not bradycardic and not tachycardic Rhythm: regular rhythm Bruits: no carotid bruits Peripheral pulses: Peripheral pulses 2+ throughout GI Inspection: Yes normal to inspection, No abdominal wall ecchymosis and No visible herniation Palpation (GI): Soft to palpation, nontender, no guarding, not rigid and No hepatosplenomegaly present Auscultation: normoactive bowel sounds General: Yes no CVA tenderness Back/Spine/Pelvis Back: no CVA tenderness and No back tenderness Cervical Spine: cervical ROM normal Thoracic/Lumbar Spine: thoracic and lumbar spine normal to inspection, straight leg raise negative bilaterally, No thoraco-lumbar ROM limited and No lumbar spinal tenderness Skin Lesions: no lesions Rashes: no rashes Wounds: no wounds Neuro General: oriented to person, oriented to place, patient oriented x3, CN's II-XI intact bilaterally and No confusion Cranial nerves: Yes Equal, round and reactive pupils present and Yes Normal accommodation reflex present Cognition (Neuro): normal cognition Speech: No Abnormal speech present Gait exam (Neuro): Normal gait present Motor exam (neuro): 5/5 motor strength present throughout Extrem Right upper extremity: full ROM; no cyanosis Left upper extremity: full ROM; no cyanosis Right lower extremity: no edema Left lower extremity: no edema Psych Appearance: grossly normal Mental Status: mental status grossly normal Affect: normal affect Attitude: cooperative Thought process: Normal thought process present Coding Level of Care Code Est Pt Prev Care >65y(19781) Diagnoses Annual physical exam Z00.00 Type 2 diabetes mellitus without complication, without long-term current use of insulin E11.9 Diabetes mellitus nursing home insulin use: without nursing home use Diabetes mellitus complication status: without complication Pure hypertriglyceridemia E78.1 Hyperlipidemia type: pure hypertriglyceridemia Essential hypertension I10 Hypertension type: essential hypertension Additional Codes JOSE-7 Assessment Billing - JOSE-7 Assessment Tool: JOSE-7 Assessment 28015 ([id number]) PHQ-9 - 48591 - PHQ-9 Billing: Yes ([id number]) Assessment & Plan Assessment & Plan (1) Annual physical exam: Code(s): Z00.00 - Encounter for general adult medical examination without abnormal fin dings Category: Medical Plan: As per HPI (2) DMII (diabetes mellitus, type 2): Code(s): E11.9 - Type 2 diabetes mellitus without complications Category: Medical Qualifiers: Diabetes mellitus nursing home insulin use: without manager intermediate use Diabetes mellitus complication status: without complication Qualified Code(s): E11.9 - Type 2 diabetes mellitus without complications Plan: Patient's type 2 diabetes well controlled with current metformin. Most recent A1c is 6.8 She will continue working on dietary modifications. Goal A1c is to be below 7.0 (3) HLD (hyperlipidemia): Code(s): E78.5 - Hyperlipidemia, unspecified Category: Medical Qualifiers: Hyperlipidemia type: pure hypertriglyceridemia Qualified Code(s): E78.1 - Pure hyperglyceridemia Plan: Her atorvastatin was increased to 40 mg. Reduce atorvastatin from 40 mg to 20 mg to manage cholesterol and reduce liver enzyme elevation. Will recheck fasting lipid panel to ensure normal LDL. Goal LDL is to remain below 100 (4) HTN (hypertension): Code(s): I10 - Essential (primary) hypertension Category: Medical Qualifiers: Hypertension type: essential hypertension Qualified Code(s): I10 - Essential (primary) hypertension Plan: Patient's blood pressure acceptable today in office. Will continue her current antihypertensive medication with goal blood pressure to remain below 140/90 Orders: Orders Lipid Panel Today E78.1 - Pure hyperglyceridemia Complete Blood Count no Diff Today D50.9 - Iron deficiency anemia, unspecified Comprehensive [place]. Panel Fast Today I10 - Essential (primary) hypertension Hemoglobin A1c Today E11.9 - Type 2 diabetes mellitus without complications Medications: New atorvastatin 20 mg PO DAILY 90 days 90 tabs 1RF E78.1 - Pure hyperglyceridemia Refilled ascorbate calcium (vitamin C) 500 mg PO DAILY 90 days 90 tabs 1RF E11.9 - Type 2 diabetes mellitus without complications hydroxyzine HCl Advised to hold clonazepam and loratadine. 25 mg PO TID 7 days 21 tabs 0RF L29.9 - Pruritus, unspecified alcohol swabs (Alcohol Prep Pads) 1 pad topical DAILY 90 days 100 ea 2RF E11.9 - Type 2 diabetes mellitus without complications fluoxetine 40 mg PO DAILY 90 days 90 caps 3RF F41.1 - Generalized anxiety disorder fluticasone propionate 50 mcg/actuation 2 sprays intranasal BID 16 grams 1RF hydrochlorothiazide 12.5 mg PO DAILY 90 days 90 caps 3RF Discontinued atorvastatin Discontinued Reason: Doctor's Order 40 mg PO DAILY 90 days 90 tabs 1RF E78.1 - Pure hyperglyceridemia Patient Instructions: Goal: Blood pressure to be below 140/90, A1c to remain below 7.0, LDL to be below 100 Barriers: Adherence to physical activity and healthy eating habits
== END 2024-07-15 09:45 | disposition home or self-care (01) ==
LOC: HO.HMCH 08:59
PROVIDERS: PCP Physician Assistant; Visit Provider Physician Assistant
DX: Z00.00 Encounter for general adult medical examination without abnormal findings (principal); E11.9 Type 2 diabetes mellitus without complications; E78.1 Pure hyperglyceridemia; I10 Essential (primary) hypertension

== ENCOUNTER → 2024-07-15 08:58 | Outpatient (BNVA) | payer MEDICARE, SELFPAY | PROVIDERS: PCP Physician Assistant; Visit Provider Physician Assistant | DX: Z00.00 Encounter for general adult medical examination without abnormal findings (principal); E11.9 Type 2 diabetes mellitus without complications; E78.1 Pure hyperglyceridemia; I10 Essential (primary) hypertension | CPT/HCPCS: 96127; 99397 ==

== ENCOUNTER 2024-08-05 09:11 | Emergency (ER) | payer MEDICARE, SELFPAY ==
--- NOTE | ~2024-08-05 | XR_ITS ---
EXAMINATION: XR CHEST 1 VIEW HISTORY: chest pain COMPARISON: Comparison is made with the prior examination dated 03/21/2024. FINDINGS: A single AP portable view of the chest performed at 2:23 PM is submitted. The lungs are expanded and clear. There is no pleural effusion, pneumothorax, or pulmonary vascular congestion. The heart is normal in size. There is degenerative disc disease of the spine. XR/XR chest 1V IMPRESSION: No acute cardiopulmonary abnormality. Electronically signed by: Samm Banegas MD 08/05/2024 02:33 PM EDT
--- NOTE | 2024-08-05 09:14 | ECG_ITS ---
Test Reason : cp Blood Pressure : */* mmHG Vent. Rate : 65 BPM Atrial Rate : 65 BPM P-R Int : 144 ms QRS Dur : 88 ms QT Int : 416 ms P-R-T Axes : 60 -4 37 degrees QTcB Int : 432 ms Normal sinus rhythm with sinus arrhythmia Nonspecific T wave abnormality Abnormal ECG When compared with ECG of 25-Sep-2022 10:18, Nonspecific T wave abnormality now evident in Anterior leads Referred By: Generic ED Physician Electronically Signed By: OFELIA VARNER MD
[2024-08-05 09:17] VITALS: BP 116/54; PULSE 66; RESP 16; TEMP 36.7; O2SAT 95; BMI 20.1
[2024-08-05 09:38] LABS: Hematocrit 33.8 % (37.0-47.0); Hemoglobin 11.3 g/dl (12.0-16.0); Mean Corpuscular HGB Conc 33.4 g/dl (31.0-35.0); Mean Corpuscular Hemoglobin 28.5 pg (27.0-33.0); Mean Corpuscular Volume 85.1 fL (80.0-98.0); Platelet Count 262 X10*3/uL (160-400); Red Blood Count 3.97 X10*6/uL (4.20-5.50); Red Cell Distribution Width 12.6 % (11.0-16.0); White Blood Count 6.2 X10*3/uL (4.8-10.8)
[2024-08-05 09:56] LABS: Alanine Aminotransferase 34 U/L (0-31); Albumin Level 4.3 g/dL (3.5-5.0); Alkaline Phosphatase 74 U/L (39-117); Anion Gap 12 (12-20); Bilirubin Total 0.7 mg/dL (0.0-1.0); Blood Urea Nitrogen 23 mg/dL (9-16); Calcium 9.9 mg/dL (8.4-10.2); Carbon Dioxide 31 mmol/L (22-29); Chloride 102 mmol/L (96-108); Creatinine Clr Calc Pharmacy 45.9; Estimated Glomerular Filt Rate 56; Glucose Random 100 mg/dL (60-115); Magnesium 1.9 mg/dL (1.6-2.6); Potassium 3.7 mmol/L (3.3-5.1); Sodium 141 mmol/L (135-145); Total Protein 7.7 g/dL (6.5-8.0)
[2024-08-05 10:01] VITALS: BP 132/68; PULSE 68; RESP 16; O2SAT 97
[2024-08-05 10:15] LABS: Troponin-I High Sensitivity < 2.7 ng/L (<3.5-17.0)
[2024-08-05 10:53] LABS: Aspartate Amino Transferase 32 U/L (5-31)
--- NOTE | 2024-08-05 10:58 | ED.CHESTPAIN ---
HPI - Chest Pain General Chief Complaint: Chest Pain Stated Complaint: Chest pain Time Seen by Provider: 08/05/24 10:54 Source: patient Mode of arrival: ambulatory Limitations: no limitations History of Present Illness HPI narrative: This is a 64 years old the patient presented to the emergency department with a chief complaint of chest pain since last night chest pain he has localized in the left precordial not exertional radiated to the left arm worse with movement of the left arm. MD complaint: chest pain Onset (ago): day(s) (1) Timing of current episode: now resolved Prior episodes: Yes Onset: during rest Pain location: substernal Pain radiation: none Severity: mild Quality: aching Relieving factors: rest Exacerbating factors: movement Risk Factors Coronary artery disease risk factors: diabetes Thoracic aortic dissection risk factors: none Related Data On Oral Contraceptives: No Home Medications ?Medication ?Instructions ?Recorded ?Confirmed quetiapine 25 mg tablet 25 mg PO BEDTIME 03/08/20 07/15/24 topiramate 25 mg sprinkle capsule 25 mg PO DAILY 12/07/20 07/15/24 clonazepam 1 mg tablet 1 mg PO BEDTIME PRN 07/11/23 07/15/24 zolpidem 10 mg tablet 10 mg PO BEDTIME PRN 07/15/24 07/15/24 Previous Rx's ?Medication ?Instructions ?Recorded comp.stocking,knee,long,medium #2 ea 02/16/20 loratadine 10 mg tablet (Allergy 10 mg PO DAILY 90 days #90 tabs 08/18/21 Relief (loratadine)) methyl salicylate 30 %-menthol 10 1 appl topical TID 30 days #85 10/27/21 % topical cream (Icy Hot) grams gabapentin 300 mg capsule 300 mg PO BEDTIME #30 caps 02/16/22 back brace #1 ea 04/03/22 meloxicam 15 mg tablet 15 mg PO DAILY PRN pain 30 days 04/07/22 #30 tabs naproxen 500 mg tablet 500 mg PO BID PRN pain #30 tabs 05/03/22 albuterol sulfate 90 mcg/actuation 2 puff inhalation Q4-6H PRN 07/25/22 aerosol inhaler (Ventolin HFA) shortness of breath or wheezing #6.7 grams pen needle, diabetic 33 gauge x #100 ea 08/09/2204/26 Lactobacillus rhamnosus GG 15 1 cap PO DAILY 30 days #30 caps 08/14/22 billion cell sprinkle capsule (Culturelle) clotrimazole 1 % vaginal cream 1 appful vaginal BEDTIME 7 days 01/09/23 #45 grams sennosides 8.6 mg tablet (senna) 17.2 mg (2 x 8.6 mg) PO BEDTIME 04/30/23 #180 tabs acetic acid 2 % ear solution 3 drp otic (ear) left TID 30 days 05/15/23 #15 mL ketoconazole 2 % shampoo 1 appl topical 2XW 30 days #120 mL 05/15/23 lancets 28 gauge (FreeStyle #100 ea 09/24/23 Lancets) mederma #1 ea 10/15/23 diclofenac sodium 1 % topical gel 2 g topical QID #100 grams 10/18/23 (Voltaren Arthritis Pain) sumatriptan succinate 25 mg tablet See Rx Instructions PO .COMPLEX 30 11/07/23 days #9 tabs montelukast 10 mg tablet 10 mg PO DAILY 90 days #90 tabs 12/30/23 blood sugar diagnostic (OneTouch #100 ea 01/18/24 Verio test strips) blood-glucose meter (OneTouch #1 ea 01/18/24 Verio Flex Meter) aluminum-mag hydroxide-simethicone 10 ml PO QID PRN indigestion #355 01/21/24 200 mg-200 mg-20 mg/5 mL oral susp mL (Maalox Advanced) blood sugar diagnostic (FreeStyle #100 ea 01/21/24 Test strips) blood-glucose meter (FreeStyle #1 ea 01/21/24 Lite Meter kit) miconazole nitrate 2 % vaginal 1 appful vaginal BEDTIME 7 days 02/05/24 cream #45 grams omeprazole 40 mg capsule,delayed 40 mg PO DAILY 90 days #90 caps 03/03/24 release cholecalciferol (vitamin D3) 25 25 mcg PO DAILY 90 days #90 tabs 04/15/24 mcg (1,000 unit) tablet metformin 500 mg tablet 500 mg PO BID 90 days #180 tabs 05/01/24 omega 1-vyj-ych-fish oil 60 mg-90 1 cap PO BID 90 days #180 caps 05/12/24 mg-500 mg capsule (Fish Oil) vitamin E (dl, acetate) 180 mg 180 mg PO DAILY 90 days #90 caps 05/13/24 (400 unit) capsule bepotastine besilate 1.5 % eye 1 drp ophthalmic (eye) BID PRN eye 06/18/24 drops (Bepreve) irritation 30 days #10 mL acetaminophen 500 mg tablet 500 mg PO Q6H PRN fever 30 days 06/24/24 #120 tabs azoacsrxir-yepclqkkgrvii-gkktxhrg 1 cap PO Q6H PRN pain 4 days #16 06/24/24 50 mg-325 mg-40 mg capsule caps triamcinolone acetonide 0.1 % 1 appl topical DAILY PRN skin 06/25/24 topical ointment irritation 30 days #30 grams alcohol swabs (Alcohol Prep Pads) 1 pad topical DAILY 90 days #100 ea 07/15/24 ascorbate calcium (vitamin C) 500 500 mg PO DAILY 90 days #90 tabs 07/15/24 mg tablet atorvastatin 20 mg tablet 20 mg PO DAILY 90 days #90 tabs 07/15/24 fluoxetine 40 mg capsule 40 mg PO DAILY 90 days #90 caps 07/15/24 fluticasone propionate 50 2 spray intranasal BID #16 grams 07/15/24 mcg/actuation nasal spray,suspension hydrochlorothiazide 12.5 mg capsule 12.5 mg PO DAILY 90 days #90 caps 07/15/24 lidocaine 5 % topical patch 1 patch topical DAILY 30 days #30 07/16/24 ea multivitamin (Daily-Dionisio tablet) 1 tab PO DAILY #90 tabs 07/16/24 olopatadine 0.2 % eye drops 1 drp ophthalmic (eye) DAILY 30 07/16/24 days #2.5 mL polyethylene glycol 3350 17 gram 17 g PO DAILY PRN Constipation 30 07/16/24 oral powder packet (Miralax) days #30 ea hydroxyzine HCl 25 mg tablet 25 mg PO TID 7 days #21 tabs 07/28/24 Allergies Allergy/AdvReac Type Severity Reaction Status Date / Time No Known Allergies Allergy Verified 08/05/24 09:23 [No Known Allergies*] Review of Systems Constitutional: Constitutional: Reports no additional constitutional complaints ENT: Reports system reviewed and no additional complaints, except as documented Respiratory: Respiratory: Reports no additional respiratory complaints PMFSH Past Medical History Attestation statement: The following information was validated with the patient. PENDING SALE TO [facility] Narrative: Diabetes/anxiety Medical History DMII (diabetes mellitus, type 2) COVID-19 Lumbar radiculopathy Asthma Gross hematuria Migraines Myofascial pain HLD (hyperlipidemia) HTN (hypertension) Surgical History History of esophagogastroduodenoscopy (EGD) Hx of colonoscopy History of tubal ligation Family History Family History Father No problems noted. Mother No problems noted. Sister Breast cancer Brother Prediabetes Daughter Liver problem Other Gross hematuria Social History Social History Housing: House Alcohol intake: never Patient Tobacco Use Status: Never used Tobacco Tobacco use type: Cigarette e-Cigarette/Vaping Use: Never Used Second Hand Smoke Exposure: No service: No Current occupational status: retired Cognitive needs: No Hearing needs: No Vision needs: Yes Physical Exam Vital Signs: Vital Signs: Last Vital Signs Temp 98.2 F 08/05/24 15:53 Pulse 59 08/05/24 15:53 Resp 20 08/05/24 15:53 BP 129/72 08/05/24 15:53 Pulse Ox 100 08/05/24 15:53 O2 Del Method Room Air 08/05/24 15:53 BMI result Body Mass Index 20.1 No acute distress she looks well not toxic appearing Const: General: cooperative Nutritional Appearance: well nourished Orientation/consciousness: patient oriented x3 Limitations: no limitations HEENT: Head: Yes normal to inspection General nose exam: Normal external nose present Face and sinus: Yes normal facial exam Mouth: Normal oral and palatal mucosa present Throat: Yes posterior oropharynx normal Neck: Neck: Yes normal visual inspection Chest: Chest palpation & inspection: normal inspection of the chest Resp: Effort & Inspection: normal respiratory effort Auscultation: clear to auscultation bilaterally Cardio: Jugular venous distension: no JVD Rate: regular rate Rhythm: regular rhythm GI: Inspection: Yes normal to inspection Percussion: Yes normal to percussion Auscultation: normal bowel sounds Skin: General skin exam: no rashes or lesions noted and elasticity normal Lesions: no lesions Rashes: no rashes Neuro: General: patient oriented x3 Cranial nerves: Yes CN's II-XII intact bilaterally Course Reevaluation(s) Reevaluation #1: On re-examination feeling much better asymptomatic at this time delta troponin is flat therefore ACS has been ruled out. Chest x-ray normal anticipate discharge clinical picture most consistent with musculoskeletal chest pain pain worse with movement of the arm Time: 15:49 Medical Decision Making Medical Decision Making [facility] Narrative: Patient presented with chest pain we will obtain labs EKG Differential Diagnosis Differential Diagnoses: The differential diagnosis associated with the presentation includes Most likely musculoskeletal pain the pain got worse with movement unlikely acute coronary syndrome however we will do I sensitive troponin Admission/Observation Consideration of admission/observation: Escalation of care including admission/observation considered Lab Data [facility] Lab Attestation statement: I reviewed the patient's lab results. 08/05/24 09:32 08/05/24 09:32 Labs: Lab Results 08/05/24 08/05/24 Range/Units 09:32 14:51 WBC 6.2 (4.8-10.8) X10*3/uL RBC 3.97 L (4.20-5.50) X10*6/uL Hgb 11.3 L (12.0-16.0) g/dl Hct 33.8 L (37.0-47.0) % MCV 85.1 (80.0-98.0) fL MCH 28.5 (27.0-33.0) pg MCHC 33.4 (31.0-35.0) g/dl RDW 12.6 (11.0-16.0) % Plt Count 262 (160-400) X10*3/uL MPV 9.0 L (9.4-12.3) fL Absolute Nucleated RBC 0.000 (0.0-0.012) X10*3/uL Nucleated RBC % (auto) 0.0 (0.0-0.2) /100WBC Sodium 141 (135-145) mmol/L Potassium 3.7 (3.3-5.1) mmol/L Chloride 102 (96-108) mmol/L Carbon Dioxide 31 H (22-29) mmol/L Anion Gap 12 (12-20) BUN 23 H (9-16) mg/dL Creatinine 0.99 (0.5-1.4) mg/dL Estim Creat Clear Calc 45.9 Estimated GFR 56 Random Glucose 100 (60-115) mg/dL Calcium 9.9 D (8.4-10.2) mg/dL Magnesium 1.9 (1.6-2.6) mg/dL Total Bilirubin 0.7 (0.0-1.0) mg/dL AST 32 H (5-31) U/L ALT 34 H (0-31) U/L Alkaline Phosphatase 74 (39-117) U/L Troponin I High Sens < 2.7 < 2.7 (<3.5-17.0) ng/L Total Protein 7.7 (6.5-8.0) g/dL Albumin 4.3 (3.5-5.0) g/dL Independent Interpretation I performed an independent interpretation of an: EKG Interpretation: I reviewed interpreted the electrocardiogram as sinus rhythm rate [address]-T changes intraventricular conduction delayed Radiology Impression Discussion of test interpretation with radiology: I have reviewed the radiologist's reading. Radiologist Impression: No acute disease Chronic Conditions Patient?s care impacted by: Diabetes Discharge Plan Discharge Clinical Impression: Chest pain Qualifiers: Chest pain type: unspecified Qualified Code(s): R07.9 - Chest pain, unspecified Patient Disposition: Home, Self-Care Instructions: Chest Pain (DC) Additional Instructions: Follow-up with your primary care physician call and make an appointment with the return if worse Prescriptions: No Action (DME) comp.stocking,knee,long,medium Misc See Rx Instructions .ROUTE .MEDSUPPLY Qty: 2 0RF Rx Instructions: As directed quetiapine 25 mg tablet 25 mg PO BEDTIME loratadine [Allergy Relief (loratadine)] 10 mg tablet 10 mg PO DAILY 90 Days Qty: 90 2RF Icy Hot 30-10 % cream 1 appl topical TID 30 Days Qty: 85 0RF (DME) back brace Misc See Rx Instructions .Route Qty: 1 0RF Rx Instructions: As directed naproxen 500 mg tablet 500 mg PO BID PRN (Reason: pain) Qty: 30 0RF Rx Instructions: Take with food albuterol sulfate [Ventolin HFA] 90 mcg/actuation HFA aerosol inhaler 2 puff inhalation Q4-6H PRN (Reason: shortness of breath or wheezing) Qty: 6.7 3RF (DME) pen needle, diabetic 33 gauge x 1/4 needle See Rx Instructions .Route Qty: 100 0RF Rx Instructions: once per day sennosides [senna] 8.6 mg tablet 17.2 mg PO BEDTIME Qty: 180 0RF acetic acid 2 % solution 3 drp otic (ear) left TID 30 Days Qty: 15 0RF Rx Instructions: apply to (cotton) wick; replace wick every 24 hours ketoconazole 2 % shampoo 1 appl topical 2XW 30 Days Qty: 120 0RF (DME) lancets [FreeStyle Lancets] [facility] See Rx Instructions .ROUTE .MEDSUPPLY Qty: 100 3RF Rx Instructions: As directed (DME) mederma See Rx Instructions .Route .MEDSUPPLY Qty: 1 3RF Rx Instructions: As directed diclofenac sodium [Voltaren Arthritis Pain] 1 % gel 2 g topical QID Qty: 100 0RF Rx Instructions: apply to single elbow, wrist or hand; for hand includes palm/fingers/back of hand sumatriptan succinate 25 mg tablet See Rx Instructions PO .COMPLEX 30 Days Qty: 9 6RF Rx Instructions: take 1 tab at onset of headache; if no relief may repeat 1 tab after at least 2 hrs; max = 4 tabs/24 hr PO montelukast 10 mg tablet 10 mg PO DAILY 90 Days Qty: 90 1RF (DME) OneTouch Verio test strips Strip See Rx Instructions .Route Qty: 100 0RF Rx Instructions: Tests once a day as needed (DME) blood-glucose meter [OneTouch Verio Flex meter] [facility] See Rx Instructions .Route Qty: 1 0RF Rx Instructions: As directed alum-mag hydroxide-simeth [Maalox Advanced] 200-200-20 mg/5 mL suspension 10 ml PO QID PRN (Reason: indigestion) Qty: 355 0RF Rx Instructions: administer between meals and at bedtime (DME) FreeStyle Test Strip See Rx Instructions .Route Qty: 100 1RF Rx Instructions: Testing once a day as needed (DME) blood-glucose meter [FreeStyle Lite Meter] Kit See Rx Instructions .Route Qty: 1 0RF Rx Instructions: Testing once a day as needed miconazole nitrate 2 % cream 1 appful vaginal BEDTIME 7 Days Qty: 45 2RF omeprazole 40 mg capsule,delayed release(DR/EC) 40 mg PO DAILY 90 Days Qty: 90 1RF cholecalciferol (vitamin D3) 25 mcg (1,000 unit) tablet 25 mcg PO DAILY 90 Days Qty: 90 3RF omega 5-off-ouo-fish oil [Fish Oil] 60-90-500 mg capsule 1 cap PO BID 90 Days Qty: 180 1RF vitamin E (dl, acetate) 180 mg (400 unit) capsule 180 mg PO DAILY 90 Days Qty: 90 1RF bepotastine besilate [Bepreve] 1.5 % drops 1 drp ophthalmic (eye) BID PRN (Reason: eye irritation) 30 Days Qty: 10 2RF acetaminophen 500 mg tablet 500 mg PO Q6H PRN (Reason: fever) 30 Days Qty: 120 0RF rgnhgvzrxr-tgkjaxktbjmee-tcbl 50-325-40 mg capsule 1 cap PO Q6H PRN (Reason: pain) 4 Days Qty: 16 0RF triamcinolone acetonide 0.1 % ointment 1 appl topical DAILY PRN (Reason: skin irritation) 30 Days Qty: 30 0RF lidocaine 5 % adhesive patch,medicated 1 patch topical DAILY 30 Days Qty: 30 6RF Rx Instructions: leave on most painful area for up to 12 hrs multivitamin [Daily-Dionisio] Tablet 1 tab PO DAILY Qty: 90 4RF olopatadine 0.2 % drops 1 drp ophthalmic (eye) DAILY 30 Days Qty: 2.5 0RF polyethylene glycol 3350 [Miralax] 17 gram powder in packet 17 g PO DAILY PRN (Reason: Constipation) 30 Days Qty: 30 2RF Rx Instructions: Makes 17 g packet in to 8 oz of water and drink daily hydroxyzine HCl 25 mg tablet 25 mg PO TID 7 Days Qty: 21 0RF Rx Instructions: Advised to hold clonazepam and loratadine. gabapentin 300 mg capsule 300 mg PO BEDTIME Qty: 30 0RF Culturelle 15 billion cell capsule, sprinkle 1 cap PO DAILY 30 Days Qty: 30 3RF clotrimazole 1 % cream 1 appful vaginal BEDTIME 7 Days Qty: 45 0RF clonazepam 1 mg tablet 1 mg PO BEDTIME PRN topiramate 25 mg capsule, sprinkle 25 mg PO DAILY meloxicam 15 mg tablet 15 mg PO DAILY PRN (Reason: pain) 30 Days Qty: 30 0RF Rx Instructions: Take it with food and full glass of water. Avoid other NSAIDs. zolpidem 10 mg tablet 10 mg PO BEDTIME PRN alcohol swabs [Alcohol Prep Pads] Pads, Medicated 1 pad topical DAILY 90 Days Qty: 100 2RF ascorbate calcium (vitamin C) 500 mg tablet 500 mg PO DAILY 90 Days Qty: 90 1RF fluoxetine 40 mg capsule 40 mg PO DAILY 90 Days Qty: 90 3RF fluticasone propionate 50 mcg/actuation spray,suspension 2 spray intranasal BID Qty: 16 1RF hydrochlorothiazide 12.5 mg capsule 12.5 mg PO DAILY 90 Days Qty: 90 3RF atorvastatin 20 mg tablet 20 mg PO DAILY 90 Days Qty: 90 1RF metformin 500 mg tablet 500 mg PO BID 90 Days Qty: 180 3RF Referrals: Juan R Ramirez PA-C [Primary Care Provider] - 2 days Interventions: ED Discharge Assessment Last Done: 08/05/24 15:53 Discharge Date/Time: 08/05/24 16:02 Print Language: Macedonian
--- OUTSIDE RECORDS SUMMARY | 2024-08-05 11:34 | XMS_ITS | Clinical Summary ---
Author Organization [employer] Address [address] [facility] [address] [place] [address] Care Team Providers Care Cyber Special Agent Name Role Phone Unavailable Primary Care Provider Unavailabl e Social History Tobacco Use Types Packs/Day Years Used Date Smoking Tobacco: Never Assessed Comments Unknown Sex and Gender Information Value Date Recorded Sex Assigned at Female 02/20/2022 10:14 AM EDT Legal Sex Female 10:14 AM EDT Gender Identity Female 02/20/2022 10:14 AM EDT Sexual Orientation Straight 02/20/2022 10 :14 AM EDT Plan of Treatment Health Maintenance Due Date Last Done Comments CT Colonography 1959 Colonoscopy 1959 Colorectal Cancer Screening 1959 Depression Screening 1959 FIT DNA/Cologuard 1959 FIT 1959 FOBT 1959 Sigmoidoscopy 1959 Alcohol/Substance Use Screening 1971 Tobacco Screening 1971 Pap Smear 06/23/1980 Cervical Cancer Screening 06/23/1989 HPV/Cotest 06/23/1989 Mammogram 1999 Zoster Vaccines (1 of 2) 06/23/2009 Pneumococcal Vaccine: 50+ Years (2 of 2 - PCV) 03/05/2020 03/05/2019, 12/20/2016 COVID-19 Vaccine ( season) 2023 04/25/2021, 09/01/2020, 08/04/2020 Influenza Vaccine (#1) 2023 6, 04/07/2015, 01/23/2014, Additional history exists DTaP/Tdap/Td Vaccines (3 - Td or Tdap) 04/21/2028 04/21/2018, 12/30/2014, 10/02/2014, Additional history exists RSV Patients and Patients Aged 60 years or older (1 - 1-dose 75+ series) 06/23/2034 HIB Vaccines Aged Out No longer eligi ble based on patient's age to complete this topic HPV Vaccines Aged Out No longer eligi ble based on patient's age to complete this topic Hepatitis A Vaccines Aged Out No long er eligible based on patient's age to complete this topic Hepatitis B Vaccines Aged Out No long er eligible based on patient's age to complete this topic IPV Vaccines Aged Out No longer eligi ble based on patient's age to complete this topic Meningococcal Vaccine Aged Out No anthony chang eligible based on patient's age to complete this topic RSV under 20 months Aged Out No longe r eligible based on patient's age to complete this topic Rotavirus Vaccines Aged Out No longer eligible based on patient's age to complete this topic
--- OUTSIDE RECORDS SUMMARY | 2024-08-05 11:34 | XMS_ITS | Encounter Summary ---
Author Organization [employer] [facility] Address [address] [facility] [address] [place] [address] Care Team Providers Care Managing Member Name Role Phone Unavailable Primary Care Provider Unavailabl e Encounter Details Date Type Department Care Team (Latest Contact Info) Description 05/14/2018 Abstract [facility] CONVERSIONS Dental, Provider, DDS Social History Tobacco Use Types Packs/Day Years Used Date Smoking Tobacco: Never Assessed Comments Unknown Sex and Gender Information Value Date Recorded Sex Assigned at Female 02/20/2022 10:14 AM EDT Legal Sex Female 10:14 AM EDT Gender Identity Female 02/20/2022 10:14 AM EDT Sexual Orientation Straight 02/20/2022 10 :14 AM EDT documented as of this encounter Plan of Treatment Not on file documented as of this encounter Visit Diagnoses Not on filedocumented in this encounter
--- OUTSIDE RECORDS SUMMARY | 2024-08-05 11:34 | XMS_ITS | Encounter Summary ---
Author Organization [facility] Address [address] [facility] [address] [place] [address] Care Team Providers Care Director Of Teaching And Learning Name Role Phone Unavailable Primary Care Provider Unavailabl e Encounter Details Date Type Department Care Team (Latest Contact Info) Description 2019 Abstract [facility] CONVERSIONS Dental, Provider, DDS Social History [...]
--- OUTSIDE RECORDS SUMMARY | 2024-08-05 11:34 | XMS_ITS | Encounter Summary ---
Author Organization [employer] [facility] Address [address] [facility] [address] [place] [address] Care Team Providers Care Explosives Engineer Name Role Phone Unavailable Primary Care Provider Unavailabl e Encounter Details Date Type Department Care Team (Latest Contact Info) Description 07/08/2020 Abstract [facility] CONVERSIONS Dental, Provider, DDS Social History Tobacco [...]
[2024-08-05 12:50] VITALS: BP 111/72; PULSE 64; RESP 16; TEMP 36.8; O2SAT 98
[2024-08-05 15:21] LABS: Troponin-I High Sensitivity < 2.7 ng/L (<3.5-17.0)
[2024-08-05 15:27] VITALS: BP 129/72; PULSE 59; RESP 20; TEMP 36.8; O2SAT 100
[2024-08-05 15:53] VITALS: BP 129/72; PULSE 59; RESP 20; TEMP 36.8; O2SAT 100
== END 2024-08-05 16:02 | disposition home or self-care (01) ==
PROVIDERS: Emergency Provider Emergency Medicine; PCP Physician Assistant
DX: R07.9 Chest pain, unspecified (principal); E11.9 Type 2 diabetes mellitus without complications; I10 Essential (primary) hypertension; J45.909 Unspecified asthma, uncomplicated
CPT/HCPCS: 36415; 71045; 80053; 83735; 84484; 85027; 93005; 99283; 99285

== ENCOUNTER → 2024-08-05 09:14 | Outpatient (BNV) | payer MEDICARE, SELFPAY | PROVIDERS: Emergency Provider Emergency Medicine; PCP Physician Assistant; Visit Provider Internal Medicine Cardiovascular Disease | DX: I49.9 Cardiac arrhythmia, unspecified (principal) | CPT/HCPCS: 93010 ==

== ENCOUNTER → 2024-08-05 13:40 | Outpatient (BNV) | payer MEDICARE, SELFPAY | PROVIDERS: Emergency Provider Emergency Medicine; PCP Physician Assistant; Visit Provider Radiology Diagnostic Radiology | DX: R07.9 Chest pain, unspecified (principal) | CPT/HCPCS: 71045 ==

== ENCOUNTER 2024-12-27 07:17 | Outpatient (REF) | payer OTHER, SELFPAY ==
--- OUTSIDE RECORDS SUMMARY | 2024-12-27 07:20 | XMS_ITS | Encounter Summary ---
Author Organization [employer] Address [address] [facility] [address] [place] [address] Care Team Providers Care Physical Science Technician Name Role Phone Unavailable Primary Care Provider Unavailabl e Encounter Details Date Type Department Care Team (Latest Contact Info) Description 2019 Abstract [facility] CONVERSIONS Dental, Provider, DDS Social History [...]
--- OUTSIDE RECORDS SUMMARY | 2024-12-27 07:20 | XMS_ITS | Encounter Summary ---
Author Organization [employer] Address [address] [facility] [address] [place] [address] Care Team Providers Care Clamshell Engineer Name Role Phone Unavailable Primary Care Provider Unavailabl e Encounter Details Date Type Department Care Team (Latest Contact Info) Description 07/08/2020 Abstract [facility] CONVERSIONS Dental, Provider, DDS Social History [...]
--- OUTSIDE RECORDS SUMMARY | 2024-12-27 07:20 | XMS_ITS | Encounter Summary ---
Author Organization [employer] Address [address] [facility] [address] [place] [address] Care Team Providers Care Outreach Representative Name Role Phone Unavailable Primary Care Provider Unavailabl e Encounter Details Date Type Department Care Team (Latest Contact Info) Description 05/14/2018 Abstract [facility] CONVERSIONS Dental, Provider, DDS Social History [...]
--- OUTSIDE RECORDS SUMMARY | 2024-12-27 07:21 | XMS_ITS | Clinical Summary ---
Author Organization [employer] Address [address] [facility] [address] [place] [address] Care Team Providers Care Production Department Supervisor Name Role Phone Unavailable Primary Care Provider [...] 2023 04/25/2021, 09/01/2020, 08/04/2020 Influenza Vaccine (#1) 2024 6, 04/07/2015, 01/23/2014, Additional history exists DTaP/Tdap/Td [...] patient's age to complete this topic Meningococcal B Vaccine Aged Out No l onger eligible based on patient's age to complete [...]
[2024-12-27 08:12] LABS: Hematocrit 32.5 % (37.0-47.0); Hemoglobin 11.0 g/dl (12.0-16.0); Mean Corpuscular HGB Conc 33.8 g/dl (31.0-35.0); Mean Corpuscular Hemoglobin 28.7 pg (27.0-33.0); Mean Corpuscular Volume 84.9 fL (80.0-98.0); NRBC Abs Auto 0.000 X10*3/uL (0.0-0.012); NRBC Pct Auto 0.0 /100WBC (0.0-0.2); Platelet Count 290 X10*3/uL (160-400); Red Blood Count 3.83 X10*6/uL (4.20-5.50); White Blood Count 6.6 X10*3/uL (4.8-10.8)
[2024-12-27 08:40] LABS: Alanine Aminotransferase 37 U/L (0-31); Albumin Level 4.4 g/dL (3.5-5.0); Alkaline Phosphatase 81 U/L (39-117); Anion Gap 16 (12-20); Aspartate Amino Transferase 34 U/L (5-31); Blood Urea Nitrogen 18 mg/dL (9-16); Calcium 9.2 mg/dL (8.4-10.2); Carbon Dioxide 25 mmol/L (22-29); Chloride 104 mmol/L (96-108); Cholesterol 167 mg/dL (<200); Estimated Glomerular Filt Rate 58; HDL Cholesterol 49 mg/dL (>40); Potassium 3.6 mmol/L (3.3-5.1); Sodium 141 mmol/L (135-145); Total Protein 7.7 g/dL (6.5-8.0); Triglycerides 126 mg/dL (<150)
[2024-12-27 08:50] LABS: Hemoglobin A1C 151.7644 umol/L; Total Hemoglobin (HGBA1C) 3289.5018 umol/L
== END 2024-12-27 07:18 | disposition home or self-care (01) ==
LOC: HO.LAB 07:17
PROVIDERS: PCP Physician Assistant; Visit Provider Physician Assistant
DX: E11.9 Type 2 diabetes mellitus without complications (principal); I10 Essential (primary) hypertension; E78.1 Pure hyperglyceridemia
CPT/HCPCS: 36415; 80053; 80061; 83036; 85027

== ENCOUNTER 2025-01-01 09:28 | Outpatient (AMB) | payer OTHER, SELFPAY ==
[2025-01-01 09:32] VITALS: BP 96/60; PULSE 70; TEMP 36.3; O2SAT 98; BMI 20.2
--- NOTE | 2025-01-01 09:32 | A.OFFPC_ITS ---
Vital Signs 01/01/25 09:32 Height 5 ft 3 in Weight 114 lb 2 oz BMI 20.2 BP 96/60 Blood Pressure Location Lt brachial Position Sitting Pulse 70 Pulse Source Pulse Oximeter Temp 97.3 F Temp Source Temporal Artery Scan Pulse Oximetry (%) 98 Oxygen Delivery Method Room Air Intake Visit Reasons: f/u DMII / HLD Flexographic Press Operator Required: Yes Flexographic Press Operator Language: Photographic Process Attendant Name: ID # [id number] Allergies No Known Allergies (No Known Allergies*) Allergy (Verified 01/01/25 09:39) Medication List - Last Reconciled 01/01/25 by Juan R Ramirez PA-C acetaminophen 500 mg PO Q6H PRN 30 days acetic acid 2% 3 drps otic (ear) left TID 30 days albuterol sulfate 90 mcg/actuation (Ventolin HFA) 2 puffs inhalation Q4-6H PRN alcohol swabs (Alcohol Prep Pads) 1 pad topical DAILY 90 days alum-mag hydroxide-simeth 200-200-20 mg/5 mL (Maalox Advanced) 10 mL PO QID PRN ascorbate calcium (vitamin C) 500 mg PO DAILY 90 days atorvastatin 20 mg PO DAILY 90 days back brace As directed bepotastine besilate 1.5% (Bepreve) 1 drp ophthalmic (eye) BID PRN 30 days blood sugar diagnostic (FreeStyle Test strips) Testing once a day as needed blood sugar diagnostic (OneTouch Verio test strips) Tests once a day as needed blood-glucose meter (OneTouch Verio Flex Meter) As directed blood-glucose meter (FreeStyle Lite Meter kit) Testing once a day as needed ekfogikuaw-jnzhtzufavgon-agmr 50-325-40 mg 1 cap PO Q6H PRN 4 days cholecalciferol (vitamin D3) 25 mcg PO DAILY 90 days clonazepam 1 mg PO BEDTIME PRN clotrimazole 1% 1 appful vaginal BEDTIME 7 days comp.stocking,knee,long,medium As directed diclofenac sodium 1% (Voltaren Arthritis Pain) 2 grams topical QID fluoxetine 40 mg PO DAILY 90 days fluticasone propionate 50 mcg/actuation 2 sprays intranasal BID gabapentin 300 mg PO BEDTIME hydrochlorothiazide 12.5 mg PO DAILY 90 days hydroxyzine HCl 25 mg PO TID 7 days ketoconazole 2% 1 appl topical 2XW 30 days Lactobacillus rhamnosus GG (Culturelle) 1 cap PO DAILY 30 days lancets (FreeStyle Lancets) As directed lidocaine 5% 1 patch topical DAILY 30 days loratadine (Allergy Relief (loratadine)) 10 mg PO DAILY 90 days [mederma As directed] meloxicam 15 mg PO DAILY PRN 30 days metformin 500 mg PO BID 90 days methyl salicylate-menthol 30-10 % (Icy Hot) 1 appl topical TID 30 days miconazole nitrate 2% 1 appful vaginal BEDTIME 7 days montelukast 10 mg PO DAILY 90 days multivitamin (Daily-Dionisio tablet) 1 tab PO DAILY naproxen 500 mg PO BID PRN olopatadine 0.2% 1 drp ophthalmic (eye) DAILY 30 days omega 1-phc-lxg-fish oil 60-90-500 mg (Fish Oil) 1 cap PO BID 90 days omeprazole 40 mg PO DAILY 90 days pen needle, diabetic once per day polyethylene glycol 3350 (Miralax) 17 grams PO DAILY PRN 30 days psyllium husk (Metamucil) 1 tbsp PO DAILY PRN 30 days quetiapine 25 mg PO BEDTIME sennosides (senna) 17.2 mg (2 x 8.6 mg) PO BEDTIME sumatriptan succinate take 1 tab at onset of headache; if no relief may repeat 1 tab after at least 2 hrs; max = 4 tabs/24 hr PO 30 days topiramate 25 mg PO DAILY triamcinolone acetonide 0.1% 1 appl topical DAILY PRN 30 days vitamin E (dl, acetate) 180 mg PO DAILY 90 days zolpidem 10 mg PO BEDTIME PRN Tobacco use date assessed: 01/01/25 Fall risk assessment: No Falls in past year Last assessed Fall Risk: 01/01/25 Dental Screening Dental Screen Date: 01/01/25 Did you have a dental visit in the last 12 months?: Yes Did you have a dental problem in the last 6 months where you did not have access to dental care?: No Was dental information given to patient?: Patient has dentist HPI f/u DMII / HLD HPI Details Patient is a 64-year-old female here today for routine annual physical patient has a past medical history significant for hypertension, hyperlipidemia, Type 2 DM, anxiety, chronic allergies, fibromyalgia, lumbar disc disease. .. CHRONIC MEDICAL CONDITIONS--> ? .. ?Type 2 diabetes: Most recent A1c- 6.4, she continues on metformin 500 b.i.d.. She reports she has been trying to follow a diabetic diet and she is very physically active. ?She continues to work on being more physically active and adapting to diabetic diet ? Anxiety: . Patient is followed by a psych provider and is taking clonazepam, fluoxetine and zolpidem 5 mg on a p.r.n. basis. She reports she has lost her psych provider in his on a waiting list to see a new psych provider. She needs PCP to prescribe her mental health medication. .. GERD: She uses omeprazole on a p.r.n. basis for her GERD symptoms which helps tremendously reducing her heartburn. ? .. ? Hypertension: Patient's blood pressure on the low side today in office. She reports no signs and symptoms of presyncope or dizziness. PLAN: Will hold off on her hydrochlorothiazide due to low blood pressure reading ? .. ? Hyperlipidemia: Most recent lipid panel showing much improved total cholesterol and LDL. Her atorvastatin was previously increased to 40 mg though unfortunately noted slightly elevations in her liver enzymes. Will return back to 20 mg atorvastatin she will continue dietary modifications. Recheck lipid panel to ensure normal LDL. Goal LDL to be below 100 Laboratory Tests 10/10/23 03/08/24 05/01/24 06:30 07:47 08:42 RBC Hgb Creatinine Fasting Glucose Hgb A1c (Clinic) 6.7 H Hemoglobin A1c % 6.6 H ALT Cholesterol 229 H LDL Cholesterol, C alc 07/05/24 08/05/24 12/27/24 07:53 09:32 07:37 RBC 3.83 L Hgb 11.0 L 11.3 L 11.0 L Creatinine 0.97 Fasting Glucose 114 H 103 H Hgb A1c (Clinic) Hemoglobin A1c % 6.4 H ALT 34 H Cholesterol 159 167 LDL Cholesterol, C alc 93 PFSH Medical History DMII (diabetes mellitus, type 2) COVID-19 Lumbar radiculopathy Asthma Gross hematuria Migraines Myofascial pain HLD (hyperlipidemia) HTN (hypertension) Surgical History History of esophagogastroduodenoscopy (EGD) Hx of colonoscopy History of tubal ligation Family History Father No problems noted. Mother No problems noted. Sister Breast cancer Brother Prediabetes Daughter Liver problem Other Gross hematuria Social History Housing: House Alcohol intake: never Patient Tobacco Use Status: Never used Tobacco Tobacco use type: Cigarette e-Cigarette/Vaping Use: Never Used Second Hand Smoke Exposure: No service: No Current occupational status: retired Cognitive needs: No Hearing needs: No Vision needs: Yes Questionnaire PHQ-9 Over the last 2 weeks, how often have you been bothered by any of the following problems? 1. Little interest or pleasure in doing things: not at all 2. Feeling down, depressed, or hopeless: not at all 3. Trouble falling or staying asleep, or sleeping too much: not at all 4. Feeling tired or having little energy: not at all 5. Poor appetite or overeating: not at all 6. Feeling bad about yourself - or that you are a failure or have let yourself or your family down: not at all 7. Trouble concentrating on things, such as reading the newspaper or watching television: not at all 8. Moving or speaking so slowly that other people could have noticed. Or the opposite - being so fidgety or restless that you have been moving around a lot more than usual: not at all 9. Thoughts that you would be better off or of hurting yourself in some way: not at all Total score: 0 Depression Screening Interpretation: Negative Depression Screening Done: Yes 42514 - PHQ-9 Billing: Yes Source: Developed by Drs. Samm Carr, Tiffanie Carr, Vivek Harper and colleagues, with an educational fariba from [employer]. Thrive Questionnaire Date Thrive assessed: 07/15/24 I am a: Patient What is your living situation today?: I have a steady place to live Within the past 12 months, did the food you bought not last and you didn't have the money to get more?: Never true Within the past 12 months, did you worry whether your food would run out before you got money to buy more?: Often true Do you have trouble paying for medicines?: No Do you have trouble getting transportation to medical appointments?: No Do you have trouble paying your heating and electricity bill?: No Do you have trouble taking care of your child, family member or friend?: No Do you have trouble with day-to-day activities such as bathing, preparing meals, shopping, managing finances, etc.?: No Are you currently unemployed and looking for a job?: Yes Are you interested in more education?: No Please select the resources that you would like help with: None Currently or been in a relationship where the following occur: No concerns reported THRIVE Score: 1 AUDIT C Alcohol Use Questionnaire (AUDIT-C) 1. How often do you have a drink containing alcohol?: Never 3. How often do you have six or more drinks on one occasion?: Never Total Score: 0 JOSE-7 AMB Questionnaire JOSE-7 Date JOSE - 7 assessed: 07/15/24 Feeling nervous, anxious, or on edge: 1 = Several days Not being able to stop or control worryin = Several days Worrying too much about different things: 1 = Several days Trouble relaxin = Not at all Being so restless that it is hard to sit still: 1 = Several days Becoming easily annoyed or irritable: 0 = Not at all Feeling afraid as if something awful might happen: 0 = Not at all Total JOSE-7 score (0-4 normal; 5-9 mild; 10-14 moderate; 15-21 severe): 4 Source: Developed by Drs. Samm Carr, Tiffanie Carr, Vivek Harper and colleagues, with an educational fariba from [employer]. Review of Systems Const Denies headache(s) Eyes Denies loss of vision ENT Denies vertigo, Denies dizziness, Denies headache(s) and Denies sore throat Card Denies chest pain, Denies leg edema and Denies lightheadedness Resp Denies cough, Denies hemoptysis and Denies wheezing GI Denies abdominal pain, Denies melena, Denies constipation, Denies diarrhea and Denies vomiting Denies urinary frequency, Denies dysuria and Denies urinary urgency Musc Denies arthralgias, Denies joint swelling, Denies numbness and Denies tingling Neuro Denies Abnormal speech present, Denies behavioral changes, Denies vertigo, Denies dizziness, Denies headache(s), Denies loss of vision, Denies memory loss, Denies numbness and Denies tingling Psych Denies anxiety, Denies behavioral changes, Denies depression, Denies memory loss and Denies panic attacks Herman/Lymph Denies easy bleeding and Denies easy bruising Aller/Immun Denies wheezing Physical exam (Primary Care) Vital Signs: Last Vital Signs Temp 97.3 F 01/01/25 09:32 Pulse 70 01/01/25 09:32 BP 96/60 01/01/25 09:32 Pulse Ox 98 01/01/25 09:32 Oxygen Delivery Method Room Air 01/01/25 09:32 BMI result Body Mass Index 20.2 Tobacco/Smoking Status: Tobacco use Status Tobacco use date assessed 01/01/25 01/01/25 09:37 Patient Tobacco Use Status Never used Tobacco 01/01/25 09:37 Tobacco use type Cigarette 01/01/25 09:37 e-Cigarette/Vaping Use Never Used 01/01/25 09:37 PHQ-9: PHQ-9 Score PHQ-9: Total score 0 01/01/25 09:37 Depression Screening Interpretation: Negative Thrive Assessment: Date of Thrive Assessment Date Thrive assessed 07/15/24 01/01/25 09:37 Currently or been in a relationship where the following occur: No concerns reported Const General: healthy appearing, no acute distress, alert and awake Nutritional Appearance: well nourished Orientation/consciousness: oriented to person, oriented to place and oriented to time [facility] Ears: TM's normal bilaterally General nose exam: Normal nasal mucous membranes and turbinates present Eyes Conjunctivae: conjunctivae normal Sclerae: sclerae normal Pupils: Equal, round and reactive pupils present Neck Neck: Yes no lymphadenopathy and Yes no JVD Thyroid: Thyroid normal Carotids: no bruits Resp Effort & Inspection: normal respiratory effort and not tachypneic Auscultation: no crackles, no rales, no rhonchi and no wheezes Cardio Rate: regular rate Rhythm: regular rhythm Heart sounds: no murmurs and normal S1 and S2 GI Palpation (GI): Soft to palpation, nontender, no hepatomegaly and no splenomegaly Auscultation: normal bowel sounds Skin General skin exam: no rashes or lesions noted and dry skin Neuro General: oriented to person, oriented to place and oriented to time Cranial nerves: Yes Equal, round and reactive pupils present Speech: No Abnormal speech present Gait exam (Neuro): Normal gait present Motor exam (neuro): no tremor noted Extrem Right upper extremity: full ROM Left upper extremity: full ROM Right lower extremity: full ROM; no edema Left lower extremity: full ROM; no edema Psych Mental Status: mental status grossly normal Speech and movement: Normal speech and movement present Affect: normal affect Attitude: cooperative Thought process: Normal thought process present Coding Level of Care Code Est Pt Level 4 (89156) Diagnoses Type 2 diabetes mellitus without complication, without long-term current use of insulin E11.9 Diabetes mellitus complication status: without complication Diabetes mellitus jail insulin use: without intermediate designer use Pure hypertriglyceridemia E78.1 Hyperlipidemia type: pure hypertriglyceridemia Essential hypertension I10 Hypertension type: essential hypertension Additional Codes PHQ-9 - 33985 - PHQ-9 Billing: Yes ([id number]) Assessment & Plan Assessment & Plan (1) DMII (diabetes mellitus, type 2): Code(s): E11.9 - Type 2 diabetes mellitus without complications Category: Medical Qualifiers: Diabetes mellitus complication status: without complication Diabetes mellitus intermediate designer insulin use: without intermediate designer use Qualified Code(s): E11.9 - Type 2 diabetes mellitus without complications Plan: Patient's type 2 diabetes well controlled with current metformin. Most recent A1c is 6.4 She will continue working on dietary modifications. Goal A1c is to be below 7.0 (2) HLD (hyperlipidemia): Code(s): E78.5 - Hyperlipidemia, unspecified Category: Medical Qualifiers: Hyperlipidemia type: pure hypertriglyceridemia Qualified Code(s): E78.1 - Pure hyperglyceridemia Plan: Her atorvastatin was increased to 40 mg. Reduce atorvastatin from 40 mg to 20 mg to manage cholesterol and reduce liver enzyme elevation. Will recheck fasting lipid panel to ensure normal LDL. Goal LDL is to remain below 100 (3) HTN (hypertension): Code(s): I10 - Essential (primary) hypertension Category: Medical Qualifiers: Hypertension type: essential hypertension Qualified Code(s): I10 - Essential (primary) hypertension Plan: Patient's blood pressure low side today in office. Will hold off on her hydrochlorothiazide and advised patient to monitor blood pressure at home. Goal blood pressures to be below 140/90 and above 100/60 Orders: Orders Microalbumin, Random (w Creat) Today I10 - Essential (primary) hypertension Comprehensive [place]. Panel Fast Today I10 - Essential (primary) hypertension Hemoglobin A1c Today E11.9 - Type 2 diabetes mellitus without complications Lipid Panel Today E78.1 - Pure hyperglyceridemia Vitamin D 25-OH Total Today D64.9 - Anemia, unspecified Complete Blood Count no Diff Today I10 - Essential (primary) hypertension Vitamin B12 and Folate Today D64.9 - Anemia, unspecified, E53.8 - Deficiency of other specified B group vitamins Medications: Changed From clonazepam 1 mg PO BEDTIME PRN F41.1 - Generalized anxiety disorder To clonazepam 1 mg PO BEDTIME 30 tabs 2RF 30 days F41.1 - Generalized anxiety disorder On Hold hydrochlorothiazide Hold Comment: Doctor's Order 12.5 mg PO DAILY 90 days 90 caps 3RF
== END 2025-01-01 10:01 | disposition home or self-care (01) ==
LOC: HO.HMCH 09:29
PROVIDERS: PCP Physician Assistant; Visit Provider Physician Assistant
DX: E11.9 Type 2 diabetes mellitus without complications (principal); E78.1 Pure hyperglyceridemia; I10 Essential (primary) hypertension

== ENCOUNTER → 2025-01-01 09:28 | Outpatient (BNVA) | payer OTHER, SELFPAY | PROVIDERS: PCP Physician Assistant; Visit Provider Physician Assistant | DX: E11.9 Type 2 diabetes mellitus without complications (principal); E78.1 Pure hyperglyceridemia; I10 Essential (primary) hypertension; F41.9 Anxiety disorder, unspecified; Z79.84 Long term (current) use of oral hypoglycemic drugs; Z79.899 Other long term (current) drug therapy; Z13.31 Encounter for screening for depression | CPT/HCPCS: 96127; 99212 ==

== ENCOUNTER 2025-01-24 08:32 | Outpatient (REF) | payer OTHER, SELFPAY | END 2025-01-24 08:33 | disposition home or self-care (01) | LOC: HO.MAMMO 08:32 | PROVIDERS: PCP Physician Assistant; Visit Provider Physician Assistant | DX: Z12.31 Encounter for screening mammogram for malignant neoplasm of breast (principal) | CPT/HCPCS: 77063; 77067 ==

== ENCOUNTER → 2025-01-24 09:15 | Outpatient (BNV) | payer OTHER, SELFPAY | PROVIDERS: PCP Physician Assistant; Visit Provider Internal Medicine | DX: Z12.31 Encounter for screening mammogram for malignant neoplasm of breast (principal) | CPT/HCPCS: 77063; 77067 ==

== ENCOUNTER 2025-02-12 08:03 | Outpatient (REF) | payer OTHER, SELFPAY ==
--- NOTE | ~2025-02-12 | MM_ITS ---
EXAMINATION: MM DIAGNOSTIC DIGITAL BREAST TOMOSYNTHESIS, RIGHT CLINICAL INFORMATION: Call back from screening for grouped calcifications in the right breast. COMPARISON: Mammography: [facility] on PACS. TECHNIQUE: Digital breast tomosynthesis is performed in both the craniocaudal and mediolateral oblique views along with computer-aided detection (CAD). Synthesized 2D images are generated from the tomosynthesis. FINDINGS: The breasts are heterogeneously dense, which may obscure small masses. There are grouped pleomorphic and fine linear branching calcifications in the central to lower inner breast. No suspicious masses or other abnormal findings. MM/MM tomosynthesis added views R IMPRESSION: Grouped pleomorphic /fine linear branching calcifications in the central to lower inner breast. Recommend stereotactic core needle biopsy for confirmation. The findings and recommendations were discussed with the patient the procedure be scheduled. ASSESSMENT: BI-RADS Category 4: Suspicious RECOMMENDATION: Biopsy recommended Results were discussed with the patient at time of visit. Electronically signed by: Sita Sierra DO 02/12/2025 11:17 AM EDT
--- OUTSIDE RECORDS SUMMARY | 2025-02-12 08:07 | XMS_ITS | Clinical Summary ---
Author Organization [employer] Address [address] [place] [address] Care Team Providers Care Agricultural Real Estate Agent Name Role Phone Unavailable Primary Care [...] 03/05/2020 03/05/2019, 12/20/2016 COVID-19 Vaccine ( season) 2024 04/25/2021, 09/01/2020, 08/04/2020 Influenza Vaccine (#1) 2024 [...]
--- OUTSIDE RECORDS SUMMARY | 2025-02-12 08:07 | XMS_ITS | Encounter Summary ---
Author Organization [email or web address] Address [address] [place] [address] Care Team Providers Care Copper Plate Printer Name Role Phone Unavailable Primary Care Provider Unavailabl e Encounter Details Date Type Department Care Team (Latest Contact Info) Description 2019 Abstract [facility] CONVERSIONS Dental, Provider, DDS Social History Tobacco [...]
--- OUTSIDE RECORDS SUMMARY | 2025-02-12 08:07 | XMS_ITS | Encounter Summary ---
Author Organization [employer] Address [address] [place] [address] Care Team Providers Care Electrolysist Name Role Phone Unavailable Primary Care Provider Unavailabl e Encounter Details Date Type Department Care Team (Latest Contact Info) Description 07/08/2020 Abstract [facility] CONVERSIONS Dental, Provider, DDS Social [...]
--- OUTSIDE RECORDS SUMMARY | 2025-02-12 08:07 | XMS_ITS | Encounter Summary ---
Author Organization [employer] Address [address] [facility] [address] [address] [place] [address] Care Team Providers Care Pole Peeling Machine Operator Helper Name Role Phone Unavailable Primary Care Provider Unavailabl e Encounter Details Date Type Department Care Team (Latest Contact Info) Description 05/14/2018 Abstract [facility] CONVERSIONS Dental, Provider, DDS Social History [...]
== END 2025-02-12 08:04 | disposition home or self-care (01) ==
LOC: HO.MAMMO 08:03
PROVIDERS: PCP Physician Assistant; Visit Provider Physician Assistant
DX: R92.1 Mammographic calcification found on diagnostic imaging of breast (principal)
CPT/HCPCS: 77061; 77065

== ENCOUNTER → 2025-02-12 08:30 | Outpatient (BNV) | payer OTHER, SELFPAY | PROVIDERS: PCP Physician Assistant; Visit Provider Internal Medicine | DX: R92.8 Other abnormal and inconclusive findings on diagnostic imaging of breast (principal) | CPT/HCPCS: 77065; G0279 ==

== ENCOUNTER 2025-02-26 07:39 | Outpatient (AMB) | payer OTHER, SELFPAY ==
--- OUTSIDE RECORDS SUMMARY | 2025-02-26 07:42 | XMS_ITS | Encounter Summary ---
Author Organization [employer] Address [address] [facility] [address] [place] [address] Care Team Providers Care Boat Cleaning Supervisor Name Role Phone Unavailable Primary Care Provider Unavailabl e Encounter Details Date Type Department Care Team (Latest Contact Info) Description 05/14/2018 Abstract [facility] CONVERSIONS Dental, Provider, DDS Social History [...]
--- OUTSIDE RECORDS SUMMARY | 2025-02-26 07:42 | XMS_ITS | Clinical Summary ---
Author Organization [employer] Address [address] [place] [address] Care Team Providers Care Environmental Permitting Specialist Name Role Phone Unavailable Primary Care Provider [...]
--- OUTSIDE RECORDS SUMMARY | 2025-02-26 07:42 | XMS_ITS | Encounter Summary ---
Author Organization [employer] Address [address] [facility] [address] [place] [address] Care Team Providers Care Dynamic Balancer Name Role Phone Unavailable Primary Care Provider Unavailabl e Encounter Details Date Type Department Care Team (Latest Contact Info) Description 07/08/2020 Abstract [facility] CONVERSIONS Dental, Provider, DDS Social History Tobacco [...]
--- OUTSIDE RECORDS SUMMARY | 2025-02-26 07:42 | XMS_ITS | Encounter Summary ---
Author Organization [employer] Address [address] [facility] [address] [facility] [address] [place] [address] Care Team Providers Care Investment Sales Assistant Name Role Phone Unavailable Primary Care Provider Unavailabl e Encounter Details Date Type Department Care Team (Latest Contact Info) Description 2019 Abstract [facility] CONVERSIONS Dental, Provider, DDS Social History Tobacco [...]
[2025-02-26 08:01] VITALS: BP 151/68; PULSE 61; BMI 20.4
--- NOTE | 2025-02-26 08:01 | A.OFFVIS_ITS ---
Vital Signs 02/26/25 08:01 Height 5 ft 3 in Weight 115 lb BMI 20.4 BP 151/68 H Blood Pressure Location Lt brachial Position Sitting Pulse 61 Intake Visit Reasons: st bx Rt br calcifications upper inner breast Intake Note: This patient presents for a breast consult for stereotactic biopsy for right breast calcifications upper inner breast. Pt c/o; reports no change in breast size or shape, reports no discharge from nipple, reports no pain. Roof Painter Required: Yes Information Interpreted: non-clinical & clinical Accompanied by: Self / Same As Patient Allergies No Known Allergies (No Known Allergies*) Allergy (Verified 02/26/25 08:15) Medication List - Last Reconciled 02/26/25 by Zeus Smith MD acetaminophen 500 mg PO Q6H PRN 30 days acetic acid 2% 3 drps otic (ear) left TID 30 days albuterol sulfate 90 mcg/actuation (Ventolin HFA) 2 puffs inhalation Q4-6H PRN alcohol swabs (Alcohol Prep Pads) 1 pad topical DAILY 90 days alum-mag hydroxide-simeth 200-200-20 mg/5 mL (Maalox Advanced) 10 mL PO QID PRN ascorbate calcium (vitamin C) 500 mg PO DAILY 90 days atorvastatin 20 mg PO DAILY 90 days back brace As directed bepotastine besilate 1.5% (Bepreve) 1 drp ophthalmic (eye) BID PRN 30 days blood sugar diagnostic (OneTouch Verio test strips) Tests once a day as needed blood-glucose meter (OneTouch Verio Flex Meter) As directed [id number] 50-325-40 mg 1 cap PO Q6H PRN 4 days cholecalciferol (vitamin D3) 25 mcg PO DAILY 90 days clonazepam 1 mg PO BEDTIME 30 days clotrimazole 1% 1 appful vaginal BEDTIME 7 days comp.stocking,knee,long,medium As directed diclofenac sodium 1% (Voltaren Arthritis Pain) 2 grams topical QID fluoxetine 40 mg PO DAILY 90 days fluticasone propionate 50 mcg/actuation 2 sprays intranasal BID gabapentin 300 mg PO BEDTIME hydrochlorothiazide 12.5 mg PO DAILY 90 days Held on 01/01/25. Instructions: Doctor's Order hydroxyzine HCl 25 mg PO TID 7 days ketoconazole 2% 1 appl topical 2XW 30 days Lactobacillus rhamnosus GG (Culturelle) 1 cap PO DAILY 30 days lancets (FreeStyle Lancets) As directed lidocaine 5% 1 patch topical DAILY 30 days loratadine (Allergy Relief (loratadine)) 10 mg PO DAILY 90 days [mederma As directed] meloxicam 15 mg PO DAILY PRN 30 days metformin 500 mg PO BID 90 days methyl salicylate-menthol 30-10 % (Icy Hot) 1 appl topical TID 30 days miconazole nitrate 2% 1 appful vaginal BEDTIME 7 days montelukast 10 mg PO DAILY 90 days multivitamin (Daily-Dionisio tablet) 1 tab PO DAILY naproxen 500 mg PO BID PRN olopatadine 0.2% 1 drp ophthalmic (eye) DAILY 30 days omega 5-omq-adi-fish oil 60-90-500 mg (Fish Oil) 1 cap PO BID 90 days omeprazole 40 mg PO DAILY 90 days pen needle, diabetic once per day polyethylene glycol 3350 (Miralax) 17 grams PO DAILY PRN 30 days psyllium husk (Metamucil) 1 tbsp PO DAILY PRN 30 days quetiapine 25 mg PO BEDTIME sennosides (senna) 17.2 mg (2 x 8.6 mg) PO BEDTIME sumatriptan succinate take 1 tab at onset of headache; if no relief may repeat 1 tab after at least 2 hrs; max = 4 tabs/24 hr PO 30 days topiramate 25 mg PO DAILY triamcinolone acetonide 0.1% 1 appl topical DAILY PRN 30 days vitamin E (dl, acetate) 180 mg PO DAILY 90 days zolpidem 10 mg PO BEDTIME PRN HPI HPI st bx Rt br calcifications upper inner breast: Details: [age] year old female referred for right breast calcification. She had undergone mammogram last February 09 twice to 5 and this showed grouped pleomorphic,fine linear branching calcifications in the central to lower inner breast on the right breast. She was brought in for a diagnostic mammogram and these were seen again so she was recommended to undergo stereotactic right breast biopsy. She denies palpable breast masses. Her menarche was at the age of 10. She had 3 pregnancies. Her 1st was the age of 20. She had menopause in her 50s She says her sister had breast cancer but this was past the age of 50. [facility] Medical History Breast calcification, right DMII (diabetes mellitus, type 2) COVID-19 Lumbar radiculopathy Asthma Gross hematuria Migraines Myofascial pain HLD (hyperlipidemia) HTN (hypertension) Surgical History History of esophagogastroduodenoscopy (EGD) Hx of colonoscopy History of tubal ligation Family History Father No problems noted. Mother No problems noted. Sister Breast cancer Brother Prediabetes Daughter Liver problem Other Gross hematuria Social History Housing: House Alcohol intake: never Patient Tobacco Use Status: Never used Tobacco Tobacco use type: Cigarette e-Cigarette/Vaping Use: Never Used Second Hand Smoke Exposure: No service: No Current occupational status: retired Cognitive needs: No Hearing needs: No Vision needs: Yes Female Reproductive History Menstrual Age of Menarche: 10 Age of menopause: 49 Total pregnancies: 3 Full term: 2 Review of Systems Const Denies chills and Denies fever(s) Card Denies chest pain, Denies dyspnea and Denies dyspnea on exertion Resp Denies cough, Denies dyspnea and Denies dyspnea on exertion GI Denies hematochezia and Denies change in bowel habits Denies hematuria Musc Denies back pain and Denies limited range of motion Neuro Denies focal weakness and Denies convulsions Psych Denies depression and Denies mood swings Physical Exam Vital Signs: Last Vital Signs Pulse 61 02/26/25 08:01 BP 151/68 H 02/26/25 08:01 BMI result Body Mass Index 20.4 Const General: comfortable and no acute distress Orientation/consciousness: patient oriented x3 Neck Neck: Yes no lymphadenopathy Chest Other: No palpable breast masses, no nipple or skin changes, no axillary lymphadenopathy Resp Auscultation: clear to auscultation bilaterally Cardio Rhythm: regular rhythm GI Palpation (GI): Soft to palpation, nontender and no guarding Neuro General: patient oriented x3 Assessment & Plan Assessment & Plan (1) Breast calcification, right: Code(s): R92.1 - Mammographic calcification found on diagnostic imaging of breast Category: Medical Plan: She has this right breast calcifications as described above. A stereotactic biopsy was recommended by the radiologist. I explained to the technique of this procedure I will see her again in the office the week after biopsy to discuss the path report She understands the plan and is comfortable with this. Orders: Orders MM stereotactic biopsy RT 02/25/25 R92.1 - Mammographic calcification found on diagnostic imaging of breast Coding Level of Care Code New Pt Level 3 (29935) Diagnoses Breast calcification, right R92.1
== END 2025-02-26 09:16 | disposition home or self-care (01) ==
LOC: HO.HGS 07:39
PROVIDERS: PCP Physician Assistant; Visit Provider Surgery
DX: R92.1 Mammographic calcification found on diagnostic imaging of breast (principal)
CPT/HCPCS: 99203

== ENCOUNTER 2025-02-26 09:20 | Outpatient (REF) | payer OTHER, SELFPAY ==
--- NOTE | ~2025-02-26 | MM_ITS ---
EXAMINATION: STEREOTACTICALLY-GUIDED RIGHT BREAST BIOPSY CLINICAL INFORMATION: New grouped pleomorphic and linear branching calcifications lower inner right breast. COMPARISON: There is on PACS. INFORMED CONSENT: After the details of the procedure, as well as the risks (including, but not limited to, bleeding, hematoma formation, and infection), benefits and alternatives (including doing nothing, short-interval follow up, and surgery) to the procedure were explained to the patient in detail and all of her questions were answered, informed written consent was obtained. TECHNIQUE/FINDINGS: A timeout was performed confirming patients name date of side and site of procedure. The lesion intended for biopsy was identified stereotactically and targeted. The skin of the right breast was then cleansed with sterile solution. Using stereotactic guidance, aseptic technique, and 1% lidocaine with and without epinephrine for local anesthesia, a total of 12 cores were obtained through the targeted area with a 9-gauge vacuum-assisted Eviva core biopsy device from a inferior approach. Specimen radiography reveals the targeted calcifications in the sampled tissue. At the completion of tissue sampling, a single top hat-shaped metallic clip was deposited at the biopsy site. Adequate sampling was achieved. The postprocedure 2-view direct digital mammogram reveals satisfactory positioning of the biopsy clip. The patient tolerated the procedure well and, after assuring adequate hemostasis, was discharged in good condition after reviewing postbiopsy breast care instructions. Final pathology results are pending. MM/MM stereotactic biopsy RT IMPRESSION: 1. Uncomplicated stereotactically-guided core biopsy of the right breast. The 2-view direct digital postprocedure mammogram reveals satisfactory positioning of the biopsy clip. 2. Final pathology results are pending. A separate report with final recommendations will be issued once these results are made available. Electronically signed by: Sita Sierra DO 02/26/2025 12:01 PM [facility]
[2025-02-26] MEDS: Lidocaine HCl 1 % 20 ML VIAL 5 ML SUBCUT (11:26)
[2025-02-26] MEDS: Lidocaine HCl 1%/Epi 1:100,000 10 ML VIAL 12 ML SUBCUT (11:27)
== END 2025-02-26 09:21 | disposition home or self-care (01) ==
LOC: HO.MAMMO 09:20
PROVIDERS: PCP Physician Assistant; Visit Provider Surgery
DX: R92.1 Mammographic calcification found on diagnostic imaging of breast (principal)
CPT/HCPCS: 19081; 88305; 88341; 88342; 88360; 99202; A4648; J2003; J2004

== ENCOUNTER → 2025-02-26 10:00 | Outpatient (BNV) | payer OTHER, SELFPAY | PROVIDERS: PCP Physician Assistant; Visit Provider Internal Medicine | DX: R92.1 Mammographic calcification found on diagnostic imaging of breast (principal) | CPT/HCPCS: 19081 ==

== ENCOUNTER 2025-03-05 08:35 | Outpatient (AMB) | payer OTHER, SELFPAY ==
--- NOTE | 2025-03-05 08:40 | MHC.OFFVIS ---
Vital Signs 03/05/25 08:41 Height 5 ft 3 in Weight 114 lb 15.996 oz BMI 20.4 Intake Visit Reasons: s/p st bx Rt br calcifications upper inner breast Intake Note: Patient presents for a follow-up for breast biopsy results. Pt c/o; reports biopsy site healed well, no other complaints at this time. Bx: 02/26/2025 Special Forces Warrant Officer Required: Yes [employer] Warrant Officer Language: Cordage Sales Representative Services: Special Forces Warrant Officer Present [employer] Warrant Officer Name: Claudia Information Interpreted: non-clinical & clinical Accompanied by: Self / Same As Patient Allergies No Known Allergies (No Known Allergies*) Allergy (Verified 03/05/25 08:47) Medication List - Last Reconciled 03/05/25 by Zeus Smith MD acetaminophen 500 mg PO Q6H PRN 30 days acetic acid 2% 3 drps otic (ear) left TID 30 days albuterol sulfate 90 mcg/actuation (Ventolin HFA) 2 puffs inhalation Q4-6H PRN alcohol swabs (Alcohol Prep Pads) 1 pad topical DAILY 90 days alum-mag hydroxide-simeth 200-200-20 mg/5 mL (Maalox Advanced) 10 mL PO QID PRN ascorbate calcium (vitamin C) 500 mg PO DAILY 90 days ascorbic acid (vitamin C) 500 mg PO DAILY atorvastatin 20 mg PO DAILY 90 days back brace As directed bepotastine besilate 1.5% (Bepreve) 1 drp ophthalmic (eye) BID PRN 30 days blood sugar diagnostic (OneTouch Verio test strips) Tests once a day as needed blood-glucose meter (OneTouch Verio Flex Meter) As directed [id number]-jkdztrksuxrxe-[id number] 50-325-40 mg 1 cap PO Q6H PRN 4 days cholecalciferol (vitamin D3) 25 mcg PO DAILY 90 days clonazepam 1 mg PO BEDTIME 30 days clotrimazole 1% 1 appful vaginal BEDTIME 7 days comp.stocking,knee,long,medium As directed diclofenac sodium 1% (Voltaren Arthritis Pain) 2 grams topical QID fluoxetine 40 mg PO DAILY 90 days fluticasone propionate 50 mcg/actuation 2 sprays intranasal BID gabapentin 300 mg PO BEDTIME hydrochlorothiazide 12.5 mg PO DAILY 90 days Held on 01/01/25. Instructions: Doctor's Order hydroxyzine HCl 25 mg PO TID 7 days ketoconazole 2% 1 appl topical 2XW 30 days Lactobacillus rhamnosus GG (Culturelle) 1 cap PO DAILY 30 days lancets (FreeStyle Lancets) As directed lidocaine 5% 1 patch topical DAILY 30 days loratadine (Allergy Relief (loratadine)) 10 mg PO DAILY 90 days [mederma As directed] meloxicam 15 mg PO DAILY PRN 30 days metformin 500 mg PO BID 90 days methyl salicylate-menthol 30-10 % (Icy Hot) 1 appl topical TID 30 days miconazole nitrate 2% 1 appful vaginal BEDTIME 7 days montelukast 10 mg PO DAILY 90 days multivitamin (Daily-Dionisio tablet) 1 tab PO DAILY multivitamin with folic acid 400 mcg (Daily-Dionisio (with folic acid)) 1 tab PO DAILY naproxen 500 mg PO BID PRN olopatadine 0.2% 1 drp ophthalmic (eye) DAILY 30 days omega 4-kjj-nyv-fish oil 60-90-500 mg (Fish Oil) 1 cap PO BID 90 days omeprazole 40 mg PO DAILY 90 days pen needle, diabetic once per day polyethylene glycol 3350 (Miralax) 17 grams PO DAILY PRN 30 days psyllium husk (Metamucil) 1 tbsp PO DAILY PRN 30 days quetiapine 25 mg PO BEDTIME sennosides (senna) 17.2 mg (2 x 8.6 mg) PO BEDTIME sumatriptan succinate take 1 tab at onset of headache; if no relief may repeat 1 tab after at least 2 hrs; max = 4 tabs/24 hr PO 30 days topiramate 25 mg PO DAILY triamcinolone acetonide 0.1% 1 appl topical DAILY PRN 30 days vitamin E (dl, acetate) 180 mg PO DAILY 90 days zolpidem 10 mg PO BEDTIME PRN HPI HPI s/p st bx Rt br calcifications upper inner breast: Details: [age] year old here for a follow-up for right breast calcifications. She had undergone mammogram last February 09 twice to 5 and this showed grouped pleomorphic,fine linear branching calcifications in the central to lower inner breast on the right breast. She was brought in for a diagnostic mammogram and these were seen again so she was recommended to undergo stereotactic right breast biopsy. She had this done last 02/26/2025 and she is here to discuss the path report. She says she tolerated the biopsy well. She has a hematoma. She denies palpable breast masses. Her menarche was at the age of 10. She had 3 pregnancies. Her 1st was the age of 20. She had menopause in her 50s She says her sister had breast cancer but this was past the age of 50. [facility] Medical History (Updated 03/05/25 @ 09:27 by Zeus Smith MD) DCIS (ductal carcinoma in situ) Breast calcification, right DMII (diabetes mellitus, type 2) COVID-19 Lumbar radiculopathy Asthma Gross hematuria Migraines Myofascial pain HLD (hyperlipidemia) HTN (hypertension) Surgical History History of esophagogastroduodenoscopy (EGD) Hx of colonoscopy History of tubal ligation Family History Father No problems noted. Mother No problems noted. Sister Breast cancer Brother Prediabetes Daughter Liver problem Other Gross hematuria Social History Housing: House Alcohol intake: never Patient Tobacco Use Status: Never used Tobacco Tobacco use type: Cigarette e-Cigarette/Vaping Use: Never Used Second Hand Smoke Exposure: No service: No Current occupational status: retired Cognitive needs: No Hearing needs: No Vision needs: Yes Female Reproductive History Menstrual Age of Menarche: 10 Review of Systems Const Denies chills and Denies fever(s) Card Denies chest pain, Denies dyspnea and Denies dyspnea on exertion Resp Denies cough, Denies dyspnea and Denies dyspnea on exertion GI Denies hematochezia and Denies change in bowel habits Denies hematuria Musc Denies back pain and Denies limited range of motion Neuro Denies focal weakness and Denies convulsions Psych Denies depression and Denies mood swings Physical Exam Vital Signs: BMI result Body Mass Index 20.4 Const General: comfortable and no acute distress Orientation/consciousness: patient oriented x3 Neck Neck: Yes no lymphadenopathy Chest Other: No palpable breast masses, no axillary lymphadenopathy Resp Auscultation: clear to auscultation bilaterally Cardio Rhythm: regular rhythm GI Palpation (GI): Soft to palpation, nontender and no guarding Neuro General: patient oriented x3 Assessment & Plan Assessment & Plan (1) DCIS (ductal carcinoma in situ): Code(s): D05.10 - Intraductal carcinoma in situ of unspecified breast Category: Medical Plan: 64 year female with grouped calcifications of the right breast. She had a stereotactic biopsy last week and unfortunately this shows DCIS. The tumor is ER positive, NE negative I had a long discussion with her about her options. One option is to proceed with lumpectomy with the Hologic localizer. She understands that she will need to have radiation for the whole breast to complete treatment. The 2nd option is to do a mastectomy. She understands that if she proceeds to do this, there is of the option of breast reconstruction. I explained to her the risks and benefits of each procedure. She says she wants to proceed with lumpectomy with the Hologic localizer. She understands that she will need to have radiation treatment afterwards. I am going to also have her seen has consultation with the oncology service I was able to discuss the above with her daughter Renard at [phone]. I also told them that they are welcome to call the office if they have any questions or concerns , Orders: Referrals Hematology & Oncology Referral D05.10 - Intraductal carcinoma in situ of unspecified breast Coding Level of Care Code Est Pt Level 3 (38068) Diagnoses DCIS (ductal carcinoma in situ) D05.10
[2025-03-05 08:41] VITALS: BMI 20.4
--- OUTSIDE RECORDS SUMMARY | 2025-03-05 08:55 | XMS_ITS | Encounter Summary ---
Author Organization [employer] Address [address] [place] [address] Care Team Providers Care Retail Representative Name Role Phone Unavailable Primary Care Provider Unavailabl e Encounter Details Date Type Department Care Team (Latest Contact Info) Description 2019 Abstract [facility] CONVERSIONS Dental, Provider, DDS Social [...]
--- OUTSIDE RECORDS SUMMARY | 2025-03-05 08:55 | XMS_ITS | Encounter Summary ---
Author Organization [employer] Address [address] [facility] [address] [place] [address] Care Team Providers Care Brass Buffer Name Role Phone Unavailable Primary Care Provider Unavailabl e Encounter Details Date Type Department Care Team (Latest Contact Info) Description 05/14/2018 Abstract [facility] CONVERSIONS Dental, Provider, DDS Social [...]
--- OUTSIDE RECORDS SUMMARY | 2025-03-05 08:55 | XMS_ITS | Encounter Summary ---
Author Organization [employer] Address [address] [facility] [address] [place] [address] Care Team Providers Care Remote Sensing Scientist Name Role Phone Unavailable Primary Care Provider Unavailabl e Encounter Details Date Type Department Care Team (Latest Contact Info) Description 07/08/2020 Abstract [facility] CONVERSIONS Dental, Provider, DDS Social History [...]
--- OUTSIDE RECORDS SUMMARY | 2025-03-05 08:55 | XMS_ITS | Clinical Summary ---
Author Organization [employer] Address [address] [facility] [address] [place] [address] Care Team Providers Care Mortgage Banker Name Role Phone Unavailable Primary Care Provider [...]
== END 2025-03-05 09:31 | disposition home or self-care (01) ==
LOC: HO.HGS 08:36
PROVIDERS: PCP Physician Assistant; Visit Provider Surgery
DX: D05.10 Intraductal carcinoma in situ of unspecified breast (principal)
CPT/HCPCS: 99213

== ENCOUNTER → 2025-03-05 08:35 | Outpatient (BNVA) | payer OTHER, SELFPAY | PROVIDERS: PCP Physician Assistant; Visit Provider Surgery | DX: R92.1 Mammographic calcification found on diagnostic imaging of breast (principal); D05.11 Intraductal carcinoma in situ of right breast | CPT/HCPCS: 99212 ==

== ENCOUNTER 2025-03-10 07:37 | Outpatient (REF) | payer OTHER, SELFPAY ==
--- NOTE | ~2025-03-10 | MM_ITS ---
EXAMINATION: MM MAMMOGRAM GUIDED RFID LOCALIZATION BREAST, RIGHT CLINICAL INFORMATION: Patient is status post stereotactic needle core biopsy of right breast grouped calcifications located in the lower inner quadrant at approximately 5 cm from the nipple on February 26, 2025, with pathology results showing ductal carcinoma in situ. A top hat shape clip was placed. COMPARISON: Screening mammogram on January 24, 2025. Right diagnostic mammogram on February 12, 2025. Stereotactic needle core biopsy on February 26, 2025. TECHNIQUE NEEDLE LOC: Proper informed consent is obtained from the patient after discussion of the procedure, potential risks and complications, and alternatives including declining the procedure today, with the help of the certified supervisor bakery sanitation Ms. Alanis Howard.. Patient was given an opportunity for questions. The patient appeared to understand. The patient consented to the procedure and signed the consent form. GUIDANCE: Digital mammography. APPROACH: Medial. TARGET: Calcifications in the lower inner quadrant at about 5 cm from the nipple. Top hat clip in the vicinity. ANESTHESIA: carbonated lidocaine 1%: 5 cc. LOCALIZATION SYSTEM: -[employer] LOCallizer Wire-Free Guidance System with 12g needle applicator. -Length: 7 cm. -RADIOFREQUENCY TAG: ID # [id number] DERMATOTOMY: Single skin-amanda dermatotomy performed. RF Tag ID confirmed with LOCalizer Guidance System prior to placement. The skin is prepped and local anesthesia administered. The needle is positioned and RFID tag deployed. Final images demonstrate the LOCalizer RF tag to reside in satisfactory position in the approximate central portion of this grouped calcifications. The patient tolerated the procedure well and had no immediate complications. Dressing placed and home instructions reviewed. MM/MM RF Tag device RT IMPRESSION: -Status post right breast RFID localization. TAG: ID # [id number] Electronically signed by: Matthias Hernandez MD 03/10/2025 09:08 AM [facility]
[2025-03-10] MEDS: Lidocaine HCl 1 % 20 ML VIAL 5 ML SUBCUT (08:52)
== END 2025-03-10 07:38 | disposition home or self-care (01) ==
LOC: HO.MAMMO 07:37
PROVIDERS: PCP Physician Assistant; Visit Provider Surgery
DX: R92.1 Mammographic calcification found on diagnostic imaging of breast (principal)
CPT/HCPCS: 19281; C1819; J2003

== ENCOUNTER → 2025-03-10 08:00 | Outpatient (BNV) | payer OTHER, SELFPAY | PROVIDERS: PCP Physician Assistant; Visit Provider Radiology Body Imaging | DX: R92.1 Mammographic calcification found on diagnostic imaging of breast (principal); D05.11 Intraductal carcinoma in situ of right breast; Z98.82 Breast implant status | CPT/HCPCS: 19281 ==

== ENCOUNTER 2025-03-24 06:34 | Day surgery (SDC) | payer OTHER, SELFPAY ==
--- OUTSIDE RECORDS SUMMARY | 2025-03-12 02:40 | XMS_ITS | Encounter Summary ---
Author Organization [employer] Address [address] [facility] [address] [place] [address] Care Team Providers Care Health And Wellness Sales Consultant Name Role Phone Unavailable Primary Care Provider Unavailabl e Encounter Details Date Type Department Care Team (Latest Contact Info) Description 07/08/2020 Abstract [facility] CONVERSIONS Dental, Provider, DDS Social History Tobacco [...]
--- OUTSIDE RECORDS SUMMARY | 2025-03-12 02:40 | XMS_ITS | Clinical Summary ---
Author Organization [employer] Address [address] [facility] [address] [place] [address] Care Team Providers Care Human Resource Management Instructor Name Role Phone Unavailable Primary Care Provider [...]
--- OUTSIDE RECORDS SUMMARY | 2025-03-12 02:40 | XMS_ITS | Encounter Summary ---
Author Organization [employer] Address [address] [facility] [address] [place] [address] Care Team Providers Care Filament Maker Name Role Phone Unavailable Primary Care Provider Unavailabl e Encounter Details Date Type Department Care Team (Latest Contact Info) Description 05/14/2018 Abstract [facility] CONVERSIONS Dental, Provider, DDS Social History [...]
--- OUTSIDE RECORDS SUMMARY | 2025-03-12 02:40 | XMS_ITS | Encounter Summary ---
Author Organization [employer] Address [address] [facility] [address] [place] [address] Care Team Providers Care Skydiving Instructor Name Role Phone Unavailable Primary Care Provider Unavailabl e Encounter Details Date Type Department Care Team (Latest Contact Info) Description 2019 Abstract [facility] CONVERSIONS Dental, Provider, DDS Social History Tobacco [...]
--- NOTE | 2025-03-18 10:22 | HO.ANESPROP2 ---
Documented by User: Sherri Sparks NP 03/18/25 10:34 HPI - Anesthesia Eval Consult details Narrative: 64yo F for Right Breast Lumpectomy w/LOCalizer PMFSH Active Problems Active Problems: All Active Problems DCIS (ductal carcinoma in situ) (Acute) Breast calcification, right (Acute) COVID-19 (Acute) DMII (diabetes mellitus, type 2) (Acute) Impaired glucose metabolism (Acute) Normocytic anemia (Acute) HTN (hypertension) (Acute) GERD (gastroesophageal reflux disease) (Acute) Migraines (Acute) HLD (hyperlipidemia) (Acute) Dysuria (Acute) Osteoarthritis of left knee (Acute) Vaginitis (Acute) Chronic low back pain with bilateral sciatica (Acute) Lumbar degenerative disc disease (Acute) Insomnia (Acute) Generalized pruritus (Acute) Allergic conjunctivitis (Acute) Annual physical exam (Acute) Low back pain (Acute) Rectal pain (Acute) Lumbar facet arthropathy (Acute) Stenosis of lumbosacral spine (Acute) Constipation (Acute) Sacroiliac joint pain (Acute) Tinea capitis (Acute) Allergic rhinitis (Acute) JOSE (generalized anxiety disorder) (Acute) Anemia (Acute) Urine frequency (Acute) Lumbar spondylosis (Acute) Vaginitis (Acute) Lower extremity edema (Acute) Degenerative arthritis of knee, bilateral (Acute) Past Medical History Medical History DCIS (ductal carcinoma in situ) Breast calcification, right DMII (diabetes mellitus, type 2) COVID-19 Lumbar radiculopathy Asthma Gross hematuria Migraines Myofascial pain HLD (hyperlipidemia) HTN (hypertension) Family History Family History Father No problems noted. Mother No problems noted. Sister Breast cancer Brother Prediabetes Daughter Liver problem Other Gross hematuria Surgical History Surgical History History of esophagogastroduodenoscopy (EGD) Hx of colonoscopy History of tubal ligation Social History Social History Housing: House Alcohol intake: never Patient Tobacco Use Status: Never used Tobacco Tobacco use type: Cigarette e-Cigarette/Vaping Use: Never Used Second Hand Smoke Exposure: No Advance Directives: No Advance Directives Information Provided: Yes service: No Current occupational status: retired Cognitive needs: No Hearing needs: No Vision needs: Yes Meds Allergies Allergy/AdvReac Type Severity Reaction Status Date / Time No Known Allergies (No Known Allergy Verified 03/24/25 08:09 Allergies*) Home Medications ?Medication ?Instructions ?Recorded ?Confirmed ?Last Taken ?Type quetiapine 25 mg tablet 25 mg PO BEDTIME 03/08/20 03/18/25 Unknown History topiramate 25 mg sprinkle capsule 25 mg PO DAILY 12/07/20 03/18/25 Unknown History zolpidem 10 mg tablet 10 mg PO BEDTIME PRN Insomnia 07/15/24 03/18/25 Unknown History ascorbic acid (vitamin C) 500 mg 500 mg PO DAILY 03/05/25 03/18/25 Unknown History tablet multivitamin with folic acid 400 1 tab PO DAILY 03/05/25 03/18/25 Unknown History mcg tablet (Daily-Dionisio (with folic acid)) Exam Pertinent Lab Results Pertinent Lab Results: Laboratory Tests 12/27/24 07:37 WBC 6.6 Hgb 11.0 L Hct 32.5 L Plt Count 290 Sodium 141 Potassium 3.6 Chloride 104 Carbon Dioxide 25 BUN 18 H Creatinine 0.97 Narrative Narrative: EKG 07/2024 Vent. Rate : 65 BPM Atrial Rate : 65 BPM P-R Int : 144 ms QRS Dur : 88 ms QT Int : 416 ms P-R-T Axes : 60 -4 37 degrees QTcB Int : 432 ms Normal sinus rhythm with sinus arrhythmia Nonspecific T wave abnormality Abnormal ECG When compared with ECG of 25-Sep-2022 10:18, Nonspecific T wave abnormality now evident in Anterior leads Assessment and Plan Assessment Anesthesia Assessment: Chart Reviewed Documented by User: Melina Fraga MD 03/24/25 09:26 [facility] Past Medical History Medical History DCIS (ductal carcinoma in situ) Breast calcification, right DMII (diabetes mellitus, type 2) COVID-19 Lumbar radiculopathy Asthma Gross hematuria Migraines Myofascial pain HLD (hyperlipidemia) HTN (hypertension) Family History Family History Father No problems noted. Mother No problems noted. Sister Breast cancer Brother Prediabetes Daughter Liver problem Other Gross hematuria Family history of problems with anesthesia: No Surgical History Surgical History History of esophagogastroduodenoscopy (EGD) Hx of colonoscopy History of tubal ligation History of Problems with Anesthesia: No Social History Social History Housing: House Alcohol intake: never Patient Tobacco Use Status: Never used Tobacco Tobacco use type: Cigarette e-Cigarette/Vaping Use: Never Used Second Hand Smoke Exposure: No Advance Directives: No Advance Directives Information Provided: Yes service: No Current occupational status: retired Cognitive needs: No Hearing needs: No Vision needs: Yes Meds Allergies Allergy/AdvReac Type Severity Reaction Status Date / Time No Known Allergies (No Known Allergy Verified 03/24/25 08:09 Allergies*) Home Medications ?Medication ?Instructions ?Recorded ?Confirmed ?Last Taken ?Type quetiapine 25 mg tablet 25 mg PO BEDTIME 03/08/20 03/18/25 Unknown History topiramate 25 mg sprinkle capsule 25 mg PO DAILY 12/07/20 03/18/25 Unknown History zolpidem 10 mg tablet 10 mg PO BEDTIME PRN Insomnia 07/15/24 03/18/25 Unknown History ascorbic acid (vitamin C) 500 mg 500 mg PO DAILY 03/05/25 03/18/25 Unknown History tablet multivitamin with folic acid 400 1 tab PO DAILY 03/05/25 03/18/25 Unknown History mcg tablet (Daily-Dionisio (with folic acid)) Exam Airway Mallampati Class: II TM Dist: >3cm Neck ROM: Full Heart: rrr Lungs: cta Assessment and Plan Assessment Anesthesia Assessment: Anesthesia Plan Discussed Final Anesthetic Review Family History of Problems with Anesthesia: No History of Problems with Anesthesia: No NPO: Yes ASA Class: III Final Preanesthetic Review: No Changes in Pt Med Stat, Meds/Allgs Chart Reviewed, Consent Obtained/Reviewed and Anes Risks/Benef Reviewed Patient Risk: Intermediate Procedure Risk: Intermediate Anesthetic Plan Anesthetic Plan: GA and Agree w/ Assess. and Plan Disposition: Standard PACU
[2025-03-18 16:16] VITALS: BMI 20.4
[2025-03-24] VITALS (7 sets, daily range): BP systolic 123–143; BP diastolic 36–69; PULSE 58–78; RESP 10–20; TEMP 36.1–36.6; O2SAT 98–100; BMI 21.0
--- NOTE | ~2025-03-24 | MM_ITS ---
Right single specimen radiograph demonstrates the biopsy clip (presumed top hat shape clip) and the LOCalizer tag within the specimen. Results were communicated to the operating room when the images are available for review. Electronically signed by: Matthias Hernandez MD 03/24/2025 11:25 AM [facility]
[2025-03-24 08:06] LABS: Glucose, Whole Blood 114 mg/dL (60-115)
--- NOTE | 2025-03-24 08:44 | MHC.SHP ---
Pre-Procedural Eval Section A - 24 Hr Update-Section A only Date of Service: 03/24/25 The patient is an INPATIENT: No Changes since office visit: No Cold of Flu in the past 2 weeks, No New Medical Problems, No Changes in Medication and No Patient answered all questions The patient has been examined within 24 hours of the surgical procedure. The History & Physical has been completed within 30 days and I have reviewed it.: Yes Section B - Complete if H&P > 30 days Chief Complaint: Intraductal carcinoma in situ of unspecified breas Allergies: Allergies Allergy/AdvReac Type Severity Reaction Status Date / Time No Known Allergies (No Known Allergy Verified 03/24/25 08:09 Allergies*) Plan I have reviewed the history and physical and performed a pertinent physical examination on my patient. No changes have occurred unless specified. Time Spent With Patient Time: Total time managing care of this patient today ____ minutes.
--- NOTE | 2025-03-24 11:31 | W.PM.OPN ---
Operative Note Operative Note Date of Service: 03/24/25 Narrative: Preop diagnosis: DCIS, right breast Postop diagnosis: DCIS, right breast Procedure: Lumpectomy, right breast with the Hologic localizer Surgeon: Zeus Smith MD commercial lending assistant: SANA Gurrola The patient is a 64 year old female with a recent diagnosis of DCIS of the right breast, here for lumpectomy via the Hologic localizer. She understood the technique of the planned procedure and she was aware of the risks, benefits, and alternatives She was brought to the operating room. She was placed supine under general anesthesia via laryngeal mask airway with the right arm abducted. The right breast was prepped and draped in the usual sterile fashion. A surgical time-out was done. The patient received cefazolin 2 g IV preoperatively. I used the Hologic localizer to identify the optimal site for the incision on the upper part of the breast. This was marked. I infiltrated this area with lidocaine 1%. I made the incision with a blade 15 transversely. This incision was carried down through the full-thickness of the skin and subcutaneous fat with electrocautery. I then used the curved Rowan scissors to gently approximate site of the clips. I periodically used the Hologic localizer probe to make sure that we had the lesion within the specimen. We circumferentially dissected all the way down to the posterior margin. I also periodically palpated the surrounding breast tissue to make sure that there were no palpable lesions This entire specimen was delivered. I marked the lateral and the superior margins with sutures. Immediate re-ray of the specimen showed that both the biopsy clip as well as the RF ID clip were within the specimen We irrigated the excision site. We observed for hemostasis. I cauterized oozing areas. Once hemostasis was confirmed, I proceeded to reappose the deep breast tissue with Polysorb 3-0 simple interrupted sutures. I brought down the specimen to pathology. The margins were reviewed with the pathologist and these appeared to be grossly adequate. I went back up to the operating room. The skin incision was closed completely. The area was infiltrated with Marcaine 0.5% for postop analgesia. Dressings were applied. The procedure was completed. The patient tolerated the procedure well. There were no immediate complications. Initial and final counts of sponges and instruments were correct. Estimated blood loss was about 25 cc The patient was then extubated without difficulty and transferred to the recovery room with stable vital signs.
[2025-03-24] MEDS: oxyCODONE HCl Immed Release 5 MG TABLET PO (12:24)
== END 2025-03-24 13:52 | disposition home or self-care (01) ==
PROVIDERS: PCP Physician Assistant; Visit Provider Surgery
PROC: (CPT 19301; principal; 2025-03-24 09:30)
DX: D05.11 Intraductal carcinoma in situ of right breast (principal); Z17.0 Estrogen receptor positive status [ER+]; Z17.22 Progesterone receptor negative status; Z80.3 Family history of malignant neoplasm of breast; I10 Essential (primary) hypertension; E78.5 Hyperlipidemia, unspecified; E11.9 Type 2 diabetes mellitus without complications; J45.909 Unspecified asthma, uncomplicated; M54.16 Radiculopathy, lumbar region; M79.18 Myalgia, other site; G43.909 Migraine, unspecified, not intractable, without status migrainosus; Z79.899 Other long term (current) drug therapy; Z79.1 Long term (current) use of non-steroidal anti-inflammatories (NSAID); Z79.84 Long term (current) use of oral hypoglycemic drugs; Z79.51 Long term (current) use of inhaled steroids; Z98.51 Tubal ligation status
CPT/HCPCS: 19301; 82947; 88307; J0525; J0690; J1100; J2003; J2250; J2405; J2704; J2795; J3010

== ENCOUNTER → 2025-03-24 06:34 | Outpatient (BNV) | payer OTHER, SELFPAY | PROVIDERS: PCP Physician Assistant; Visit Provider Surgery | DX: D05.11 Intraductal carcinoma in situ of right breast (principal) | CPT/HCPCS: 19301 ==

== ENCOUNTER 2025-03-25 17:42 | Emergency (ER) | payer OTHER, SELFPAY ==
[2025-03-25 18:14] VITALS: BP 136/63; PULSE 65; RESP 18; TEMP 36.3; O2SAT 99; BMI 22.6
--- NOTE | 2025-03-25 18:23 | ED.GENADULT ---
HPI - General Adult General Chief complaint: General Medical Stated complaint: post surgical bleeding Time Seen by Provider: 03/25/25 21:25 Source: patient and family Limitations: no limitations and language barrier History of Present Illness ED Provider: Yamile Peterson PA-C HPI narrative: 64-year-old female with a history of DCIS of the right breast now status post lumpectomy on March [address] Smith, presents with bleeding from the surgical site. Patient developed some oozing at the site, she is requesting a dressing change. No new discomfort, redness, swelling or purulent drainage. Related Data Home Medications ?Medication ?Instructions ?Recorded ?Confirmed quetiapine 25 mg tablet 25 mg PO BEDTIME 03/08/20 03/18/25 topiramate 25 mg sprinkle capsule 25 mg PO DAILY 12/07/20 03/18/25 zolpidem 10 mg tablet 10 mg PO BEDTIME PRN Insomnia 07/15/24 03/18/25 ascorbic acid (vitamin C) 500 mg 500 mg PO DAILY 03/05/25 03/18/25 tablet multivitamin with folic acid 400 1 tab PO DAILY 03/05/25 03/18/25 mcg tablet (Daily-Dionisio (with folic acid)) Previous Rx's ?Medication ?Instructions ?Recorded comp.stocking,knee,long,medium #2 ea 02/16/20 loratadine 10 mg tablet (Allergy 10 mg PO DAILY 90 days #90 tabs 08/18/21 Relief (loratadine)) methyl salicylate 30 %-menthol 10 1 appl topical TID 30 days #85 10/27/21 % topical cream (Icy Hot) grams gabapentin 300 mg capsule 300 mg PO BEDTIME #30 caps 02/16/22 back brace #1 ea 04/03/22 meloxicam 15 mg tablet 15 mg PO DAILY PRN pain 30 days 04/07/22 #30 tabs naproxen 500 mg tablet 500 mg PO BID PRN pain #30 tabs 05/03/22 albuterol sulfate 90 mcg/actuation 2 puff inhalation Q4-6H PRN 07/25/22 aerosol inhaler (Ventolin HFA) shortness of breath or wheezing #6.7 grams pen needle, diabetic 33 gauge x #100 ea 08/09/2204/26 Lactobacillus rhamnosus GG 15 1 cap PO DAILY 30 days #30 caps 08/14/22 billion cell sprinkle capsule (Culturelle) clotrimazole 1 % vaginal cream 1 appful vaginal BEDTIME 7 days 01/09/23 #45 grams acetic acid 2 % ear solution 3 drp otic (ear) left TID 30 days 05/15/23 #15 mL lancets 28 gauge (FreeStyle #100 ea 09/24/23 Lancets) mederma #1 ea 10/15/23 diclofenac sodium 1 % topical gel 2 g topical QID #100 grams 10/18/23 (Voltaren Arthritis Pain) sumatriptan succinate 25 mg tablet See Rx Instructions PO .COMPLEX 30 11/07/23 days #9 tabs montelukast 10 mg tablet 10 mg PO DAILY 90 days #90 tabs 12/30/23 aluminum-mag hydroxide-simethicone 10 ml PO QID PRN indigestion #355 01/21/24 200 mg-200 mg-20 mg/5 mL oral susp mL (Maalox Advanced) miconazole nitrate 2 % vaginal 1 appful vaginal BEDTIME 7 days 02/05/24 cream #45 grams bepotastine besilate 1.5 % eye 1 drp ophthalmic (eye) BID PRN eye 06/18/24 drops (Bepreve) irritation 30 days #10 mL acetaminophen 500 mg tablet 500 mg PO Q6H PRN fever 30 days 06/24/24 #120 tabs tvmmumowvw-vzregxeaijjxx-gnnbeton 1 cap PO Q6H PRN pain 4 days #16 06/24/24 50 mg-325 mg-40 mg capsule caps triamcinolone acetonide 0.1 % 1 appl topical DAILY PRN skin 06/25/24 topical ointment irritation 30 days #30 grams ascorbate calcium (vitamin C) 500 500 mg PO DAILY 90 days #90 tabs 07/15/24 mg tablet fluoxetine 40 mg capsule 40 mg PO DAILY 90 days #90 caps 07/15/24 hydrochlorothiazide 12.5 mg capsule 12.5 mg PO DAILY 90 days #90 caps 07/15/24 Held on 01/01/25. Instructions: Doctor's Order hydroxyzine HCl 25 mg tablet 25 mg PO TID 7 days #21 tabs 07/28/24 olopatadine 0.2 % eye drops 1 drp ophthalmic (eye) DAILY 30 08/19/24 days #2.5 mL psyllium husk 3.4 gram/5.4 gram 1 tbsp PO DAILY PRN constipation 09/08/24 oral powder (Metamucil) 30 days #660 grams multivitamin (Daily-Dionisio tablet) 1 tab PO DAILY #90 tabs 10/13/24 omeprazole 40 mg capsule,delayed 40 mg PO DAILY 90 days #90 caps 10/31/24 release lidocaine 5 % topical patch 1 patch topical DAILY 30 days #30 11/07/24 ea sennosides 8.6 mg tablet (senna) 17.2 mg (2 x 8.6 mg) PO BEDTIME 12/29/24 #180 tabs vitamin E (dl, acetate) 180 mg 180 mg PO DAILY 90 days #90 caps 01/07/25 (400 unit) capsule atorvastatin 20 mg tablet 20 mg PO DAILY 90 days #90 tabs 02/11/25 cholecalciferol (vitamin D3) 25 25 mcg PO DAILY 90 days #90 tabs 02/11/25 mcg (1,000 unit) tablet clonazepam 1 mg tablet 1 mg PO BEDTIME 30 days #30 tabs 02/12/25 omega 5-fie-ilw-fish oil 60 mg-90 1 cap PO BID 90 days #180 caps 02/12/25 mg-500 mg capsule (Fish Oil) blood sugar diagnostic (OneTouch #100 ea 02/19/25 Verio test strips) blood-glucose meter (OneTouch #1 ea 02/19/25 Verio Flex Meter) alcohol swabs (Alcohol Prep Pads) 1 pad topical DAILY 90 days #100 ea 02/23/25 metformin 500 mg tablet 500 mg PO BID 90 days #180 tabs 03/11/25 ketoconazole 2 % shampoo 1 appl topical 2XW 30 days #120 mL 03/18/25 polyethylene glycol 3350 17 gram 17 g PO DAILY PRN Constipation 30 03/20/25 oral powder packet (Miralax) days #30 ea fluticasone propionate 50 2 spray intranasal BID #16 grams 03/21/25 mcg/actuation nasal spray,suspension ibuprofen 600 mg tablet 600 mg PO Q6H PRN pain #20 tabs 03/24/25 oxycodone 5 mg tablet 5 mg PO Q4H PRN pain #20 tabs 03/24/25 Allergies Allergy/AdvReac Type Severity Reaction Status Date / Time No Known Allergies (No Known Allergy Verified 03/25/25 18:18 Allergies*) Review of Systems Review of Systems: Yes all other systems are reviewed and are negative Constitutional: Constitutional: Denies fatigue and Denies fever(s) Cardiovascular: Cardiovascular: Denies chest pain and Denies dyspnea Respiratory: Respiratory: Denies dyspnea Gastrointestinal: Gastrointestinal: Denies abdominal pain Integumentary/Breasts: Skin/Breast: Denies erythema, Denies skin swelling and Reports wounds Endocrine: Endocrine: Denies fatigue PMFSH Past Medical History Attestation statement: The following information was validated with the patient. Medical History DCIS (ductal carcinoma in situ) Breast calcification, right DMII (diabetes mellitus, type 2) COVID-19 Lumbar radiculopathy Asthma Gross hematuria Migraines Myofascial pain HLD (hyperlipidemia) HTN (hypertension) Surgical History History of esophagogastroduodenoscopy (EGD) Hx of colonoscopy History of tubal ligation Family History Family History Father No problems noted. Mother No problems noted. Sister Breast cancer Brother Prediabetes Daughter Liver problem Other Gross hematuria Social History Social History Housing: House Alcohol intake: never Comment: c orrect count Patient Tobacco Use Status: Never used Tobacco Tobacco use type: Cigarette e-Cigarette/Vaping Use: Never Used Second Hand Smoke Exposure: No Advance Directives: No Advance Directives Information Provided: Yes Do you have a plan to hurt others: No Plan service: No Current occupational status: retired Cognitive needs: No Hearing needs: No Vision needs: Yes Physical Exam ED Vital Signs: Vital Signs - 24 hr 03/25/25 18:14 03/25/25 21:30 03/25/25 22:32 Temperature 97.3 F 97.3 F 97.7 F Pulse Rate 65 60 67 Respiratory Rate 18 16 Blood Pressure 136/63 142/63 H 124/78 Pulse Oximetry 99 97 97 Oxygen Delivery Method Room Air Room Air Room Air BMI result Body Mass Index 22.6 Const Other: Alert well-appearing Orientation/consciousness: patient oriented x3 Chest Other: Some of the tissue of the right breast is contused, the incision line itself is without erythema warmth or purulent drainage, the tissue was approximated, it was covered with Steri-Strips, no active bleeding at this time Resp Effort & Inspection: normal respiratory effort Cardio Other: Normal peripheral perfusion Skin Other: Warm dry no rash Neuro General: patient oriented x3, gait normal, no focal motor deficits and CN's II-XI intact bilaterally Psych Other: Cooperative Course Course Course Narrative: RME: 64 year female presents to ED for bleeding from right breast postop surgery for breast cancer that occurred yesterday. Patient has called the surgeon totaled called to the ED. Labs to be ordered. Medical Decision Making Medical Decision Making [facility] Narrative: 64-year-old female with a history of DCIS of the right breast now status post lumpectomy on March [address] Smith, presents with bleeding from the surgical site. Patient developed some oozing at the site, she is requesting a dressing change. No new discomfort, redness, swelling or purulent drainage. Problem: Recent surgery History: Per patient and her daughter who acts as barrel polisher inside I have considered the following differential diagnoses: Cellulitis, purulent cellulitis, serosanguineous fluid, postoperative bleeding Plan: The incision site is clean and dry, she did have some oozing that has stopped. The site was redressed, she can continue follow up with Dr. Smith as previously instructed. Differential Diagnosis Differential Diagnoses: The differential diagnosis associated with the presentation includes See medical decision-making Admission/Observation Consideration of admission/observation: Escalation of care including admission/observation considered Not applicable Discharge Plan Discharge Clinical Impression: Bleeding Patient Disposition: Home, Self-Care Additional Instructions: It can be normal to have small amounts of bleeding from the surgical site. Keep the area clean and dry. Reapply the Steri-Strips as needed. Keep your pending follow up with your surgeon. Prescriptions: No Action (DME) comp.stocking,knee,long,medium Misc See Rx Instructions .ROUTE .MEDSUPPLY Qty: 2 0RF Rx Instructions: As directed quetiapine 25 mg tablet 25 mg PO BEDTIME loratadine [Allergy Relief (loratadine)] 10 mg tablet 10 mg PO DAILY 90 Days Qty: 90 2RF Icy Hot 30-10 % cream 1 appl topical TID 30 Days Qty: 85 0RF (DME) back brace Misc See Rx Instructions .Route Qty: 1 0RF Rx Instructions: As directed naproxen 500 mg tablet 500 mg PO BID PRN (Reason: pain) Qty: 30 0RF Rx Instructions: Take with food albuterol sulfate [Ventolin HFA] 90 mcg/actuation HFA aerosol inhaler 2 puff inhalation Q4-6H PRN (Reason: shortness of breath or wheezing) Qty: 6.7 3RF (DME) pen needle, diabetic 33 gauge x 1/4 needle See Rx Instructions .Route Qty: 100 0RF Rx Instructions: once per day acetic acid 2 % solution 3 drp otic (ear) left TID 30 Days Qty: 15 0RF Rx Instructions: apply to (cotton) wick; replace wick every 24 hours (DME) lancets [FreeStyle Lancets] 28 gauge misc See Rx Instructions .ROUTE .MEDSUPPLY Qty: 100 3RF Rx Instructions: As directed (DME) mederma See Rx Instructions .Route .MEDSUPPLY Qty: 1 3RF Rx Instructions: As directed diclofenac sodium [Voltaren Arthritis Pain] 1 % gel 2 g topical QID Qty: 100 0RF Rx Instructions: apply to single elbow, wrist or hand; for hand includes palm/fingers/back of hand sumatriptan succinate 25 mg tablet See Rx Instructions PO .COMPLEX 30 Days Qty: 9 6RF Rx Instructions: take 1 tab at onset of headache; if no relief may repeat 1 tab after at least 2 hrs; max = 4 tabs/24 hr PO montelukast 10 mg tablet 10 mg PO DAILY 90 Days Qty: 90 1RF alum-mag hydroxide-simeth [Maalox Advanced] 200-200-20 mg/5 mL suspension 10 ml PO QID PRN (Reason: indigestion) Qty: 355 0RF Rx Instructions: administer between meals and at bedtime miconazole nitrate 2 % cream 1 appful vaginal BEDTIME 7 Days Qty: 45 2RF bepotastine besilate [Bepreve] 1.5 % drops 1 drp ophthalmic (eye) BID PRN (Reason: eye irritation) 30 Days Qty: 10 2RF acetaminophen 500 mg tablet 500 mg PO Q6H PRN (Reason: fever) 30 Days Qty: 120 0RF jptnpuxwfw-fndaasclvwcpe-oohx 50-325-40 mg capsule 1 cap PO Q6H PRN (Reason: pain) 4 Days Qty: 16 0RF triamcinolone acetonide 0.1 % ointment 1 appl topical DAILY PRN (Reason: skin irritation) 30 Days Qty: 30 0RF hydroxyzine HCl 25 mg tablet 25 mg PO TID 7 Days Qty: 21 0RF Rx Instructions: Advised to hold clonazepam and loratadine. olopatadine 0.2 % drops 1 drp ophthalmic (eye) DAILY 30 Days Qty: 2.5 0RF Metamucil 3.4 gram/5.4 gram powder 1 tbsp PO DAILY PRN (Reason: constipation) 30 Days Qty: 660 1RF Rx Instructions: mix into at least 8 oz of water or juice before administering multivitamin [Daily-Dionisio] Tablet 1 tab PO DAILY Qty: 90 4RF omeprazole 40 mg capsule,delayed release(DR/EC) 40 mg PO DAILY 90 Days Qty: 90 1RF lidocaine 5 % adhesive patch,medicated 1 patch topical DAILY 30 Days Qty: 30 6RF Rx Instructions: leave on most painful area for up to 12 hrs sennosides [senna] 8.6 mg tablet 17.2 mg PO BEDTIME Qty: 180 0RF vitamin E (dl, acetate) 180 mg (400 unit) capsule 180 mg PO DAILY 90 Days Qty: 90 1RF atorvastatin 20 mg tablet 20 mg PO DAILY 90 Days Qty: 90 1RF cholecalciferol (vitamin D3) 25 mcg (1,000 unit) tablet 25 mcg PO DAILY 90 Days Qty: 90 3RF clonazepam 1 mg tablet 1 mg PO BEDTIME 30 Days Qty: 30 2RF omega 6-zxr-gwp-fish oil [Fish Oil] 60-90-500 mg capsule 1 cap PO BID 90 Days Qty: 180 1RF (DME) blood-glucose meter [OneTouch Verio Flex meter] Misc See Rx Instructions .Route Qty: 1 0RF Rx Instructions: As directed (DME) OneTouch Verio test strips Strip See Rx Instructions .Route Qty: 100 0RF Rx Instructions: Tests once a day as needed alcohol swabs [Alcohol Prep Pads] Pads, Medicated 1 pad topical DAILY 90 Days Qty: 100 2RF metformin 500 mg tablet 500 mg PO BID 90 Days Qty: 180 3RF ketoconazole 2 % shampoo 1 appl topical 2XW 30 Days Qty: 120 0RF polyethylene glycol 3350 [Miralax] 17 gram powder in packet 17 g PO DAILY PRN (Reason: Constipation) 30 Days Qty: 30 2RF Rx Instructions: Makes 17 g packet in to 8 oz of water and drink daily fluticasone propionate 50 mcg/actuation spray,suspension 2 spray intranasal BID Qty: 16 1RF gabapentin 300 mg capsule 300 mg PO BEDTIME Qty: 30 0RF ibuprofen 600 mg tablet 600 mg PO Q6H PRN (Reason: pain) Qty: 20 0RF oxycodone 5 mg tablet 5 mg PO Q4H PRN (Reason: pain) Qty: 20 0RF Rx Instructions: Partial Fill upon patient request. Culturelle 15 billion cell capsule, sprinkle 1 cap PO DAILY 30 Days Qty: 30 3RF clotrimazole 1 % cream 1 appful vaginal BEDTIME 7 Days Qty: 45 0RF topiramate 25 mg capsule, sprinkle 25 mg PO DAILY meloxicam 15 mg tablet 15 mg PO DAILY PRN (Reason: pain) 30 Days Qty: 30 0RF Rx Instructions: Take it with food and full glass of water. Avoid other NSAIDs. zolpidem 10 mg tablet 10 mg PO BEDTIME PRN (Reason: Insomnia) ascorbate calcium (vitamin C) 500 mg tablet 500 mg PO DAILY 90 Days Qty: 90 1RF fluoxetine 40 mg capsule 40 mg PO DAILY 90 Days Qty: 90 3RF hydrochlorothiazide 12.5 mg capsule 12.5 mg PO DAILY 90 Days Qty: 90 3RF ascorbic acid (vitamin C) 500 mg tablet 500 mg PO DAILY multivitamin with folic acid [Daily-Dionisio (with folic acid)] 400 mcg tablet 1 tab PO DAILY Interventions: ED Discharge Assessment Last Done: 03/25/25 22:46 Discharge Date/Time: 03/25/25 22:47 Print Language: Lao
--- OUTSIDE RECORDS SUMMARY | 2025-03-25 19:59 | XMS_ITS | Clinical Summary ---
Author Organization [employer] Address [address] [facility] [place] [address] Care Team Providers Care Retail Operations Manager Name Role Phone Unavailable Primary Care Provider [...]
--- OUTSIDE RECORDS SUMMARY | 2025-03-25 19:59 | XMS_ITS | Encounter Summary ---
Author Organization [employer] Address [address] [facility] [address] [place] [address] Care Team Providers Care Scrap Yard Worker Name Role Phone Unavailable Primary Care Provider Unavailabl e Encounter Details Date Type Department Care Team (Latest Contact Info) Description 2019 Abstract [facility] CONVERSIONS Dental, Provider, DDS Social History [...]
--- OUTSIDE RECORDS SUMMARY | 2025-03-25 19:59 | XMS_ITS | Encounter Summary ---
Author Organization [email or web address] Address [address] [facility] [address] [place] [address] Care Team Providers Care Splicer Machine Operator Name Role Phone Unavailable Primary Care Provider Unavailabl e Encounter Details Date Type Department Care Team (Latest Contact Info) Description 05/14/2018 Abstract [facility] CONVERSIONS Dental, Provider, DDS Social History [...]
--- OUTSIDE RECORDS SUMMARY | 2025-03-25 19:59 | XMS_ITS | Encounter Summary ---
Author Organization [employer] Address [address] [facility] [address] [place] [address] Care Team Providers Care Marketing Editor Name Role Phone Unavailable Primary Care Provider Unavailabl e Encounter Details Date Type Department Care Team (Latest Contact Info) Description 07/08/2020 Abstract [facility] CONVERSIONS Dental, Provider, DDS Social History [...]
[2025-03-25 21:30] VITALS: BP 142/63; PULSE 60; RESP 16; TEMP 36.3; O2SAT 97
[2025-03-25 22:32] VITALS: BP 124/78; PULSE 67; TEMP 36.5; O2SAT 97
[2025-03-25 22:46] VITALS: BP 124/78; PULSE 67; RESP 16; TEMP 36.5; O2SAT 97
== END 2025-03-25 22:47 | disposition home or self-care (01) ==
PROVIDERS: Emergency Provider Emergency Medicine; PCP Physician Assistant
DX: L76.22 Postprocedural hemorrhage of skin and subcutaneous tissue following other procedure (principal); Y83.8 Other surgical procedures as the cause of abnormal reaction of the patient, or of later complication, without mention of misadventure at the time of the procedure; Y92.9 Unspecified place or not applicable; D05.11 Intraductal carcinoma in situ of right breast; E11.9 Type 2 diabetes mellitus without complications; E78.5 Hyperlipidemia, unspecified; I10 Essential (primary) hypertension; Z79.84 Long term (current) use of oral hypoglycemic drugs
CPT/HCPCS: 99283

== ENCOUNTER 2025-04-06 10:18 | Outpatient (AMB) | payer OTHER, SELFPAY ==
--- NOTE | 2025-04-06 10:37 | MHC.OFFVIS ---
Vital Signs 04/06/25 10:38 Height 5 ft Weight 123 lb 7.342 oz BMI 24.1 BP 134/62 Blood Pressure Location Rt brachial Position Sitting Pulse 65 Intake Visit Reasons: S/P Rt. breast lumpectomy w/localizer Intake Note: Patient presents for a post-op assessment status post Lumpectomy, right breast with the Hologic localizer. Pt c/o; no complaints petaining to surgery. Reinforcing Iron Worker Helper Required: Yes Reinforcing Iron Worker Helper Language: Fire Alarm Mechanic Services: Reinforcing Iron Worker Helper Present (Claudia) Reinforcing Iron Worker Helper Name: FiorANGIESaroj Information Interpreted: non-clinical & clinical Accompanied by: Self / Same As Patient Allergies No Known Allergies (No Known Allergies*) Allergy (Verified 04/06/25 10:50) HPI HPI S/P Rt. breast lumpectomy w/localizer: Details: She had undergone right breast lumpectomy with the Hologic localizer for DCIS last 03/24/2025. She tolerated the procedure well. She says she is doing well currently and denies significant pain. She does admit to going to the emergency room the day after the procedure because she noted blood on the dressings. She feels well overall. [facility] Medical History DCIS (ductal carcinoma in situ) Breast calcification, right DMII (diabetes mellitus, type 2) COVID-19 Lumbar radiculopathy Asthma Gross hematuria Migraines Myofascial pain HLD (hyperlipidemia) HTN (hypertension) Surgical History History of lumpectomy of right breast (~03/24/25) History of esophagogastroduodenoscopy (EGD) Hx of colonoscopy History of tubal ligation Family History Father No problems noted. Mother No problems noted. Sister Breast cancer Brother Prediabetes Daughter Liver problem Other Gross hematuria Social History Housing: House Alcohol intake: never Comment: c orrect count Patient Tobacco Use Status: Never used Tobacco Tobacco use type: Cigarette e-Cigarette/Vaping Use: Never Used Second Hand Smoke Exposure: No service: No Current occupational status: retired Cognitive needs: No Hearing needs: No Vision needs: Yes Female Reproductive History Menstrual Age of Menarche: 10 Review of Systems Const Denies chills and Denies fever(s) Card Denies chest pain at rest Resp Denies cough Physical Exam Vital Signs: Last Vital Signs Pulse 65 04/06/25 10:38 BP 134/62 04/06/25 10:38 BMI result Body Mass Index 24.1 Const General: comfortable and no acute distress Chest Other: Right breast lumpectomy site well healed, with some mild discoloration but otherwise incision is well healed Assessment & Plan Assessment & Plan (1) DCIS (ductal carcinoma in situ): Code(s): D05.10 - Intraductal carcinoma in situ of unspecified breast Category: Medical Plan: Status post lumpectomy with the Hologic localizer for DCIS. She is doing very well. The incision is well healed Path report confirms DCIS, ER positive [place] negative. The margins are described to be less than 1 mm from the medial area and 1 mm of the superior area. I will discuss this margins with Dr. Toth as sometimes, we may need to re-excise for additional margins. However, she is going to undergo radiation for the breast so this may be adequate treatment as well We will discuss the above with Dr. Toth. I will see her again in the office next month. Coding Level of Care Code Global (80420) Diagnoses DCIS (ductal carcinoma in situ) D05.10
[2025-04-06 10:38] VITALS: BP 134/62; PULSE 65; BMI 24.1
== END 2025-04-06 11:09 | disposition home or self-care (01) ==
LOC: HO.HGS 10:19
PROVIDERS: PCP Physician Assistant; Visit Provider Surgery
DX: D05.10 Intraductal carcinoma in situ of unspecified breast (principal)
CPT/HCPCS: 99024

== ENCOUNTER → 2025-04-06 10:18 | Outpatient (BNVA) | payer OTHER, SELFPAY | PROVIDERS: PCP Physician Assistant; Visit Provider Surgery | DX: D05.10 Intraductal carcinoma in situ of unspecified breast (principal); Z98.890 Other specified postprocedural states | CPT/HCPCS: 99212 ==

== ENCOUNTER → 2025-04-08 12:57 | Outpatient (BNV) | payer OTHER, SELFPAY | PROVIDERS: PCP Physician Assistant; Referring Provider Physician Assistant; Visit Provider Internal Medicine | DX: D05.11 Intraductal carcinoma in situ of right breast (principal) | CPT/HCPCS: 99205; G2211 ==